=== PATIENT | female | born 1960 | race Caucasian/White ===

== ENCOUNTER 2023-08-02 22:19 | Emergency (ER) | payer OTHER, SELFPAY ==
[2023-08-02 22:22] VITALS: BP 137/81
--- NOTE | 2023-08-03 00:18 | ED.MUSCINJ ---
HPI-Injury
General
Chief Complaint: Fall
Source: patient
Time Seen by Provider: 08/02/23 23:47
Nursing documentation reviewed up to this point in time: agreed with
History of Present Illness-Injury
Initial Injury comments:
This a pleasant 62-year-old female who tripped and fell into an entertainment center. She did strike her head on the furniture. She denies loss of consciousness. She is not on any blood thinners. She remembers the fall. She has no other
complaints. She was ambulatory at the scene. She did suffer a 3 cm lack to her right parietal scalp. She does have a superficial abrasion to her forehead. Reports no other injuries.
Past History
Past History
ED Past Medical History: GERD, IDDM and Other (Alcoholic cirrhosis with ascites, hyponatremia, pancreatitis)
ED Past Surgical History: Cholecystectomy
Social History
Tobacco: Non-smoker
Alcohol: Former
Drug: None
Living: with family (with son)
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
Family History: Cancer
Review of Systems
Review of Systems
Allergies reviewed?: Yes
All Other Systems: ROS reviewed and negative except as documented in HPI and ROS
Constitutional: Reports no symptoms
EENT: Reports no symptoms
Respiratory: Reports no symptoms
Cardiac: Reports no symptoms
ABD/GI: Reports no symptoms
: Reports no symptoms
Musculoskeletal: Reports no symptoms
Skin: Reports no symptoms
Neurological: Reports headache
Endocrine: Reports no symptoms
Hematologic/Lymphatic: Reports no symptoms
Psychiatric: Reports anxiety
Skin Exam
Laceration
Right Parietal:
Length in cm: 3
Orientation: horizontal
Type of Laceration: simple
Any active bleeding?: no active bleeding
Distal skin color and temperature: normal-warm & good color
Phy Exam
General Physical Exam
General Presentation: well appearing and no apparent distress
General age: appears stated age
General Skin: warm and dry
General Habitus: normal
General Mental: alert
General Hydration: appears well hydrated
ENT Exam
ENT Exam: EOMI, neck supple, normocephalic and swallowing well
Cardiovascular Exam
Cardiovascular Exam: regular rate/rhythm and no edema
Pulmonary Exam
Pulmonary Exam: lungs clear, no respiratory distress and no cough
Musculoskeletal Exam
Musculoskeletal Exam: full ROM
Skin Exam
Skin Exam: normal color and warm/dry
Psychiatric Exam
Psychiatric Exam: normal mood/affect
Injury Course
Orders/Labs/Results
Orders:
Orders
08/02/23 22:27
CT Head W/o Iv Contrast Urgent
Comment:
Reason For Exam: FALL HEAD STRIK
08/03/23 00:18
Tetanus/Diphth/Acelpertussis [Adacel] 0.5 ml IM .ONCE ONE
*Critical Care Note
Total Time (30-74mins, 75-104mins- exclusive of procedures): Not Applicable
ED Attending Note
-
Portions of this chart may have been created with voice recognition software.� Occasional wrong word or��sound alike� substitutions may have occurred due to the inherent limitations of voice recognition software.
Discharge Plan
Departure
Patient Disposition: Home (Routine Discharge)
Date of Disposition: 08/03/23
Time of Disposition: 00:22
Patient with high blood pressure during this ER visit?: Yes
Discharge Problem:
Laceration of scalp, Fall
Instructions: Wound Care (DC), Head Injury in Adults (DC), Laceration Repair With Jenelle (DC), Skin Abrasions (DC), BLOOD PRESSURE
Prescriptions:
No Action
omeprazole 20 MG capsule,delayed release(DR/EC)
20 mg PO DAILY
loratadine 10 MG tablet
10 mg PO DAILY
spironolactone 50 MG tablet
100 mg PO DAILY
escitalopram oxalate 5 MG tablet
5 mg PO HS
insulin NPH and regular human [Novolin 70-30 FlexPen U-100] 100 UNIT/ML insulin pen
14 unit SQ DAILY@1700
insulin NPH and regular human [Novolin 70-30 FlexPen U-100] 100 UNIT/ML insulin pen
18 unit SQ DAILY
glucos sul [id number] [Glucosamine Chondroitin] 1 EACH capsule
2 ea PO DAILY
furosemide 40 MG tablet
40 mg PO DAILY Qty: 1 0RF
rifaximin [Xifaxan] 550 MG tablet
550 mg PO BID Qty: 120 0RF
lactulose 30 ML solution
30 ml PO Q6H Qty: 500 0RF
Referrals:
Kathleen Navarro PA-C [Family Provider] -
Activity Restrictions/Additional Instructions:
Your tetanus shot was updated tonight
It was a pleasure meeting you and taking part in your care. We hope for your continued healing and wellness.
Please read discharge instructions in their entirety. However, they are for general education and may not describe your exact diagnosis at discharge. Information on your ER visit and medical conditions were discussed with you along with appropriate
follow up information...
If indicated, please take your medications as instructed and indicated on discharge paperwork.
Please schedule a follow up appointment as directed. Call to schedule an appointment
Please return to the emergency department with ANY change in, persisting, or worsening of symptoms. If any of your symptoms do not improve, or persist, or become more severe within 6-12 hours, please return to the emergency department for further
care.
Please return to the emergency department if you develop a headache, neck pain/stiffness, fever greater than 100.4F, chest pain, shortness of breath, persistent nausea, vomiting, slurred speech, difficulty walking, numbness/tingling, weakness, signs
of infection or any other symptoms that are worrisome to you.
If you have any questions or concerns please do not hesitate to call the Hospital at or E-mail me directly at [email or web address]
Interventions
Interventions:
*Risk Screen - Suicide Last Done: 08/03/23 00:30
*General Assessment Last Done: 08/02/23 22:22
*Neglect/Abuse Screening Last Done: 08/03/23 00:30
*Nursing Disposition Last Done: 08/03/23 00:30
ED-Musculoskeletal Assessment Last Done: 08/02/23 23:37
ED- Neurological Assessment Last Done: 08/02/23 23:37
ED-Skin Assessment Last Done: 08/02/23 23:37
Discharge Date and Time
Discharge Date/Time: 08/03/23 00:31
Print Language: MONGOLIAN
[2023-08-03] MEDS: ADACEL 0.5 ML IM (00:21)
[2023-08-03 00:30] VITALS: BP 126/67
== END 2023-08-03 00:31 | disposition home or self-care (01) ==
LOC: EMR 22:19
PROVIDERS: EMERGENCY PHYSICIAN Student in an Organized Health Care Education/Training Program; FAMILY PHYSICIAN Physician Assistant
DX: S01.01XA Laceration without foreign body of scalp, initial encounter (principal); W01.0XXA Fall on same level from slipping, tripping and stumbling without subsequent striking against object, initial encounter; K21.9 Gastro-esophageal reflux disease without esophagitis; E11.9 Type 2 diabetes mellitus without complications; K70.30 Alcoholic cirrhosis of liver without ascites; E87.1 Hypo-osmolality and hyponatremia; Z90.49 Acquired absence of other specified parts of digestive tract
CPT/HCPCS: 99284; 90471; 70450; 90715

== ENCOUNTER 2024-02-11 21:41 | Inpatient (IN) | payer OTHER, SELFPAY ==
[2024-02-11] VITALS (7 sets, daily range): BP systolic 110–142; BP diastolic 60–87
--- NOTE | 2024-02-11 17:08 | ED.GENMED ---
History of Present Illness
General
Chief Complaint: Hallucinations
Source: patient
Exam Limitations: none
Time Seen by Provider: 02/11/24 16:45
Nursing documentation reviewed up to this point in time: agreed with
History of Present Illness
History of Present Illness:
63-year-old female liver disease due to alcoholism last drink was 9 months ago had her son's wedding last week felt nauseous and dizzy vomited, admits to be noncompliant with her diuretic and her lactulose, noticed her eyes were turning a bit
yellow, so she took some extra lactulose did have some loose bowel movements, recently she has been seeing things that are not there, although she is oriented to person and place, denies any falls denies any head trauma denies dysuria denies
frequency denies headache she does feel tremulous and shaky
Past History
Past History
ED Past Medical History: GERD, IDDM and Other (Alcoholic cirrhosis with ascites, hyponatremia, pancreatitis)
ED Past Surgical History: Cholecystectomy
Social History
Tobacco: Non-smoker
Alcohol: Former
Drug: None
Personal:
Living: with family (with son)
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
Family History: Cancer
Review of Systems
Review of Systems
All Other Systems: Not applicable
Constitutional: Reports fatigue; Denies fever
EENT: Reports no symptoms
Respiratory: Reports no symptoms
Cardiac: Reports no symptoms
ABD/GI: Reports nausea
: Reports no symptoms
Skin: Reports no symptoms
Neurological: Reports dizzy; Denies headache
Psychiatric: Reports hallucinations (Visual not auditory)
Phy Exam
Physical Exam
Physical Exam:
Physical Exam
General: no apparent distress, not acutely ill
Neck: Slight icterus
Heart: s1/s2 regular rate and rhythm, no murmur. equal radial pulses.
Lungs: no acute respiratory distress. clear bilaterally
Abdomen: Nontender
Neuro: alert and oriented. Positive asterixis
Skin: no rash
Psychiatric: Cooperative
Extremities: no edema.
Course
Orders/Labs/Results
Orders:
Orders
02/11/24 16:45
Electrocardiogram (*1) Urgent
Reason for Study: Shortness of Breath
EKG- Treatment ONCE
02/11/24 16:47
Ammonia Urgent
Comprehensive Metabolic Panel Urgent
PT/INR [Prothrombin Time] Urgent
PTT Urgent
Serum Osmolality Urgent
TSH Reflex To Free T4 Urgent
02/11/24 16:48
Complete Blood Count/With Diff Urgent
Osmolality, Random Urine Urgent
Comment: ADD ON
Urine Sodium Urgent
Comment: ADD ON
02/11/24 16:57
CT Head W/o Iv Contrast Urgent
Comment:
Reason For Exam: ataxia vomiting
02/11/24 18:16
UA [Urinalysis] Urgent
Date Specimen was Collected: 02/11/24
Time Specimen was Collected: 18:15
Urine Microscopic Urgent
Date Specimen was Collected: 02/11/24
Time Specimen was Collected: 18:15
02/11/24 19:56
Add On- LAB Urgent
Tests Added?: tsh, serum osm, urine sodium, urine osm,
02/11/24 20:15
0.9% Sodium Chloride 1000 ml [Nss] 1,000 ml IV 80 mls/hr
Abnormal Lab Results
02/11/24 02/11/24 02/11/24
16:47 16:48 18:16
WBC 3.2 L 10^3/uL
(4.8-10.8)
RBC 3.65 L 10^6/uL
(4.20-5.40)
MCV 102.7 H fL
(81.0-99.0)
MCH 35.1 H pg
(27.0-31.0)
Absolute Lymphs (auto) 0.5 L 10^3/uL
(1.2-3.4)
Lymphocytes % 15.9 L %
(20.5-51.1)
PT 17.1 H Sec
(11.4-14.6)
Sodium 129 L mmol/L
(135-145)
Chloride 95 L mmol/L
(98-107)
Carbon Dioxide 20 L mmol/L
(22-30)
Creatinine 0.5 L mg/dL
(0.6-1.0)
Glucose 185 H mg/dl
(70-99)
Total Bilirubin 6.9 H mg/dl
(0.2-1.3)
AST 246 H U/L
(14-36)
ALT 77 H U/L
(0-35)
Urine Ketones 1+ A
(Negative)
Urine Occult Blood 1+ A
(Negative)
Urine Nitrite Positive A
(Negative)
Urine Bilirubin 1+ A
(Negative)
Urine Urobilinogen 3+ A
(Neg - 1+)
Ur Leukocyte Esterase 1+ A
(Negative)
Urine WBC 30-40 A /HPF
(0-5)
Urine Bacteria Moderate A
(Negative)
POC Glucose
02/11/24
19:56
WBC
RBC
MCV
MCH
Absolute Lymphs (auto)
Lymphocytes %
PT
Sodium
Chloride
Carbon Dioxide
Creatinine
Glucose
Total Bilirubin
AST
ALT
Urine Ketones
Urine Occult Blood
Urine Nitrite
Urine Bilirubin
Urine Urobilinogen
Ur Leukocyte Esterase
Urine WBC
Urine Bacteria
POC Glucose 136 H mg/dl
(70-99)
02/11/24 16:48
02/11/24 16:47
Vital Signs
Initial and Last Documented VS:
Initial Vital Signs
BP Pulse Ox
142/87 98
02/11/24 16:32 02/11/24 16:32
Last Documented Vital Signs
Temp Pulse Resp BP Pulse Ox
99.1 F 86 18 123/67 98
02/11/24 19:50 02/11/24 19:50 02/11/24 19:50 02/11/24 19:50 02/11/24 19:50
MDM/Problems Addressed
Differential Diagnosis Includes:
Electrolyte abnormality hepatic encephalopathy, withdrawal syndrome occult trauma deconditioning
MDM/Problems Addressed:
Tremulous visual hallucinations
Chronic conditions affecting care:
Liver disease
Chronic conditions affecting care: DM and Other
Acute Exacerbation and/or Progression of Chronic Illness:
liver
Acute Exacerbation and/or Progression of Chronic Illness: DM and Other (liver)
*Radiology
Radiology exam reviewed: preliminary read by ED provider
*Pulse Oximetry
Patient hypoxic: no
*EKG
Interpreted by ED Provider?: Yes
Interpretation: normal
Comparison EKG: no comparison EKG present
Heart Rate: 78
Rate: normal
Rhythm: sinus
Ischemia: no ischemia
*Piano Instructor Interpretation
Rate: normal
Interpretation: normal
*Critical Care Note
Total Time (30-74mins, 75-104mins- exclusive of procedures): Not Applicable
Update Note
Update Note:
Update labs are noted patient still feels unsteady, he is urinating frequently although she is on a diuretic she feels unwell to go home urine culture has been sent hyponatremia labs have been sent will start low-dose saline
ED Attending Note
-
Portions of this chart may have been created with voice recognition software.� Occasional wrong word or��sound alike� substitutions may have occurred due to the inherent limitations of voice recognition software.
Discharge Plan
Departure
Patient Disposition: Admit
Date of Disposition: 02/11/24
Time of Disposition: 20:13
Admit to: Med/Surg
Presentation/result/management discussed w/ accepting MD/DO: Hospitalist
Patient with high blood pressure during this ER visit?: No
Condition: Fair
Discharge Problem:
Alcoholic cirrhosis of liver with ascites, Liver failure, Hepatic encephalopathy, Acute hyponatremia
Prescriptions:
No Action
omeprazole 20 MG capsule,delayed release(DR/EC)
20 mg PO DAILY
loratadine 10 MG tablet
10 mg PO DAILY
spironolactone 50 MG tablet
100 mg PO DAILY
escitalopram oxalate 5 MG tablet
5 mg PO HS
insulin NPH and regular human [Novolin 70-30 FlexPen U-100] 100 UNIT/ML insulin pen
14 unit SQ DAILY@1700
insulin NPH and regular human [Novolin 70-30 FlexPen U-100] 100 UNIT/ML insulin pen
18 unit SQ DAILY
glucos sul [id number] [Glucosamine Chondroitin] 1 EACH capsule
2 ea PO DAILY
furosemide 40 MG tablet
40 mg PO DAILY Qty: 1 0RF
rifaximin [Xifaxan] 550 MG tablet
550 mg PO BID Qty: 120 0RF
lactulose 30 ML solution
30 ml PO Q6H Qty: 500 0RF
Referrals:
Kathleen Navarro PA-C [Family Provider] -
Interventions
Interventions:
*Risk Screen - Suicide Last Done: 02/11/24 16:35
*General Assessment Last Done: 02/11/24 16:35
*Neglect/Abuse Screening Last Done: 02/11/24 16:35
*ED COVID-19 Vaccine History Last Done: 02/11/24 16:35
ED-Suicide Risk Assessment Last Done: 02/11/24 18:56
ED- Neurological Assessment Last Done: 02/11/24 18:54
ED-Psychological Assessment Last Done: 02/11/24 18:54
Discharge Date and Time
Print Language: CITIZEN [place]
[2024-02-11 17:17] LABS: Ammonia 16 umol/L (9-30)
[2024-02-11 17:19] LABS: ALT (SGPT) 77 U/L (0-35); AST (SGOT) 246 U/L (14-36); Albumin 3.8 g/dl (3.5-5.0); Alkaline Phosphatase 118 U/L (38-126); Blood Urea Nitrogen 11 mg/dl (7-17); Calcium 8.7 mg/dl (8.4-10.2); Carbon Dioxide 20 mmol/L (22-30); Chloride 95 mmol/L (98-107); Estimated Creatinine Clearance 66 ml/min; Glucose 185 mg/dl (70-99); Potassium 3.9 mmol/L (3.5-5.1); Sodium 129 mmol/L (135-145); Total Bilirubin 6.9 mg/dl (0.2-1.3); Total Protein 7.1 g/dl (6.3-8.2); eGFR > 60.00
[2024-02-11 17:30] LABS: INR 1.36; PT 17.1 Sec (11.4-14.6)
[2024-02-11 17:31] LABS: APTT 34.7 Sec (23.4-35.0)
[2024-02-11 17:48] LABS: TSH Reflex To Free T4 2.19 uIU/ml (0.47-4.68)
[2024-02-11 18:02] LABS: % Basophils 0.9 % (0-2); % Eosinophils 0.6 % (0-6); % Immature Granulocytes 0.3 % (0-0.5); % Lymphocytes 15.9 % (20.5-51.1); % Monocytes 7.8 % (1.7-9.3); % Neutrophils 74.5 % (42.2-75.2); Absolute Lymphocytes 0.5 10^3/uL (1.2-3.4); Absolute Monocytes 0.3 10^3/uL (0.1-0.6); Absolute Neutrophils 2.4 10^3/uL (1.4-6.5); Hematocrit 37.5 % (37.0-47.0); Hemoglobin 12.8 g/dL (12.0-16.0); Mean Corp Hgb Conc. 34.1 g/dL (33.0-37.0); Mean Corpuscular Hgb 35.1 pg (27.0-31.0); Mean Corpuscular Volume 102.7 fL (81.0-99.0); Nucleated Red Blood Cells % 0 %; Red Blood Cell Count 3.65 10^6/uL (4.20-5.40); Red Cell Dist. Width 13.8 % (11.5-14.5); White Blood Cell Count 3.2 10^3/uL (4.8-10.8)
[2024-02-11 18:45] LABS: Urine Albumin Trace (Neg - Trace); Urine Bilirubin 1+ (Negative); Urine Character Slightly Cloudy (Clear); Urine Color Yellow; Urine Glucose Negative (Negative); Urine Ketone 1+ (Negative); Urine Leukocyte 1+ (Negative); Urine Nitrite Positive (Negative); Urine Occult Blood 1+ (Negative); Urine Specific Gravity 1.025 (<1.030); Urine Urobilinogen 3+ (Neg - 1+)
[2024-02-11 19:39] LABS: Urine Bacteria Moderate (Negative); Urine Red Blood Cell 0-2 /HPF (0-2); Urine Squamous Cell >30 /LPF (Few); Urine White Cell 30-40 /HPF (0-5)
[2024-02-11 19:57] LABS: Glucose - Point of Care 136 mg/dl (70-99)
[2024-02-11 20:09] LABS: Osmolality Urine 557 mOsm/kg (300-900)
[2024-02-11 20:23] LABS: Urine Sodium 60 mmol/L (30-90)
--- NOTE | 2024-02-11 20:26 | HPS.HSE ---
Family Physician
-
Family Physician: Kathleen Navarro
Chief Complaint
-
hallucinaton
History of Present Illness
63-year-old female liver disease due to alcoholism last drink was 9 months ago, type 2 DM, depression, GERD presented to us with hallucination since last Sunday. she is been seeing people in her house. she is dizzy since last week. she vomited and
was nauseous all day last Sunday. she is noticing her blood sugars were high since last Sunday. denied BIGGS or syncope. patient denied fever, chills, chest pain, sob.denied abdominal pain. she has diarrhea from lactulose. she stopped taking
Lactulose in September but restarted on Sunday due to hallucination. denied dysuria or hematuria.
upon arrival noted positive, hyponatremia. admitting for further management.
Medical History
Past Medical History
Past Medical History: Reports Other
Additional Past Medical History:
Type 2 diabetes
Cirrhosis of liver
Type II diet
depression
Schatzki's ring
LE cellulitis
pancreatitis
GERD
esophageal dilation
Past Surgical History: Reports Other
Additional Past Surgical History:
Cholecystectomy
Social History
Tobacco: Non-smoker
Alcohol: Former
Drug: None
Living: Alone
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
Family History: Not pertinent
Allergies / Home Medications
Allergies reflects when Allergies were last updated in [employer].
Home Medications with original date entered in [employer]
Allergy/Medication List:
Allergies
Allergy/AdvReac Type Severity Reaction Status Date / Time
cephalexin monohydrate Allergy Hives Verified 11/23/21 16:28
[From Keflex]
levofloxacin Allergy redness/itching Verified 11/23/21 16:28
at
injection
site
Penicillins Allergy ear Verified 11/23/21 16:28
swelling
when taken
for ear
infection
sulfamethoxazole Allergy Rash Verified 11/23/21 16:28
trimethoprim Allergy Rash Verified 11/23/21 16:28
Home Medications
loratadine 10 mg tablet 10 mg PO DAILY 07/15/18
omeprazole 20 mg capsule,delayed release 20 mg PO DAILY 07/15/18
furosemide 40 mg tablet 40 mg PO DAILY #1 tab 07/18/18
rifaximin 550 mg tablet (Xifaxan) 550 mg PO BID ##120 07/18/18
alendronate 70 mg tablet 70 mg PO NUÑEZ 02/11/24
celecoxib 100 mg capsule 100 mg PO DAILYPRN PRN headache 02/11/24
cholecalciferol (vitamin D3) 25 mcg (1,000 unit) tablet (Vitamin D3) 25 mcg PO DAILY 02/11/24
escitalopram oxalate 10 mg tablet 10 mg PO HS 02/11/24
ibuprofen 200 mg tablet (Advil) 200 mg PO Q6HPRN PRN mild pain 02/11/24
insulin aspart U-100 100 unit/mL (3 mL) subcutaneous pen 9 unit SC AC 02/11/24
insulin glargine 100 unit/mL (3 mL) subcutaneous pen (Lantus Solostar U-100 Insulin) 18 unit SC DAILY 02/11/24
lactulose 20 gram/30 mL oral solution 30 ml PO TID 02/11/24
loperamide 2 mg capsule 2 mg PO Q6HPRN PRN diarrhea 02/11/24
spironolactone 100 mg tablet 100 mg PO DAILY 02/11/24
trazodone 50 mg tablet 25 mg PO HSPRN PRN sleep 02/11/24
Review of Systems
-
Constitutional: Reports No Symptoms
EENT: Reports No Symptoms
Respiratory: Reports No Symptoms
Cardiac: Reports No Symptoms
Abdomen/GI: Reports Nausea and Vomiting
: Reports No Symptoms
Musculoskeletal: Reports No Symptoms
Skin: Reports No Symptoms
Neurological: Reports No Symptoms and Dizzy
Endocrine: Reports No Symptoms
Hematologic/Lymphatic: Reports No Symptoms
Psych: Reports No Symptoms
Physical Exam
Vital Signs
Vital Signs
Temp Pulse Resp BP Pulse Ox
99.1 F 86 18 123/67 98
02/11/24 19:50 02/11/24 19:50 02/11/24 19:50 02/11/24 19:50 02/11/24 19:50
Physical Exam
General: Well Developed, Well Nourished and No Apparent Distress
HEENT: NormoCephalic, Moist mucous membranes and Atraumatic
Respiratory: Clear
Cardiac: S1/S2 and Regular Rhythm; No Murmur or Rub
GI: Soft, Non Tender, Non Distended and Normal Bowel Sounds; No Organomegaly
Rectal: Deferred by Provider
Musculoskeletal: No Clubbing, No Cyanosis and No Edema
Skin: No Rash
Neuro: AO x 3 and Nonfocal/grossly intact
Psych: Calm
Laboratory Results
-
02/11/24 16:48
02/11/24 16:47
Laboratory Results
PT 17.1 Sec (11.4-14.6) H 02/11/24 16:47
INR 1.36 02/11/24 16:47
APTT 34.7 Sec (23.4-35.0) 02/11/24 16:47
Total Bilirubin 6.9 mg/dl (0.2-1.3) H 02/11/24 16:47
AST 246 U/L (14-36) H 02/11/24 16:47
ALT 77 U/L (0-35) H 02/11/24 16:47
Alkaline Phosphatase 118 U/L (38-126) 02/11/24 16:47
Data Reviewed
-
CT Scan: Report Reviewed by me
Lab Data: Labs Reviewed by me
Impression/Plan
-
# Metabolic encephalopathy/hallucination likely from urinary tract infection
-Urine culture pending
-Head CT with no focal or acute intracranial abnormalities.There is mild diffuse cortical and cerebellar atrophy
-iv cipro continued
-tylenol prn for fever
# Hyponatremia likely hypovolemic
-Sodium 129
-normal saline continued
-BMP in am
# acute on Chronic transaminitis
# History of liver disease/ascites
-AST 246, ALT 77
-obtain direct Bili
-US of abdomen
-Hold furosemide, spironolactone
-Xifaxan continued
-Lactulose continued
# Type 2 diabetes
-Lantus 10 units continued
-insulin aspart 5units with meals
-Sliding scale
- CHO diet
# GERD
-PPI continued
# Depression
Citalopram continued
# DVT prophylaxis
-Lovenox
# STATUS
-Full code
[2024-02-11] MEDS: NSS 1000 IV (20:33)
[2024-02-11 20:43] LABS: Osmolality Serum 272 mOsm/kg (275-300)
--- NOTE | 2024-02-11 20:51 | W.PN.UPDATE ---
Update Note
Progress Note Update
Patient seen in conjunction with JAVIER. I agree with history and physical as well as the assessment and plan.
This is a 61-year-old with a past medical history that is significant for diabetes on insulin, GERD, history of alcoholic cirrhosis without known varices and previously complicated by ascites for which she is on a diuretic regimen as well as
lactulose and rifaximin presenting to the emergency department with complaints of hallucinations since Sunday.
Patient reports she has had hallucinations in the past. She reports having visual hallucinations at night with people walking into her house. She has become anxious due to this. Patient denies any other symptoms. She does have a history of
chronic low p.o. intake. She denies dysuria hematuria. She denies fevers or chills. She denies any headaches. She denies any sick contacts.
She reports that her last alcohol was in March. She denies any abdominal pain. She had 1 episode of vomiting 1 week ago. She denies any melena. She denies any hematochezia or hematemesis.
Patient denies any increased abdominal girth. She reports that she had stopped taking lactulose recently due to diarrhea but she started taking it again as soon as she started developing the visual hallucinations.
Emergency Department she was afebrile, blood pressure was 120/60 with a pulse of 86 satting 99% on room air.
She has no thrombocytopenia which could not be counted on this lab. No leukocytosis and hemoglobin was stable at 12.8. Electrolytes notable for a sodium of 129 with the rest of the electrolytes BUN/creatinine were normal. Blood glucose was
elevated at 185. Total bilirubin is elevated at 6.9. AST 246, ALT 77, normal alk phos. INR is normal. Ammonia level is 16. CT of the head is unremarkable. UA shows positive nitrites leukocyte Estrace WBCs and bacteria.
Exam shows no jaundice, no RUQ tenderness, no ascites and no edema.
A&P
Hallucinations - More likely related to UTI than hepatic encephalopathy. Ammonia level is 16. She has no asterixis, no ascites on exam and no bleeding to suggest decompensation. Last etoh 10 months ago.
- admit to med/surg
- urine cultures
- start cipro given allergies to cephalosporins
Cirrhosis - No ascites. Elevated LFTs. Patients notes LFTs were high on outpatient labs in october.
- abd u/s
- continue lactulose for 3 soft bms per day, hold for diarrhea
- continue rifaximin
- hold lasix/spironolactone for now unless ascites present
Hyponatremia - Hypovolemic based on low po and diuretic use
- IV fluids for now repeat Na in am
- check urine na/osm
DM II
- lantus 10 hs
- aspart moderate sliding scale
DVT PPX - lovenox sq
Code status - full code
[2024-02-11] MEDS: CIPRO 200 MG 100 IV (21:41)
[2024-02-11] MEDS: LEXAPRO 10 MG PO (22:23)
[2024-02-11] MEDS: DUPHALAC/CHRONULAC 20 GRAMS PO (22:23)
[2024-02-11] MEDS: DESYREL 25 MG PO (22:28)
[2024-02-11 23:52] LABS: Glucose - Point of Care 152 mg/dl (70-99)
[2024-02-12 00:54] VITALS: BMI 19.2
[2024-02-12 06:35] LABS: ALT (SGPT) 62 U/L (0-35); AST (SGOT) 161 U/L (14-36); Albumin 2.8 g/dl (3.5-5.0); Alkaline Phosphatase 92 U/L (38-126); Blood Urea Nitrogen 7 mg/dl (7-17); Carbon Dioxide 22 mmol/L (22-30); Chloride 103 mmol/L (98-107); Estimated Creatinine Clearance 66 ml/min; Glucose 56 mg/dl (70-99); Sodium 132 mmol/L (135-145); Total Bilirubin 5.7 mg/dl (0.2-1.3); Total Protein 5.7 g/dl (6.3-8.2); eGFR > 60.00
[2024-02-12 07:30] VITALS: BP 98/51
--- NOTE | 2024-02-12 08:47 | W.PN.HOSP.TC ---
Today's Communication/Plan
-
.
Assessment / Plan
Assessment / Plan
Metabolic encephalopathy, likely hepatic encephalopathy
- contaminated urine, ucx pending
- Head CT: no acute intracranial abnormalities
- ciprofloxacin
- tylenol for fever
Hypotonic Hyponatremia
- NS
- concern for low circulating volume
Hypokalemia
- replete
Alcoholic cirrhosis
Acute on chronic transaminitis
- hold furosemide, spironolactone
- has not taken lactulose in 4 months
- cont xifaxan, lactulose
- abdomen u/s: cirrhosis, cholecystectomy
Type 2 DM
- cont home lantus
- insulin aspart 5u w meals
- SSI
GERD
- cont PPI
Depression
- cont citalopram
Diet: diabetic
DVT ppx: lovenox
Code status: FULL CODE
Anticipated Discharge: > 48 hours
Subjective/Interval History
-
Date of Service: February 12, 2024
Ms. Kendra Lynn is a 63yo F pmh alcoholic cirrhosis, hx alcohol use disorder w last drink 9 months ago, IDDM, GERD admitted for acute hyponatremia. Last week, she felt nauseous, dizzy, and vomited. Has been noncompliant with diuretic and
lactulose. + visual hallucinations a day ago, tremors, yellow eyes, diarrhea from lactulose. Denies BIGGS, fever, chills, CP, SOB, abdominal pain, constipation. Hyponatremia incidentally found on admission. Hallucinations have resolved
Objective Data
-
Labs:
Laboratory Results
02/12/24
05:44
Sodium 132 L
Potassium 3.0 L
Chloride 103
Carbon Dioxide 22
BUN 7
Creatinine 0.6
Glucose 56 L
Calcium 8.0 L
Total Bilirubin 5.7 H
AST 161 H
ALT 62 H
Alkaline Phosphatase 92
Vital Signs:
Vital Signs
Temp Pulse Resp BP Pulse Ox
99.1 F 86 16 110/60 98
02/11/24 19:50 02/11/24 23:28 02/11/24 23:28 02/11/24 23:28 02/11/24 23:28
I&O
02/11/24 02/12/24 02/13/24
06:59 06:59 06:59
Intake Total 1160 / 1160
Balance 1160 / 1160
Review of Systems
-
History Source: Patient
Constitutional: Reports No Symptoms
EENT: Reports No Symptoms Reported
Respiratory: Reports No Symptoms
Cardiac: Reports No Symptoms
Abdomen/GI: Reports No Symptoms
Genitourinary: Reports No Symptoms
Musculoskeletal: Reports No Symptoms
Skin: Reports No Symptoms
Neuro: Reports No Symptoms
Physical Exam
-
General: Well Developed and Well Nourished
HEENT: Normocephalic, Atraumatic and Other (scleral icterus)
Respiratory: Clear to Auscultation
Cardiac: Regular Rhythm and S1/S2
GI: Soft, Nontender, Nondistended and Normal Bowel Sounds
Genito-urinary: No Costovertebral Tender
Musculoskeletal: No Clubbing, No Cyanosis and No Edema
Skin: Warm and Dry
Neuro: AO x 3
Psych: Calm
[2024-02-12 08:56] LABS: Glycohemoglobin (HgbA1c) 6.3 % (4.0-5.6)
[2024-02-12 10:00] LABS: Glucose - Point of Care 79 mg/dl (70-99)
[2024-02-12] MEDS: NOVOLOG FLEXPEN 5 UNITS SC ×3 (10:02→18:40)
[2024-02-12] MEDS: DUPHALAC/CHRONULAC 20 GRAMS PO ×3 (10:02→22:22)
[2024-02-12] MEDS: NOVOLOG FLEXPEN-LOW RESISTANCE SC ×2 (10:02→18:40)
[2024-02-12] MEDS: CIPRO 200 MG 100 IV ×2 (10:03→22:22)
[2024-02-12] MEDS: XIFAXAN 550 MG PO ×2 (10:03→22:23)
[2024-02-12] MEDS: LANTUS 0.1 UNITS SC (10:03)
[2024-02-12] MEDS: PROTONIX 40 MG PO (10:03)
[2024-02-12] MEDS: NSS 1000 IV (10:05)
--- NOTE | 2024-02-12 10:40 | W.PN.UPDATE ---
Update Note
Progress Note Update
I saw and evaluated the patient. I reviewed the resident�s note and agree with findings and plan as documented in the resident�s note.
No acute complaints.
Gen: NAD, AAOx3.
Eyes: EOMI, PERRLA, no scleral icterus.
Neck: supple.
CV: RRR, +S1/S2, no m/r/g.
Resp: CTAB, no rales, wheezes, or rhonchi.
Abd: +BS, soft, NT, ND
Skin: No rashes.
Neuro: CN 2-12 intact, non-focal.
Psych: Normal mood and affect.
CT brain: No focal or acute intracranial abnormalities. Mild diffuse cortical and cerebellar atrophy.
Acute Metabolic encephalopathy/hallucinations possibly due to acute UTI:
-Pt denies dysuria/hematuria/cloudy urine/change in urinary frequency. Does mention foul smelling urine over the last week.
-currently states hallucinations have resolved
-I suspect that there is a component of hepatic encephalopathy due to lactulose noncompliance (see below).
-cont Cipro, follow UCx
Hypovolemic Hyponatremia:
-cont IVFs, Na improving
-holding Lasix/Aldactone
Acute on chronic transaminitis, underlying alcoholic cirrhosis with ascites:
-NH3 16 but pt was noncompliant with lactulose for 4 months and just resumed lactulose a few days [employer]IDE [employer]. I suspect that there is a component of hepatic encephalopathy.
-Holding lasix/spironolactone with hyponatremia/intravascular volume depletion
-cont Xifaxan/Lactulose
Other problems:
Hypokalemia: PO K
DM2: cont Lantus/premeal Novolog/SSI/accuchecks/diabetic diet
GERD: Cont PPI
Depression: cont Lexapro but may need to stop with hyponatremia
FULL/Lovenox
Total time spent on today's encounter was 50 minutes which included time spent in counseling the patient/family regarding diagnosis and treatment plan as listed above, goals of care, and symptom management. Case was discussed with nursing staff,
specialists, and care coordinators/case management. All labs and imaging personally reviewed by me. Remainder the time spent in detailed review of previous records, lab data, imaging, and other medical provider documentation.
[2024-02-12] MEDS: KCL 40 MEQ PO ×2 (12:25→15:27)
[2024-02-12 12:37] LABS: Hematocrit 31.1 % (37.0-47.0); Hemoglobin 10.8 g/dL (12.0-16.0); Mean Corp Hgb Conc. 34.7 g/dL (33.0-37.0); Mean Corpuscular Volume 103.7 fL (81.0-99.0); Red Cell Dist. Width 13.9 % (11.5-14.5); White Blood Cell Count 2.1 10^3/uL (4.8-10.8)
[2024-02-12 12:43] LABS: Glucose - Point of Care 196 mg/dl (70-99)
[2024-02-12 12:58] LABS: Mean Platelet Volume 11.1 fL (7.4-10.4); Platelet Count 31 10^3/uL (130-400)
[2024-02-12] MEDS: NOVOLOG FLEXPEN-LOW RESISTANCE 1 UNITS SC (13:24)
[2024-02-12 15:52] VITALS: BP 96/54
[2024-02-12 16:53] VITALS: BMI 19.2
[2024-02-12 18:40] LABS: Glucose - Point of Care 121 mg/dl (70-99)
[2024-02-12 22:12] VITALS: BP 122/67
[2024-02-12 22:13] VITALS: BMI 19.3
[2024-02-12 22:17] LABS: Glucose - Point of Care 77 mg/dl (70-99)
[2024-02-12] MEDS: LEXAPRO 10 MG PO (22:23)
--- NOTE | 2024-02-12 22:36 | PTCARENOTE ---
Patient arrived from ED. Patient oriented to room, call dixon within reach. See documented vital signs and assessment. All questions answered.
[2024-02-12 23:00] VITALS: BP 101/61
[2024-02-13] MEDS: NSS 1000 IV ×2 (00:56→10:49)
[2024-02-13 07:22] VITALS: BP 97/56
[2024-02-13 08:02] LABS: Glucose - Point of Care 100 mg/dl (70-99)
[2024-02-13] MEDS: NOVOLOG FLEXPEN-LOW RESISTANCE SC ×3 (08:23→16:53)
[2024-02-13 08:29] LABS: ALT (SGPT) 56 U/L (0-35); AST (SGOT) 116 U/L (14-36); Albumin 2.5 g/dl (3.5-5.0); Alkaline Phosphatase 85 U/L (38-126); Blood Urea Nitrogen 4 mg/dl (7-17); Calcium 7.3 mg/dl (8.4-10.2); Carbon Dioxide 22 mmol/L (22-30); Chloride 107 mmol/L (98-107); Estimated Creatinine Clearance 66 ml/min; Glucose 103 mg/dl (70-99); Hematocrit 31.3 % (37.0-47.0); Hemoglobin 10.5 g/dL (12.0-16.0); Mean Corp Hgb Conc. 33.5 g/dL (33.0-37.0); Mean Corpuscular Hgb 35.4 pg (27.0-31.0); Mean Corpuscular Volume 105.4 fL (81.0-99.0); Mean Platelet Volume 12.2 fL (7.4-10.4); Platelet Count 31 10^3/uL (130-400); Potassium 3.8 mmol/L (3.5-5.1); Red Blood Cell Count 2.97 10^6/uL (4.20-5.40); Red Cell Dist. Width 14.1 % (11.5-14.5); Sodium 134 mmol/L (135-145); Total Bilirubin 4.9 mg/dl (0.2-1.3); Total Protein 5.2 g/dl (6.3-8.2); White Blood Cell Count 1.7 10^3/uL (4.8-10.8); eGFR > 60.00
[2024-02-13] MEDS: LANTUS 0.1 UNITS SC (08:29)
[2024-02-13] MEDS: PROTONIX 40 MG PO (08:29)
[2024-02-13] MEDS: DUPHALAC/CHRONULAC 20 GRAMS PO ×3 (08:29→21:16)
[2024-02-13] MEDS: XIFAXAN 550 MG PO ×2 (08:29→21:16)
--- NOTE | 2024-02-13 08:38 | W.PN.HOSP.TC ---
Today's Communication/Plan
-
.
Assessment / Plan
Assessment / Plan
Metabolic encephalopathy, likely hepatic encephalopathy
- contaminated urine
- Head CT: no acute intracranial abnormalities
- ciprofloxacin
- tylenol for fever
Hypotonic Hyponatremia
- NS
- concern for low circulating volume
- improving
Hypokalemia
- resolved
Alcoholic cirrhosis
Acute on chronic transaminitis
- hold furosemide, spironolactone
- has not taken lactulose in 4 months
- cont xifaxan, lactulose
- abdomen u/s: cirrhosis, cholecystectomy
Type 2 DM
- cont home lantus
- insulin aspart 5u w meals
- SSI
GERD
- cont PPI
Depression
- cont citalopram
Diet: diabetic
DVT ppx: lovenox
Code status: FULL CODE
Anticipated Discharge: 24 - 48 hours
Subjective/Interval History
-
Date of Service: February 13, 2024
Ms. Kendra Lynn is a 63yo F h alcoholic cirrhosis, hx alcohol use disorder w last drink 9 months ago, IDDM, GERD admitted for acute hyponatremia. No acute overnight events.
Objective Data
-
Labs:
Laboratory Results
02/13/24
07:31
WBC 1.7 L*
Hgb 10.5 L
Hct 31.3 L
Plt Count 31 L
Sodium 134 L
Potassium 3.8 D
Chloride 107
Carbon Dioxide 22
BUN 4 L
Creatinine 0.5 L
Glucose 103 H
Calcium 7.3 L
Total Bilirubin 4.9 H
AST 116 H
ALT 56 H
Alkaline Phosphatase 85
Vital Signs:
Vital Signs
Temp Pulse Resp BP Pulse Ox
98.1 F 72 18 97/56 98
02/13/24 07:22 02/13/24 07:22 02/13/24 07:22 02/13/24 07:22 02/13/24 07:22
I&O
02/12/24 02/13/24 02/14/24
06:59 06:59 06:59
Intake Total 1160 / 1160 1220 / 1220
Balance 1160 / 1160 1220 / 1220
Review of Systems
-
History Source: Patient
Constitutional: Reports No Symptoms
EENT: Reports No Symptoms Reported
Respiratory: Reports No Symptoms
Cardiac: Reports No Symptoms
Abdomen/GI: Reports No Symptoms
Genitourinary: Reports No Symptoms
Musculoskeletal: Reports No Symptoms
Skin: Reports No Symptoms
Neuro: Reports No Symptoms
Physical Exam
-
General: Well Developed and Well Nourished
HEENT: Normocephalic, Atraumatic and Other (scleral icterus)
Respiratory: Clear to Auscultation
Cardiac: Regular Rhythm and S1/S2
GI: Soft, Nontender, Nondistended, Normal Bowel Sounds and Other (asterixis)
Musculoskeletal: No Clubbing, No Cyanosis and No Edema
Skin: Warm and Dry
Neuro: AO x 3
[2024-02-13] MEDS: NOVOLOG FLEXPEN 5 UNITS SC ×3 (10:27→16:53)
[2024-02-13] MEDS: CIPRO 200 MG 100 IV (10:40)
[2024-02-13 10:58] LABS: Band Neutrophils 0 % (0-3); Eosinophils 2 % (0-6); Lymphocytes 34 % (20-51); Monocytes 9 % (2-9); Normal RBC Morphology Yes; Platelets Checked Yes; Segmented Neutrophils 55 % (42-75); Total Cells Counted 100
[2024-02-13 10:59] LABS: Absolute Neutrophils -Man Diff 0.9 10^3/uL (1.4-6.5)
--- NOTE | 2024-02-13 11:44 | W.PN.UPDATE ---
Update Note
Progress Note Update
I saw and evaluated the patient. I reviewed the resident�s note and agree with findings and plan as documented in the resident�s note.
No acute complaints.
Gen: NAD, AAOx3.
Eyes: EOMI, PERRLA, mild-mod scleral icterus.
Neck: supple.
CV: remains RRR, +S1/S2, no m/r/g.
Resp: CTAB anteriorly, no rales, wheezes, or rhonchi.
Abd: +BS, soft, NT, ND
Skin: No rashes.
Neuro: CN 2-12 intact, non-focal.
Psych: Normal mood and affect.
CT brain: No focal or acute intracranial abnormalities. Mild diffuse cortical and cerebellar atrophy.
Acute Metabolic encephalopathy/hallucinations likely due to hepatic encephalopathy (POA):
-Pt denies dysuria/hematuria/cloudy urine/change in urinary frequency. Does mention foul smelling urine over the last week.
-currently states hallucinations have resolved
-afebrile, no leukocytosis. U/A contaminated with squamous cells.
-Considering patient is without urinary symptoms, is afebrile, does not have leukocytosis, etc., in retrospect the patient never should have had a urinalysis checked. The U/A is contaminated and unreliable. UTI has been ruled out. Stop abx.
Hypovolemic Hyponatremia:
-cont IVFs, Na improving
-holding Lasix/Aldactone
Acute on chronic transaminitis, underlying alcoholic cirrhosis with ascites:
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 The patient likely had hepatic encephalopathy as above. Note that a normal ammonia does not rule out hepatic encephalopathy.
-Holding lasix/spironolactone with hyponatremia/intravascular volume depletion
-cont Xifaxan/Lactulose
Pancytopenia:
-likely due to cirrhosis
-c/s Heme
Other problems:
Hypokalemia, resolved
DM2: cont Lantus/premeal Novolog/SSI/accuchecks/diabetic diet
GERD: Cont PPI
Depression: cont Lexapro
FULL/Lovenox
[2024-02-13 11:55] LABS: Glucose - Point of Care 178 mg/dl (70-99)
[2024-02-13 15:10] VITALS: BP 114/63
[2024-02-13 15:47] LABS: Glucose - Point of Care 143 mg/dl (70-99)
--- NOTE | 2024-02-13 16:31 | CM ---
manager mortgage reviewed patient's chart and met with patient and patient lives alone in a one story home, patient is independent with adl's and ambulation, no dme, patient drives, Home when stable, no needs.
PCP: Kathleen Navarro
Pharmacy: [facility].
Plan; Home no needs when stable.
[2024-02-13] MEDS: LEXAPRO 10 MG PO (21:16)
[2024-02-13 22:04] LABS: Glucose - Point of Care 123 mg/dl (70-99)
[2024-02-13 23:28] VITALS: BP 105/51
[2024-02-14] MEDS: LANTUS 0.1 UNITS SC (07:32)
[2024-02-14] MEDS: DUPHALAC/CHRONULAC 20 GRAMS PO (07:33)
[2024-02-14] MEDS: XIFAXAN 550 MG PO (07:33)
[2024-02-14] MEDS: PROTONIX 40 MG PO (07:33)
[2024-02-14] MEDS: NOVOLOG FLEXPEN 5 UNITS SC ×2 (07:33→12:53)
[2024-02-14 07:35] VITALS: BP 102/54
[2024-02-14] MEDS: NOVOLOG FLEXPEN-LOW RESISTANCE SC ×2 (07:39→12:04)
[2024-02-14 07:40] LABS: Glucose - Point of Care 90 mg/dl (70-99)
--- NOTE | 2024-02-14 08:08 | W.PN.HOSP.TC ---
Today's Communication/Plan
-
.
Assessment / Plan
Assessment / Plan
Metabolic encephalopathy, likely hepatic encephalopathy
- contaminated urine
- Head CT: no acute intracranial abnormalities
- tylenol for fever
Pancytopenia
- concern for possible side effect of ciprofloxacin
- hematology consulted
Hypotonic Hyponatremia
- NS
- concern for low circulating volume
- improving
Hypokalemia
- resolved
Alcoholic cirrhosis
Acute on chronic transaminitis
- hold furosemide, spironolactone
- has not taken lactulose in 4 months
- cont xifaxan, lactulose
- abdomen u/s: cirrhosis, cholecystectomy
Type 2 DM
- cont home lantus
- insulin aspart 5u w meals
- SSI
GERD
- cont PPI
Depression
- cont citalopram
Diet: diabetic
DVT ppx: lovenox
Code status: FULL CODE
Anticipated Discharge: 24 - 48 hours
Subjective/Interval History
-
Date of Service: February 14, 2024
Ms. Kendra Lynn is a 63yo F h alcoholic cirrhosis, hx alcohol use disorder w last drink 9 months ago, IDDM, GERD admitted for acute hyponatremia. No acute overnight events.
Objective Data
-
Labs:
Laboratory Results
02/14/24
06:00
WBC Pending
Hgb Pending
Hct Pending
Plt Count Pending
Sodium Pending
Potassium Pending
Chloride Pending
Carbon Dioxide Pending
BUN Pending
Creatinine Pending
Glucose Pending
Calcium Pending
Total Bilirubin Pending
AST Pending
ALT Pending
Alkaline Phosphatase Pending
Vital Signs:
Vital Signs
Temp Pulse Resp BP Pulse Ox
97.9 F 78 18 102/54 99
02/14/24 07:35 02/14/24 07:35 02/14/24 07:35 02/14/24 07:35 02/14/24 07:35
I&O
02/13/24 02/14/24 02/15/24
06:59 06:59 06:59
Intake Total 1220 / 1220 1440 / 1440
Balance 1220 / 1220 1440 / 1440
Review of Systems
-
History Source: Patient
Constitutional: Reports No Symptoms
EENT: Reports No Symptoms Reported
Respiratory: Reports No Symptoms
Cardiac: Reports No Symptoms
Abdomen/GI: Reports No Symptoms
Genitourinary: Reports No Symptoms
Musculoskeletal: Reports No Symptoms
Skin: Reports No Symptoms
Neuro: Reports No Symptoms
Physical Exam
-
General: Well Developed and Well Nourished
HEENT: Normocephalic, Atraumatic and Other (scleral icterus)
Respiratory: Clear to Auscultation
Cardiac: Regular Rhythm and S1/S2
GI: Soft, Nontender, Nondistended, Normal Bowel Sounds and Other (asterixis)
Genito-urinary: No Costovertebral Tender
Musculoskeletal: No Clubbing, No Cyanosis and No Edema
Skin: Warm and Dry
Neuro: AO x 3
Psych: Calm
[2024-02-14 08:53] LABS: Hematocrit 33.6 % (37.0-47.0); Hemoglobin 11.2 g/dL (12.0-16.0); Mean Corp Hgb Conc. 33.3 g/dL (33.0-37.0); Mean Corpuscular Hgb 35.2 pg (27.0-31.0); Mean Corpuscular Volume 105.7 fL (81.0-99.0); Mean Platelet Volume 10.8 fL (7.4-10.4); Platelet Count 40 10^3/uL (130-400); Red Blood Cell Count 3.18 10^6/uL (4.20-5.40); Red Cell Dist. Width 13.9 % (11.5-14.5); White Blood Cell Count 2.2 10^3/uL (4.8-10.8)
--- NOTE | 2024-02-14 08:55 | W.PN.UPDATE ---
Addendum entered and electronically signed by Chaz Ruiz MD 02/14/24 12:50:
Total time spent on d/c = 31 min. This included today's physical exam, progress note, review of laboratory and diagnostic data, preparation of discharge documents and prescriptions, and discussions about the pt's hospital course and discharge plan
with the patient and other medical receptionist involved in the patient's care.
Original Note:
Update Note
Progress Note Update
I saw and evaluated the patient. I reviewed the resident�s note and agree with findings and plan as documented in the resident�s note.
No acute complaints.
Gen: NAD, AAOx3.
Eyes: EOMI, PERRLA, mild-mod scleral icterus.
Neck: supple.
CV: continues to remain RRR, +S1/S2, no m/r/g.
Resp: remains CTAB anteriorly, no rales, wheezes, or rhonchi.
Abd: remains +BS, soft, NT, ND
Skin: No rashes. +jaundice
Neuro: CN 2-12 intact, non-focal.
Psych: Normal mood and affect.
CT brain: No focal or acute intracranial abnormalities. Mild diffuse cortical and cerebellar atrophy.
Acute Metabolic encephalopathy/hallucinations likely due to hepatic encephalopathy (POA):
-Pt denies dysuria/hematuria/cloudy urine/change in urinary frequency. Does mention foul smelling urine over the last week.
-currently states hallucinations have resolved
-afebrile, no leukocytosis. U/A contaminated with squamous cells.
-Considering patient is without urinary symptoms, is afebrile, does not have leukocytosis, etc., in retrospect the patient never should have had a urinalysis checked. The U/A was contaminated and unreliable. UTI has been ruled out. Antibiotics were
stopped 02/13/24.
Hypovolemic Hyponatremia:
-Na improved with IVFs
-holding Lasix/Aldactone
Acute on chronic transaminitis, underlying alcoholic cirrhosis with ascites:
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 The patient likely had hepatic encephalopathy as above. Note that a normal ammonia does not rule out hepatic encephalopathy.
-Holding lasix/spironolactone with hyponatremia/intravascular volume depletion
-cont Xifaxan/Lactulose
Pancytopenia:
-likely due to cirrhosis and possibly Cipro
-CBC improving
-c/s Heme
Other problems:
Hypokalemia, resolved
DM2: cont Lantus/premeal Novolog/SSI/accuchecks/diabetic diet
GERD: Cont PPI
Depression: cont Lexapro
FULL
Lovenox was stopped with plts 31. Plts now 40, will order SCDs.
Likely d/c after seen by Heme.
[2024-02-14 09:06] LABS: ALT (SGPT) 54 U/L (0-35); AST (SGOT) 100 U/L (14-36); Albumin 2.6 g/dl (3.5-5.0); Alkaline Phosphatase 93 U/L (38-126); Blood Urea Nitrogen 4 mg/dl (7-17); Calcium 7.6 mg/dl (8.4-10.2); Carbon Dioxide 24 mmol/L (22-30); Chloride 106 mmol/L (98-107); Estimated Creatinine Clearance 66 ml/min; Glucose 106 mg/dl (70-99); Potassium 3.8 mmol/L (3.5-5.1); Sodium 135 mmol/L (135-145); Total Bilirubin 5.1 mg/dl (0.2-1.3); Total Protein 5.5 g/dl (6.3-8.2); eGFR > 60.00
--- NOTE | 2024-02-14 11:24 | CON.ONC ---
Impression
Impression
pancytopenia. acute on chronic leukopenia/neutropenia, acute on chronic thrombocytopenia, and chronic anemia at baseline
UA with pyuria s/p 3 doses of cipro IV
encephalopathy hepatic +/- TME
hyponatremia
cirrhosis
transaminitis, Tbili 5.1
Plan
Plan
chronic pancytopenia likely from ETOH cirrhosis, reports ETOH abstinence x 9 months
acute on chronic thrombocytopenia/leukopenia/neutropenia unclear etiology. Pt is thought to not have UTI. Monitor for infection.
check B12, folate, iron studies, retic, SPEP
Daily CBC with differential
OP follow up will be arranged upon discharge for further work up of pancytopenia
Recommended to re-establish with her GI specialist
Patient History
History of Present Illness
63yo F who presented with hallucination. She reports ongoing since Sunday. She also reports nausea and vomiting last Sunday. Denies fever, chills, cough, chest pain, sob, puente. She stopped her Lactulose September 2023 but has now restarted. She
denies any overt bleeding or atypical bruising.
She is up to date on mammogram and reports no abnormalities. She has not seen a GI specialist since 2018 when she last underwent EGD/colonoscopy and told she has Julien ring. She denies any difficulty eating, loss of appetite, changes in bowel
patterns, or significant unintentional weight loss. She reports that she had been off her Lexapro for several months but resumed it on Sunday.
Past-Medical/Surgical History
PMH
Type 2 diabetes
Cirrhosis of liver
Type II diet
depression
Schatzki's ring
LE cellulitis
pancreatitis
GERD
PSH
esophageal dilation, cholecystectomy
Social never smoker, former ETOH, denies recreational drugs. 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
Family sister and father with lung cancer and hx smoking. Maternal grandmother with gallbladder cancer
Patient Medication
�Medication �Instructions �Recorded �Confirmed �Last Taken �Type
loratadine 10 mg tablet 10 mg PO DAILY 07/15/18 02/11/24 07/15/18 History
omeprazole 20 mg capsule,delayed 20 mg PO DAILY 07/15/18 02/11/24 07/15/18 History
release
furosemide 40 mg tablet 40 mg PO DAILY #1 tab 07/18/18 02/11/24 Unknown Rx
rifaximin 550 mg tablet (Xifaxan) 550 mg PO BID ##120 07/18/18 02/11/24 Unknown Rx
alendronate 70 mg tablet 70 mg PO NUÑEZ 02/11/24 02/11/24 Unknown History
celecoxib 100 mg capsule 100 mg PO DAILYPRN PRN headache 02/11/24 02/11/24 Unknown History
cholecalciferol (vitamin D3) 25 25 mcg PO DAILY 02/11/24 02/11/24 Unknown History
mcg (1,000 unit) tablet (Vitamin
D3)
escitalopram oxalate 10 mg tablet 10 mg PO HS 02/11/24 02/11/24 Unknown History
ibuprofen 200 mg tablet (Advil) 200 mg PO Q6HPRN PRN mild pain 02/11/24 02/11/24 Unknown History
insulin aspart U-100 100 unit/mL 9 unit SC AC 02/11/24 02/11/24 Unknown History
(3 mL) subcutaneous pen
insulin glargine 100 unit/mL (3 18 unit SC DAILY 02/11/24 02/11/24 Unknown History
mL) subcutaneous pen (Lantus
Solostar U-100 Insulin)
lactulose 20 gram/30 mL oral 30 ml PO TID 02/11/24 02/11/24 Unknown History
solution
loperamide 2 mg capsule 2 mg PO Q6HPRN PRN diarrhea 02/11/24 02/11/24 Unknown History
spironolactone 100 mg tablet 100 mg PO DAILY 02/11/24 02/11/24 Unknown History
trazodone 50 mg tablet 25 mg PO HSPRN PRN sleep 02/11/24 02/11/24 Unknown History
Active Medications
Generic Name Dose Route Start Last Admin
Trade Name Freq PRN Reason Stop Dose Admin
Acetaminophen 650 mg 02/11/24 22:00
Acetaminophen 325 Mg Tablet PO 03/10/24 21:59
Q4HPRN PRN
mild pain/BIGGS/temp> 100.4F
Bisacodyl 10 mg 02/11/24 22:00
Bisacodyl 10 Mg Rectal Suppository RECTAL 03/10/24 21:59
[id number] PRN
constipation
Dextrose 12.5 grams 02/11/24 22:00
Dextrose 50% (0.5 Grams/Ml) 50 Ml Syringe IV 03/10/24 21:59
[id number] PRN
hypoglycemia
Protocol
Escitalopram Oxalate 10 mg 02/11/24 22:00 02/13/24 21:16
Escitalopram 10 Mg Tablet PO 03/10/24 21:59 10 mg
HS JEAN-PAUL Administration
Glucagon 1 mg 02/11/24 22:00
Glucagon 1 Mg Vial IM 03/10/24 21:59
PRN PRN
hypoglycemia
Protocol
Insulin Glargine 10 units/ 0.1 mls @ 0 mls/hr 02/12/24 08:00 02/14/24 07:32
Device SC 03/11/24 07:59 0.1 mls
DAILY JEAN-PAUL Administration
As Directed
Insulin Aspart 5 units 02/12/24 07:30 02/14/24 07:33
Insulin Aspart (100 Units/Ml) 3 Ml Flexpen SC 03/11/24 07:29 5 units
AC JEAN-PAUL Administration
Insulin Aspart 0 units 02/12/24 07:30 02/14/24 07:39
Insulin Aspart Low Resistance 300 Units/3 Ml Pen.Injctr SC 03/11/24 07:29 Not Given
AC JEAN-PAUL
Protocol
Lactulose 20 grams 02/11/24 22:00 02/14/24 07:33
Lactulose Solution (20 Grams/30 Ml) 30 Ml Cup PO 03/10/24 21:59 20 grams
TID JEAN-PAUL Administration
Pantoprazole Sodium 40 mg 02/12/24 08:00 02/14/24 07:33
Pantoprazole 40 Mg Delayed Release Tablet PO 03/11/24 07:59 40 mg
DAILY JEAN-PAUL Administration
Polyethylene Glycol 17 grams 02/11/24 22:00
Polyethylene Glycol Powder 17 Grams Packet PO 03/10/24 21:59
DAILYPRN PRN
constipation
Rifaximin 550 mg 02/12/24 08:00 02/14/24 07:33
Rifaximin 550 Mg Tablet PO 550 mg
BID JEAN-PAUL Administration
Senna/Docusate Sodium 1 tablet 02/11/24 22:00
Docusate W/Senna (Zaynab-Colace) Tablet PO 03/10/24 21:59
BIDPRN PRN
constipation
Sodium Chloride 0 flush 02/11/24 23:00
Sodium Chloride 0.9% (Flush) Syringe IV 03/10/24 22:59
PER PROTOCOL JEAN-PAUL
Trazodone HCl 25 mg 02/11/24 22:00 02/11/24 22:28
Trazodone 50 Mg Tablet PO 03/10/24 21:59 25 mg
HSPRN PRN Administration
sleep
Review of Systems
-
ROS notable for HPI, otherwise negative
Physical Exam
-
General: Well Developed, Well Nourished and No Apparent Distress
HEENT: NormoCephalic, Moist mucous membranes and Atraumatic
Respiratory: Clear
Cardiac: S1/S2 and Regular Rhythm; No Murmur or Rub
GI: Soft, Non Tender, Non Distended
Skin: No Rash
Neuro: AO x 3 and Nonfocal/grossly intact
Psych: Calm
Labs
Lab Results
WBC 2.2 10^3/uL (4.8-10.8) L* 02/14/24 08:19
RBC 3.18 10^6/uL (4.20-5.40) L 02/14/24 08:19
Hgb 11.2 g/dL (12.0-16.0) L 02/14/24 08:19
Hct 33.6 % (37.0-47.0) L 02/14/24 08:19
MCV 105.7 fL (81.0-99.0) H 02/14/24 08:19
MCH 35.2 pg (27.0-31.0) H 02/14/24 08:19
MCHC 33.3 g/dL (33.0-37.0) 02/14/24 08:19
RDW 13.9 % (11.5-14.5) 02/14/24 08:19
Plt Count 40 10^3/uL (130-400) L D 02/14/24 08:19
MPV 10.8 fL (7.4-10.4) H 02/14/24 08:19
Abs Immat Gran (auto) 0.0 10^3/uL (0-0.05) 02/11/24 16:48
Absolute Neuts (auto) 2.4 10^3/uL (1.4-6.5) 02/11/24 16:48
Absolute Lymphs (auto) 0.5 10^3/uL (1.2-3.4) L 02/11/24 16:48
Absolute Monos (auto) 0.3 10^3/uL (0.1-0.6) 02/11/24 16:48
Absolute Eos (auto) 0.0 10^3/uL (0-0.7) 02/11/24 16:48
Absolute Basos (auto) 0.0 10^3/uL (0-0.2) 02/11/24 16:48
Immature Gran % 0.3 % (0-0.5) 02/11/24 16:48
Neutrophils % 74.5 % (42.2-75.2) 02/11/24 16:48
Lymphocytes % 15.9 % (20.5-51.1) L 02/11/24 16:48
Monocytes % 7.8 % (1.7-9.3) 02/11/24 16:48
Eosinophils % 0.6 % (0-6) 02/11/24 16:48
Basophils % 0.9 % (0-2) 02/11/24 16:48
Creatinine 0.5 mg/dL (0.6-1.0) L 02/14/24 08:19
Vital Signs
Vital Signs
Temp Pulse Resp BP Pulse Ox
97.9 F 78 18 102/54 99
02/14/24 07:35 02/14/24 07:35 02/14/24 07:35 02/14/24 07:35 02/14/24 07:35
[2024-02-14 11:54] LABS: Glucose - Point of Care 84 mg/dl (70-99)
[2024-02-14 12:25] LABS: Reticulocyte Count 4.1 % (0.4-2.8)
[2024-02-14 12:40] LABS: Iron 97 ug/dl (37-170)
[2024-02-14 12:48] LABS: Percent Saturation 44 % (20-50); Total Iron Binding Capacity 217 ug/dl (265-497)
--- NOTE | 2024-02-14 12:58 | CM ---
Home today no needs.
Plan; Home no needs.
--- NOTE | 2024-02-14 13:37 | W.DCSUMMARY ---
Discharge Summary
Discharge Data
Date of Admission: 02/11/24
Date of Discharge: 02/14/24
-
Pending Results: No
Hospital Course
Discharging Physician : Dr. Kiki Araujo, Dr. Chaz Ruiz
Disposition : Home
Primary care physician : Kathleen Navarro
Principal Discharge diagnosis : Hallucinations due to acute hepatic encephalopathy due to noncompliance with lactulose, hypovolemic hyponatremia
Chronic Discharge diagnosis : alcoholic cirrhosis, hx alcohol use disorder, IDDM, GERD
Hospital Course : Admitted for acute hyponatremia. Last week, she felt nauseous, dizzy, and vomited. Has been noncompliant with diuretic and lactulose. + visual hallucinations, tremors, yellow eyes, diarrhea from lactulose. Hyponatremia
incidentally found on admission. Hallucinations resolved on the first day of admission. Treated for UTI with ciprofloxacin. Urinalysis contaminated and pt denied any urinary sx, so antibiotic was stopped. Pt developed pancytopenia. Hematology
consulted. Determined to be acute on chronic pancytopenia to be worked up outpatient. Recommended checking B12, folate, iron studies, reticulocyte count, SPEP. Pt AAOx3, hemodynamically stable, afebrile.
Important imaging findings :
Head CT:
There are no focal or acute intracranial abnormalities.
There is mild diffuse cortical and cerebellar atrophy
Abdomen u/s:
Cirrhosis
Cholecystectomy
Procedure findings : n/a
Discharge Plan
-
Patient Disposition: Home (Routine Discharge)
Discharge Diagnosis/Procedures: Hallucinations due to acute hepatic encephalopathy due to noncompliance with lactulose, hypovolemic hyponatremia
Condition: Good
Diet: Diabetic, Carb Controlled
Activity: As tolerated
Driving Restrictions: As prior to admission
Bathing Restrictions: None
Blood Work: CMP in 1 week, script from PCP
Referrals:
Kathleen Navarro PA-C [Family Provider] - in less than 1 week
Prescriptions:
Continued
omeprazole 20 MG capsule,delayed release(DR/EC)
20 mg PO DAILY
loratadine 10 MG tablet
10 mg PO DAILY
Xifaxan 550 MG tablet
550 mg PO BID Qty: 120 0RF
loperamide 2 mg Capsule
2 mg PO Q6HPRN PRN (Reason: diarrhea)
trazodone 50 mg Tablet
25 mg PO HSPRN PRN (Reason: sleep)
alendronate 70 mg Tablet
70 mg PO NUÑEZ
celecoxib 100 mg Capsule
100 mg PO DAILYPRN PRN (Reason: headache)
escitalopram oxalate 10 mg Tablet
10 mg PO HS
cholecalciferol (vitamin D3) [Vitamin D3] 25 mcg (1,000 unit) Tablet
25 mcg PO DAILY
lactulose 30 ML solution
30 ml PO TID
Changed
insulin aspart U-100 100 unit/mL (3 mL) insulin pen
5 unit SC AC Qty: 0 0RF
insulin glargine [Lantus Solostar U-100 Insulin] 100 unit/mL (3 mL) Insulin Pen
10 unit SC DAILY Qty: 0 0RF
Discontinued
furosemide 40 MG tablet
40 mg PO DAILY Qty: 1 0RF
spironolactone 100 mg Tablet
100 mg PO DAILY
ibuprofen [Advil] 200 mg Tablet
200 mg PO Q6HPRN PRN (Reason: mild pain)
Discharge Orders:
Discharge Patient (As Directed); Ordered 02/14/24
Ordered By: Chaz Ruiz
Discharge Date and Time
Discharge Date/Time: 02/14/24 14:21
Print Language: CZECH
[2024-02-14 13:43] LABS: Ferritin 82.9 ng/ml (11.1-264.0)
[2024-02-14 14:14] LABS: Folate 8.3 ng/ml (2.76-20); Vitamin B12 > 1000 pg/ml (239-931)
== END 2024-02-14 14:21 | disposition home or self-care (01) | DRG 441 ==
LOC: 4 WEST ACU 21:41
PROVIDERS: Registered Nurse; ADMITTING PHYSICIAN Internal Medicine; ATTENDING PHYSICIAN Internal Medicine; EMERGENCY PHYSICIAN Emergency Medicine; FAMILY PHYSICIAN Physician Assistant; OTHER PHYSICIAN Internal Medicine Hematology & Oncology
DX: K76.82 Hepatic encephalopathy (principal); G93.41 Metabolic encephalopathy; D61.818 Other pancytopenia; E87.1 Hypo-osmolality and hyponatremia; T47.4X6A Underdosing of other laxatives, initial encounter; E11.9 Type 2 diabetes mellitus without complications; F32.A Depression, unspecified; K21.9 Gastro-esophageal reflux disease without esophagitis; R44.1 Visual hallucinations; E87.6 Hypokalemia; K70.30 Alcoholic cirrhosis of liver without ascites; F10.21 Alcohol dependence, in remission; Z91.128 Patient's intentional underdosing of medication regimen for other reason; Z88.0 Allergy status to penicillin; Z88.1 Allergy status to other antibiotic agents; Z88.2 Allergy status to sulfonamides; Z79.4 Long term (current) use of insulin; Z79.83 Long term (current) use of bisphosphonates; Z79.899 Other long term (current) drug therapy; Z91.148 Patient's other noncompliance with medication regimen for other reason
CPT/HCPCS: 70450; 76700; 80053; 81003; 81015; 82140; 82248; 82607; 82728; 82746; 82962; 83036; 83540; 83550; 83930; 83935; 84300; 84443; 85025; 85027; 85045; 85610; 85730; 93005; 96374; 99285

== ENCOUNTER 2024-05-06 06:22 | Day surgery (SDC) | payer OTHER, SELFPAY ==
[2024-05-06 08:14] VITALS: BMI 19.6
[2024-05-06 08:15] VITALS: BP 121/70; BMI 19.6
[2024-05-06 08:15] LABS: Glucose - Point of Care 196 mg/dl (70-99)
[2024-05-06 11:21] VITALS: BP 156/120
[2024-05-06 11:23] VITALS: BP 106/63
[2024-05-06 11:30] VITALS: BP 116/63
[2024-05-06 11:31] LABS: Glucose - Point of Care 218 mg/dl (70-99)
[2024-05-06 11:51] VITALS: BP 122/80
== END 2024-05-06 11:57 | disposition home or self-care (01) ==
LOC: SDS 06:22
PROVIDERS: ATTENDING PHYSICIAN Internal Medicine
DX: Z12.11 Encounter for screening for malignant neoplasm of colon (principal); K58.9 Irritable bowel syndrome, unspecified; K64.8 Other hemorrhoids; I86.8 Varicose veins of other specified sites; K74.60 Unspecified cirrhosis of liver; I85.00 Esophageal varices without bleeding; K22.2 Esophageal obstruction; K44.9 Diaphragmatic hernia without obstruction or gangrene; K76.6 Portal hypertension
CPT/HCPCS: 43235; G0105; 82962

== ENCOUNTER → 2024-07-21 08:37 | Outpatient (REF) | payer OTHER, SELFPAY | LOC: MRI 08:37 | PROVIDERS: ATTENDING PHYSICIAN Internal Medicine; FAMILY PHYSICIAN Physician Assistant | DX: K74.60 Unspecified cirrhosis of liver (principal); K72.90 Hepatic failure, unspecified without coma | CPT/HCPCS: 74183; A9581 ==

== ENCOUNTER 2024-08-07 14:44 | Emergency (ER) | payer OTHER, SELFPAY ==
[2024-08-07 14:57] VITALS: BP 149/125
[2024-08-07 16:39] VITALS: BP 100/53; BP 109/59; BP 115/70; PULSE 69; PULSE 72; PULSE 75
[2024-08-07 16:59] VITALS: BMI 20.4
[2024-08-07 17:13] LABS: Urine Character Clear (Clear)
[2024-08-07 17:17] LABS: Hematocrit 30.0 % (37.0-47.0); Hemoglobin 10.9 g/dL (12.0-16.0); Mean Corp Hgb Conc. 36.3 g/dL (33.0-37.0); Mean Corpuscular Volume 96.5 fL (81.0-99.0); Nucleated Red Blood Cells % 0 %; Red Cell Dist. Width 14.9 % (11.5-14.5)
[2024-08-07 17:19] LABS: Urine Squamous Cell >30 /LPF (Few)
[2024-08-07 17:20] LABS: Urine Red Blood Cell 0-2 /HPF (0-2); Urine White Cell 0-2 /HPF (0-5)
[2024-08-07 17:24] LABS: ALT (SGPT) 40 U/L (0-35); AST (SGOT) 47 U/L (14-36); Albumin 3.2 g/dl (3.5-5.0); Alkaline Phosphatase 83 U/L (38-126); Blood Urea Nitrogen 15 mg/dl (7-17); Calcium 9.0 mg/dl (8.4-10.2); Carbon Dioxide 26 mmol/L (22-30); Chloride 101 mmol/L (98-107); Estimated Creatinine Clearance 50 ml/min; Glucose 161 mg/dl (70-99); Potassium 3.5 mmol/L (3.5-5.1); Sodium 131 mmol/L (135-145); Total Protein 6.1 g/dl (6.3-8.2); eGFR > 60.00
--- NOTE | 2024-08-07 17:29 | ED.GENMED ---
History of Present Illness
General
Chief Complaint: Fall
Source: patient
Exam Limitations: none
Time Seen by Provider: 08/07/24 15:57
Nursing documentation reviewed up to this point in time: agreed with
History of Present Illness
History of Present Illness:
Patient states she was feeling dizzy today. SHe reports history of this. Walking to pool and lost her balance and fell. Hit back of head on pavement. No LOC. Brought to ED for eval. Incident occurred just [employer]
Past History
Past History
ED Past Medical History: GERD, IDDM and Other (Alcoholic cirrhosis with ascites, hyponatremia, pancreatitis)
ED Past Surgical History: Cholecystectomy
Social History
Tobacco: Non-smoker
Alcohol: Former
Drug: None
Personal:
Living: with family (with son)
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
Family History: Cancer
Review of Systems
Review of Systems
Allergies reviewed?: Yes
All Other Systems: ROS reviewed and negative except as documented in HPI and ROS
Constitutional: Reports no symptoms
EENT: Reports no symptoms
Respiratory: Reports no symptoms
Cardiac: Reports no symptoms
ABD/GI: Reports no symptoms
: Reports no symptoms
Musculoskeletal: Reports no symptoms
Skin: Reports other (Hematoma posterior scalp)
Neurological: Reports no symptoms
Psychiatric: Reports no symptoms
Phy Exam
General Physical Exam
General Presentation: well appearing and no apparent distress
General age: appears stated age
General Skin: warm and dry
General Habitus: normal
General Mental: alert
Eye Exam
Eye Exam: PERRL, EOMI and conjunctiva normal
Neurological Exam
Neurological Exam: alert, oriented x3, CN II-XII intact, no motor deficits, no sensory deficits, speech normal and normal gait
Musculoskeletal Exam
Musculoskeletal Exam: full ROM and neuro vasc intact
Skin Exam
Skin Exam: normal color, warm/dry and no rash
Psychiatric Exam
Psychiatric Exam: normal mood/affect
Course
Orders/Labs/Results
Orders:
Orders
08/07/24 15:02
CT Cervical Spine W/o Iv Contr Urgent
Comment:
Reason For Exam: fall and head injury
CT Head W/o Iv Contrast Urgent
Comment:
Reason For Exam: fall and head injury
08/07/24 15:03
EKG [Electrocardiogram (*1)] Urgent
Reason for Study: Vertigo / Dizzy
08/07/24 15:04
EKG- Treatment ONCE
08/07/24 16:05
Orthostatic VS- Treatment ONCE
08/07/24 16:46
Complete Blood Count/With Diff Urgent
Comprehensive Metabolic Panel Urgent
Urinalysis Reflex To Culture Urgent
Date Specimen was Collected: 08/07/24
Time Specimen was Collected: 16:29
Urine Microscopic Reflex Cult Urgent
Abnormal Lab Results
08/07/24
16:46
WBC 3.8 L 10^3/uL
(4.8-10.8)
RBC 3.11 L 10^6/uL
(4.20-5.40)
Hgb 10.9 L g/dL
(12.0-16.0)
Hct 30.0 L %
(37.0-47.0)
MCH 35.0 H pg
(27.0-31.0)
RDW 14.9 H %
(11.5-14.5)
Plt Count 57 L 10^3/uL
(130-400)
MPV 11.0 H fL
(7.4-10.4)
Absolute Lymphs (auto) 0.9 L 10^3/uL
(1.2-3.4)
Sodium 131 L mmol/L
(135-145)
Glucose 161 H mg/dl
(70-99)
Total Bilirubin 2.0 H mg/dl
(0.2-1.3)
AST 47 H U/L
(14-36)
ALT 40 H U/L
(0-35)
Total Protein 6.1 L g/dl
(6.3-8.2)
Albumin 3.2 L g/dl
(3.5-5.0)
Urine Bacteria (Reflex) Few A
(Negative)
Urine Albumin (Reflex) 1+ A
(Neg - Trace)
08/07/24 16:46
08/07/24 16:46
Vital Signs
Initial and Last Documented VS:
Initial Vital Signs
Temp Pulse Resp BP Pulse Ox
98.5 F 76 18 149/125 98
08/07/24 14:57 08/07/24 14:57 08/07/24 14:57 08/07/24 14:57 08/07/24 14:57
Last Documented Vital Signs
Temp Pulse Resp BP Pulse Ox
98.5 F 76 18 149/125 98
08/07/24 14:57 08/07/24 14:57 08/07/24 14:57 08/07/24 14:57 08/07/24 17:32
*Radiology
Radiology exam reviewed: radiology read reviewed
*Pulse Oximetry
SaO2: 98
Oxygen Mode of Delivery: Room air
Patient hypoxic: no
*Critical Care Note
Total Time (30-74mins, 75-104mins- exclusive of procedures): Not Applicable
Update Note
Update Note:
Patient to ED after fall today, hit back of head, no LOC, VSS, CT of head neg for acute findings. WIll discharge home and she will follow up with PCP.
ED Attending Note
-
Portions of this chart may have been created with voice recognition software.� Occasional wrong word or��sound alike� substitutions may have occurred due to the inherent limitations of voice recognition software.
Discharge Plan
Departure
Patient Disposition: Home (Routine Discharge)
Date of Disposition: 08/07/24
Time of Disposition: 17:31
Patient with high blood pressure during this ER visit?: No
Condition: Good
Covid-19: Not Applicable
Discharge Problem:
Head injury
Instructions: Head Injury in Adults (DC)
Prescriptions:
No Action
omeprazole 20 MG capsule,delayed release(DR/EC)
20 mg PO DAILY
loratadine 10 MG tablet
10 mg PO DAILY
Xifaxan 550 MG tablet
550 mg PO BID Qty: 120 0RF
loperamide 2 mg Capsule
2 mg PO Q6HPRN PRN (Reason: diarrhea)
trazodone 50 mg Tablet
25 mg PO HSPRN PRN (Reason: sleep)
alendronate 70 mg Tablet
70 mg PO NUÑEZ
celecoxib 100 mg Capsule
100 mg PO DAILYPRN PRN (Reason: headache)
escitalopram oxalate 10 mg Tablet
10 mg PO HS
cholecalciferol (vitamin D3) [Vitamin D3] 25 mcg (1,000 unit) Tablet
25 mcg PO DAILY
lactulose 30 ML solution
30 ml PO TID
insulin aspart U-100 100 unit/mL (3 mL) insulin pen
5 unit SC AC Qty: 0 0RF
insulin glargine [Lantus Solostar U-100 Insulin] 100 unit/mL (3 mL) Insulin Pen
10 unit SC DAILY Qty: 0 0RF
spironolactone 50 mg Tablet
50 mg PO DAILY
Referrals:
Kathleen Navarro PA-C [Family Provider, Internal Medicine] - Call in 1-3 days for appt
Interventions
Interventions:
*Risk Screen - Suicide Last Done: 08/07/24 14:57
*General Assessment Last Done: 08/07/24 14:57
*Neglect/Abuse Screening Last Done: 08/07/24 14:57
*ED COVID-19 Vaccine History Last Done: 08/07/24 14:57
*Nursing Disposition Last Done: 08/07/24 17:54
ED- Neurological Assessment Last Done: 08/07/24 16:59
ED-Skin Assessment Last Done: 08/07/24 16:59
Discharge Date and Time
Discharge Date/Time: 08/07/24 17:54
Print Language: SINHALA
[2024-08-07 17:35] LABS: Platelet Count 57 10^3/uL (130-400)
== END 2024-08-07 17:54 | disposition home or self-care (01) ==
LOC: EMR 14:44
PROVIDERS: Nurse Practitioner; EMERGENCY PHYSICIAN Emergency Medicine; FAMILY PHYSICIAN Physician Assistant
DX: S09.90XA Unspecified injury of head, initial encounter (principal); W19.XXXA Unspecified fall, initial encounter; K21.9 Gastro-esophageal reflux disease without esophagitis; E11.9 Type 2 diabetes mellitus without complications; K70.31 Alcoholic cirrhosis of liver with ascites; E87.1 Hypo-osmolality and hyponatremia; Z90.49 Acquired absence of other specified parts of digestive tract
CPT/HCPCS: 99284; 70450; 72125; 80053; 81003; 81015; 85025; 93005

== ENCOUNTER → 2024-10-09 12:50 | Outpatient (REF) | payer OTHER, SELFPAY | LOC: PAVMRI 12:50 | PROVIDERS: ATTENDING PHYSICIAN Internal Medicine Gastroenterology; FAMILY PHYSICIAN Physician Assistant | DX: C22.0 Liver cell carcinoma (principal); K74.60 Unspecified cirrhosis of liver | CPT/HCPCS: 74183; A9581 ==

== ENCOUNTER 2024-11-01 20:25 | Inpatient (IN) | payer OTHER, SELFPAY ==
[2024-11-01] VITALS (7 sets, daily range): BP systolic 125–138; BP diastolic 63–74; BMI 18.2; BMI 18.4
--- NOTE | 2024-11-01 15:39 | ED.GENMED ---
History of Present Illness
<Sandie Gallego NP - Last Filed: 11/01/24 19:55>
General
Chief Complaint: Abdominal Symptoms
Source: patient
Exam Limitations: none
Time Seen by Provider: 11/01/24 15:16
Nursing documentation reviewed up to this point in time: agreed with
History of Present Illness
History of Present Illness:
Patient to ED with complaint of diarrhea, lower abd. pain x 24 hours. Denies fever/chills, n/v. Reports weakness. No prior history of same. Brought slef to ED for eval. Hx alcoholic cirrhosis. She was sent for outpatient US in July by her GI
and small tumor identified. Following with oncology thru [facility]. No treatment recommended at this time. Following with ambar [facility].
Past History
<Sandie Gallego NP - Last Filed: 11/01/24 19:55>
Past History
ED Past Medical History: Cancer (liver cancer (new)), GERD, IDDM and Other (Alcoholic cirrhosis with ascites, hyponatremia, pancreatitis, pancytopenia)
ED Past Surgical History: Cholecystectomy
Social History
Tobacco: Non-smoker
Alcohol: Former
Drug: None
Personal:
Living: with family (with son)
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
Family History: Cancer
Review of Systems
<Sandie Gallego FUNERAL HOME DIRECTOR - Last Filed: 11/01/24 19:55>
Review of Systems
Allergies reviewed?: Yes
All Other Systems: ROS reviewed and negative except as documented in HPI and ROS
Constitutional: Reports no symptoms
EENT: Reports no symptoms
Respiratory: Reports no symptoms
Cardiac: Reports no symptoms
ABD/GI: Reports abdominal pain (lower abd. pain) and diarrhea
: Reports no symptoms
Musculoskeletal: Reports no symptoms
Skin: Reports no symptoms
Neurological: Reports weakness
Psychiatric: Reports no symptoms
Phy Exam
<Sandie Gallego NP - Last Filed: 11/01/24 19:55>
General Physical Exam
General Presentation: moderate distress
General age: appears stated age
General Skin: warm and dry
General Habitus: normal
General Mental: alert
Cardiovascular Exam
Cardiovascular Exam: regular rate/rhythm and no edema
Pulmonary Exam
Pulmonary Exam: lungs clear and no respiratory distress
Gastrointestinal Exam
Gastrointestinal Exam: soft, no organomegaly, no pulsatile mass, non distended and no cva tenderness
Palpation: left upper quadrant: No tenderness, left lower quadrant: Moderate tenderness, right upper quadrant: No tenderness and right lower quadrant: Moderate tenderness
Auscultation of Abdomen: hyperactive
Musculoskeletal Exam
Musculoskeletal Exam: full ROM and neuro vasc intact
Skin Exam
Skin Exam: normal color, warm/dry and no rash
Psychiatric Exam
Psychiatric Exam: normal mood/affect
Course
<Sandie Gallego FUNERAL HOME DIRECTOR - Last Filed: 11/01/24 19:55>
Orders/Labs/Results
Orders:
Orders
11/01/24 15:38
CT Abd/pelvis W Iv Cont Urgent
Comment:
Reason For Exam: pain, diarrhea
0.9% Sodium Chloride 1000 ml [Nss] 1,000 ml IV BOLUS
11/01/24 16:15
C-Reactive Protein Urgent
Comment: ADD ON
Complete Blood Count/With Diff Urgent
Comprehensive Metabolic Panel Urgent
Lipase Urgent
11/01/24 16:22
Urinalysis Reflex To Culture Urgent
Date Specimen was Collected: 11/01/24
Time Specimen was Collected: 16:16
STOOL [C difficile Antigen & Toxins] Urgent
SARAHI Source: Feces/Stool
Specimen Description:
Date Specimen was Collected: 11/01/24
Time Specimen was Collected: 16:15
Stool Culture Urgent
SARAHI Source: Feces/Stool
Specimen Description:
Date Specimen was Collected: 11/01/24
Time Specimen was Collected: 16:15
11/01/24 18:58
Add On- LAB Urgent
Tests Added?: CRP
11/01/24 20:02
Potassium Chloride [KCl] 20 meq PO NOW STA
Abnormal Lab Results
11/01/24 11/01/24 11/01/24
16:15 16:22 19:39
WBC 3.5 L 10^3/uL
(4.8-10.8)
RBC 3.96 L 10^6/uL
(4.20-5.40)
Hct 36.4 L %
(37.0-47.0)
MCH 32.8 H pg
(27.0-31.0)
Plt Count 40 L 10^3/uL
(130-400)
MPV 10.8 H fL
(7.4-10.4)
Absolute Lymphs (auto) 0.6 L 10^3/uL
(1.2-3.4)
Lymphocytes % 16.5 L %
(20.5-51.1)
Sodium 126 L mmol/L
(135-145)
Potassium 3.2 L mmol/L
(3.5-5.1)
Chloride 95 L mmol/L
(98-107)
Glucose 301 H mg/dl
(70-99)
Total Bilirubin 1.8 H mg/dl
(0.2-1.3)
AST 85 H U/L
(14-36)
ALT 77 H U/L
(0-35)
Lipase < 10 L U/L
(23-300)
Urine Glucose 4+ A
(Negative)
POC Glucose 260 H mg/dl
(70-99)
11/01/24 16:15
11/01/24 16:15
Vital Signs
Initial and Last Documented VS:
Initial Vital Signs
Temp Pulse Resp BP Pulse Ox
98.6 F 84 18 133/67 97
11/01/24 14:28 11/01/24 14:28 11/01/24 14:28 11/01/24 14:28 11/01/24 14:28
Last Documented Vital Signs
Temp Pulse Resp BP Pulse Ox
98.6 F 82 16 134/64 100
11/01/24 16:18 11/01/24 17:00 11/01/24 17:00 11/01/24 19:04 11/01/24 19:40
<Rogelio El MD - Last Filed: 11/01/24 20:07>
Orders/Labs/Results
Orders:
Orders
11/01/24 15:38
CT Abd/pelvis W Iv Cont Urgent
Comment:
Reason For Exam: pain, diarrhea
0.9% Sodium Chloride 1000 ml [Nss] 1,000 ml IV BOLUS
11/01/24 16:15
C-Reactive Protein Urgent
Comment: ADD ON
Complete Blood Count/With Diff Urgent
Comprehensive Metabolic Panel Urgent
Lipase Urgent
11/01/24 16:22
Urinalysis Reflex To Culture Urgent
Date Specimen was Collected: 11/01/24
Time Specimen was Collected: 16:16
STOOL [C difficile Antigen & Toxins] Urgent
SARAHI Source: Feces/Stool
Specimen Description:
Date Specimen was Collected: 11/01/24
Time Specimen was Collected: 16:15
Stool Culture Urgent
SARAHI Source: Feces/Stool
Specimen Description:
Date Specimen was Collected: 11/01/24
Time Specimen was Collected: 16:15
11/01/24 18:58
Add On- LAB Urgent
Tests Added?: CRP
11/01/24 20:02
Potassium Chloride [KCl] 20 meq PO NOW STA
Abnormal Lab Results
11/01/24 11/01/24 11/01/24
16:15 16:22 19:39
WBC 3.5 L 10^3/uL
(4.8-10.8)
RBC 3.96 L 10^6/uL
(4.20-5.40)
Hct 36.4 L %
(37.0-47.0)
MCH 32.8 H pg
(27.0-31.0)
Plt Count 40 L 10^3/uL
(130-400)
MPV 10.8 H fL
(7.4-10.4)
Absolute Lymphs (auto) 0.6 L 10^3/uL
(1.2-3.4)
Lymphocytes % 16.5 L %
(20.5-51.1)
Sodium 126 L mmol/L
(135-145)
Potassium 3.2 L mmol/L
(3.5-5.1)
Chloride 95 L mmol/L
(98-107)
Glucose 301 H mg/dl
(70-99)
Total Bilirubin 1.8 H mg/dl
(0.2-1.3)
AST 85 H U/L
(14-36)
ALT 77 H U/L
(0-35)
Lipase < 10 L U/L
(23-300)
Urine Glucose 4+ A
(Negative)
POC Glucose 260 H mg/dl
(70-99)
11/01/24 16:15
11/01/24 16:15
Vital Signs
Initial and Last Documented VS:
Initial Vital Signs
Temp Pulse Resp BP Pulse Ox
98.6 F 84 18 133/67 97
11/01/24 14:28 11/01/24 14:28 11/01/24 14:28 11/01/24 14:28 11/01/24 14:28
Last Documented Vital Signs
Temp Pulse Resp BP Pulse Ox
98.6 F 82 16 134/64 100
11/01/24 16:18 11/01/24 17:00 11/01/24 17:00 11/01/24 19:04 11/01/24 19:40
<Sandie Gallego NP - Last Filed: 11/01/24 19:55>
*Radiology
Radiology exam reviewed: radiology read reviewed
*Pulse Oximetry
SaO2: 97
Oxygen Mode of Delivery: Room air
Patient hypoxic: no
*Critical Care Note
Total Time (30-74mins, 75-104mins- exclusive of procedures): Not Applicable
<Sandie Galelgo NP - Last Filed: 11/01/24 19:55>
Update Note
Update Note:
Patient to ED wtih complaint of lower abdominal pain and profuse diarrhea x 24 hours. VSS, she remains afebrile. Labs, CT reviewed. Na 126, K 3.3 noted. CBC stable, history of pancytopenia. Severe pancolitis, gastroenteritis. Stool sent for
culutre, results pending. Will admit to hsopitalist for pancolitis, weakness, dehydration. Patient is agreeable to plan
ED Attending Note
<Sandie Gallego NP - Last Filed: 11/01/24 19:55>
-
Portions of this chart may have been created with voice recognition software.� Occasional wrong word or��sound alike� substitutions may have occurred due to the inherent limitations of voice recognition software.
<Rogelio El MD - Last Filed: 11/01/24 20:07>
ED Attending Note
Patient seen and examined by attending physician: Yes
I performed the substantive portion of visit, reviewed & personally made and approve the management plan that is documented in note by myself or ELLE.: Yes
ED Attending Note:
Patient with ongoing mucousy diarrhea and abdominal pain since yesterday. No recent antibiotics. No travel history. No one else is ill at home. No colitis history. No fever or chills.
On exam patient is nontoxic in no distress. Warm and dry. Perfusing well. Good vital signs.
No respiratory distress. Regular rate and rhythm. Abdomen soft with no distention but with diffuse tenderness. No rebound or guarding no mass or hernia.
Nonfocal neuroexam gait normal. Good distal pulses and color.
Impression is pancolitis. Warrants inpatient management. Hyponatremia.
Discharge Plan
Departure
Patient Disposition: Admit
Date of Disposition: 11/01/24
Time of Disposition: 19:08
Presentation/result/management discussed w/ accepting MD/DO: Hospitalist
Patient with high blood pressure during this ER visit?: No
Condition: Fair
Covid-19: Not Applicable
Discharge Problem:
Pancolitis, Acute hyponatremia, Diarrhea, Weakness
Prescriptions:
No Action
omeprazole 20 MG capsule,delayed release(DR/EC)
20 mg PO DAILY
loratadine 10 MG tablet
10 mg PO DAILY
Xifaxan 550 MG tablet
550 mg PO BID Qty: 120 0RF
loperamide 2 mg Capsule
2 mg PO Q6HPRN PRN (Reason: diarrhea)
trazodone 50 mg Tablet
25 mg PO HSPRN PRN (Reason: sleep)
celecoxib 100 mg Capsule
100 mg PO DAILYPRN PRN (Reason: headache)
escitalopram oxalate 10 mg Tablet
10 mg PO HS
cholecalciferol (vitamin D3) [Vitamin D3] 25 mcg (1,000 unit) Tablet
25 mcg PO DAILY
lactulose 30 ML solution
30 ml PO TID
spironolactone 50 mg Tablet
50 mg PO DAILY
insulin aspart U-100 100 unit/mL (3 mL) insulin pen
9 unit SC AC
insulin glargine [Lantus Solostar U-100 Insulin] 100 unit/mL (3 mL) insulin pen
25 unit SC DAILY
Referrals:
Kathleen Navarro PA-C [Family Provider, Internal Medicine]
Interventions
Interventions:
*Risk Screen - Suicide Last Done: 11/01/24 14:28
*General Assessment Last Done: 11/01/24 14:28
*Neglect/Abuse Screening Last Done: 11/01/24 14:28
*ED- Fall Risk Assessment Last Done: 11/01/24 16:18
*ED COVID-19 Vaccine History Last Done: 11/01/24 14:28
CY-Bjtvol-Sovlhhsliu Assessment Last Done: 11/01/24 16:18
Discharge Date and Time
Print Language: UKRAINIAN
[2024-11-01] MEDS: NSS 1000 IV (16:32)
[2024-11-01 16:39] LABS: Urine Character Clear (Clear)
[2024-11-01 16:49] LABS: Hematocrit 36.4 % (37.0-47.0); Hemoglobin 13.0 g/dL (12.0-16.0); Mean Corp Hgb Conc. 35.7 g/dL (33.0-37.0); Mean Corpuscular Volume 91.9 fL (81.0-99.0); Nucleated Red Blood Cells % 0 %; Red Cell Dist. Width 13.9 % (11.5-14.5)
[2024-11-01 17:01] LABS: Platelet Count 40 10^3/uL (130-400)
[2024-11-01 17:08] LABS: ALT (SGPT) 77 U/L (0-35); AST (SGOT) 85 U/L (14-36); Albumin 3.6 g/dl (3.5-5.0); Alkaline Phosphatase 111 U/L (38-126); Blood Urea Nitrogen 9 mg/dl (7-17); Calcium 8.7 mg/dl (8.4-10.2); Carbon Dioxide 24 mmol/L (22-30); Chloride 95 mmol/L (98-107); Estimated Creatinine Clearance 53 ml/min; Glucose 301 mg/dl (70-99); Lipase < 10 U/L (23-300); Potassium 3.2 mmol/L (3.5-5.1); Sodium 126 mmol/L (135-145); Total Protein 6.5 g/dl (6.3-8.2); eGFR > 60.00
[2024-11-01 19:40] LABS: Glucose - Point of Care 260 mg/dl (70-99)
[2024-11-01 19:40] LABS: C-Reactive Protein 5.20 mg/L (0.0-10.00)
--- NOTE | 2024-11-01 19:41 | HPS.HSE ---
Family Physician
-
Family Physician: Kathleen Navarro
Chief Complaint
-
Severe diarrhea
History of Present Illness
This is a 64-year-old female with past medical history significant for alcoholic cirrhosis, history of prior alcohol use disorder, insulin-dependent diabetes, GERD, who presented to the emergency department with 24-hour history of severe diarrhea
and lower abdominal pain.
She reports developing diarrhea overnight. She states she is going at least every 15 minutes with watery diarrhea without any hematochezia or melena. She denies feeling dizzy or lightheaded. She reports some chills. She denies any syncopal
episode. She reports some diffuse abdominal discomfort as well. She denies any urinary symptoms. She says she has not been on any antibiotics recently. She did continue to take spironolactone this morning. She says she stopped taking the
lactulose earlier in the week. She continues medications as previously prescribed.
Patient has known small hepatocellular carcinoma that is being followed by the liver specialist at [facility]. She states that she is pending another MRI in January.
In the emergency department she was afebrile, blood pressure was 1 prophylaxis for reported of 82 and she was satting 97% on room air.
CBC is notable for thrombocytopenia with platelet count of 40. Electrolytes are notable for sodium of 126, potassium of 3.2, otherwise unremarkable. Glucose was 300. She has stable elevation in bilirubin to 1.8 similar to prior. AST and ALT also
slightly elevated similar to prior.
UA was unremarkable. CT of the abdomen pelvis shows findings most compatible with severe pancolitis and gastroenteritis. There is known hepatic cirrhosis with portal hypertension and a lesion that was previously seen in the posterior inferior
right hepatic lobe suspicious for hepatocellular carcinoma is more completely evaluated on the recent MRI abdomen.
Medical History
Past Medical History
Past Medical History: Reports Other
Additional Past Medical History:
Type 2 diabetes
Cirrhosis of liver
Type II diet
depression
Schatzki's ring
LE cellulitis
pancreatitis
GERD
esophageal dilation
Past Surgical History: Reports Other
Additional Past Surgical History:
Cholecystectomy
Social History
Tobacco: Non-smoker
Alcohol: Former
Drug: None
Living: Alone
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
Family History: Not pertinent
Allergies / Home Medications
Allergies reflects when Allergies were last updated in [employer].
Home Medications with original date entered in [employer]
Allergy/Medication List:
Allergies
Allergy/AdvReac Type Severity Reaction Status Date / Time
cephalexin monohydrate (From Allergy Hives Verified 11/01/24 14:30
Keflex)
levofloxacin Allergy redness/itching Verified 11/01/24 14:30
at
injection
site
Penicillins Allergy ear Verified 11/01/24 14:30
swelling
when taken
for ear
infection
sulfamethoxazole Allergy Rash Verified 11/01/24 14:30
trimethoprim Allergy Rash Verified 11/01/24 14:30
Home Medications
loratadine 10 mg tablet 10 mg PO DAILY 07/15/18
omeprazole 20 mg capsule,delayed release 20 mg PO DAILY 07/15/18
rifaximin 550 mg tablet (Xifaxan) 550 mg PO BID ##120 07/18/18
celecoxib 100 mg capsule 100 mg PO DAILYPRN PRN headache 02/11/24
cholecalciferol (vitamin D3) 25 mcg (1,000 unit) tablet (Vitamin D3) 25 mcg PO DAILY 02/11/24
escitalopram oxalate 10 mg tablet 10 mg PO HS 02/11/24
lactulose 20 gram/30 mL oral solution 30 ml PO TID 02/11/24
loperamide 2 mg capsule 2 mg PO Q6HPRN PRN diarrhea 02/11/24
trazodone 50 mg tablet 25 mg PO HSPRN PRN sleep 02/11/24
spironolactone 50 mg tablet 50 mg PO DAILY 05/06/24
insulin aspart U-100 100 unit/mL (3 mL) subcutaneous pen 9 unit SC AC 11/01/24
insulin glargine 100 unit/mL (3 mL) subcutaneous pen (Lantus Solostar U-100 Insulin) 25 unit SC DAILY 11/01/24
Review of Systems
-
Constitutional: Reports No Symptoms
EENT: Reports No Symptoms
Respiratory: Reports No Symptoms
Cardiac: Reports No Symptoms
Abdomen/GI: Reports Abdominal Pain and Diarrhea
: Reports No Symptoms
Musculoskeletal: Reports No Symptoms
Skin: Reports No Symptoms
Neurological: Reports Weakness
Endocrine: Reports No Symptoms
Hematologic/Lymphatic: Reports No Symptoms
Psych: Reports No Symptoms
Physical Exam
Vital Signs
Vital Signs
Temp Pulse Resp BP Pulse Ox
98.6 F 82 16 125/64 97
11/01/24 16:18 11/01/24 17:00 11/01/24 17:00 11/01/24 17:00 11/01/24 17:15
Physical Exam
General: Well Developed, Well Nourished and No Apparent Distress
HEENT: NormoCephalic, Moist mucous membranes and Atraumatic
Respiratory: Clear
Cardiac: S1/S2 and Regular Rhythm; No Murmur or Rub
GI: Soft, Non Tender, Non Distended and Normal Bowel Sounds; No Organomegaly
Rectal: Deferred by Provider
Musculoskeletal: No Clubbing, No Cyanosis and No Edema
Skin: No Rash
Neuro: AO x 3 and Nonfocal/grossly intact
Psych: Calm
Laboratory Results
-
11/01/24 16:15
11/01/24 16:15
Laboratory Results
Total Bilirubin 1.8 mg/dl (0.2-1.3) H 11/01/24 16:15
AST 85 U/L (14-36) H 11/01/24 16:15
ALT 77 U/L (0-35) H 11/01/24 16:15
Alkaline Phosphatase 111 U/L (38-126) 11/01/24 16:15
Lipase < 10 U/L (23-300) L 11/01/24 16:15
Data Reviewed
-
CT Scan: Report Reviewed by me
Lab Data: Labs Reviewed by me
Old Records: Reviewed
Impression/Plan
-
IMPRESSION:
64 y.o female with h/o liver cirrhosis, prior etoh dependence, IDDM, GERD presenting with acute diarrheal illness. She is afebrile, hemodynamically stable and without leukocytosis. She has significant electrolyte abnormalites but LFTs and hepatic
function remains unchanged. No evidence of acute decompensation of her cirrhosis.
PLAN:
1. Diarrhea -suspect acute infectious diarrhea likely a viral etiology but cannot rule out bacterial or C. difficile entirely at this time. Patient is afebrile, has no leukocytosis and is hemodynamically stable.
- Admit to [facility]
- Stool cultures, C. difficile pending
- Patient can have a diabetic diet as tolerated
- If C. difficile is negative, we can start Imodium
- IV hydration for now with replacement of potassium
2. DM II -hyperglycemia, did not take her insulin today
- Continue with the reduced dose of Lantus tonight 12 units
- insulin 5 units 3 times daily AC
- Sliding scale
3. Cirrhosis -complicated by HCC, thrombocytopenia and esophageal varices with variceal bleeding.
- Hold lactulose, continue rifaximin for now
- Hold spironolactone
- continue coreg 3.125 bid with hold parameters
- f/u mri for hcc already scheduled
DVT PPX - SCDs
Code status - Full Code
[2024-11-01] MEDS: KCL 20 MEQ PO (20:10)
[2024-11-01 22:29] LABS: Glucose - Point of Care 226 mg/dl (70-99)
--- NOTE | 2024-11-01 22:30 | PTCARENOTE ---
Pt arrives from ED on stretcher, able to walk into room with no assistance. Patient oriented to room, plan of care reviewed. Pt assessed, vitals obtained, see flowsheets. Call dixon within reach. Pt still having very frequent, loose BM's stool
cultures pending, on enhanced precautions.
[2024-11-01] MEDS: DESYREL 25 MG PO (22:48)
[2024-11-01] MEDS: LEXAPRO 20 MG PO (22:48)
[2024-11-01] MEDS: LANTUS 0.1 UNITS SC (22:48)
[2024-11-01] MEDS: NSS with KCL 20 MEQ 1000 IV (22:48)
[2024-11-02] MEDS: CELEBREX 100 MG PO (04:06)
[2024-11-02 06:00] VITALS: BMI 18.7
[2024-11-02 07:00] VITALS: BP 132/61
[2024-11-02 07:07] LABS: Hematocrit 33.7 % (37.0-47.0); Hemoglobin 12.0 g/dL (12.0-16.0); Mean Corp Hgb Conc. 35.6 g/dL (33.0-37.0); Mean Corpuscular Volume 92.1 fL (81.0-99.0); Platelet Count 34 10^3/uL (130-400); Red Cell Dist. Width 14.0 % (11.5-14.5)
[2024-11-02 07:25] LABS: Blood Urea Nitrogen 5 mg/dl (7-17); Calcium 7.5 mg/dl (8.4-10.2); Carbon Dioxide 25 mmol/L (22-30); Chloride 105 mmol/L (98-107); Estimated Creatinine Clearance 63 ml/min; Glucose 256 mg/dl (70-99); Potassium 2.9 mmol/L (3.5-5.1); Sodium 131 mmol/L (135-145); eGFR > 60.00
[2024-11-02 08:04] LABS: Glucose - Point of Care 270 mg/dl (70-99)
[2024-11-02] MEDS: COREG 3.125 MG PO ×2 (08:58→21:12)
[2024-11-02] MEDS: XIFAXAN 550 MG PO ×2 (08:58→21:13)
[2024-11-02] MEDS: VITAMIN D3 (cholecalciferol) 25 MCG PO (08:58)
[2024-11-02] MEDS: NOVOLOG FLEXPEN-MODERATE RESISTANCE 5 UNITS SC ×2 (08:59→17:05)
[2024-11-02] MEDS: NOVOLOG FLEXPEN 5 UNITS SC ×2 (09:00→17:05)
[2024-11-02] MEDS: KCL ELIXIR 40 MEQ PO (10:11)
[2024-11-02] MEDS: ZOSYN 100 IV ×3 (10:11→22:36)
[2024-11-02] MEDS: MORPHINE SULFATE 2 MG IV ×3 (12:10→21:12)
[2024-11-02 12:25] LABS: Glucose - Point of Care 84 mg/dl (70-99)
[2024-11-02] MEDS: NOVOLOG FLEXPEN SC (12:26)
[2024-11-02] MEDS: NOVOLOG FLEXPEN-MODERATE RESISTANCE SC (12:26)
--- NOTE | 2024-11-02 13:14 | W.PN.HOSP.TC ---
Today's Communication/Plan
-
CLD
abx
f/u cultures
Assessment / Plan
Assessment / Plan
Physical Exam
General: Well Developed, Well Nourished and No Apparent Distress
HEENT: NormoCephalic, Moist mucous membranes and Atraumatic
Respiratory: Clear
Cardiac: S1/S2 and Regular Rhythm; No Murmur or Rub
GI: Soft, Non Tender, Non Distended and Normal Bowel Sounds; No Organomegaly
Rectal: Deferred by Provider
Musculoskeletal: No Clubbing, No Cyanosis and No Edema
Skin: No Rash
Neuro: AO x 3 and Nonfocal/grossly intact
Psych: Calm
64 y.o female with h/o liver cirrhosis, prior etoh dependence, IDDM, GERD presenting with acute diarrheal illness. She is afebrile, hemodynamically stable and without leukocytosis. She has significant electrolyte abnormalites but LFTs and hepatic
function remains unchanged. No evidence of acute decompensation of her cirrhosis.
PLAN:
#Diarrhea
#severe pancolitis and a gastroenteritis
-F/u CDiff, Stool cultures
-Initiative zosyn
-CLD for now
#Hypokalemia
-monitor and replete
#Hyponatremia
-Most likely hypovolemic hyponatremia
-monitor with resuscitation
#DM II -hyperglycemia
- Continue with the reduced dose of Lantus tonight 12 units
- insulin 5 units 3 times daily AC
- Sliding scale
#Cirrhosis -complicated by HCC, thrombocytopenia and esophageal varices with variceal bleeding.
#Posterior inferior right hepatic lobe suspicious for hepatocellular carcinoma
- Hold lactulose, continue rifaximin for now
- Hold spironolactone
- continue coreg 3.125 bid with hold parameters
- f/u mri for hcc already scheduled
DVT PPX - hsq
Code status - Full Code
Total time spent on today's encounter was 53 minutes which included time spent in counseling the patient/family regarding diagnosis and treatment plan as listed above, goals of care, and symptom management. Case was discussed with nursing staff,
specialists, and care coordinators/case management. All labs and imaging personally reviewed by me. Remainder the time spent in detailed review of previous records, lab data, imaging, and other medical provider documentation.
Anticipated Discharge: 24 - 48 hours
Subjective/Interval History
-
Date of Service: November 02, 2024
still with diarrhea, lower abdominal pain
Objective Data
-
Labs:
Laboratory Results
11/02/24 11/02/24 11/02/24
06:41 11:56 12:39
WBC 3.4 L
Hgb 12.0
Hct 33.7 L
Plt Count 34 L
Sodium 131 L Cancelled Pending
Potassium 2.9 L Cancelled Pending
Chloride 105 Cancelled Pending
Carbon Dioxide 25 Cancelled Pending
BUN 5 L Cancelled Pending
Creatinine 0.6 Cancelled Pending
Glucose 256 H Cancelled Pending
Calcium 7.5 L Cancelled Pending
Vital Signs:
Vital Signs
Temp Pulse Resp BP Pulse Ox
98.6 F 79 19 132/61 99
11/02/24 07:00 11/02/24 07:00 11/02/24 07:00 11/02/24 07:00 11/02/24 07:00
I&O
11/01/24 11/02/24 11/03/24
06:59 06:59 06:59
Intake Total 480 / 480
Balance 480 / 480
Review of Systems
-
History Source: Patient
All other systems: Not reviewed unless documented
Data Reviewed
-
CT Scan: Report Reviewed by me
Labs: Labs Reviewed by me
[2024-11-02 14:07] LABS: Blood Urea Nitrogen 5 mg/dl (7-17); Calcium 8.3 mg/dl (8.4-10.2); Carbon Dioxide 17 mmol/L (22-30); Chloride 107 mmol/L (98-107); Estimated Creatinine Clearance 63 ml/min; Glucose 136 mg/dl (70-99); Potassium 3.4 mmol/L (3.5-5.1); Sodium 130 mmol/L (135-145); eGFR > 60.00
[2024-11-02 14:21] VITALS: BMI 18.4
[2024-11-02 15:00] VITALS: BP 120/59
[2024-11-02 16:30] LABS: Glucose - Point of Care 267 mg/dl (70-99)
[2024-11-02] MEDS: DESYREL 25 MG PO (21:13)
[2024-11-02] MEDS: LEXAPRO 20 MG PO (21:13)
[2024-11-02] MEDS: LANTUS 0.1 UNITS SC (22:36)
[2024-11-02 22:38] LABS: Glucose - Point of Care 115 mg/dl (70-99)
[2024-11-02 23:30] VITALS: BP 114/60
[2024-11-02] MEDS: IMODIUM 2 MG PO (23:57)
[2024-11-03] MEDS: MORPHINE SULFATE 2 MG IV ×5 (01:13→22:02)
[2024-11-03] MEDS: ZOSYN 100 IV ×4 (05:19→21:56)
[2024-11-03 07:00] VITALS: BP 115/66
[2024-11-03] MEDS: COREG 3.125 MG PO ×2 (07:23→20:00)
[2024-11-03] MEDS: VITAMIN D3 (cholecalciferol) 25 MCG PO (07:24)
[2024-11-03] MEDS: XIFAXAN 550 MG PO ×2 (07:31→20:00)
[2024-11-03 07:37] LABS: Glucose - Point of Care 71 mg/dl (70-99)
[2024-11-03] MEDS: NOVOLOG FLEXPEN-MODERATE RESISTANCE SC ×2 (07:38→13:38)
[2024-11-03 07:42] LABS: Hematocrit 32.0 % (37.0-47.0); Hemoglobin 11.2 g/dL (12.0-16.0); Mean Corp Hgb Conc. 35.0 g/dL (33.0-37.0); Mean Corpuscular Volume 93.0 fL (81.0-99.0); Platelet Count 31 10^3/uL (130-400); Red Cell Dist. Width 14.3 % (11.5-14.5)
[2024-11-03 08:02] LABS: ALT (SGPT) 62 U/L (0-35); AST (SGOT) 82 U/L (14-36); Albumin 2.8 g/dl (3.5-5.0); Alkaline Phosphatase 78 U/L (38-126); Blood Urea Nitrogen 2 mg/dl (7-17); Calcium 7.8 mg/dl (8.4-10.2); Carbon Dioxide 24 mmol/L (22-30); Chloride 107 mmol/L (98-107); Estimated Creatinine Clearance 64 ml/min; Glucose 88 mg/dl (70-99); Potassium 2.8 mmol/L (3.5-5.1); Sodium 133 mmol/L (135-145); Total Protein 5.3 g/dl (6.3-8.2); eGFR > 60.00
--- NOTE | 2024-11-03 08:08 | W.PN.HOSP.TC ---
Today's Communication/Plan
-
replace potassium.
added probiotics
advanced diet to LRD
Assessment / Plan
Assessment / Plan
Impression:
Patient is a pleasant 64-year-old female with past medical history significant for alcoholic cirrhosis, history of prior alcohol use disorder, insulin-dependent diabetes, GERD, who presented to the emergency department with 24-hour history of severe
diarrhea and lower abdominal pain and diarrhea. she states she is going at least every 15 minutes with watery diarrhea without any hematochezia or melena. She denies feeling dizzy or lightheaded. She reports some chills. She denies any syncopal
episode. She reports some diffuse abdominal discomfort as well. She denies any urinary symptoms. She says she has not been on any antibiotics recently. She did continue to take spironolactone till morning of admission. She says she stopped
taking the lactulose earlier in the week. She continues medications as previously prescribed. She has significant electrolyte abnormalities but LFTs and hepatic function remains unchanged. No evidence of acute decompensation of her cirrhosis.
Assessment/plan:
severe pancolitis and a gastroenteritis
Patient presented with diarrhea.
C. difficile negative.
Pending Salmonella/Shigella/Campylobacter
CT findings are most compatible with a severe pancolitis and a gastroenteritis.
Hepatic cirrhosis with portal hypertension.
Continue Zosyn
Advance diet to low residual diet.
Add probiotic
Hypokalemia
-monitor and replete
Hyponatremia
-Most likely hypovolemic hyponatremia
-monitor with resuscitation
Pancytopenia
Secondary to liver cirrhosis
Continue to monitor.
No sign of bleeding
DM II -hyperglycemia
- Continue with the reduced dose of Lantus tonight 12 units
- insulin 5 units 3 times daily AC
- Sliding scale-most recent hemoglobin A1c 6.3 on February 2024.
Cirrhosis -complicated by HCC, thrombocytopenia and esophageal varices with variceal bleeding.
Posterior inferior right hepatic lobe suspicious for hepatocellular carcinoma
- Hold lactulose, continue rifaximin for now
- Hold spironolactone
- continue coreg 3.125 bid with hold parameters
- f/u mri for hcc already scheduled
CODE STATUS: Full code
DVT prophylaxis: Heparin
Diet: LRD
Disposition: replace potassium.
added probiotics
advanced diet to LRD
Total time spent on today's encounter was 52 minutes which included time spent in counseling the patient/family regarding diagnosis and treatment plan as listed above, goals of care, and symptom management. Case was discussed with nursing staff,
specialists, and care coordinators/case management. All labs and imaging personally reviewed by me. Remainder the time spent in detailed review of previous records, lab data, imaging, and other medical provider documentation.
Anticipated Discharge: > 48 hours
Subjective/Interval History
-
Date of Service: November 03, 2024
Patient seen and examined at bedside, denies any chest pain or shortness of breath, still with diarrhea, low potassium level which replaced.
Objective Data
-
Labs:
Laboratory Results
11/03/24
06:44
WBC 2.3 L*
Hgb 11.2 L
Hct 32.0 L
Plt Count 31 L
Sodium 133 L
Potassium 2.8 L
Chloride 107
Carbon Dioxide 24
BUN 2 L
Creatinine 0.6
Glucose 88
Calcium 7.8 L
Total Bilirubin 2.1 H
AST 82 H
ALT 62 H
Alkaline Phosphatase 78
Vital Signs:
Vital Signs
Temp Pulse Resp BP Pulse Ox
97.9 F 77 18 115/66 99
11/03/24 07:00 11/03/24 07:00 11/03/24 07:00 11/03/24 07:00 11/03/24 07:00
I&O
11/02/24 11/03/24 11/04/24
06:59 06:59 06:59
Intake Total 480 / 480 1800 / 1800
Balance 480 / 480 1800 / 1800
Physical Exam
-
General: Well Developed, Well Nourished, No Apparent Distress and Comfortable
HEENT: Normocephalic, Atraumatic, Moist Mucous Membranes, No Ptosis, PERRLA and Nose Appears Normal
Respiratory: Clear to Auscultation and Non Labored Respirations
Cardiac: Regular Rhythm and S1/S2
Breast: Deferred by me
GI: Soft, Nontender, Nondistended and Normal Bowel Sounds
Genito-urinary: No Costovertebral Tender
Musculoskeletal: No Clubbing, No Cyanosis and No Edema
Skin: Warm
Neuro: Awake, Alert, Oriented, AO x 3 and No Motor Deficits
Psych: Calm
Data Reviewed
-
Diagnostic Radiology: Image personally visualized and interpreted and Report Reviewed by me
CT Scan: Image personally visualized and interpreted and Report Reviewed by me
Ultrasound: Image personally visualized and interpreted and Report Reviewed by me
MRI: Image personally visualized and interpreted and Report Reviewed by me
Medical Tests (Nuc Med, Echo etc): Image personally visualized and interpreted and Report Reviewed by me
Labs: Labs Reviewed by me
Old Records: Reviewed
[2024-11-03] MEDS: NOVOLOG FLEXPEN 5 UNITS SC ×3 (08:56→16:54)
[2024-11-03] MEDS: KCL 270 MEQ IV (09:40)
[2024-11-03] MEDS: TYLENOL 650 MG PO (10:32)
[2024-11-03] MEDS: NSS 1000 IV (10:33)
[2024-11-03 11:37] LABS: Glucose - Point of Care 118 mg/dl (70-99)
[2024-11-03] MEDS: VISBIOME 2 CAP PO (13:38)
[2024-11-03 15:00] VITALS: BP 131/65
--- NOTE | 2024-11-03 15:49 | CM ---
CM met with pt bedside
Pt resides alone in a 1st floor condo with [place] building with railing
Pt is independent with her ADLs, no ADs, drives+
Pt has a new foldable cane she purchased for upcoming trip in Jan
PCP- Kathleen Navarro
Rx- [facility] [place]
Pt insulin dependent, obtaisn insulin through [email or web address] and supplies through [employer]
Pt process of obtaining dexcom
Pt without POA or advanced directives
Advanced directive paperwork provided to pt and she will fill out
Her sister is her emergency contact
Observed independence throughout room and hallway
Discharge Disposition- anticipate home no needs
[2024-11-03 16:43] LABS: Glucose - Point of Care 180 mg/dl (70-99)
[2024-11-03] MEDS: NOVOLOG FLEXPEN-MODERATE RESISTANCE 1 UNITS SC (16:53)
[2024-11-03 21:40] LABS: Glucose - Point of Care 205 mg/dl (70-99)
[2024-11-03] MEDS: LANTUS 0.1 UNITS SC (21:56)
[2024-11-03] MEDS: LEXAPRO 20 MG PO (21:57)
[2024-11-03 22:58] VITALS: BP 111/59
[2024-11-04] MEDS: DILAUDID 0.25 MG IV ×5 (01:38→22:31)
[2024-11-04] MEDS: ZOSYN IV (04:47)
[2024-11-04] MEDS: BENADRYL 25 MG IV (04:47)
--- NOTE | 2024-11-04 04:57 | PTCARENOTE ---
11/04/24 04:30 Pt complaining of itching. She is concerned its from the Zosyn since shes 'allergic penicillin's and Zosyn is a Cillin derivative.' Her last dose of zosyn was given at 21:56 on 11/03. JAVIER notified and instructed this RN to hold 0400
dose of Zosyn, and give Benadryl.
--- NOTE | 2024-11-04 05:15 | W.PN.UPDATE ---
Update Note
Progress Note Update
Patient c/o itching and concerned it is related to her Zosyn since she has PCN allergy. Benadryl IV given x1 and held 0400 dose.
[2024-11-04] MEDS: NSS 1000 IV (06:29)
[2024-11-04 06:39] LABS: ALT (SGPT) 60 U/L (0-35); AST (SGOT) 79 U/L (14-36); Albumin 2.7 g/dl (3.5-5.0); Alkaline Phosphatase 83 U/L (38-126); Blood Urea Nitrogen 3 mg/dl (7-17); Calcium 8.3 mg/dl (8.4-10.2); Carbon Dioxide 26 mmol/L (22-30); Chloride 106 mmol/L (98-107); Estimated Creatinine Clearance 64 ml/min; Glucose 140 mg/dl (70-99); Magnesium 1.4 mg/dl (1.6-2.3); Potassium 3.1 mmol/L (3.5-5.1); Sodium 131 mmol/L (135-145); Total Protein 5.2 g/dl (6.3-8.2); eGFR > 60.00
[2024-11-04 06:52] LABS: Hematocrit 30.7 % (37.0-47.0); Hemoglobin 10.6 g/dL (12.0-16.0); Mean Corp Hgb Conc. 34.5 g/dL (33.0-37.0); Mean Corpuscular Volume 91.9 fL (81.0-99.0); Platelet Count 23 10^3/uL (130-400); Red Cell Dist. Width 14.8 % (11.5-14.5)
[2024-11-04 07:44] LABS: Glucose - Point of Care 128 mg/dl (70-99)
[2024-11-04] MEDS: NOVOLOG FLEXPEN-MODERATE RESISTANCE SC ×2 (07:51→11:49)
[2024-11-04 08:00] VITALS: BP 109/57
[2024-11-04] MEDS: VISBIOME 2 CAP PO (08:27)
[2024-11-04] MEDS: XIFAXAN 550 MG PO ×2 (08:27→21:27)
[2024-11-04] MEDS: COREG 3.125 MG PO ×2 (08:27→21:35)
[2024-11-04] MEDS: VITAMIN D3 (cholecalciferol) 25 MCG PO (08:27)
[2024-11-04] MEDS: NOVOLOG FLEXPEN 5 UNITS SC ×3 (08:58→19:18)
[2024-11-04] MEDS: KCL 270 MEQ IV (09:41)
--- NOTE | 2024-11-04 10:43 | PN.CDI ---
CDI
- -
CDI:
Physician Documentation Request
Admit Date: 11/01/24 20:25
Dear Doctor Kelly,
Patient admitted with pancolitis.
11/02 Composition Tile Layer Assessment: '91 lbs 1 oz BMI 18.4 underweight range (11/01). Compared to stated weight of 102 lbs in July pt with a 10% weight loss in 3 months, significant. During visit was able to visulalize some temporal wasting and
protrusion of clavical. With weight loss of > 7.5% in three months, < 75% estimated needs > 1 month and obeserved muscle and fat wasting pt meets AND/ASPEN criteria for moderate protein calorie malnutrition of chronic illness.'
Based on the above information and your assessment, which of the following most accurately represents the patient's nutritional status?
Moderate protein calorie malnutrition
Other
Luke Criteria (ACP Hospitalist 2017)
2 or more criteria must be present for either
non severe or severe malnutrition
Note that the criteria differs related to the
presence of an acute or chronic illness
Acute Illness Chronic Illness
Energy Intake Non Severe: <75% for >7 days Non Severe: <75% for >1 month
Severe: <50% for >5 days Severe: <75% for >1 month
Weight Loss Non Severe: 1-2% over 1 week Non Severe: 5% over 1 month
5% over 1 month 7.5% over 3 months
7.5% over 3 months 10% over 6 months
1 year N/A 20% over 1 year
Severe: >2% over 1 week Severe: >5% over 1 month
>5% over 1 month >7.5% over 3 months
>7.5% over 3 months >10% over 6 months
1 year N/A >20% over 1 year
Body Fat Non Severe: Mild Decrease Non Severe: Mild Loss
Severe: Moderate Decrease Severe: Severe Loss
Muscle Mass Non Severe: Mild Decrease Non Severe: Mild Loss
Severe: Moderate Decrease Severe: Severe Loss
Fluid Accumulation Non Severe: Mild Accumulation Non Severe: Mild Accumulation
Severe: Moderate to severe Severe: Moderate to severe
accumulation accumulation
Reduced Reformatory Attendant Strength Non Severe: N/A Non Severe: N/A
Severe: Measurably reduced Severe: Measurably reduced
Additional criteria that can be used to Determine if Mild or Moderate Malnutrition (Merck Manual 2018)
Mild Moderate Severe
Albumin gm/dl <3.0 gm/dl <2.5 gm/dl <2.0 gm/dl
Pre Albumin mg/dl <15 gm/dl <10 mg/dl <5.0 mg/dl
BMI <18.5 <17 <16
Use of terms such as suspected, likely, concern for, or probable (associated with a specific diagnosis that is being evaluated, monitored, or treated as if it exists) are acceptable and can be coded in the inpatient setting, when documented at the
time of discharge.
Thank you,
Lea Maldonado RN, BSN
CDI Specialist
Available via [place] text
Please use your independent medical judgment in providing your response.
[2024-11-04] MEDS: IMODIUM 2 MG PO ×2 (10:52→22:56)
[2024-11-04] MEDS: BENADRYL 25 MG PO (10:53)
[2024-11-04 11:40] LABS: Glucose - Point of Care 137 mg/dl (70-99)
--- NOTE | 2024-11-04 12:53 | W.PN.HOSP.TC ---
Addendum entered and electronically signed by Ej Mendoza MD 11/04/24 14:35:
o��� Moderate protein calorie malnutrition
Original Note:
Today's Communication/Plan
-
replace potassium.
added probiotics
added Imodium
Assessment / Plan
Assessment / Plan
Impression:
Patient is a pleasant 64-year-old female with past medical history significant for alcoholic cirrhosis, history of prior alcohol use disorder, insulin-dependent diabetes, GERD, who presented to the emergency department with 24-hour history of severe
diarrhea and lower abdominal pain and diarrhea. she states she is going at least every 15 minutes with watery diarrhea without any hematochezia or melena. She denies feeling dizzy or lightheaded. She reports some chills. She denies any syncopal
episode. She reports some diffuse abdominal discomfort as well. She denies any urinary symptoms. She says she has not been on any antibiotics recently. She did continue to take spironolactone till morning of admission. She says she stopped
taking the lactulose earlier in the week. She continues medications as previously prescribed. She has significant electrolyte abnormalities but LFTs and hepatic function remains unchanged. No evidence of acute decompensation of her cirrhosis.
Assessment/plan:
severe pancolitis and a gastroenteritis
Patient presented with diarrhea.
C. difficile negative.
Negative Salmonella/Shigella/Campylobacter
CT findings are most compatible with a severe pancolitis gastroenteritis.
Hepatic cirrhosis with portal hypertension.
Started empirically on Zosyn
Patient developed itching from Zosyn, Since infectious workup negative
Will discontinue Zosyn and monitor off antibiotic
Added probiotic and Imodium.
Hypokalemia
-monitor and replete
Hyponatremia
-Most likely hypovolemic hyponatremia
-monitor with resuscitation
Pancytopenia
Secondary to liver cirrhosis
Continue to monitor.
No sign of bleeding
DM II -hyperglycemia
- Continue with the reduced dose of Lantus tonight 12 units
- insulin 5 units 3 times daily AC
- Sliding scale-most recent hemoglobin A1c 6.3 on February 2024.
Cirrhosis -complicated by HCC, thrombocytopenia and esophageal varices with variceal bleeding.
Posterior inferior right hepatic lobe suspicious for hepatocellular carcinoma
- Hold lactulose, continue rifaximin for now
- Hold spironolactone
- continue coreg 3.125 bid with hold parameters
- f/u mri for hcc already scheduled
CODE STATUS: Full code
DVT prophylaxis: Heparin
Diet: LRD
Disposition: replace potassium.
added probiotics
added Imodium
Total time spent on today's encounter was 52 minutes which included time spent in counseling the patient/family regarding diagnosis and treatment plan as listed above, goals of care, and symptom management. Case was discussed with nursing staff,
specialists, and care coordinators/case management. All labs and imaging personally reviewed by me. Remainder the time spent in detailed review of previous records, lab data, imaging, and other medical provider documentation.
Anticipated Discharge: 24 - 48 hours
Subjective/Interval History
-
Date of Service: November 04, 2024
Patient seen and examined at bedside, denies any chest pain or shortness of breath, no abdominal pain, diarrhea slightly improved.
Objective Data
-
Labs:
Laboratory Results
11/04/24
05:50
WBC 1.9 L*
Hgb 10.6 L
Hct 30.7 L
Plt Count 23 L* D
Sodium 131 L
Potassium 3.1 L
Chloride 106
Carbon Dioxide 26
BUN 3 L
Creatinine 0.6
Glucose 140 H
Calcium 8.3 L
Total Bilirubin 1.6 H
AST 79 H
ALT 60 H
Alkaline Phosphatase 83
Vital Signs:
Vital Signs
Temp Pulse Resp BP Pulse Ox
98.1 F 71 14 118/62 100
11/04/24 08:00 11/04/24 08:27 11/04/24 08:00 11/04/24 08:27 11/04/24 08:00
I&O
11/03/24 11/04/24 11/05/24
06:59 06:59 06:59
Intake Total 1800 / 1800 1320 / 1320
Balance 1800 / 1800 1320 / 1320
Physical Exam
-
General: Well Developed, Well Nourished, No Apparent Distress and Comfortable
HEENT: Normocephalic, Atraumatic, Moist Mucous Membranes, No Ptosis, PERRLA and Nose Appears Normal
Respiratory: Clear to Auscultation and Non Labored Respirations
Cardiac: Regular Rhythm and S1/S2
Breast: Deferred by me
GI: Soft, Nontender, Nondistended and Normal Bowel Sounds
Genito-urinary: No Costovertebral Tender
Musculoskeletal: No Clubbing, No Cyanosis and No Edema
Skin: Warm
Neuro: Awake, Alert, Oriented, AO x 3 and No Motor Deficits
Psych: Calm
[2024-11-04] MEDS: MAGNESIUM SULFATE 50 IV (15:03)
[2024-11-04 15:16] VITALS: BP 126/75
[2024-11-04 16:35] LABS: Glucose - Point of Care 293 mg/dl (70-99)
[2024-11-04] MEDS: NOVOLOG FLEXPEN-MODERATE RESISTANCE 5 UNITS SC (19:18)
[2024-11-04] MEDS: LEXAPRO 20 MG PO (21:28)
[2024-11-04 21:36] LABS: Glucose - Point of Care 392 mg/dl (70-99)
[2024-11-04] MEDS: LANTUS 0.1 UNITS SC (21:36)
[2024-11-04] MEDS: NOVOLOG FLEXPEN 10 UNITS SC (22:55)
[2024-11-04 23:00] VITALS: BP 107/55
[2024-11-05] MEDS: TYLENOL 650 MG PO ×2 (01:37→21:07)
[2024-11-05 01:42] LABS: Glucose - Point of Care 88 mg/dl (70-99)
[2024-11-05] MEDS: NSS 1000 IV (02:31)
[2024-11-05] MEDS: DILAUDID 0.25 MG IV ×3 (02:32→13:22)
[2024-11-05 07:15] LABS: Hematocrit 30.9 % (37.0-47.0); Hemoglobin 10.5 g/dL (12.0-16.0); Mean Corp Hgb Conc. 34.0 g/dL (33.0-37.0); Mean Corpuscular Volume 93.6 fL (81.0-99.0); Platelet Count 26 10^3/uL (130-400); Red Cell Dist. Width 15.1 % (11.5-14.5)
[2024-11-05 07:20] LABS: ALT (SGPT) 54 U/L (0-35); AST (SGOT) 69 U/L (14-36); Albumin 2.6 g/dl (3.5-5.0); Alkaline Phosphatase 85 U/L (38-126); Blood Urea Nitrogen 7 mg/dl (7-17); Calcium 8.1 mg/dl (8.4-10.2); Carbon Dioxide 28 mmol/L (22-30); Chloride 104 mmol/L (98-107); Estimated Creatinine Clearance 64 ml/min; Glucose 101 mg/dl (70-99); Magnesium 1.6 mg/dl (1.6-2.3); Potassium 3.6 mmol/L (3.5-5.1); Sodium 131 mmol/L (135-145); Total Protein 5.0 g/dl (6.3-8.2); eGFR > 60.00
[2024-11-05 07:35] VITALS: BP 103/65
[2024-11-05 07:47] LABS: Glucose - Point of Care 104 mg/dl (70-99)
[2024-11-05] MEDS: VITAMIN D3 (cholecalciferol) 25 MCG PO (08:21)
[2024-11-05] MEDS: VISBIOME 2 CAP PO (08:21)
[2024-11-05] MEDS: COREG 3.125 MG PO ×2 (08:21→22:22)
[2024-11-05] MEDS: XIFAXAN 550 MG PO ×2 (08:21→21:06)
[2024-11-05] MEDS: NOVOLOG FLEXPEN-MODERATE RESISTANCE SC (08:21)
[2024-11-05] MEDS: IMODIUM 2 MG PO ×2 (08:21→22:50)
[2024-11-05] MEDS: NOVOLOG FLEXPEN 5 UNITS SC ×3 (09:43→18:09)
[2024-11-05] MEDS: QUESTRAN 4 GRAM PO (10:25)
[2024-11-05 12:00] LABS: Glucose - Point of Care 265 mg/dl (70-99)
[2024-11-05] MEDS: NOVOLOG FLEXPEN-MODERATE RESISTANCE 5 UNITS SC (13:22)
--- NOTE | 2024-11-05 13:37 | CM ---
Patient seen at bedside
c-diff neg
patient states drove self to hospital
PLAN: anticipate home no needs, when stable, CM to continue to follow
--- NOTE | 2024-11-05 13:49 | W.PN.HOSP.TC ---
Today's Communication/Plan
-
added Bentyl
continue Imodium
Assessment / Plan
Assessment / Plan
Impression:
Patient is a pleasant 64-year-old female with past medical history significant for alcoholic cirrhosis, history of prior alcohol use disorder, insulin-dependent diabetes, GERD, who presented to the emergency department with 24-hour history of severe
diarrhea and lower abdominal pain and diarrhea. she states she is going at least every 15 minutes with watery diarrhea without any hematochezia or melena. She denies feeling dizzy or lightheaded. She reports some chills. She denies any syncopal
episode. She reports some diffuse abdominal discomfort as well. She denies any urinary symptoms. She says she has not been on any antibiotics recently. She did continue to take spironolactone till morning of admission. She says she stopped
taking the lactulose earlier in the week. She continues medications as previously prescribed. She has significant electrolyte abnormalities but LFTs and hepatic function remains unchanged. No evidence of acute decompensation of her cirrhosis.
Assessment/plan:
severe pancolitis and a gastroenteritis
Patient presented with diarrhea.
C. difficile negative.
Negative Salmonella/Shigella/Campylobacter
CT findings are most compatible with a severe pancolitis gastroenteritis.
Hepatic cirrhosis with portal hypertension.
Started empirically on Zosyn
Patient developed itching from Zosyn, Since infectious workup negative
Will discontinue Zosyn and monitor off antibiotic
Added probiotic and Imodium.
added Cholestyramine but patient had stomach pain,, so discontinued
Added Bentyl.
Hypokalemia
- replaced, continue to monitor.
Hyponatremia
-Most likely hypovolemic hyponatremia
-monitor with resuscitation
Pancytopenia
Secondary to liver cirrhosis
Continue to monitor.
No sign of bleeding
DM II -hyperglycemia
- Continue with the reduced dose of Lantus tonight 12 units
- insulin 5 units 3 times daily AC
- Sliding scale-most recent hemoglobin A1c 6.3 on February 2024.
Cirrhosis -complicated by HCC, thrombocytopenia and esophageal varices with variceal bleeding.
Posterior inferior right hepatic lobe suspicious for hepatocellular carcinoma
- Hold lactulose, continue rifaximin for now
- Hold spironolactone
- continue coreg 3.125 bid with hold parameters
- f/u mri for hcc already scheduled
CODE STATUS: Full code
DVT prophylaxis: Heparin
Diet: LRD
Disposition:
added Bentyl
continue Imodium
Total time spent on today's encounter was 52 minutes which included time spent in counseling the patient/family regarding diagnosis and treatment plan as listed above, goals of care, and symptom management. Case was discussed with nursing staff,
specialists, and care coordinators/case management. All labs and imaging personally reviewed by me. Remainder the time spent in detailed review of previous records, lab data, imaging, and other medical provider documentation.
Anticipated Discharge: Within 24 hours
Subjective/Interval History
-
Date of Service: November 05, 2024
Patient seen and examined at bedside, denies any chest pain or shortness of breath, no abdominal pain, diarrhea slightly improved.
added Bentyl.
Objective Data
-
Labs:
Laboratory Results
11/05/24
06:11
WBC 2.1 L*
Hgb 10.5 L
Hct 30.9 L
Plt Count 26 L*
Sodium 131 L
Potassium 3.6
Chloride 104
Carbon Dioxide 28
BUN 7
Creatinine 0.6
Glucose 101 H
Calcium 8.1 L
Total Bilirubin 1.3
AST 69 H
ALT 54 H
Alkaline Phosphatase 85
Vital Signs:
Vital Signs
Temp Pulse Resp BP Pulse Ox
98.4 F 69 16 125/70 99
11/05/24 07:35 11/05/24 08:21 11/05/24 07:35 11/05/24 08:21 11/05/24 07:35
I&O
11/04/24 11/05/24 11/06/24
06:59 06:59 06:59
Intake Total 1320 / 1320 960 / 960
Balance 1320 / 1320 960 / 960
Physical Exam
-
General: Well Developed, Well Nourished, No Apparent Distress and Comfortable
HEENT: Normocephalic, Atraumatic, Moist Mucous Membranes, No Ptosis, PERRLA and Nose Appears Normal
Respiratory: Clear to Auscultation and Non Labored Respirations
Cardiac: Regular Rhythm and S1/S2
Breast: Deferred by me
GI: Soft, Nontender, Nondistended and Normal Bowel Sounds
Genito-urinary: No Costovertebral Tender
Musculoskeletal: No Clubbing, No Cyanosis and No Edema
Skin: Warm
Neuro: Awake, Alert, Oriented, AO x 3 and No Motor Deficits
Psych: Calm
[2024-11-05 16:00] VITALS: BP 120/62
[2024-11-05] MEDS: BENTYL 20 MG PO ×2 (17:04→22:23)
[2024-11-05 18:04] LABS: Glucose - Point of Care 228 mg/dl (70-99)
[2024-11-05] MEDS: NOVOLOG FLEXPEN-MODERATE RESISTANCE 3 UNITS SC (18:08)
[2024-11-05 22:17] LABS: Glucose - Point of Care 228 mg/dl (70-99)
[2024-11-05] MEDS: LANTUS 0.1 UNITS SC (22:24)
[2024-11-05] MEDS: LEXAPRO 20 MG PO (22:25)
[2024-11-05] MEDS: BENADRYL 25 MG PO (22:50)
[2024-11-05 23:44] VITALS: BP 120/56
[2024-11-06 07:09] LABS: Hematocrit 30.8 % (37.0-47.0); Hemoglobin 10.7 g/dL (12.0-16.0); Mean Corp Hgb Conc. 34.7 g/dL (33.0-37.0); Mean Corpuscular Volume 92.5 fL (81.0-99.0); Platelet Count 30 10^3/uL (130-400); Red Cell Dist. Width 15.3 % (11.5-14.5)
[2024-11-06 07:38] VITALS: BP 115/53
[2024-11-06 07:44] LABS: ALT (SGPT) 49 U/L (0-35); AST (SGOT) 60 U/L (14-36); Albumin 2.6 g/dl (3.5-5.0); Alkaline Phosphatase 76 U/L (38-126); Blood Urea Nitrogen 6 mg/dl (7-17); Calcium 8.3 mg/dl (8.4-10.2); Carbon Dioxide 28 mmol/L (22-30); Chloride 104 mmol/L (98-107); Estimated Creatinine Clearance 64 ml/min; Glucose 213 mg/dl (70-99); Magnesium 1.4 mg/dl (1.6-2.3); Potassium 3.7 mmol/L (3.5-5.1); Sodium 133 mmol/L (135-145); Total Protein 4.9 g/dl (6.3-8.2); eGFR > 60.00
[2024-11-06 07:45] LABS: Glucose - Point of Care 193 mg/dl (70-99)
[2024-11-06] MEDS: VITAMIN D3 (cholecalciferol) 25 MCG PO (08:24)
[2024-11-06] MEDS: VISBIOME 2 CAP PO (08:24)
[2024-11-06] MEDS: BENTYL 20 MG PO ×2 (08:24→13:21)
[2024-11-06] MEDS: XIFAXAN 550 MG PO (08:24)
[2024-11-06] MEDS: COREG 3.125 MG PO (08:25)
[2024-11-06] MEDS: NOVOLOG FLEXPEN-MODERATE RESISTANCE 1 UNITS SC ×2 (08:25→13:21)
[2024-11-06] MEDS: NOVOLOG FLEXPEN 5 UNITS SC ×2 (08:25→13:21)
[2024-11-06] MEDS: MAGNESIUM SULFATE 50 IV (09:50)
--- NOTE | 2024-11-06 11:31 | W.PN.HOSP.TC ---
Today's Communication/Plan
-
Discharge home
Assessment / Plan
Assessment / Plan
Impression:
Patient is a pleasant 64-year-old female with past medical history significant for alcoholic cirrhosis, history of prior alcohol use disorder, insulin-dependent diabetes, GERD, who presented to the emergency department with 24-hour history of severe
diarrhea and lower abdominal pain and diarrhea. she states she is going at least every 15 minutes with watery diarrhea without any hematochezia or melena. She denies feeling dizzy or lightheaded. She reports some chills. She denies any syncopal
episode. She reports some diffuse abdominal discomfort as well. She denies any urinary symptoms. She says she has not been on any antibiotics recently. She did continue to take spironolactone till morning of admission. She says she stopped
taking the lactulose earlier in the week. She continues medications as previously prescribed. She has significant electrolyte abnormalities but LFTs and hepatic function remains unchanged. No evidence of acute decompensation of her cirrhosis.
Patient was started on antibiotic in form of Zosyn, but old stool workup came back negative for infection, Zosyn discontinued.
Ordered Imodium.
Probiotic, and Bentyl
Overall diarrhea improved, will be discharged home, hold lactulose for now.
Assessment/plan:
severe pancolitis and a gastroenteritis
Patient presented with diarrhea.
C. difficile negative.
Negative Salmonella/Shigella/Campylobacter
CT findings are most compatible with a severe pancolitis gastroenteritis.
Hepatic cirrhosis with portal hypertension.
Started empirically on Zosyn
Patient developed itching from Zosyn, Since infectious workup negative
Will discontinue Zosyn and monitor off antibiotic
Added probiotic and Imodium.
added Cholestyramine but patient had stomach pain,, so discontinued
Added Bentyl.
Hypokalemia
- replaced, continue to monitor.
Hyponatremia
-Most likely hypovolemic hyponatremia
-monitor with resuscitation
Pancytopenia
Secondary to liver cirrhosis
Continue to monitor.
No sign of bleeding
DM II -hyperglycemia
- Continue with the reduced dose of Lantus tonight 12 units
- insulin 5 units 3 times daily AC
- Sliding scale-most recent hemoglobin A1c 6.3 on February 2024.
Cirrhosis -complicated by HCC, thrombocytopenia and esophageal varices with variceal bleeding.
Posterior inferior right hepatic lobe suspicious for hepatocellular carcinoma
- Hold lactulose, continue rifaximin for now
- Hold spironolactone
- continue coreg 3.125 bid with hold parameters
- f/u mri for hcc already scheduled
CODE STATUS: Full code
DVT prophylaxis: Heparin
Diet: LRD
Disposition: Discharge home today
Total time spent on today's encounter was 52 minutes which included time spent in counseling the patient/family regarding diagnosis and treatment plan as listed above, goals of care, and symptom management. Case was discussed with nursing staff,
specialists, and care coordinators/case management. All labs and imaging personally reviewed by me. Remainder the time spent in detailed review of previous records, lab data, imaging, and other medical provider documentation.
Anticipated Discharge: Today
Subjective/Interval History
-
Date of Service: November 06, 2024
Patient seen and examined at bedside, denies any chest pain or shortness of breath, no abdominal pain, no nausea, no vomiting, improved diarrhea.
At home on Bentyl and Imodium.
Objective Data
-
Labs:
Laboratory Results
11/06/24
05:54
WBC 2.1 L*
Hgb 10.7 L
Hct 30.8 L
Plt Count 30 L
Sodium 133 L
Potassium 3.7
Chloride 104
Carbon Dioxide 28
BUN 6 L
Creatinine 0.6
Glucose 213 H
Calcium 8.3 L
Total Bilirubin 1.2
AST 60 H
ALT 49 H
Alkaline Phosphatase 76
Vital Signs:
Vital Signs
Temp Pulse Resp BP Pulse Ox
98.2 F 68 16 115/53 98
11/06/24 07:38 11/06/24 08:25 11/06/24 07:38 11/06/24 08:25 11/06/24 07:38
I&O
11/05/24 11/06/24 11/07/24
06:59 06:59 06:59
Intake Total 2159
Balance 2159
Physical Exam
-
General: Well Developed, Well Nourished, No Apparent Distress and Comfortable
HEENT: Normocephalic, Atraumatic, Moist Mucous Membranes, No Ptosis, PERRLA and Nose Appears Normal
Respiratory: Clear to Auscultation and Non Labored Respirations
Cardiac: Regular Rhythm and S1/S2
Breast: Deferred by me
GI: Soft, Nontender, Nondistended and Normal Bowel Sounds
Genito-urinary: No Costovertebral Tender
Musculoskeletal: No Clubbing, No Cyanosis and No Edema
Skin: Warm
Neuro: Awake, Alert, Oriented, AO x 3 and No Motor Deficits
Psych: Calm
--- NOTE | 2024-11-06 11:37 | W.DCSUMMARY ---
Discharge Summary
Discharge Data
Date of Admission: 11/01/24
Date of Discharge: 11/06/24
Total time spent discharging patient (in min): 40
-
Pending Results: No
Hospital Course
Hospital course
Patient is a pleasant 64-year-old female with past medical history significant for alcoholic cirrhosis, history of prior alcohol use disorder, insulin-dependent diabetes, GERD, who presented to the emergency department with 24-hour history of severe
diarrhea and lower abdominal pain and diarrhea. she states she is going at least every 15 minutes with watery diarrhea without any hematochezia or melena. She denies feeling dizzy or lightheaded. She reports some chills. She denies any syncopal
episode. She reports some diffuse abdominal discomfort as well. She denies any urinary symptoms. She says she has not been on any antibiotics recently. She did continue to take spironolactone till morning of admission. She says she stopped
taking the lactulose earlier in the week. She continues medications as previously prescribed. She has significant electrolyte abnormalities but LFTs and hepatic function remains unchanged. No evidence of acute decompensation of her cirrhosis.
Patient was started on antibiotic in form of Zosyn, but old stool workup came back negative for infection, Zosyn discontinued.
Ordered Imodium.
Probiotic, and Bentyl
Overall diarrhea improved, will be discharged home, hold lactulose for now.
During hospitalization patient was treated from the following
severe pancolitis and a gastroenteritis
Patient presented with diarrhea.
C. difficile negative.
Negative Salmonella/Shigella/Campylobacter
CT findings are most compatible with a severe pancolitis gastroenteritis.
Hepatic cirrhosis with portal hypertension.
Started empirically on Zosyn
Patient developed itching from Zosyn, Since infectious workup negative
Will discontinue Zosyn and monitor off antibiotic
Added probiotic and Imodium.
added Cholestyramine but patient had stomach pain,, so discontinued
Added Bentyl.
Hypokalemia
- replaced, continue to monitor.
Hyponatremia
-Most likely hypovolemic hyponatremia
-monitor with resuscitation
Pancytopenia
Secondary to liver cirrhosis
Continue to monitor.
No sign of bleeding
DM II -hyperglycemia
- Continue with the reduced dose of Lantus tonight 12 units
- insulin 5 units 3 times daily AC
- Sliding scale-most recent hemoglobin A1c 6.3 on February 2024.
- Adjusted insulin on discharge
Cirrhosis -complicated by HCC, thrombocytopenia and esophageal varices with variceal bleeding.
Posterior inferior right hepatic lobe suspicious for hepatocellular carcinoma
- Hold lactulose, continue rifaximin for now
- Hold spironolactone--> resume
- f/u mri for hcc already scheduled
CODE STATUS: Full code
DVT prophylaxis: Heparin
Diet: LRD
Disposition: Discharge home today
Total time spent on today's encounter was 40 minutes which included time spent in counseling the patient/family regarding diagnosis and treatment plan as listed above, goals of care, and symptom management. Case was discussed with nursing staff,
specialists, and care coordinators/case management. All labs and imaging personally reviewed by me. Remainder the time spent in detailed review of previous records, lab data, imaging, and other medical provider documentation.
Anticipated Discharge: Today
Discharge Plan
-
Patient Disposition: Home (Routine Discharge)
Discharge Diagnosis/Procedures: severe pancolitis and a gastroenteritis
Hypokalemia
Pancytopenia
Diet: As tolerated and Low Fiber
Activity: As tolerated
Referrals:
Kathleen Navarro PA-C [Family Provider, Internal Medicine]
Prescriptions:
New
diphenhydramine HCl 25 mg Capsule
25 mg PO Q4HPRN PRN (Reason: itching) Qty: 0 0RF
dicyclomine 10 mg Capsule
20 mg PO QID PRN (Reason: abdominal pain) 30 Days Qty: 240 0RF
Continued
omeprazole 20 MG capsule,delayed release(DR/EC)
20 mg PO DAILY
loratadine 10 MG tablet
10 mg PO DAILY
Xifaxan 550 MG tablet
550 mg PO BID Qty: 120 0RF
loperamide 2 mg Capsule
2 mg PO Q6HPRN PRN (Reason: diarrhea)
trazodone 50 mg Tablet
25 mg PO HSPRN PRN (Reason: sleep)
celecoxib 100 mg Capsule
100 mg PO DAILYPRN PRN (Reason: headache)
escitalopram oxalate 10 mg Tablet
10 mg PO HS
cholecalciferol (vitamin D3) [Vitamin D3] 25 mcg (1,000 unit) Tablet
25 mcg PO DAILY
spironolactone 50 mg Tablet
50 mg PO DAILY
insulin aspart U-100 100 unit/mL (3 mL) insulin pen
9 unit SC AC
Changed
insulin glargine [Lantus Solostar U-100 Insulin] 100 unit/mL (3 mL) insulin pen
15 unit SC HS Qty: 0 0RF
Held
lactulose 30 ML solution
30 ml PO TID
Hold Instructions: Hold for now and resume with < 4 BM/daily
Discharge Orders:
Discharge Patient (As Directed); Ordered 11/06/24
Ordered By: Ej Mendoza
Discharge Date and Time
Print Language: SAMOAN
[2024-11-06 12:13] LABS: Glucose - Point of Care 181 mg/dl (70-99)
--- NOTE | 2024-11-06 12:27 | CM ---
Patient discharged today
IMM n/a
offered VN-declined
PLAN: Home, no needs
drove self
[2024-11-06 13:28] VITALS: BP 123/66
== END 2024-11-06 15:10 | disposition home or self-care (01) | DRG 641 ==
LOC: 3 WEST ACU 20:25
PROVIDERS: Internal Medicine; Nurse Practitioner; ADMITTING PHYSICIAN Internal Medicine; ATTENDING PHYSICIAN General Practice; EMERGENCY PHYSICIAN Emergency Medicine; FAMILY PHYSICIAN Physician Assistant
DX: E87.6 Hypokalemia (principal); C22.0 Liver cell carcinoma; D61.818 Other pancytopenia; K76.6 Portal hypertension; E44.0 Moderate protein-calorie malnutrition; Z68.1 Body mass index [BMI] 19.9 or less, adult; I85.10 Secondary esophageal varices without bleeding; K52.9 Noninfective gastroenteritis and colitis, unspecified; E87.1 Hypo-osmolality and hyponatremia; E86.1 Hypovolemia; K70.31 Alcoholic cirrhosis of liver with ascites; E11.65 Type 2 diabetes mellitus with hyperglycemia; K21.9 Gastro-esophageal reflux disease without esophagitis; F32.A Depression, unspecified; F10.11 Alcohol abuse, in remission; K22.2 Esophageal obstruction; Z60.2 Problems related to living alone; Z88.1 Allergy status to other antibiotic agents; Z88.0 Allergy status to penicillin; Z88.2 Allergy status to sulfonamides; Z90.49 Acquired absence of other specified parts of digestive tract; Z79.4 Long term (current) use of insulin
CPT/HCPCS: 74177; 80048; 80053; 81003; 82962; 83690; 83735; 85025; 85027; 86140; 87045; 87046; 87324; 87427; 87449; 96360; 99284; Q9967

== ENCOUNTER 2024-12-04 23:54 | Inpatient (IN) | payer OTHER, SELFPAY ==
[2024-12-04 17:23] VITALS: BP 112/66
[2024-12-04 17:50] VITALS: BP 127/59
[2024-12-04 18:00] VITALS: BP 114/46
--- NOTE | 2024-12-04 18:13 | ED.GENMED ---
History of Present Illness
General
Chief Complaint: Abdominal Pain
Source: patient
Time Seen by Provider: 12/04/24 17:54
History of Present Illness
History of Present Illness:
64-year-old female with past medical history of liver cancer (mass found in July of this year but currently only being monitored with MRIs), liver cirrhosis secondary to EtOH, insulin-dependent diabetes, previous alcohol induced pancreatitis
presenting to the ER for evaluation of upper abdominal pain for the last 4 days, worse today prompting her to come into the ER. Associated symptoms of slightly decreased p.o. intake but no other symptoms including nausea or vomiting, bowel changes,
urinary symptoms, chest pain or shortness of breath. Pain does radiate towards the back pointing to the right mid to lower back as to where she is feeling the radiating pain. She did not take anything related to the pain at home. She notes that
last month she was diagnosed here with pancolitis on CT scan but that this pain is much more intense than that.
Past History
Past History
ED Past Medical History: Cancer (liver cancer (new)), GERD, IDDM and Other (Alcoholic cirrhosis with ascites, hyponatremia, pancreatitis, pancytopenia)
ED Past Surgical History: Cholecystectomy
Social History
Tobacco: Non-smoker
Alcohol: Former
Drug: None
Personal:
Living: with family (with son)
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
Family History: Cancer
Review of Systems
Review of Systems
All Other Systems: ROS reviewed and negative except as documented in HPI and ROS
Phy Exam
Physical Exam
Physical Exam:
GENERAL: Alert , in no apparent distress
EYE: clear conjunctiva b/l
HEAD: NCAT
ENT: o/p clr, mmm.
CARDIAC: Regular rate and rhythm .
LUNGS: Clear breath sounds bilaterally, no acute respiratory distress, no wheezes/rales/rhonchi
ABDOMEN: Soft, epigastric and right upper quadrant tenderness, no r/g, no cvat
NEUROLOGICAL: Alert and oriented
SKIN: Warm and dry, skin intact.
MUSCULOSKELETAL: well perfused.
PSYCH: Normal and appropriate interaction.
Scores
Heart Failure Risk
Heart Failure Risk Score: Not Applicable
Heart Score for Chest Pain Patients
STEMI patient?: Not applicable
Withdrawal Assessment of Alcohol
Withdrawal Assessment Completed?: Not applicable
Course
Orders/Labs/Results
Orders:
Orders
12/04/24 18:10
HYDROmorphone [Dilaudid] 0.5 mg IV NOW STA
12/04/24 18:11
Electrocardiogram (*1) Urgent
Reason for Study: Abdominal Pain
CT Abd/pelvis W Iv Cont Urgent
Comment:
Reason For Exam: upper abd pain
EKG- Treatment ONCE
12/04/24 18:59
Complete Blood Count/With Diff Urgent
Comprehensive Metabolic Panel Urgent
Lipase Urgent
Troponin I Urgent
12/04/24 22:09
Urinalysis Reflex To Culture Urgent
Date Specimen was Collected: 12/04/24
Time Specimen was Collected: 21:54
Urine Microscopic Reflex Cult Urgent
Urine Culture Urgent
SARAHI Source: U
Specimen Description:
Date Specimen was Collected: 12/04/24
Time Specimen was Collected: 21:54
12/04/24 22:15
HYDROmorphone [Dilaudid] 0.5 mg IV NOW STA
12/04/24 22:30
0.9% Sodium Chloride 1000 ml [Nss] 1,000 ml IV BOLUS
12/04/24 22:49
Piperacillin/Tazo 3.375 Gram [Zosyn] 3.375 gram in 50 ml IV NOW
12/04/24 22:52
Vancomycin 1 Gram/200 ml [Vancocin] 1 gram in 200 ml IV NOW
Abnormal Lab Results
10/30/25 10/30/25 10/30/25
18:59 22:09 22:13
RBC 3.83 L 10^6/uL
(4.20-5.40)
MCH 32.4 H pg
(27.0-31.0)
RDW 17.7 H %
(11.5-14.5)
Plt Count 28 L* 10^3/uL
(130-400)
Abs Immat Gran (auto) 0.1 H 10^3/uL
(0-0.05)
Absolute Lymphs (auto) 0.3 L 10^3/uL
(1.2-3.4)
Immature Gran % 0.8 H %
(0-0.5)
Neutrophils % 88.6 H %
(42.2-75.2)
Lymphocytes % 4.2 L %
(20.5-51.1)
Sodium 130 L mmol/L
(135-145)
Chloride 95 L mmol/L
(98-107)
Glucose 188 H mg/dl
(70-99)
Total Bilirubin 9.3 H mg/dl
(0.2-1.3)
AST 159 H U/L
(14-36)
ALT 112 H U/L
(0-35)
Alkaline Phosphatase 208 H U/L
(38-126)
Lipase < 10 L U/L
(23-300)
Urine Ketones 1+ A
(Negative)
Ur Occult Blood Reflex 1+ A
(Negative)
Urine Nitrite (Reflex) Positive A
(Negative)
Urine Bilirubin 3+ A
(Negative)
Urine Urobilinogen 3+ A
(Neg - 1+)
Leukocyte Esterase Rfl 1+ A
(Negative)
Urine Glucose 2+ A
(Negative)
Urine Albumin (Reflex) 2+ A
(Neg - Trace)
POC Glucose 193 H mg/dl
(70-99)
12/04/24 18:59
12/04/24 18:59
Vital Signs
Initial and Last Documented VS:
Initial Vital Signs
Temp Pulse Resp BP Pulse Ox
98 F 82 18 112/66 99
12/04/24 17:23 12/04/24 17:23 12/04/24 17:23 12/04/24 17:23 12/04/24 17:23
Last Documented Vital Signs
Temp Pulse Resp BP Pulse Ox
97.9 F 68 17 113/69 97
12/07/24 07:14 12/07/24 07:14 12/07/24 07:14 12/07/24 07:14 12/07/24 07:14
MDM/Problems Addressed
Differential Diagnosis Includes:
Pancreatitis
GERD
PUD
Gastritis
Cholangitis (much less likely given hx of Cholecystectomy)
PE (also less likely given lack of cardiac/respiratory symptoms)
Progression of malignancy
MDM/Problems Addressed:
64-year-old female presenting to the ER for evaluation of epigastric abdominal pain and right upper quadrant abdominal pain over the last 4 days, today much more intense. No other associated symptoms. Pain does radiate towards the back. I did
consider obtaining CTA of the chest in addition to CT of the abdomen and pelvis for PE rule out however patient without any cardiopulmonary concerns. Will obtain labs and CT imaging of the abdomen and pelvis. Pain control with Dilaudid IV as
patient does appear quite uncomfortable and notes she has not had relief with morphine in the past when she has needed to be hospitalized.
*Radiology
Radiology exam reviewed: radiology read reviewed
*Pulse Oximetry
SaO2: 99
Oxygen Mode of Delivery: Room air
Patient hypoxic: no
*Critical Care Note
Total Time (30-74mins, 75-104mins- exclusive of procedures): Not Applicable
Patient Management
Discussion with other providers: Hospitalist
Escalation/DeEscalation of care consider admission/obs:
CT with findings as noted below
IMPRESSION:
Diffuse colonic wall thickening, consistent with pancolitis, as seen previously, though slightly less pronounced compared to prior examination. The differential includes infectious or inflammatory colitis, versus portal hypertensive colopathy. There
also appears to be involvement of the gastric wall.
Cirrhosis. Small mass in the inferior right lobe remains stable.
Splenomegaly. Portosystemic venous collaterals, consistent with portal hypertension.
Slightly increased distention of the common hepatic duct. Recommend correlation with liver function tests.
I do suspect a hepatobiliary cause for patient's symptoms. She does have elevated LFTs past her baseline, question SBP given the ascites. Antibiotics ordered. Hospitalist team was notified and accepts for continued evaluation and treatment
ED Attending Note
-
Portions of this chart may have been created with voice recognition software.� Occasional wrong word or��sound alike� substitutions may have occurred due to the inherent limitations of voice recognition software.
Discharge Plan
Departure
Patient Disposition: Admit
Date of Disposition: 12/04/24
Time of Disposition: 22:57
Presentation/result/management discussed w/ accepting MD/DO: Hospitalist
Discharge Problem:
UTI (urinary tract infection), Intractable abdominal pain, Hepatocellular carcinoma, Thrombocytopenia
Interventions
Interventions:
*Risk Screen - Suicide Last Done: 12/04/24 17:26
*General Assessment Last Done: 12/04/24 18:40
*Neglect/Abuse Screening Last Done: 12/04/24 17:26
*ED- Fall Risk Assessment Last Done: 12/04/24 18:40
*ED COVID-19 Vaccine History Last Done: 12/04/24 18:40
*ED Influenza Vaccine History Last Done: 12/04/24 18:40
*Nursing Disposition Last Done: 12/05/24 01:35
OZ-Lpgytf-Igrwgadnxw Assessment Last Done: 12/04/24 17:50
Discharge Date and Time
Discharge Date/Time: 12/05/24 01:40
[2024-12-04 18:40] VITALS: BMI 21.7
[2024-12-04 19:05] VITALS: BP 112/65
[2024-12-04 19:16] LABS: Hematocrit 37.0 % (37.0-47.0); Hemoglobin 12.4 g/dL (12.0-16.0); Mean Corp Hgb Conc. 33.5 g/dL (33.0-37.0); Mean Corpuscular Volume 96.6 fL (81.0-99.0); Nucleated Red Blood Cells % 0 %; Platelet Count 28 10^3/uL (130-400); Red Cell Dist. Width 17.7 % (11.5-14.5)
[2024-12-04 19:23] LABS: ALT (SGPT) 112 U/L (0-35); AST (SGOT) 159 U/L (14-36); Albumin 3.7 g/dl (3.5-5.0); Alkaline Phosphatase 208 U/L (38-126); Blood Urea Nitrogen 12 mg/dl (7-17); Calcium 9.6 mg/dl (8.4-10.2); Carbon Dioxide 29 mmol/L (22-30); Chloride 95 mmol/L (98-107); Estimated Creatinine Clearance 56 ml/min; Glucose 188 mg/dl (70-99); Lipase < 10 U/L (23-300); Potassium 4.8 mmol/L (3.5-5.1); Sodium 130 mmol/L (135-145); Total Protein 6.9 g/dl (6.3-8.2); eGFR > 60.00
[2024-12-04 19:35] LABS: Troponin I < 0.012 ng/ml
[2024-12-04] MEDS: DILAUDID 0.5 MG IV ×2 (20:07→22:21)
[2024-12-04 22:09] VITALS: BP 101/56
[2024-12-04 22:15] LABS: Glucose - Point of Care 193 mg/dl (70-99)
[2024-12-04 22:18] LABS: Urine Character Cloudy (Clear)
[2024-12-04] MEDS: NSS 1000 IV (22:34)
[2024-12-04 23:00] VITALS: BP 103/55
[2024-12-04] MEDS: ZOSYN 50 IV (23:14)
[2024-12-04] MEDS: VANCOCIN 200 IV (23:14)
[2024-12-05] VITALS: BP 109/58
--- NOTE | 2024-12-05 | HPS.HSE ---
Family Physician
-
Family Physician: Kathleen Navarro
Chief Complaint
-
Abd Pain / Flank Pain
History of Present Illness
Patient is a 64y F with PMH significant for alcoholic cirrhosis, hepatocellular carcinoma and DM-II who presents to ED complaining of R flank pain and abdominal pain. Patient states that symptoms started on Sunday with R flank / upper back pain
with radiation around to the RUQ / abdomen. She denies any associated fevers / chills, N/V/D or other specific complaints. She denies any urinary complaints. She reports generalized fatigue and weakness.
Patient states that she has been compliant with her medications with the exception of Xifaxan which she has had insurance coverage difficulties with.
She was last hospitalized here 11/01 - 11/06 for colitis / diarrhea. She reports no current issues with diarrhea. She developed itching / rash during that stay after treatment with Zosyn.
Medical History
Past Medical History
Past Medical History: Reports Other
Additional Past Medical History:
Alcoholic Cirrhosis with Thrombocytopenia
Hepatocellular Carcinoma
Alcohol Use Disorder (in remission)
DM-II
Depression
Schatzki's ring
GERD
Past Surgical History: Reports Other
Additional Past Surgical History:
Cholecystectomy
EGD / Dilation
Social History
Tobacco: Non-smoker
Alcohol: Former (Sober x 8 years.)
Drug: None
Living: Alone
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
Family History: Not pertinent
Allergies / Home Medications
Allergies reflects when Allergies were last updated in [facility].
Home Medications with original date entered in [facility]
Allergy/Medication List:
Allergies
Allergy/AdvReac Type Severity Reaction Status Date / Time
cephalexin monohydrate (From Allergy Hives Verified 12/04/24 17:24
Keflex)
levofloxacin Allergy redness/itching Verified 12/04/24 17:24
at
injection
site
Penicillins Allergy Hives Verified 12/04/24 23:54
sulfamethoxazole Allergy Rash Verified 12/04/24 17:24
trimethoprim Allergy Rash Verified 12/04/24 17:24
Home Medications
loratadine 10 mg tablet 10 mg PO DAILY 07/15/18
omeprazole 20 mg capsule,delayed release 20 mg PO DAILY 07/15/18
rifaximin 550 mg tablet (Xifaxan) 550 mg PO BID ##120 07/18/18
celecoxib 100 mg capsule 100 mg PO DAILYPRN PRN headache 02/11/24
cholecalciferol (vitamin D3) 25 mcg (1,000 unit) tablet (Vitamin D3) 25 mcg PO DAILY 02/11/24
escitalopram oxalate 10 mg tablet 10 mg PO HS 02/11/24
lactulose 20 gram/30 mL oral solution 30 ml PO TID 02/11/24
Held on 11/06/24. Instructions: Hold for now and resume with < 4 BM/daily
loperamide 2 mg capsule 2 mg PO Q6HPRN PRN diarrhea 02/11/24
trazodone 50 mg tablet 25 mg PO HSPRN PRN sleep 02/11/24
spironolactone 50 mg tablet 50 mg PO DAILY 05/06/24
insulin aspart U-100 100 unit/mL (3 mL) subcutaneous pen 9 unit SC AC 11/01/24
dicyclomine 10 mg capsule 20 mg (2 x 10 mg) PO QID PRN abdominal pain 30 days #240 caps 11/06/24
diphenhydramine HCl 25 mg capsule 25 mg PO Q4HPRN PRN itching #0 caps 11/06/24
insulin glargine 100 unit/mL (3 mL) subcutaneous pen (Lantus Solostar U-100 Insulin) 15 unit (0.15 mL) SC HS #0 mL 11/06/24
Review of Systems
-
History Source: Patient
A 12 point ROS was completed and negative except as noted: Yes
Constitutional: Reports Fatigue; Denies Fever or Chills
Respiratory: Denies Cough or Trouble Breathing
Cardiac: Denies Chest Pain or Palpitations
Abdomen/GI: Reports Abdominal Pain; Denies Nausea, Vomiting, Diarrhea, Bloody Stools or Black Stools
: Reports Flank Pain; Denies Dysuria or Frequency
Musculoskeletal: Denies Joint Pain or Edema
Neurological: Denies Dizzy or Headache
Physical Exam
Vital Signs
Vital Signs
Temp Pulse Resp BP Pulse Ox
98 F 85 18 103/55 94
12/04/24 17:23 12/04/24 22:09 12/04/24 22:09 12/04/24 23:00 12/04/24 22:30
Physical Exam
General: Other (64y F in mild distress due to back pain / flank pain.)
HEENT: Moist mucous membranes and PERRLA
Respiratory: Clear; No Wheezes, Rales or Rhonchi
Cardiac: S1/S2 and Regular Rhythm; No Murmur
GI: Other (Pos RUQ fullness and tenderness. Pos guarding. Normal bowel sounds.)
Musculoskeletal: No Clubbing, No Cyanosis and No Edema
Neuro: AO x 3
Laboratory Results
-
12/04/24 18:59
12/04/24 18:59
Laboratory Results
Total Bilirubin 9.3 mg/dl (0.2-1.3) H 12/04/24 18:59
AST 159 U/L (14-36) H 12/04/24 18:59
ALT 112 U/L (0-35) H 12/04/24 18:59
Alkaline Phosphatase 208 U/L (38-126) H 12/04/24 18:59
Troponin I < 0.012 ng/ml 12/04/24 18:59
Lipase < 10 U/L (23-300) L 12/04/24 18:59
Impression/Plan
-
A/P: Patient is a 64y F with PMH significant for cirrhosis and hepatocellular carcinoma who presents to ED complaining of R flank pain and abdominal pain x 4 days.
Abdominal Pain / Flank Pain
Ascending Cholangitis
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
Hepatocellular Carcinoma
- Admit for further evaluation and treatment.
- Patient presents with RUQ / R flank pain x 4 days, increased LFTs and CT scan showing increased ductal dilation and pneumobilia.
- Cover for possible cholangitis pending further evaluation.
- Will use Vanco / Azactam / Flagyl for now given known allergy to PCN, cephalosporins and quinolones.
- GI evaluation for additional recommendations / evaluation of hepatic changes.
- ID eval for abx recommendations.
- Follow for any new / worsening symptoms. Follow LFTs for changes.
- Not on any active therapy for HCC at this time. Next surveillance MRI planned for January.
- Continue current med regimen including spironolactone, lactulose, Xifaxan, etc.
Chronic Hyponatremia
- Stable. Na levels are at / near known baseline.
- Secondary to cirrhosis.
- Continue to monitor.
Colitis
- Bowel wall edema again seen on CT scan. No change from prior.
- Suspect this reflect congestion / portal hypertensive colopathy rather than acute infectious process.
- No diarrhea at present.
DM-II
- Stable. Continue basal insulin at decreased dose while NPO.
- Follow glucose and cover with SSI as needed.
DVT Prophylaxis: Subcut Heparin
Code Status: Full
[2024-12-05 01:15] VITALS: BP 109/57; BMI 19.8
[2024-12-05] MEDS: AZACTAM 2000 MG IV ×2 (02:48→10:45)
[2024-12-05] MEDS: STERILE WATER FOR INJECTION 10 ML IV ×3 (02:49→19:16)
[2024-12-05] MEDS: DILAUDID 0.5 MG IV ×4 (02:49→20:08)
[2024-12-05] MEDS: FLAGYL 500 MG 100 IV (02:49)
[2024-12-05 05:30] VITALS: BMI 19.8
[2024-12-05 06:11] LABS: Glucose - Point of Care 211 mg/dl (70-99)
--- NOTE | 2024-12-05 06:27 | PTCARENOTE ---
Patient arrived on unit @0110 via stretcher from ED. Patient AAOX3, ambulate to bed with standby assist. Patient c/o RUQ pain with pain level 6/10. Skin assessment completed, med rec completed, oriented to unit and call dixon within reach.
[2024-12-05 06:36] LABS: Hematocrit 28.0 % (37.0-47.0); Hemoglobin 9.8 g/dL (12.0-16.0); Mean Corp Hgb Conc. 35.0 g/dL (33.0-37.0); Mean Corpuscular Volume 96.9 fL (81.0-99.0); Platelet Count 24 10^3/uL (130-400); Red Cell Dist. Width 17.7 % (11.5-14.5)
[2024-12-05] MEDS: NOVOLOG FLEXPEN-LOW RESISTANCE 2 UNITS SC (06:36)
[2024-12-05 06:50] LABS: ALT (SGPT) 79 U/L (0-35); AST (SGOT) 93 U/L (14-36); Albumin 2.5 g/dl (3.5-5.0); Alkaline Phosphatase 125 U/L (38-126); Blood Urea Nitrogen 13 mg/dl (7-17); Calcium 7.9 mg/dl (8.4-10.2); Carbon Dioxide 28 mmol/L (22-30); Chloride 98 mmol/L (98-107); Estimated Creatinine Clearance 56 ml/min; Glucose 195 mg/dl (70-99); Potassium 4.7 mmol/L (3.5-5.1); Sodium 127 mmol/L (135-145); Total Protein 5.2 g/dl (6.3-8.2); eGFR > 60.00
[2024-12-05 07:47] VITALS: BP 97/52
--- NOTE | 2024-12-05 07:53 | W.PN.HOSP.TC ---
Today's Communication/Plan
-
see plan
Assessment / Plan
Assessment / Plan
64y F with PMH significant for cirrhosis and hepatocellular carcinoma who presents to ED complaining of R flank pain and abdominal pain x 4 days.
Gen: NAD, AAOx3.
Eyes: EOMI, PERRLA, mod scleral icterus.
Neck: supple.
CV: RRR, +S1/S2, no m/r/g.
Resp: CTAB, no rales, wheezes, or rhonchi.
Abd: +BS, soft, diffuse TTP with guarding, ND
Skin: No rashes. + jaundice
Neuro: CN 2-12 intact, non-focal.
Psych: Normal mood and affect.
CT A/P: Diffuse colonic wall thickening, consistent with pancolitis, as seen previously, though slightly less pronounced compared to prior examination. The differential includes infectious or inflammatory colitis, versus portal hypertensive
colopathy. There also appears to be involvement of the gastric wall. Cirrhosis. Small mass in the inferior right lobe remains stable. Splenomegaly. Portosystemic venous collaterals, consistent with portal hypertension. Slightly increased distention
of the common hepatic duct. Recommend correlation with liver function tests.
Abdominal Pain / Flank Pain
Ascending Cholangitis
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
Hepatocellular Carcinoma
-Patient presents with RUQ / R flank pain x 4 days, increased LFTs (notably bilirubin) and CT scan showing increased ductal dilation and pneumobilia.
-currently being treated for possible acute ascending cholangitis with Vanco/Azactam/Flagyl for now given known allergy to PCN, cephalosporins and quinolones.
-c/s GI/ID
-Not on any active therapy for HCC at this time. Next surveillance MRI planned for January.
-Continue current med regimen including spironolactone, lactulose, Xifaxan, etc.
-check MRI abd with MRCP (discussed with GI)
Colitis
-Bowel wall edema again seen on CT scan. No change from prior.
-likely reflects congestion/portal hypertensive colopathy rather than acute infectious process.
-No diarrhea at present
Other problems:
Chronic Hyponatremia due to cirrhosis, trend
DM2: cont Lantus/SSI/accuchecks
FULL
No DVT proph with plts 24
Anticipated Discharge: 24 - 48 hours
Subjective/Interval History
-
Date of Service: December 05, 2024
Objective Data
-
Labs:
Laboratory Results
12/05/24
06:03
WBC 7.9
Hgb 9.8 L D
Hct 28.0 L
Plt Count 24 L*
Sodium 127 L
Potassium 4.7
Chloride 98
Carbon Dioxide 28
BUN 13
Creatinine 0.7
Glucose 195 H
Calcium 7.9 L D
Total Bilirubin 8.4 H
AST 93 H
ALT 79 H
Alkaline Phosphatase 125
Vital Signs:
Vital Signs
Temp Pulse Resp BP Pulse Ox
99.5 F 95 16 97/52 96
12/05/24 07:47 12/05/24 07:47 12/05/24 07:47 12/05/24 07:47 12/05/24 07:47
I&O
12/04/24 12/05/24 12/06/24
06:59 06:59 06:59
Intake Total 100 / 100
Balance 100 / 100
[2024-12-05] MEDS: ALDACTONE 50 MG PO (08:59)
[2024-12-05] MEDS: PROTONIX 40 MG PO (09:01)
[2024-12-05] MEDS: XIFAXAN 550 MG PO ×2 (09:01→19:56)
[2024-12-05] MEDS: DUPHALAC/CHRONULAC 30 GRAMS PO (09:03)
--- NOTE | 2024-12-05 09:12 | PHA.VAN.IN ---
Assessment
- Assessment
Renal Function: Appears similar to baseline
Concomitant Antimicrobials: aztreonam, metronidazole
- Previous Dosing Experience
Previous Regimen: Vanc 500mg Q12H
Date of Regimen: April 2016
Provided Trough of: 11
Patient's SCR is: Similar to previous dosing experience
Patient's weight is: Decreased compared to previous dosing experience (patient weighs approximately 10-15kg less)
AUC Dosing Plan
- Dosing Variables
Dosing Weight (kg): 45.5
Dosing CrCl (ml/min): 56
Vd coefficient (L/kg): 0.7
- Empiric Dosing
Initial / Loading Dose: 1000mg - 12/04 23:14
Maintenance Regimen: Vanc 750mg Q24H - first dose now then 0600
Estimated AUC (mcg*h/mL): 475
Estimated Peak (mcg*h/mL): 33.4
Estimated Trough (mcg/ml): 10.4
Estimated Half Life (H): 13.6
Utilizing population PK rather than prior dosing experience as has been several years since prior experience and clearance is likely altered
Patient may have higher Vd than population-PK predicts - will require steady state levels to evaluate
- Monitoring
No levels ordered at this time: consider levels in next few days
Pharmacokinetics Vancomycin I
- -
Patient Age: 64
Patient Sex: Female
Vancomycin Day #: 1
Indication: Gi / Intra-Abdominal
Requesting Provider: Dr. Samaniego
Pertinent Antimicrobial Allergies:
cephalexin - hives
levofloxacin - redness / itching at injection site
penicillins - hives
smx/tmp - rash
Height / Weight:
Height 4 ft 11 in
Actual Weight 44.537 kg
Pertinent Past Medical History: BMI ~19.8, cirrhosis, hepatocellular carcinoma, DM II
- Vital Signs / Lab Results
Temp Pulse Resp BP Pulse Ox
99.5 F 95 16 97/52 96
12/05/24 07:47 12/05/24 07:47 12/05/24 07:47 12/05/24 07:47 12/05/24 07:47
Lab Results - Hematology
12/04/24 12/05/24
18:59 06:03
WBC 7.1 7.9
Lab Results - Chemistry
12/04/24 12/05/24
18:59 06:03
BUN 12 13
Creatinine 0.7 0.7
Estimated Creat Clear 56 56
Albumin 3.7 2.5 L
Lab Results - Urine
12/04/24
22:09
Urine Nitrite (Reflex) Positive A
Leukocyte Esterase Rfl 1+ A
Urine WBC (Reflex)
Ur Squamous Epith Cells
Urine Bacteria (Reflex)
--- NOTE | 2024-12-05 09:52 | CON.ID ---
Consultation
-
Date/Time Consultation Requested: December 05, 2024 0112
Date/Time Consultation Performed: December 05, 2024 1000
Requesting Provider: Dr.Jarrod Samaniego
Performing Provider: Dr. Janet Hansen
Reason for Consultation: Cholangitis, cirrhosis, HCC
Chief Complaint / Past History
Chief Complaint
Abdominal pain
History of Present Illness
64-year-old female with history of diabetes mellitus, alcohol cirrhosis, hepatic cellular carcinoma not on treatment who presented to the ED last night due to right upper abdominal pain. She reports she noted right epigastric pain about 3 to 4 days
ago. The pain then radiated to the right upper quadrant and around to her back. No fevers. Pain became severe and therefore she presented to ED. She did not notice turning yellow. No nausea or vomiting. No diarrhea. No dysuria, urgency, or
frequency. In ER patient noted to have elevated LFTs with total bilirubin 9.3, AST 109, ALT 112. CAT scan of the abdomen and pelvis slight increased distention of the common hepatic duct. She is current on IV vancomycin, aztreonam, and
metronidazole. Today she continues to have abdominal pain.
Past History
Additional Past Medical History:
Diabetes mellitus
Alcohol cirrhosis
Hepatic cellular carcinoma
Chronic thrombocytopenia
Depression
History of cholecystectomy
Schatzki's ring status post dilation
Allergy History:
cephalexin monohydrate (From Keflex) Allergy (Verified 12/04/24 17:24)
Hives
levofloxacin Allergy (Verified 12/04/24 17:24)
redness/itching at injection site
Penicillins Allergy (Verified 12/04/24 23:54)
Hives
sulfamethoxazole Allergy (Verified 12/04/24 17:24)
Rash
trimethoprim Allergy (Verified 12/04/24 17:24)
Rash
Medications Reviewed: Yes
Current Antibiotics:
Vancomycin
Aztreonam
Metronidazole
Social History
Tobacco: Non-Smoker
Alcohol: Former
Drug: None
Living: Alone
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
Family History: Not Pertinent
Review of Systems
Review of Systems
General: Change in Appetite; Negative Fever or Chills
HEENT: Negative Sinus Problems or Headache
Cardiovascular: Negative Chest Pain or Dyspnea
Respiratory: Negative Dyspnea or Cough
Gasteroenterology: Negative Nausea, Vomiting or Diarrhea
Genital / Urological: Negative Dysuria or Flank Pain
Endocrine: Weakness
All systems: All other systems were reviewed and were negative
Vital Signs
Temp Pulse Resp BP Pulse Ox
99.5 F 90 16 111/50 96
12/05/24 07:47 12/05/24 08:59 12/05/24 07:47 12/05/24 08:59 12/05/24 07:47
Physical Exam
Physical Exam
Constitutional: No Acute Distress
Eyes: No Conjunctival Hemorrhage and Other (Sclera icteric)
Cardiovascular: Regular Rate and S1/S2
Pulmonary: Clear
Gastrointestinal: Soft and Tender (Significant tenderness epigastrium and right upper quadrant.)
Genito-Urinary: Negative CVA Tenderness
Extremities: Negative Edema
Skin: Jaundice
Neurological: AO x 3
Lab / Diagnostic Study Results
12/05/24 06:03
12/05/24 06:03
Abs Immat Gran (auto) 0.1 10^3/uL (0-0.05) H 12/04/24 18:59
Absolute Neuts (auto) 6.3 10^3/uL (1.4-6.5) 12/04/24 18:59
Absolute Lymphs (auto) 0.3 10^3/uL (1.2-3.4) L 12/04/24 18:59
Absolute Monos (auto) 0.4 10^3/uL (0.1-0.6) 12/04/24 18:59
Absolute Basos (auto) 0.0 10^3/uL (0-0.2) 12/04/24 18:59
Immature Gran % 0.8 % (0-0.5) H 12/04/24 18:59
Neutrophils % 88.6 % (42.2-75.2) H 12/04/24 18:59
Lymphocytes % 4.2 % (20.5-51.1) L 12/04/24 18:59
Monocytes % 5.5 % (1.7-9.3) 12/04/24 18:59
Eosinophils % 0.6 % (0-6) 12/04/24 18:59
Basophils % 0.3 % (0-2) 12/04/24 18:59
Ur Squamous Epith Cells /LPF (Few) 12/04/24 22:09
Microbiology Results
Micro:
12/04/24 22:09 Urine Culture - Pending
Urine
12/04/24 CT a/p: Diffuse colonic wall thickening, consistent with pancolitis, as seen previously, though slightly less pronounced compared to prior examination. The differential includes infectious or inflammatory colitis, versus portal hypertensive
colopathy. There also appears to be involvement of the gastric wall. Cirrhosis. Small mass in the inferior right lobe remains stable. Splenomegaly. Portosystemic venous collaterals, consistent with portal hypertension. Slightly increased distention
of the common hepatic duct. Recommend correlation with liver function tests.
Assessment / Plan
# Cholangitis
# Acute jaundice, elevated LFT's
# Hepatic cellular carcinoma, not on tx
# Alcohol cirrhosis
# Multiple abx allergies: cephalexin, PCN, T/sulfa
-CT a/p: slight distention of common hepatic duct
- ordered blood cx's x 2
- await GI eval
- Consolidate triple abx's to meropenem 500mg IV q6h.
Conditions present on admission:
Diabetes mellitus
Alcohol cirrhosis
Hepatic cellular carcinoma
Chronic thrombocytopenia
Depression
History of cholecystectomy
Schatzki's ring status post dilation
--- NOTE | 2024-12-05 10:02 | CON.GI ---
Addendum entered and electronically signed by Obi Mooney MD 12/05/24 12:37:
Patient seen and examined, agree with nurse practitioner note. The patient is a 64-year-old female with past medical history as noted, who presents with increasing abdominal pain. She has a history of cirrhosis secondary to previous alcohol,
decompensated with hepatic encephalopathy, thrombocytopenia, ascites and recent diagnosis of HCC which is small though slightly larger on repeat imaging. She was recently hospitalized with diffuse diarrhea and CAT scan from November 01 showed
severe pancolitis and gastroenteritis. She went home and was doing okay though had now pain, more in the right upper quadrant that radiates to the right back. This is reminiscent of her gallbladder pain in the past. This feels different from her
symptoms several weeks ago. She denies any fevers or chills. On admission she was noted to have again persistent thrombocytopenia, LFTs are significantly more elevated than previous, with bilirubin up to 9.3 on admission, AST 159, ALT 112, alk
phos 208. Repeat CT scan done with IV contrast again showed diffuse colonic wall thickening though slightly less. The small hepatic mass was stable, no mention of portal vein thrombosis. On exam she has mild epigastric tenderness without rebound
and is icteric, though alert and orient x 3.
1. Abdominal pain: Most suggestive of biliary colic, and does seem more possible given more dilated common hepatic duct and significant more elevated bilirubin. She states that she did have an ERCP around 30 years ago at the time of her
cholecystectomy. Other etiologies including portal vein thrombosis are also possible though do seem a bit less likely given the pattern of LFTs, though is possible given her 'colitis 'that is persistent. At this point we will await MRI with MRCP
up evaluate for CBD stone and portal vein thrombosis. She has no ascites excluding SBP. She has been started on broad-spectrum antibiotics and will continue to observe for now. Will continue to trend LFTs for now.
2. Cirrhosis: Secondary to prior alcohol, decompensated with recently diagnosed HCC, ascites, encephalopathy, hypersplenism and thrombocytopenia. She has no ascites on exam or on CT scan, no obvious encephalopathy now. Will continue Coreg,
lactulose, Xifaxan, Aldactone.
Original Note:
Consultation
-
Date/Time Consultation Requested: 12/05/24 0100
Date/Time Consultation Performed: 12/05/24 1000
Requesting Provider: Chaz Samaniego DO
Performing Provider: JAVIER Wilson, Clay Mooney MD
Reason for Consultation: abdominal pain/increased LFT's
Medical History
Chief Complaint / HPI
Chief Complaint: abdominal pain
History of Present Illness:
Pt is a 63-year-old female with past medical history of alcohol/metabolic related cirrhosis prior low ceruloplasmin but normal 24 hour urine copper. Her cirrhosis was c/b hepatic encephalopathy, thrombocytopenia, hyponatremia and ascites, type 2
diabetes, history of cholecystectomy, osteoporosis and recent diagnosis of HCC. She had MRI in 07/2024 performed for HCC screening revealed LI-RADS 4 lesion, suspicoius for HCC. She was referred her to [facility] Hepatology, Dr. Valenzuela, and after
further review of the imaging at tumor board, the lesion was upgraded to a LI-RADS 5 lesion, consistent with HCC. She had a repeat MRI performed in 10/2024 which showed interval increase in size to 1.7 cm. Awaiting increase to 2 cm to intervene, as
more treatment options will be available. Pt was recently hospitalized at [place] from 11/01-11/06/24, initially presenting with 24 hours of severe diarrhea and associated lower abdominal pain, CT scan on admission showed evidence of diffuse wall
thickening of the stomach and small bowel as well as severe diffuse wall thickening of the entire colon with pericolonic inflammatory fat stranding consistent with gastroenteritis and severe pancolitis. Labs significnat for pancytopenia, platelets
as low was 23, electrolyte abnormalities (low Na and Mg) and elevated liver enzymes. Stool studies including C. difficile and stool culture were negative. She was initially treated with Zosyn, this was later discontinued and then treated
supportively with Imodium and Bentyl. Her lactulose was held during admission. She had follow up with Dr. Teixeira 11/13/24. She had lowered dose of Coreg during admission then advised to increase back to 6.25mg BID as BP was improved after
admission. She also discussed continued Xifaxan and resuming Lactulose based on stool function but had not resumed yet with 4-8 stool per day. . She also remain on Spironolactone 50mg daily without Lasix. She now presents with upper
abdominal pain.
In admission CT was repeated with diffuse colonic wall thickening- pancolitis less prominent than prior infectious, inflammatory, ;portal colonopathy and also gastric wall involvement. cirrhosis with stable small mass. splenomgaly, portal HTN,
slight distention of common hepatic duct. Labs on admission noted with WBC 7,100, hbg 12.4 with drop to 9.8 and platelets 28,000, Na 127, bili 8.4, d bili 7.2, AST 93, ALT 79, alk phos 125. albumin 2.5. In review with patient she admits to
feeling better but on Sunday started with recurrent pain similar to last admission but more severe. Pain with right flank and also epigastric and below ribs. She rates pain as 7/10. Improved with pain meds and worse with moving around. She
denies dysphagia, GERD, nausea, vomiting, diarrhea but noted frequent stools with restart of Lactulose today. She also denies blood or black in stools. Pt also admits to 2-4 tabs of Aleve daily since Sunday.
Past Medical History
Past Medical History: GERD, NIDDM and Other (cirrhosis with ascites, liver CA, schatzki's ring, esophageal dilation, cellulitis, pancreatiitis, + celiac Ab, prior covid, pancoltis)
Past Surgical History: Cholecystectomy
Social History
Tobacco: Non-Smoker
Alcohol: Former (last drink 2 years ago heavy 8 years ago )
Living: Alone
Employment: Disabled
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
Family History: Other (pat GF colon CA , maternal GM Gallbladder CA, cousin with colon CA)
Allergies / Home Medications
Allergy/AdvReac Type Severity Reaction Status Date / Time
cephalexin monohydrate (From Allergy Hives Verified 12/04/24 17:24
Keflex)
levofloxacin Allergy redness/itching Verified 12/04/24 17:24
at
injection
site
Penicillins Allergy Hives Verified 12/04/24 23:54
sulfamethoxazole Allergy Rash Verified 12/04/24 17:24
trimethoprim Allergy Rash Verified 12/04/24 17:24
�Medication �Instructions �Recorded
loratadine 10 mg tablet 10 mg PO DAILY Allergies 07/15/18
omeprazole 20 mg capsule,delayed 20 mg PO DAILY Gastrointestinal 07/15/18
release Issue
rifaximin 550 mg tablet (Xifaxan) 550 mg PO BID ##120 07/18/18
celecoxib 100 mg capsule 100 mg PO DAILYPRN PRN headache 02/11/24
cholecalciferol (vitamin D3) 25 25 mcg PO DAILY Supplement 02/11/24
mcg (1,000 unit) tablet (Vitamin
D3)
escitalopram oxalate 10 mg tablet 10 mg PO HS depression/anxiety 02/11/24
lactulose 20 gram/30 mL oral 30 ml PO TID liver issue/cirrhosis 02/11/24
solution
Held on 11/06/24.
Instructions: Hold for now
and resume with < 4 BM/daily
loperamide 2 mg capsule 2 mg PO Q6HPRN PRN diarrhea 02/11/24
trazodone 50 mg tablet 25 mg PO HSPRN PRN sleep 02/11/24
spironolactone 50 mg tablet 50 mg PO DAILY Fluid Retention/BP 05/06/24
insulin aspart U-100 100 unit/mL 9 unit SC AC Diabetes 11/01/24
(3 mL) subcutaneous pen
dicyclomine 10 mg capsule 20 mg (2 x 10 mg) PO QID PRN 11/06/24
abdominal pain 30 days #240 caps
diphenhydramine HCl 25 mg capsule 25 mg PO Q4HPRN PRN itching #0 caps 11/06/24
insulin glargine 100 unit/mL (3 15 unit (0.15 mL) SC HS #0 mL 11/06/24
mL) subcutaneous pen (Lantus
Solostar U-100 Insulin)
Review of Systems
-
History Source: Patient
Constitutional: Reports No Symptoms
EENT: Reports No Symptoms
Respiratory: Reports Trouble Breathing (with abdominal pain)
Abdomen/GI: Reports Abdominal Pain and Diarrhea (increased stool frequency )
: Reports No Symptoms
Musculoskeletal: Reports Other (back pain)
Skin: Reports No Symptoms
Neurological: Reports Weakness
Endocrine: Reports No Symptoms
Hematologic/Lymphatic: Reports No Symptoms
Vital Signs
Temp Pulse Resp BP Pulse Ox
99.5 F 90 16 111/50 96
12/05/24 07:47 12/05/24 08:59 12/05/24 07:47 12/05/24 08:59 12/05/24 07:47
Physical Exam
Exam
General: Well Developed, Well Nourished and Other (mild asterixis on exam )
HEENT: Other (jaundice )
Respiratory: Clear
Cardiac: Regular Rhythm
GI: Soft, Non Distended and Tender (right flank with some guarding with upper abdominal exam )
Musculoskeletal: No Clubbing and No Cyanosis
Skin: Warm and Dry
Neuro: Awake, Alert and AO x 3
Psych: Calm
Results
WBC 7.9 10^3/uL (4.8-10.8) 12/05/24 06:03
Hgb 9.8 g/dL (12.0-16.0) L D 12/05/24 06:03
Hct 28.0 % (37.0-47.0) L 12/05/24 06:03
MCV 96.9 fL (81.0-99.0) 12/05/24 06:03
Plt Count 24 10^3/uL (130-400) L* 12/05/24 06:03
Absolute Neuts (auto) 6.3 10^3/uL (1.4-6.5) 10/30/25 18:59
Sodium 127 mmol/L (135-145) L 12/05/24 06:03
Potassium 4.7 mmol/L (3.5-5.1) 12/05/24 06:03
Chloride 98 mmol/L (98-107) 12/05/24 06:03
Carbon Dioxide 28 mmol/L (22-30) 12/05/24 06:03
BUN 13 mg/dl (7-17) 12/05/24 06:03
Creatinine 0.7 mg/dL (0.6-1.0) 12/05/24 06:03
Calcium 7.9 mg/dl (8.4-10.2) L D 12/05/24 06:03
Total Bilirubin 8.4 mg/dl (0.2-1.3) H 12/05/24 06:03
AST 93 U/L (14-36) H 12/05/24 06:03
ALT 79 U/L (0-35) H 12/05/24 06:03
Alkaline Phosphatase 125 U/L (38-126) 12/05/24 06:03
Lipase < 10 U/L (23-300) L 12/04/24 18:59
Diagnostic Image Results:
10/09/24 MR Abdomen W/o & W Contrast
1.7 cm lesion in the posterior inferior right hepatic lobe with imaging features that remain concerning for hepatocellular carcinoma. Slight increase in size compared to 1.5 cm on the MRI abdomen from 07/21/2024. The size, presence of arterial phase
non-rim enhancement, and nonperipheral washout currently designate this as a LI-RADS 5 lesion.
11/01/24 CT A/p
CT findings are most compatible with a severe pancolitis and a gastroenteritis.
Hepatic cirrhosis with portal hypertension.
The previously described small lesion in the posterior inferior right hepatic lobe suspicious for hepatocellular carcinoma is more completely evaluated on the recent MRI abdomen from 10/09/2024.
12/04/24 CT Abd/pelvis W Iv Cont
Diffuse colonic wall thickening, consistent with pancolitis, as seen previously, though slightly less pronounced compared to prior examination. The differential includes infectious or inflammatory colitis, versus portal hypertensive colopathy. There
also appears to be involvement of the gastric wall.
Cirrhosis. Small mass in the inferior right lobe remains stable.
Splenomegaly. Portosystemic venous collaterals, consistent with portal hypertension.
Slightly increased distention of the common hepatic duct. Recommend correlation with liver function tests.
Prior GI Procedures:
EGD: 05/06/24 teixeira - Grade I esophageal varices.
- Small hiatal hernia.
- Widely patent and non-obstructing Schatzki ring.
- Z-line regular.
- Portal hypertensive gastropathy.
- Normal duodenal bulb and second portion of the
duodenum.
- No specimens collected.
Colonoscopy: 05/06/2024 - Moderate colonic spasm.
- Rectal varices.
- The examination was otherwise normal.
- No specimens collected.
Labs 11/10/24:�
INR 1.3
AFP 3.2
Labs 11/06/24:
WBC 2.1, Hgb 10.7 MCV 92.5, Plt 30
Tbili 1.2, AST 60, ALT 49, Alk phos 76, Albumin 2.6, Mg 1.4, BUN 6/Cr. 0.6, K 3.7, Na 133
-Labs 04/25/24:�
HAV Ab Total Positive
HBcAb total negative
HBsAg neg
HBsAb neg*
HCV Ab neg
Ceruloplasmin 15*
Anti-LKM <20
Anti-SLA IgG 1.1
TTG-IgA 3,�
Total IgG 1359/ Total IgM 163, Togal IgE 1086/ Total IgA 693
ASMA 7
A1AT 117, MZ
AFP 3.3
INR 1.3, PT 13.5
WBC 2.7, Hgb 11.9, MCV 94, Plt 45
BUN 6/Cr. .77, Na 134, K 4.3, Cl 94, CO2 25, Albumin 3.7, Tbili 2.5, Alk phos 108, AST 57, ALT 33
A1c 7.7
Assessment / Plan
-
pt is a 63-year-old female with past medical history of alcohol/metabolic related cirrhosis prior low ceruloplasmin but normal 24 hour urine copper. Her cirrhosis was c/b hepatic encephalopathy, thrombocytopenia, hyponatremia and ascites, type 2
diabetes, history of cholecystectomy, osteoporosis and recent diagnosis of HCC in July with serial radiology follow for size and no current medical therapy per Dr. Chaidez at [facility]. . Pt was recently hospitalized at [place] from
11/01-11/06/24, initially presenting with 24 hours of severe diarrhea and associated lower abdominal pain, CT scan on admission showed evidence of diffuse wall thickening of the stomach and small bowel as well as severe diffuse wall thickening of the
entire colon with pericolonic inflammatory fat stranding consistent with gastroenteritis and severe pancolitis. Labs significnat for pancytopenia, platelets as low was 23, electrolyte abnormalities (low Na and Mg) and elevated liver enzymes. Stool
studies including C. difficile and stool culture were negative. She was initially treated with Zosyn, this was later discontinued and then treated supportively with Imodium and Bentyl. Her lactulose was held during admission. She had follow up with
Dr. Teixeira 11/13/24. She had lowered dose of Coreg during admission then advised to increase back to 6.25mg BID as BP was improved after admission. She also discussed continued Xifaxan and resuming Lactulose based on stool function but had not
resumed yet with 4-8 stool per day. She also remain on Spironolactone 50mg daily without Lasix. She now presents with upper abdominal pain with rise in LFT's. CT was repeated with diffuse colonic wall thickening- pancolitis less prominent
than prior infectious, inflammatory ;portal colonopathy and also gastric wall involvement. cirrhosis with stable small mass. splenomgaly, portal HTN, slight distention of common hepatic duct. Labs on admission noted with WBC 7,100, hbg 12.4 with
drop to 9.8 and platelets 28,000, Na 127, bili 8.4, d bili 7.2, AST 93, ALT 79, alk phos 125. albumin 2.5. In review with patient she admits to feeling better but on Sunday started with recurrent pain similar to last admission but more severe. .
She denies , diarrhea but noted frequent stools with restart of Lactulose today. Pt also admits to 2-4 tabs of Aleve daily since Sunday.
-right flank and upper abdominal pain
-CT with pancolitis ( with recent admission with similar finding), and gastric wall involvement
-CT with Slightly increased distention of the common hepatic duct
-rise in LFT's from prior admission
-cirrhosis with alcohol/metabolic related
-hepatic encephalopathy
-EV- small on prior EGD
-thrombocytopenia
- hyponatremia
- ascites -stable on Spironolactone only
-recent NSAID use
other med problems:
- type 2 diabetes
- history of cholecystectomy
-osteoporosis
-depression/anxiety
PLAN
Etiology of symptoms related to biliary compression with mass with elevated bili and distention of Common hepatic duct on CT, possible cholangitis vs PVT vs other
plan for MRI
NPO
pain control
trend labs
add INR to calculate MELD in AM
cont protonix daily
cont Xifaxan and agree with restart lactulose with mild asterixis on exam
currently on Vanco and Flagyl
hold further NSAIDs
resume low dose coreg 3.125 as pt was taking higher dose at home with close follow of BP
OP follow with Dr. Chaidez from hepatology
Due follow up with Dr. Teixeira 03/17/25 at 1 PM
-
-
Thank you for consultation and allowing me to participate in the patient's care. Please call the adult nurse practitioner GI physician during the after hours with any questions or concerns.
[2024-12-05 10:30] LABS: Glycohemoglobin (HgbA1c) 7.4 % (4.0-5.9)
--- NOTE | 2024-12-05 11:35 | W.PN.UPDATE ---
Addendum entered and electronically signed by JAVIER Carr 12/05/24 11:39:
correction to below wrong patient.
Original Note:
Update Note
Progress Note Update
DHT placement left side without difficulty at 65cm without resistance will check X ray to confirm placement with distant sound with air insufflation.
[2024-12-05 11:56] VITALS: BMI 19.8
[2024-12-05 11:59] LABS: Glucose - Point of Care 187 mg/dl (70-99)
[2024-12-05] MEDS: NOVOLOG FLEXPEN-LOW RESISTANCE 1 UNITS SC ×3 (12:29→23:36)
[2024-12-05 15:35] VITALS: BP 96/51
[2024-12-05] MEDS: NSS 1000 IV (16:33)
[2024-12-05 18:40] LABS: Glucose - Point of Care 168 mg/dl (70-99)
[2024-12-05] MEDS: MERREM 500 MG IV (19:16)
[2024-12-05] MEDS: DUPHALAC/CHRONULAC PO (19:52)
[2024-12-05] MEDS: COREG 3.125 MG PO (19:56)
[2024-12-05 23:00] VITALS: BP 101/58
[2024-12-05] MEDS: LEXAPRO 10 MG PO (23:35)
[2024-12-05] MEDS: LANTUS 0.1 UNITS SC (23:35)
[2024-12-05 23:38] LABS: Glucose - Point of Care 156 mg/dl (70-99)
[2024-12-06] MEDS: STERILE WATER FOR INJECTION 10 ML IV ×4 (00:07→17:33)
[2024-12-06] MEDS: MERREM 500 MG IV ×4 (00:07→17:32)
[2024-12-06] MEDS: DILAUDID 0.5 MG IV ×4 (00:08→17:41)
[2024-12-06 04:58] LABS: Hematocrit 27.5 % (37.0-47.0); Hemoglobin 9.3 g/dL (12.0-16.0); INR 1.80; Mean Corp Hgb Conc. 33.8 g/dL (33.0-37.0); Mean Corpuscular Volume 97.9 fL (81.0-99.0); PT 21.1 Sec (11.4-14.6); Platelet Count 31 10^3/uL (130-400); Red Cell Dist. Width 18.3 % (11.5-14.5)
[2024-12-06 05:14] LABS: ALT (SGPT) 79 U/L (0-35); AST (SGOT) 92 U/L (14-36); Albumin 2.3 g/dl (3.5-5.0); Alkaline Phosphatase 125 U/L (38-126); Blood Urea Nitrogen 14 mg/dl (7-17); Calcium 7.8 mg/dl (8.4-10.2); Carbon Dioxide 28 mmol/L (22-30); Chloride 98 mmol/L (98-107); Estimated Creatinine Clearance 65 ml/min; Glucose 122 mg/dl (70-99); Potassium 4.0 mmol/L (3.5-5.1); Sodium 126 mmol/L (135-145); Total Protein 4.9 g/dl (6.3-8.2); eGFR > 60.00
[2024-12-06] MEDS: NOVOLOG FLEXPEN-LOW RESISTANCE SC ×3 (05:54→18:27)
[2024-12-06 05:58] LABS: Glucose - Point of Care 113 mg/dl (70-99)
[2024-12-06 06:00] VITALS: BMI 19.0
[2024-12-06 07:00] VITALS: BP 105/47
--- NOTE | 2024-12-06 07:57 | W.PN.HOSP.TC ---
Today's Communication/Plan
-
see plan
Assessment / Plan
Assessment / Plan
64y F with PMH significant for cirrhosis and hepatocellular carcinoma who presents to ED complaining of R flank pain and abdominal pain x 4 days.
Gen: NAD, AAOx3.
Eyes: remains EOMI, PERRLA, mod scleral icterus.
Neck: supple.
CV: remains RRR, +S1/S2, no m/r/g.
Resp: CTAB, no rales, wheezes, or rhonchi.
Abd: +BS, soft, RUQ TTP guarding, ND
Skin: No rashes. + jaundice
Neuro: remains CN 2-12 intact, non-focal.
Psych: Normal mood and affect.
CT A/P: Diffuse colonic wall thickening, consistent with pancolitis, as seen previously, though slightly less pronounced compared to prior examination. The differential includes infectious or inflammatory colitis, versus portal hypertensive
colopathy. There also appears to be involvement of the gastric wall. Cirrhosis. Small mass in the inferior right lobe remains stable. Splenomegaly. Portosystemic venous collaterals, consistent with portal hypertension. Slightly increased distention
of the common hepatic duct. Recommend correlation with liver function tests.
Abdominal Pain / Flank Pain
Ascending Cholangitis
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
Hepatocellular Carcinoma
-Patient presents with RUQ / R flank pain x 4 days, increased LFTs (notably bilirubin) and CT scan showing increased ductal dilation and pneumobilia.
-currently being treated for possible acute ascending cholangitis with meropenem as per ID
-GI following
-Not on any active therapy for HCC at this time. Next surveillance MRI planned for January.
-Continue current med regimen including spironolactone, lactulose, Xifaxan, etc.
-MRI abd with MRCP read pending
Colitis
-Bowel wall edema again seen on CT scan. No change from prior.
-likely reflects congestion/portal hypertensive colopathy rather than acute infectious process.
-No diarrhea at present
Other problems:
Chronic Hyponatremia due to cirrhosis, trend
DM2: cont Lantus/SSI/accuchecks
FULL
No DVT proph with plts 31
Anticipated Discharge: > 48 hours
Subjective/Interval History
-
Date of Service: December 06, 2024
Abdominal pain very slightly better than yesterday.
Objective Data
-
Labs:
Laboratory Results
12/06/24
04:31
WBC 5.2
Hgb 9.3 L
Hct 27.5 L
Plt Count 31 L D
PT 21.1 H
INR 1.80
Sodium 126 L
Potassium 4.0
Chloride 98
Carbon Dioxide 28
BUN 14
Creatinine 0.6
Glucose 122 H
Calcium 7.8 L
Total Bilirubin 7.6 H
AST 92 H
ALT 79 H
Alkaline Phosphatase 125
Vital Signs:
Vital Signs
Temp Pulse Resp BP Pulse Ox
99 F 84 18 101/58 95
12/05/24 23:00 12/05/24 23:00 12/05/24 23:00 12/05/24 23:00 12/05/24 23:00
I&O
12/05/24 12/06/24 12/07/24
06:59 06:59 05:59
Intake Total 100 / 100 660 / 660
Balance 100 / 100 660 / 660
[2024-12-06] MEDS: ALDACTONE 50 MG PO (08:01)
[2024-12-06] MEDS: PROTONIX 40 MG PO (08:01)
[2024-12-06] MEDS: XIFAXAN 550 MG PO ×2 (08:01→21:06)
[2024-12-06] MEDS: COREG 3.125 MG PO ×2 (08:04→21:05)
[2024-12-06] MEDS: DUPHALAC/CHRONULAC PO ×2 (09:25→21:06)
--- NOTE | 2024-12-06 10:56 | W.PN.GI.CBS2 ---
Today's Communication / Plan
-
Please see assessment and plan for details.
Assessment / Plan
-
1. Abdominal pain: Most suggestive of biliary colic, and does seem more possible given more dilated common hepatic duct and significant more elevated bilirubin. She states that she did have an ERCP around 30 years ago at the time of her
cholecystectomy. Other etiologies including portal vein thrombosis are also possible though do seem a bit less likely given the pattern of LFTs, though is possible given her 'colitis 'that is persistent. Her LFTs are overall improved. Will await
MRI report. She has no ascites excluding SBP, continue to biotics for now and continue to trend LFTs.
2. Cirrhosis: Secondary to prior alcohol, decompensated with recently diagnosed HCC, prior ascites, encephalopathy, hypersplenism and thrombocytopenia. She has no ascites on exam or on CT scan, no obvious encephalopathy now. Will continue Coreg,
lactulose, Xifaxan, Aldactone.
Subjective
Subjective
Date of Service: December 06, 2024
Patient feeling okay, still with some abdominal pain that radiates to the back, with some diarrhea which was nonbloody overnight. No fevers or chills overnight.
Objective
Data Reviewed
Laboratory Data:
Laboratory Results
12/06/24 04:31
12/06/24 04:31
Laboratory Results
PT 21.1 Sec (11.4-14.6) H 12/06/24 04:31
INR 1.80 12/06/24 04:31
Total Bilirubin 7.6 mg/dl (0.2-1.3) H 12/06/24 04:31
AST 92 U/L (14-36) H 12/06/24 04:31
ALT 79 U/L (0-35) H 12/06/24 04:31
Alkaline Phosphatase 125 U/L (38-126) 12/06/24 04:31
Lipase < 10 U/L (23-300) L 12/04/24 18:59
Vital Signs and I&O:
Vital Signs
Temp Pulse Resp BP Pulse Ox
98.8 F 78 18 118/54 93
12/06/24 07:00 12/06/24 08:01 12/06/24 07:00 12/06/24 08:01 12/06/24 07:00
I&O
12/05/24 12/06/24 12/07/24
06:59 06:59 05:59
Intake Total 100 / 100 660 / 660
Balance 100 / 100 660 / 660
Physical Exam
Physical Exam
General: NAD
Abdomen: normal bowel sounds, soft, mild epigastric tenderness, no masses or bruits, no ascites
--- NOTE | 2024-12-06 11:37 | CM ---
Initial assessment completed. Patient has recent admission in October. Patient is a 64y F with PMH significant for alcoholic cirrhosis, hepatocellular carcinoma and DM-II who presents to ED complaining of R flank pain and abdominal pain.
Patient resides alone in a 1st floor condo with [place] building with railing. Patient is independent with her ADLs, no ADs, drives+. Patient prev had a foldable cane, however, patient stated it's 'weird' and she doesn't know how to use it so she no
longer has it. Patient has a new shower stool in bathroom. Patient has a dexcom as she is diabetic and is insulin dependent. Obtains insulin through [employer] and supplies through [employer].
No SNF/HC hx reported
Address, point of contact and insurance verified. Sister is emergency contact
PCP: Kathleen Navarro
[facility]
Plan: Home, no anticipated needs
--- NOTE | 2024-12-06 11:40 | W.PN.ID1 ---
Date of Service
Date of Service: December 06, 2024
Today's Communication
Continue antibiotics.
Assessment / Plan
# Cholangitis
# Acute jaundice, elevated LFT's
# Hepatic cellular carcinoma, not on tx
# Alcohol cirrhosis
# Multiple abx allergies: cephalexin, PCN, T/sulfa
Recommendations:
-CT a/p: slight distention of common hepatic duct
- Blood cultures ordered and in progress
- Abdominal MRI pending.
- Continue meropenem 500mg IV q6h.
Conditions present on admission:
Diabetes mellitus
Alcohol cirrhosis
Hepatic cellular carcinoma
Chronic thrombocytopenia
Depression
History of cholecystectomy
Schatzki's ring status post dilation
Chief Complaint
-: Other (Cholangitis)
Subjective / Review of Systems
Patient seen and examined. Reports some right upper quadrant discomfort.
Vital Signs / Physical Exam
Vital Signs
Vital Signs
Temp Pulse Resp BP Pulse Ox
98.8 F 78 18 118/54 93
12/06/24 07:00 12/06/24 08:01 12/06/24 07:00 12/06/24 08:01 12/06/24 07:00
Physical Exam
Constitutional: No Acute Distress, Comfortable and Non-toxic
Cardiovascular: S1/S2; Negative S3/S4
Pulmonary: Clear and Non Labored
Gastrointestinal: Soft, Tender (RUQ), Non Distended and Normal Bowel Sounds
Extremities: Negative Edema or Cyanosis
Neurological: Awake and Alert
Psychological: Calm
Objective Data
Lab Data
Lab Results
12/06/24 04:31
12/06/24 04:31
PT 21.1 Sec (11.4-14.6) H 12/06/24 04:31
INR 1.80 12/06/24 04:31
Estimated Creat Clear 65 ml/min 12/06/24 04:31
Total Bilirubin 7.6 mg/dl (0.2-1.3) H 12/06/24 04:31
AST 92 U/L (14-36) H 12/06/24 04:31
ALT 79 U/L (0-35) H 12/06/24 04:31
Alkaline Phosphatase 125 U/L (38-126) 12/06/24 04:31
Most recent labs reviewed.
Micro Results:
12/05/24 11:39 Blood Culture - Pending
Blood/Venous
12/05/24 12:04 Blood Culture - Pending
Blood/Venous
12/04/24 22:09 Urine Culture - Pending
Urine
12/04/24 CT a/p: Diffuse colonic wall thickening, consistent with pancolitis, as seen previously, though slightly less pronounced compared to prior examination. The differential includes infectious or inflammatory colitis, versus portal hypertensive
colopathy. There also appears to be involvement of the gastric wall. Cirrhosis. Small mass in the inferior right lobe remains stable. Splenomegaly. Portosystemic venous collaterals, consistent with portal hypertension. Slightly increased distention
of the common hepatic duct. Recommend correlation with liver function tests.
[2024-12-06 12:45] LABS: Glucose - Point of Care 110 mg/dl (70-99)
[2024-12-06 15:00] VITALS: BP 105/60
[2024-12-06] MEDS: NSS 1000 IV (15:48)
[2024-12-06 18:26] LABS: Glucose - Point of Care 72 mg/dl (70-99)
[2024-12-06] MEDS: LANTUS 0.1 UNITS SC (22:38)
[2024-12-06] MEDS: LEXAPRO 10 MG PO (22:38)
[2024-12-06 23:00] VITALS: BP 114/65
[2024-12-07] MEDS: STERILE WATER FOR INJECTION 10 ML IV ×4 (00:19→17:51)
[2024-12-07] MEDS: DILAUDID 0.5 MG IV ×5 (00:19→21:40)
[2024-12-07] MEDS: MERREM 500 MG IV ×4 (00:19→17:51)
[2024-12-07 00:24] LABS: Glucose - Point of Care 59 mg/dl (70-99)
[2024-12-07] MEDS: NOVOLOG FLEXPEN-LOW RESISTANCE SC ×2 (00:24→13:12)
[2024-12-07 00:58] LABS: Glucose - Point of Care 61 mg/dl (70-99)
[2024-12-07] MEDS: NSS 1000 IV (01:11)
[2024-12-07 01:16] LABS: Glucose - Point of Care 84 mg/dl (70-99)
[2024-12-07 06:00] VITALS: BMI 20.1
[2024-12-07 06:11] LABS: Glucose - Point of Care 165 mg/dl (70-99)
[2024-12-07] MEDS: NOVOLOG FLEXPEN-LOW RESISTANCE 1 UNITS SC (06:14)
[2024-12-07 07:14] VITALS: BP 113/69
[2024-12-07] MEDS: DUPHALAC/CHRONULAC 30 GRAMS PO (08:41)
[2024-12-07] MEDS: PROTONIX 40 MG PO (08:43)
[2024-12-07] MEDS: XIFAXAN 550 MG PO ×2 (08:43→20:57)
[2024-12-07] MEDS: ALDACTONE 50 MG PO (08:43)
[2024-12-07] MEDS: COREG 3.125 MG PO ×2 (08:43→20:57)
--- NOTE | 2024-12-07 09:31 | W.PN.HOSP.TC ---
Today's Communication/Plan
-
see plan
Assessment / Plan
Assessment / Plan
64y F with PMH significant for cirrhosis and hepatocellular carcinoma who presents to ED complaining of R flank pain and abdominal pain x 4 days.
Gen: NAD, AAOx3, appears chronically ill.
Eyes: remains EOMI, PERRLA, mod scleral icterus.
Neck: supple.
CV: continues to remain RRR, +S1/S2, no m/r/g.
Resp: CTAB anteriorly, no rales, wheezes, or rhonchi.
Abd: +BS, soft, RUQ TTP guarding, ND
Skin: No rashes. + jaundice
Neuro: continues to remain CN 2-12 intact, non-focal.
Psych: Normal mood and affect.
12/04/24 22:09 Urine Urine Culture - Preliminary
Gram negative bacilli
12/05/24 12:04 Blood/Venous Blood Culture - Preliminary
No Growth in 24 hours- Final report to follow
12/05/24 11:39 Blood/Venous Blood Culture - Preliminary
No Growth in 24 hours- Final report to follow
CT A/P: Diffuse colonic wall thickening, consistent with pancolitis, as seen previously, though slightly less pronounced compared to prior examination. The differential includes infectious or inflammatory colitis, versus portal hypertensive
colopathy. There also appears to be involvement of the gastric wall. Cirrhosis. Small mass in the inferior right lobe remains stable. Splenomegaly. Portosystemic venous collaterals, consistent with portal hypertension. Slightly increased distention
of the common hepatic duct. Recommend correlation with liver function tests.
MRI Abd/MRCP: Cirrhotic morphology with a a 1.8 cm BI-RADS 5 lesion within the inferior right hepatic lobe, previously 1.7 cm. Findings of portal hypertension with splenomegaly as well as numerous collateral vessels along the distal esophagus,
throughout the abdomen as well as within the upper pelvis. There is new biliary duct dilation as well as increased main pancreatic duct dilation. The common bile duct measures 1.4 cm and the main pancreatic duct measures 1.0 cm. There is abrupt
change in caliber of the ducts within the pancreatic head with a new 2.4 x 1.8 cm cystic lesion within the pancreatic head. This lesion demonstrates peripheral enhancement. This likely represents a peripancreatic collection/pseudocyst. A cystic
neoplasm is considered less likely.Consider EUS for further evaluation.
Abdominal Pain / Flank Pain
Ascending Cholangitis
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
Hepatocellular Carcinoma
-Patient presents with RUQ / R flank pain x 4 days, increased LFTs (notably bilirubin) and CT scan showing increased ductal dilation and pneumobilia.
-currently being treated for possible acute ascending cholangitis with meropenem as per ID
-GI following
-Not on any active therapy for HCC at this time. Next surveillance MRI was planned for January.
-Continue current med regimen including spironolactone, lactulose, Xifaxan
-MRI abd/MRCP above
-case discussed with GI. Pt should have EUS/ERCP but will need plts higher prior to procedure. Note, blood consent and type and screen obtained and ordered at 0945 on 12/07/24.
Colitis
-Bowel wall edema again seen on CT scan. No change from prior.
-likely reflects congestion/portal hypertensive colopathy rather than acute infectious process.
-No diarrhea at present
Chronic Hyponatremia:
-due to cirrhosis
-worsening
-AM Na pending but if lower than 126 will need to c/s renal
-check serum Osm, UOsm, John
DM2:
-a1c 7.4%
-cont SSI/accuchecks
-dec Lantus to 5U with hypoglycemia
FULL
No DVT proph with severe thrombocytopenia
Anticipated Discharge: > 48 hours
Subjective/Interval History
-
Date of Service: December 07, 2024
Objective Data
-
Vital Signs:
Vital Signs
Temp Pulse Resp BP Pulse Ox
97.9 F 68 17 113/69 97
12/07/24 07:14 12/07/24 07:14 12/07/24 07:14 12/07/24 07:14 12/07/24 07:14
I&O
12/06/24 12/07/24 12/08/24
06:59 05:59 06:59
Intake Total 660 / 660 120 / 120
Balance 660 / 660 120 / 120
[2024-12-07 09:59] LABS: Hematocrit 28.2 % (37.0-47.0); Hemoglobin 10.0 g/dL (12.0-16.0); Mean Corp Hgb Conc. 35.5 g/dL (33.0-37.0); Mean Corpuscular Volume 94.3 fL (81.0-99.0); Platelet Count 52 10^3/uL (130-400); Red Cell Dist. Width 17.1 % (11.5-14.5)
[2024-12-07 10:09] LABS: ALT (SGPT) 86 U/L (0-35); AST (SGOT) 132 U/L (14-36); Albumin 2.5 g/dl (3.5-5.0); Alkaline Phosphatase 163 U/L (38-126); Blood Urea Nitrogen 10 mg/dl (7-17); Calcium 7.8 mg/dl (8.4-10.2); Carbon Dioxide 29 mmol/L (22-30); Chloride 97 mmol/L (98-107); Estimated Creatinine Clearance 65 ml/min; Glucose 130 mg/dl (70-99); Potassium 3.8 mmol/L (3.5-5.1); Sodium 126 mmol/L (135-145); Total Protein 5.3 g/dl (6.3-8.2); eGFR > 60.00
[2024-12-07 11:54] LABS: Glucose - Point of Care 121 mg/dl (70-99)
--- NOTE | 2024-12-07 13:20 | W.PN.GI.CBS2 ---
Today's Communication / Plan
-
Please see assessment and plan for details.
Assessment / Plan
-
1. Abdominal pain: Now with new evidence of biliary obstruction, with dilated pancreatic as well as common hepatic duct and cystic mass in the head of the pancreas. She has had multiple imaging studies that have not shown this making malignancy a
bit less likely, though the clinical scenario is suspicious. She has had pancreatitis in the past, though very remotely. At this point we will plan EUS and ERCP, tentatively tomorrow pending her platelets and INR. Will discuss with Dr. Burch in the
morning.
2. Cirrhosis: Secondary to prior alcohol, decompensated with recently diagnosed HCC, prior ascites, prior encephalopathy, hypersplenism and thrombocytopenia. She has no ascites on exam or on CT scan, no obvious encephalopathy now. Will continue
Coreg, lactulose, Xifaxan, Aldactone.
Subjective
Subjective
Date of Service: December 07, 2024
Patient overall feeling about the same, still some epigastric discomfort, but no vomiting, fever or chills. Blood culture still negative.
Objective
Data Reviewed
Laboratory Data:
Laboratory Results
12/07/24 09:47
12/07/24 09:47
Laboratory Results
PT 21.1 Sec (11.4-14.6) H 12/06/24 04:31
INR 1.80 12/06/24 04:31
Total Bilirubin 7.9 mg/dl (0.2-1.3) H 12/07/24 09:47
AST 132 U/L (14-36) H 12/07/24 09:47
ALT 86 U/L (0-35) H 12/07/24 09:47
Alkaline Phosphatase 163 U/L (38-126) H 12/07/24 09:47
Lipase < 10 U/L (23-300) L 12/04/24 18:59
Vital Signs and I&O:
Vital Signs
Temp Pulse Resp BP Pulse Ox
97.9 F 68 17 113/69 97
12/07/24 07:14 12/07/24 07:14 12/07/24 07:14 12/07/24 07:14 12/07/24 07:14
I&O
12/06/24 12/07/24 12/08/24
06:59 05:59 06:59
Intake Total 660 / 660 120 / 120
Balance 660 / 660 120 / 120
Physical Exam
Physical Exam
General: NAD
Abdomen: normal bowel sounds, soft, no tenderness, no masses or bruits, no ascites
[2024-12-07 14:56] VITALS: BP 106/56
--- NOTE | 2024-12-07 15:22 | W.CON.NEPH ---
Consultation
-
Date/Time Consultation Requested: 12/07/24 2 PM
Date/Time Consultation Performed: 12/07/24 2 PM
Requesting Provider: Dr. Ruiz
Performing Provider: Dr. Arango
Reason for Consultation: Hyponatremia
Medical History
-
Chief Complaint: Pain
History of Present Illness:
This is a 64-year-old female who has hepatocellular carcinoma and cirrhosis. She has not been on loop diuretic therapy for at least a year. She is controlled with spironolactone. She does have diabetes controlled with insulin therapy. She says
that she drinks close to 2 gallons of fluid per day mostly water. 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 It appears that her sodium level has been stable in the low 130
range. She came to the emergency room because of right back pain and abdominal pain. She does have some mild loose stools. While here her sodium was noted to be lower at 126 for which we are asked to assist with management of. She was also noted
to have new evidence of biliary obstruction and there are plans for MRCP or ERCP.
Past Medical History
Alcoholic Cirrhosis with Thrombocytopenia
Hepatocellular Carcinoma
Alcohol Use Disorder (in remission)
DM-II
Depression
Schatzki's ring
GERD
Cholecystectomy
EGD / Dilation
Social History
Tobacco: Non-Smoker
Alcohol: Former
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
Family History: Not Pertinent
Allergies / Home Medications
Allergy/AdvReac Type Severity Reaction Status Date / Time
cephalexin monohydrate (From Allergy Hives Verified 12/04/24 17:24
Keflex)
levofloxacin Allergy redness/itching Verified 12/04/24 17:24
at
injection
site
Penicillins Allergy Hives Verified 12/04/24 23:54
sulfamethoxazole Allergy Rash Verified 12/04/24 17:24
trimethoprim Allergy Rash Verified 12/04/24 17:24
�Medication �Instructions �Recorded �Confirmed �Type
loratadine 10 mg tablet 10 mg PO DAILY Allergies 07/15/18 12/05/24 History
omeprazole 20 mg capsule,delayed 20 mg PO DAILY Gastrointestinal 07/15/18 12/05/24 History
release Issue
rifaximin 550 mg tablet (Xifaxan) 550 mg PO BID ##120 07/18/18 12/04/24 Rx
celecoxib 100 mg capsule 100 mg PO DAILYPRN PRN headache 02/11/24 12/05/24 History
cholecalciferol (vitamin D3) 25 25 mcg PO DAILY Supplement 02/11/24 12/05/24 History
mcg (1,000 unit) tablet (Vitamin
D3)
escitalopram oxalate 10 mg tablet 10 mg PO HS depression/anxiety 02/11/24 12/05/24 History
lactulose 20 gram/30 mL oral 30 ml PO TID liver issue/cirrhosis 02/11/24 12/05/24 History
solution
Held on 11/06/24.
Instructions: Hold for now
and resume with < 4 BM/daily
loperamide 2 mg capsule 2 mg PO Q6HPRN PRN diarrhea 02/11/24 12/05/24 History
trazodone 50 mg tablet 25 mg PO HSPRN PRN sleep 02/11/24 12/05/24 History
spironolactone 50 mg tablet 50 mg PO DAILY Fluid Retention/BP 05/06/24 12/05/24 History
insulin aspart U-100 100 unit/mL 9 unit SC AC Diabetes 11/01/24 12/05/24 History
(3 mL) subcutaneous pen
dicyclomine 10 mg capsule 20 mg (2 x 10 mg) PO QID PRN 11/06/24 12/05/24 Rx
abdominal pain 30 days #240 caps
diphenhydramine HCl 25 mg capsule 25 mg PO Q4HPRN PRN itching #0 caps 11/06/24 12/04/24 Rx
insulin glargine 100 unit/mL (3 15 unit (0.15 mL) SC HS #0 mL 11/06/24 12/05/24 Rx
mL) subcutaneous pen (Lantus
Solostar U-100 Insulin)
Review of Systems
-
Pain controlled, minimal diarrhea
All other systems: Negative unless noted
Physical Exam
Vital Signs
Vital Signs
Temp Pulse Resp BP Pulse Ox
98.0 F 73 17 106/56 97
12/07/24 14:56 12/07/24 14:56 12/07/24 14:56 12/07/24 14:56 12/07/24 14:56
Lab Results
WBC 4.1 10^3/uL (4.8-10.8) L 12/07/24 09:47
RBC 2.99 10^6/uL (4.20-5.40) L 12/07/24 09:47
Hgb 10.0 g/dL (12.0-16.0) L 12/07/24 09:47
Hct 28.2 % (37.0-47.0) L 12/07/24 09:47
Plt Count 52 10^3/uL (130-400) L D 12/07/24 09:47
Sodium 126 mmol/L (135-145) L 12/07/24 09:47
Potassium 3.8 mmol/L (3.5-5.1) 12/07/24 09:47
Chloride 97 mmol/L (98-107) L 12/07/24 09:47
Carbon Dioxide 29 mmol/L (22-30) 12/07/24 09:47
BUN 10 mg/dl (7-17) 12/07/24 09:47
Creatinine 0.5 mg/dL (0.6-1.0) L 12/07/24 09:47
eGFR > 60.00 12/07/24 09:47
Glucose 130 mg/dl (70-99) H 12/07/24 09:47
Calcium 7.8 mg/dl (8.4-10.2) L 12/07/24 09:47
Albumin 2.5 g/dl (3.5-5.0) L 12/07/24 09:47
Laboratory Tests
11/23/21 02/12/24 11/06/24
16:45 05:44 05:54
Sodium 137 132 L 133 L
Laboratory Tests
12/07/24
11:18
Urine Osmolality 580
Urine Sodium [address] abdomen pelvis with IV contrast 12/04/2024
IMPRESSION:
Diffuse colonic wall thickening, consistent with pancolitis, as seen previously, though slightly less pronounced compared to prior examination. The differential includes infectious or inflammatory colitis, versus portal hypertensive colopathy. There
also appears to be involvement of the gastric wall.
Cirrhosis. Small mass in the inferior right lobe remains stable.
Splenomegaly. Portosystemic venous collaterals, consistent with portal hypertension.
Slightly increased distention of the common hepatic duct. Recommend correlation with liver function tests.
MRI abdomen with contrast 12/05/2024
IMPRESSION:
Cirrhotic morphology with a a 1.8 cm BI-RADS 5 lesion within the inferior right hepatic lobe, previously 1.7 cm.
Findings of portal hypertension with splenomegaly as well as numerous collateral vessels along the distal esophagus, throughout the abdomen as well as within the upper pelvis.
There is new biliary duct dilation as well as increased main pancreatic duct dilation. The common bile duct measures 1.4 cm and the main pancreatic duct measures 1.0 cm. There is abrupt change in caliber of the ducts within the pancreatic head with
a new 2.4 x 1.8 cm cystic lesion within the pancreatic head. This lesion demonstrates peripheral enhancement. This likely represents a peripancreatic collection/pseudocyst. A cystic neoplasm is considered less likely.Consider EUS for further
evaluation.
Physical Exam
Patient is awake alert oriented and in no distress. Mood and affect were pleasant, insight and judgment were good. Pupils are equal round and reactive to light, extraocular movements are intact, sclera were anicteric. Hearing was normal, ears and
nose are intact. Oropharynx was clear. Neck was supple with trachea midline and no thyromegaly. Heart was regular rate and rhythm without rubs. Lower extremities without edema. Lungs were clear to auscultation bilaterally and with normal
excursion. Abdomen was soft, nontender, with normal active bowel sounds, and no hepatosplenomegaly. Skin was without rash and with normal turgor.
Data Reviewed
-
CT Scan: Report Reviewed by me
MRI: Report Reviewed by me
Medical Tests (Nuc Med, Echo etc): Image Personally Visualized and interpreted (EKG 12/04/2024 by my reading normal sinus rhythm)
Labs: Labs Reviewed by me
Old Records: Reviewed
Assessment/Plan
-
Assessment
Hyponatremia
Hepatocellular carcinoma
Cirrhosis
Biliary obstruction
Diabetes mellitus type 2
Plan
Will IV fluids at this time
Fluid restriction 48 ounces per day
Samsca 7.5 mg today
Follow BMP
Biliary imaging tomorrow tentatively
[2024-12-07 16:14] LABS: Glucose - Point of Care 293 mg/dl (70-99)
[2024-12-07] MEDS: SAMSCA 7.5 MG PO (16:25)
[2024-12-07] MEDS: NOVOLOG FLEXPEN-LOW RESISTANCE 3 UNITS SC (17:50)
[2024-12-07] MEDS: DUPHALAC/CHRONULAC PO (21:00)
[2024-12-07 21:35] LABS: Glucose - Point of Care 252 mg/dl (70-99)
[2024-12-07] MEDS: LANTUS 0.05 UNITS SC (21:39)
[2024-12-07] MEDS: LEXAPRO 10 MG PO (21:39)
[2024-12-07 23:00] VITALS: BP 102/53
[2024-12-08] VITALS (12 sets, daily range): BP systolic 99–138; BP diastolic 49–67; BMI 19.3
[2024-12-08] MEDS: NOVOLOG FLEXPEN-LOW RESISTANCE SC ×2 (00:22→12:14)
[2024-12-08] MEDS: STERILE WATER FOR INJECTION 10 ML IV ×4 (00:55→17:17)
[2024-12-08] MEDS: MERREM 500 MG IV ×4 (00:55→17:16)
[2024-12-08] MEDS: NOVOLOG FLEXPEN-LOW RESISTANCE 2 UNITS SC (01:05)
[2024-12-08 01:06] LABS: Glucose - Point of Care 219 mg/dl (70-99)
[2024-12-08] MEDS: DILAUDID 0.5 MG IV ×4 (04:39→21:34)
[2024-12-08 05:41] LABS: Glucose - Point of Care 153 mg/dl (70-99)
[2024-12-08] MEDS: NOVOLOG FLEXPEN-LOW RESISTANCE 1 UNITS SC ×2 (05:52→17:37)
[2024-12-08 07:38] LABS: Hematocrit 28.2 % (37.0-47.0); Hemoglobin 10.0 g/dL (12.0-16.0); Mean Corp Hgb Conc. 35.5 g/dL (33.0-37.0); Mean Corpuscular Volume 92.5 fL (81.0-99.0); Platelet Count 63 10^3/uL (130-400); Red Cell Dist. Width 17.4 % (11.5-14.5)
[2024-12-08 07:52] LABS: INR 1.50; PT 18.3 Sec (11.4-14.6)
[2024-12-08] MEDS: DUPHALAC/CHRONULAC 30 GRAMS PO ×2 (08:10→22:59)
[2024-12-08 08:12] LABS: ALT (SGPT) 103 U/L (0-35); AST (SGOT) 174 U/L (14-36); Albumin 2.6 g/dl (3.5-5.0); Alkaline Phosphatase 187 U/L (38-126); Blood Urea Nitrogen 5 mg/dl (7-17); Calcium 8.5 mg/dl (8.4-10.2); Carbon Dioxide 27 mmol/L (22-30); Chloride 101 mmol/L (98-107); Estimated Creatinine Clearance 65 ml/min; Glucose 131 mg/dl (70-99); Potassium 3.8 mmol/L (3.5-5.1); Sodium 132 mmol/L (135-145); Total Protein 5.4 g/dl (6.3-8.2); eGFR > 60.00
[2024-12-08] MEDS: COREG 3.125 MG PO ×2 (08:16→21:34)
[2024-12-08] MEDS: PROTONIX 40 MG PO (08:16)
[2024-12-08] MEDS: ALDACTONE 50 MG PO (08:26)
[2024-12-08] MEDS: XIFAXAN 550 MG PO ×2 (08:26→21:34)
--- NOTE | 2024-12-08 09:14 | W.PN.UPDATE ---
Update Note
Progress Note Update
reviewed imaging and labs with Dr. Burch added for EUS/ERCP later today -- updated Dr. Mcfadden and nursing staff cont NPO.
--- NOTE | 2024-12-08 09:55 | W.PN.ID1 ---
Date of Service
Date of Service: December 08, 2024
Today's Communication
Continue meropenem.
Assessment / Plan
# Cholangitis
# Acute jaundice, elevated LFT's
# Hepatic cellular carcinoma, not on tx
# Alcohol cirrhosis
# Multiple abx allergies: cephalexin, PCN, T/sulfa
Recommendations:
- Blood cultures neg to date
- Abdominal MRI: new bile duct and pancreatic duct dilation, new cystic lesion within the pancreatic head
- For EUS/ERCP today.
- Continue meropenem 500mg IV q6h (d4)
Conditions present on admission:
Diabetes mellitus
Alcohol cirrhosis
Hepatic cellular carcinoma
Chronic thrombocytopenia
Depression
History of cholecystectomy
Schatzki's ring status post dilation
Chief Complaint
-: Other (Cholangitis)
Subjective / Review of Systems
Feels gassy.
Still with epigastric/RUQ pain.
Tolerating meropenem.
Vital Signs / Physical Exam
Vital Signs
Vital Signs
Temp Pulse Resp BP Pulse Ox
97.9 F 63 16 107/52 100
12/08/24 08:21 12/08/24 08:21 12/08/24 08:21 12/08/24 08:21 12/08/24 08:21
Physical Exam
Constitutional: No Acute Distress
Cardiovascular: Regular Rate and S1/S2
Pulmonary: Clear
Gastrointestinal: Soft, Tender (Epigastric and RUQ), Non Distended and Normal Bowel Sounds
Extremities: Negative Edema
Neurological: AO x 3
Objective Data
Lab Data
Lab Results
12/08/24 06:55
12/08/24 06:55
PT 18.3 Sec (11.4-14.6) H 12/08/24 06:55
INR 1.50 12/08/24 06:55
Estimated Creat Clear 65 ml/min 12/08/24 06:55
Total Bilirubin 7.7 mg/dl (0.2-1.3) H 12/08/24 06:55
AST 174 U/L (14-36) H 12/08/24 06:55
ALT 103 U/L (0-35) H 12/08/24 06:55
Alkaline Phosphatase 187 U/L (38-126) H 12/08/24 06:55
Most recent labs reviewed.
Micro Results:
12/05/24 12:04 Blood Culture - Preliminary
Blood/Venous No Growth in 48 hours- Final report to follow
12/05/24 11:39 Blood Culture - Preliminary
Blood/Venous No Growth in 48 hours- Final report to follow
12/04/24 22:09 Urine Culture - Final
Urine Escherichia coli
Streptococcus agalactiae
12/05/24 MRI ABD: Cirrhotic morphology with a a 1.8 cm BI-RADS 5 lesion within the inferior right hepatic lobe, previously 1.7 cm. Findings of portal hypertension with splenomegaly as well as numerous collateral vessels along the distal esophagus,
throughout the abdomen as well as within the upper pelvis. There is new biliary duct dilation as well as increased main pancreatic duct dilation. The common bile duct measures 1.4 cm and the main pancreatic duct measures 1.0 cm. There is abrupt
change in caliber of the ducts within the pancreatic head with a new 2.4 x 1.8 cm cystic lesion within the pancreatic head. This lesion demonstrates peripheral enhancement. This likely represents a peripancreatic collection/pseudocyst. A cystic
neoplasm is considered less likely.Consider EUS for further evaluation.
12/04/24 CT a/p: Diffuse colonic wall thickening, consistent with pancolitis, as seen previously, though slightly less pronounced compared to prior examination. The differential includes infectious or inflammatory colitis, versus portal hypertensive
colopathy. There also appears to be involvement of the gastric wall. Cirrhosis. Small mass in the inferior right lobe remains stable. Splenomegaly. Portosystemic venous collaterals, consistent with portal hypertension. Slightly increased distention
of the common hepatic duct. Recommend correlation with liver function tests.
--- NOTE | 2024-12-08 11:58 | CM ---
Patient seen bedside.
Independent and no home care needs per patient.
Friend will transport home.
Plan Home no needs.
[2024-12-08 12:11] LABS: Glucose - Point of Care 130 mg/dl (70-99)
--- NOTE | 2024-12-08 13:02 | W.PN.HOSP.TC ---
Today's Communication/Plan
-
Monitor vitals
See plan
Monitor LFTs
Discussed with GI, plan for EUS/ERCP today
Continue meropenem per ID
Assessment / Plan
Assessment / Plan
64y F with PMH significant for cirrhosis and hepatocellular carcinoma who presents to ED complaining of R flank pain and abdominal pain x 4 days.
Gen: NAD, AAOx3, appears chronically ill.
Eyes: remains EOMI, PERRLA, mod scleral icterus.
Neck: supple.
CV: continues to remain RRR, +S1/S2, no m/r/g.
Resp: CTAB anteriorly, no rales, wheezes, or rhonchi.
Abd: +BS, soft, RUQ TTP guarding, ND
Skin: No rashes. + jaundice
Neuro: continues to remain CN 2-12 intact, non-focal.
Psych: Normal mood and affect.
12/04/24 22:09 Urine Urine Culture - Preliminary
Gram negative bacilli
12/05/24 12:04 Blood/Venous Blood Culture - Preliminary
No Growth in 24 hours- Final report to follow
12/05/24 11:39 Blood/Venous Blood Culture - Preliminary
No Growth in 24 hours- Final report to follow
CT A/P: Diffuse colonic wall thickening, consistent with pancolitis, as seen previously, though slightly less pronounced compared to prior examination. The differential includes infectious or inflammatory colitis, versus portal hypertensive
colopathy. There also appears to be involvement of the gastric wall. Cirrhosis. Small mass in the inferior right lobe remains stable. Splenomegaly. Portosystemic venous collaterals, consistent with portal hypertension. Slightly increased distention
of the common hepatic duct. Recommend correlation with liver function tests.
MRI Abd/MRCP: Cirrhotic morphology with a a 1.8 cm BI-RADS 5 lesion within the inferior right hepatic lobe, previously 1.7 cm. Findings of portal hypertension with splenomegaly as well as numerous collateral vessels along the distal esophagus,
throughout the abdomen as well as within the upper pelvis. There is new biliary duct dilation as well as increased main pancreatic duct dilation. The common bile duct measures 1.4 cm and the main pancreatic duct measures 1.0 cm. There is abrupt
change in caliber of the ducts within the pancreatic head with a new 2.4 x 1.8 cm cystic lesion within the pancreatic head. This lesion demonstrates peripheral enhancement. This likely represents a peripancreatic collection/pseudocyst. A cystic
neoplasm is considered less likely.
Discussed with GI, plan for EUS/ERCP 12/08
Abdominal Pain / Flank Pain
Ascending Cholangitis
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
Hepatocellular Carcinoma
-Patient presents with RUQ / R flank pain x 4 days, increased LFTs (notably bilirubin) and CT scan showing increased ductal dilation and pneumobilia.
-currently being treated for possible acute ascending cholangitis with meropenem as per ID
-GI following
-Not on any active therapy for HCC at this time. Next surveillance MRI was planned for January.
-Continue current med regimen including spironolactone, lactulose, Xifaxan
-MRI abd/MRCP above
Discussed with GI, plan for EUS/ERCP 12/08
Colitis
-Bowel wall edema again seen on CT scan. No change from prior.
-likely reflects congestion/portal hypertensive colopathy rather than acute infectious process.
-No diarrhea at present
Chronic Hyponatremia:
-due to cirrhosis
-worsening
Renal following, status post [facility] 12/07
Sodium now 132, continue to monitor
DM2:
-a1c 7.4%
-cont SSI/accuchecks
-dec Lantus to 5U with hypoglycemia
FULL
No DVT proph with severe thrombocytopenia
Anticipated Discharge: 24 - 48 hours
Subjective/Interval History
-
Date of Service: December 08, 2024
Does have some pain
Objective Data
-
Labs:
Laboratory Results
12/08/24
06:55
WBC 4.1 L
Hgb 10.0 L
Hct 28.2 L
Plt Count 63 L D
PT 18.3 H
INR 1.50
Sodium 132 L
Potassium 3.8
Chloride 101
Carbon Dioxide 27
BUN 5 L
Creatinine 0.5 L
Glucose 131 H
Calcium 8.5
Total Bilirubin 7.7 H
AST 174 H
ALT 103 H
Alkaline Phosphatase 187 H
Vital Signs:
Vital Signs
Temp Pulse Resp BP Pulse Ox
97.9 F 63 16 107/52 100
12/08/24 08:21 12/08/24 08:21 12/08/24 08:21 12/08/24 08:21 12/08/24 08:21
I&O
12/07/24 12/08/24 12/09/24
05:59 06:59 06:59
Intake Total 120 / 120 1020 / 1020
Balance 120 / 120 1020 / 1020
[2024-12-08 16:10] LABS: Glucose - Point of Care 161 mg/dl (70-99)
--- NOTE | 2024-12-08 17:12 | PTCARENOTE ---
Pt returned from GI lab AAOX3. No distress noted or reported.
[2024-12-08] MEDS: LEXAPRO 10 MG PO (21:34)
[2024-12-08 21:38] LABS: Glucose - Point of Care 447 mg/dl (70-99)
[2024-12-08 22:26] LABS: Glucose 389 mg/dl (70-99)
[2024-12-08] MEDS: LANTUS 0.05 UNITS SC (22:59)
[2024-12-08] MEDS: NOVOLOG FLEXPEN 5 UNITS SC (23:00)
[2024-12-09 01:08] LABS: Glucose - Point of Care 358 mg/dl (70-99)
[2024-12-09] MEDS: STERILE WATER FOR INJECTION 10 ML IV ×4 (01:15→17:11)
[2024-12-09] MEDS: NOVOLOG FLEXPEN 5 UNITS SC ×3 (01:15→17:11)
[2024-12-09] MEDS: MERREM 500 MG IV ×4 (01:15→17:11)
[2024-12-09] MEDS: DILAUDID 0.5 MG IV ×5 (01:51→22:16)
[2024-12-09 03:11] VITALS: BP 104/63
[2024-12-09 05:34] LABS: ALT (SGPT) 92 U/L (0-35); AST (SGOT) 108 U/L (14-36); Albumin 2.4 g/dl (3.5-5.0); Alkaline Phosphatase 195 U/L (38-126); Blood Urea Nitrogen 9 mg/dl (7-17); Calcium 8.2 mg/dl (8.4-10.2); Carbon Dioxide 31 mmol/L (22-30); Chloride 97 mmol/L (98-107); Estimated Creatinine Clearance 65 ml/min; Glucose 273 mg/dl (70-99); Hematocrit 28.3 % (37.0-47.0); Hemoglobin 9.8 g/dL (12.0-16.0); Mean Corp Hgb Conc. 34.6 g/dL (33.0-37.0); Mean Corpuscular Volume 94.0 fL (81.0-99.0); Platelet Count 54 10^3/uL (130-400); Potassium 4.0 mmol/L (3.5-5.1); Red Cell Dist. Width 17.4 % (11.5-14.5); Sodium 129 mmol/L (135-145); Total Protein 5.1 g/dl (6.3-8.2); eGFR > 60.00
[2024-12-09 05:46] VITALS: BMI 19.5
[2024-12-09 08:00] VITALS: BP 94/54
[2024-12-09] MEDS: PROTONIX 40 MG PO (08:25)
[2024-12-09] MEDS: XIFAXAN 550 MG PO ×2 (08:25→22:16)
[2024-12-09] MEDS: DUPHALAC/CHRONULAC PO ×2 (08:26→22:10)
[2024-12-09 09:18] VITALS: BP 112/55
[2024-12-09] MEDS: COREG 3.125 MG PO ×2 (09:19→22:17)
[2024-12-09] MEDS: ALDACTONE 50 MG PO (09:19)
[2024-12-09 09:20] LABS: Glucose - Point of Care 211 mg/dl (70-99)
[2024-12-09] MEDS: NOVOLOG FLEXPEN-LOW RESISTANCE 2 UNITS SC (09:47)
--- NOTE | 2024-12-09 10:13 | W.PN.GI.CBS2 ---
Addendum entered and electronically signed by Gianni Ga MD 12/09/24 14:33:
I saw and examined the patient.
The MAINTENANCE PAINTER APPRENTICE or PA's note was reviewed and I agree with the note.
Comment:
Pt currently feels well except has chronic abd d/c, not severe but requires dilaudid. hungry for eggs
abd; mildly tender right/mid abd
impression
panc mass
cirrhosis
loose stool
plan:
advance diet as tolerated
hold lactulose, not encephalopathic
pain control
continue xifaxin
check ca 19-9
pain control
Original Note:
Today's Communication / Plan
-
s/p MRI/ EUS/ERCP as noted
some lower abdominal pain and diarrhea -- diarrhea related to lactulose vs abx vs other
she also report red stool from jello but stool during evaluation is loose yellow/brown
if diarrhea persists check stool studies
cont clear diet with cracker advance later today if feeling better
add Ca 19-9
[address]
LFT's -slight increased alk phos otherwise LFT's improving
MELD 3.0 12/08 24 but elevated with bili elevation
pain control per medical team
trend labs
cont Protonix daily
cont Xifaxan and lactulose (but several doses held and held last admission with diarrhea)
currently on Meropenem
cont coreg 3.125 as pt was taking higher dose at home with close follow of BP for eventual increase
remains on Aldactone 50mg daily
OP follow with Dr. Chaidez from hepatology
Due follow up with Dr. Teixeira 03/17/25 at 1 PM -- I updated Dr. Teixeira this am
reviewed with nursing staff
Assessment / Plan
-
pt is a 63-year-old female with past medical history of alcohol/metabolic related cirrhosis prior low ceruloplasmin but normal 24 hour urine copper. Her cirrhosis was c/b hepatic encephalopathy, thrombocytopenia, hyponatremia and ascites, type 2
diabetes, history of cholecystectomy, osteoporosis and recent diagnosis of HCC in July with serial radiology follow for size and no current medical therapy per Dr. Chaidez at [facility]. Pt was recently hospitalized in October with severe
diarrhea andlower abdominal pain, CT scan on admission showed evidence of diffuse wall thickening of the stomach and small bowel as well as severe diffuse wall thickening of the entire colon with pericolonic inflammatory fat stranding consistent
with gastroenteritis and severe pancolitis. Labs significant for pancytopenia, platelets as low was 23, electrolyte abnormalities (low Na and Mg) and elevated liver enzymes. Stool studies including C. difficile and stool culture were negative. She
was initially treated with Zosyn, this was later discontinued and then treated supportively with Imodium and Bentyl. Her lactulose was held during admission. She had follow up with Dr. Teixeira 11/13/24. She had lowered dose of Coreg during
admission then advised to increase back to 6.25mg BID as BP was improved after admission. She also discussed continued Xifaxan and resuming Lactulose based on stool function but had not resumed yet with 4-8 stool per day. She also remain on
Spironolactone 50mg daily without Lasix. She now presents with upper abdominal pain with rise in LFT's. CT was repeated with diffuse colonic wall thickening- pancolitis less prominent than prior infectious, inflammatory ;portal colonopathy and
also gastric wall involvement. cirrhosis with stable small mass. splenomegaly, portal HTN, slight distention of common hepatic duct. Labs on admission noted with WBC 7,100, hbg 12.4 with drop to 9.8 and platelets 28,000, Na 127, bili 8.4, d bili
7.2, AST 93, ALT 79, alk phos 125. albumin 2.5. f/u MRI with concern for new biliary dilatation and panc lesion s/p EUS/ERCP 12/08.
12/05/24 MR Abdomen W/o & W Contrast
Cirrhotic morphology with a a 1.8 cm BI-RADS 5 lesion within the inferior right hepatic lobe, previously 1.7 cm.
Findings of portal hypertension with splenomegaly as well as numerous collateral vessels along the distal esophagus, throughout the abdomen as well as within the upper pelvis.
There is new biliary duct dilation as well as increased main pancreatic duct dilation. The common bile duct measures 1.4 cm and the main pancreatic duct measures 1.0 cm. There is abrupt change in caliber of the ducts within the pancreatic head with
a new 2.4 x 1.8 cm cystic lesion within the pancreatic head. This lesion demonstrates peripheral enhancement. This likely represents a peripancreatic collection/pseudocyst. A cystic neoplasm is considered less likely.Consider EUS for further
evaluation.
12/08/24 ERCP Prior biliary sphincterotomy open. A single moderate biliary stricture was found in the lower third of the main bile duct. The stricture was indeterminate.
- The common bile duct, left main hepatic duct and right main hepatic duct were severely dilated. Some pus drained. One plastic stent was placed into the left hepatic duct.
12/08/24 EUS Small (< 5 mm) esophageal varices. PHG, A mass-like solid-cystic lesion was identified in the pancreatic head. Tissue was obtained from this exam Inflammatory mass vs neoplastic mass is suspected. Fine needle aspiration performed.
changes consistent with moderate-severe chronic pancreatitis Findings suggestive of pancreatic stones were identified in the main pancreatic duct.
- There was dilation in the common bile duct which measured up 15 mm. There was no sign of significant pathology in the ampulla.
-right flank and upper abdominal pain on admission
-lower abdominal pain
-diarrhea
-repeat MRI with biliary dilatation, panc duct dilatation with change in panc head, cystic 2.4 x 1.8 cm cystic panc head lesion s/p EUS/ERCP
-CT with pancolitis ( with recent admission with similar finding), and gastric wall involvement
-CT with Slightly increased distention of the common hepatic duct
-rise in LFT's from prior admission
-cirrhosis with alcohol/metabolic related
-hepatic encephalopathy
-EV- small on prior EGD
-thrombocytopenia
- hyponatremia
- ascites -stable on Spironolactone only
-recent NSAID use
other med problems:
- type 2 diabetes
- history of cholecystectomy
-osteoporosis
-depression/anxiety
PLAN
s/p MRI/ EUS/ERCP as noted
some lower abdominal pain and diarrhea -- diarrhea related to lactulose vs abx vs other
she also report red stool from jello but stool during evaluation is loose yellow/brown
if diarrhea persists check stool studies
cont clear diet with cracker advance later today if feeling better
add Ca 19-9
aw[address]
LFT's -slight increased alk phos otherwise LFT's improving
MELD 3.0 12/08 24 but elevated with bili elevation
pain control per medical team
trend labs
cont Protonix daily
cont Xifaxan and lactulose (but several doses held and held last admission with diarrhea)
currently on Meropenem
cont coreg 3.125 as pt was taking higher dose at home with close follow of BP for eventual increase
remains on Aldactone 50mg daily
OP follow with Dr. Chaidez from hepatology
Due follow up with Dr. Teixeira 03/17/25 at 1 PM -- I updated Dr. Teixeira this am
reviewed with nursing staff
Subjective
Subjective
Date of Service: December 09, 2024
12/09 brown stools with multiple loose stool this am and some wtih red ? jello related --- on clear diet
Objective
Data Reviewed
Laboratory Data:
Laboratory Results
12/09/24 04:37
12/09/24 04:37
Laboratory Results
PT 18.3 Sec (11.4-14.6) H 12/08/24 06:55
INR 1.50 12/08/24 06:55
Total Bilirubin 6.1 mg/dl (0.2-1.3) H 12/09/24 04:37
AST 108 U/L (14-36) H 12/09/24 04:37
ALT 92 U/L (0-35) H 12/09/24 04:37
Alkaline Phosphatase 195 U/L (38-126) H 12/09/24 04:37
Lipase < 10 U/L (23-300) L 12/04/24 18:59
Vital Signs and I&O:
Vital Signs
Temp Pulse Resp BP Pulse Ox
98.1 F 76 16 112/55 98
12/09/24 08:00 12/09/24 09:18 12/09/24 08:00 12/09/24 09:18 12/09/24 08:00
I&O
12/08/24 12/09/24 12/10/24
06:59 06:59 06:59
Intake Total 1020 / 1020 1340 / 1340
Output Total 400 / 400
Balance 1020 / 1020 940 / 940
Physical Exam
Physical Exam
HEENT: Moist mucous membranes and Other (jaundice , no asterixis )
Cardiology: Normal Sinus Rhythm
Pulmonary: Clear
GI: Soft, Non Distended and Tender (some mild lower abdominal tenderness )
Extremities: No Edema
Neuro: Non Focal
[2024-12-09 12:09] LABS: Glucose - Point of Care 287 mg/dl (70-99)
--- NOTE | 2024-12-09 12:18 | W.PN.HOSP.TC ---
Today's Communication/Plan
-
Monitor vital signs see plan
Continue with clears, advance diet per GI
CA 19-9 pending
Follow-up cytology
Increase long-acting insulin, add mealtime insulin
Assessment / Plan
Assessment / Plan
64y F with PMH significant for cirrhosis and hepatocellular carcinoma who presents to ED complaining of R flank pain and abdominal pain x 4 days.
Gen: NAD, AAOx3, appears chronically ill.
Eyes: remains EOMI, PERRLA, mod scleral icterus.
CV: continues to remain RRR, +S1/S2, no m/r/g.
Resp: CTAB anteriorly, no rales, wheezes, or rhonchi.
Abd: +BS, soft, RUQ tender, ND
Neuro: continues to remain CN 2-12 intact, non-focal.
Psych: Normal mood and affect.
12/04/24 22:09 Urine Urine Culture - Preliminary
Gram negative bacilli
12/05/24 12:04 Blood/Venous Blood Culture - Preliminary
No Growth in 24 hours- Final report to follow
12/05/24 11:39 Blood/Venous Blood Culture - Preliminary
No Growth in 24 hours- Final report to follow
CT A/P: Diffuse colonic wall thickening, consistent with pancolitis, as seen previously, though slightly less pronounced compared to prior examination. The differential includes infectious or inflammatory colitis, versus portal hypertensive
colopathy. There also appears to be involvement of the gastric wall. Cirrhosis. Small mass in the inferior right lobe remains stable. Splenomegaly. Portosystemic venous collaterals, consistent with portal hypertension. Slightly increased distention
of the common hepatic duct. Recommend correlation with liver function tests.
MRI Abd/MRCP: Cirrhotic morphology with a a 1.8 cm BI-RADS 5 lesion within the inferior right hepatic lobe, previously 1.7 cm. Findings of portal hypertension with splenomegaly as well as numerous collateral vessels along the distal esophagus,
throughout the abdomen as well as within the upper pelvis. There is new biliary duct dilation as well as increased main pancreatic duct dilation. The common bile duct measures 1.4 cm and the main pancreatic duct measures 1.0 cm. There is abrupt
change in caliber of the ducts within the pancreatic head with a new 2.4 x 1.8 cm cystic lesion within the pancreatic head. This lesion demonstrates peripheral enhancement. This likely represents a peripancreatic collection/pseudocyst. A cystic
neoplasm is considered less likely.
Abdominal Pain / Flank Pain
Ascending Cholangitis
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
Hepatocellular Carcinoma
-Patient presents with RUQ / R flank pain x 4 days, increased LFTs (notably bilirubin) and CT scan showing increased ductal dilation and pneumobilia.
-currently being treated for possible acute ascending cholangitis with meropenem as per ID
-GI following
-Not on any active therapy for HCC at this time. Next surveillance MRI was planned for January.
-Continue current med regimen including spironolactone, lactulose, Xifaxan
-MRI abd/MRCP above
Discussed with GI, s/p EUS/ERCP 12/08, EUS with esophageal varices, masslike solid cystic lesion in the pancreatic head which was biopsied. Cytology pending. ERCP 12/08 prior biliary sphincterotomy open. Single moderate biliary stricture was found
in the lower third of the main bile duct. Common bile duct, left main hepatic duct and right main hepatic duct were severely dilated. Some pus was drained. 1 plastic stent was placed into the left hepatic duct.
CA 19-9 pending
Also has chronic pancreatitis
Colitis
-Bowel wall edema again seen on CT scan. No change from prior.
-likely reflects congestion/portal hypertensive colopathy rather than acute infectious process.
Chronic Hyponatremia:
-due to cirrhosis
-worsening
Renal following, status post [facility] 12/07
Continue to monitor
DM2:
-a1c 7.4%
-cont SSI/accuchecks
Now with hyperglycemia, add mealtime insulin and increase long-acting insulin
FULL
No DVT proph with severe thrombocytopenia
I spent a total of 52 minutes with the patient or on the floor. More than 50% of this time involved counseling and coordination of care.
Anticipated Discharge: 24 - 48 hours
Subjective/Interval History
-
Date of Service: December 09, 2024
Still has some pain
Objective Data
-
Labs:
Laboratory Results
12/09/24
04:37
WBC 4.1 L
Hgb 9.8 L
Hct 28.3 L
Plt Count 54 L
Sodium 129 L
Potassium 4.0
Chloride 97 L
Carbon Dioxide 31 H
BUN 9
Creatinine 0.6
Glucose 273 H
Calcium 8.2 L
Total Bilirubin 6.1 H
AST 108 H
ALT 92 H
Alkaline Phosphatase 195 H
Vital Signs:
Vital Signs
Temp Pulse Resp BP Pulse Ox
98.1 F 76 16 112/55 98
12/09/24 08:00 12/09/24 09:18 12/09/24 08:00 12/09/24 09:18 12/09/24 08:00
I&O
12/08/24 12/09/24 12/10/24
06:59 06:59 06:59
Intake Total 1020 / 1020 1340 / 1340
Output Total 400 / 400
Balance 1020 / 1020 940 / 940
[2024-12-09] MEDS: NOVOLOG FLEXPEN-LOW RESISTANCE 3 UNITS SC (12:34)
--- NOTE | 2024-12-09 13:12 | PN.CDI ---
CDI
- -
CDI:
Physician Documentation Request
Admit Date: 12/04/24 23:54
Dear Doctor Bogdan,
Clinical Indicators:
Patient admitted with Ascending Cholangitis.
PMH includes: Alcoholic Cirrhosis with Thrombocytopenia.
WBC, RBC, Hgb, Plt trend:
12/07/24 12/08/24 12/09/24
09:47 06:55 04:37
WBC 4.1 L 4.1 L 4.1 L
RBC 2.99 L 3.05 L 3.01 L
Hgb 10.0 L 10.0 L 9.8 L
Plt Count 52 L D 63 L D 54 L
Based on the above, could you clarify in the progress notes, the appropriate diagnosis, if significant, that supports the above abnormalities and additional evaluation, monitoring and/or treatment rendered:
Pancytopenia
Thrombocytopenia only
Other, please specify
Use of terms such as suspected, likely, concern for, or probable (associated with a specific diagnosis that is being evaluated, monitored, or treated as if it exists) are acceptable and can be coded in the inpatient setting, when documented at the
time of discharge.
Thank you,
MARIO Jones RN
CDI Specialist
available via tiger text
Please use your independent medical judgment in providing your response.
--- NOTE | 2024-12-09 13:22 | W.PN.ID1 ---
Date of Service
Date of Service: December 09, 2024
Today's Communication
Continue meropenem.
Assessment / Plan
# Cholangitis
# Acute jaundice, elevated LFT's
# Hepatic cellular carcinoma, not on tx
# Alcohol cirrhosis
# Multiple abx allergies: cephalexin, PCN, T/sulfa
Recommendations:
- Blood cultures neg to date
- Abdominal MRI: new bile duct and pancreatic duct dilation, new cystic lesion within the pancreatic head
- 12/08 s/p EUS/ERCP biliary stent placement, biopsy of cystic mass
- Continue meropenem 500mg IV q6h (d5)
- When close to discharge, transition to po levofloxacin and metronidazole.
Conditions present on admission:
Diabetes mellitus
Alcohol cirrhosis
Hepatic cellular carcinoma
Chronic thrombocytopenia
Depression
History of cholecystectomy
Schatzki's ring status post dilation
Chief Complaint
-: Other (Cholangitis)
Subjective / Review of Systems
Prefer to have diet advanced.
Vital Signs / Physical Exam
Vital Signs
Vital Signs
Temp Pulse Resp BP Pulse Ox
98.1 F 76 16 112/55 98
12/09/24 08:00 12/09/24 09:18 12/09/24 08:00 12/09/24 09:18 12/09/24 08:00
Physical Exam
Constitutional: No Acute Distress
Cardiovascular: Regular Rate and S1/S2
Pulmonary: Clear
Gastrointestinal: Soft and Tender (RUQ and epigastric)
Genito-Urinary: Negative CVA Tenderness
Extremities: Negative Edema
Neurological: AO x 3
Objective Data
Lab Data
Lab Results
12/09/24 04:37
12/09/24 04:37
PT 18.3 Sec (11.4-14.6) H 12/08/24 06:55
INR 1.50 12/08/24 06:55
Estimated Creat Clear 65 ml/min 12/09/24 04:37
Total Bilirubin 6.1 mg/dl (0.2-1.3) H 12/09/24 04:37
AST 108 U/L (14-36) H 12/09/24 04:37
ALT 92 U/L (0-35) H 12/09/24 04:37
Alkaline Phosphatase 195 U/L (38-126) H 12/09/24 04:37
Most recent labs reviewed.
Micro Results:
12/05/24 12:04 Blood Culture - Preliminary
Blood/Venous No Growth in 4 days- Final report to follow
12/05/24 11:39 Blood Culture - Preliminary
Blood/Venous No Growth in 4 days- Final report to follow
12/04/24 22:09 Urine Culture - Final
Urine Escherichia coli
Streptococcus agalactiae
12/05/24 MRI ABD: Cirrhotic morphology with a a 1.8 cm BI-RADS 5 lesion within the inferior right hepatic lobe, previously 1.7 cm. Findings of portal hypertension with splenomegaly as well as numerous collateral vessels along the distal esophagus,
throughout the abdomen as well as within the upper pelvis. There is new biliary duct dilation as well as increased main pancreatic duct dilation. The common bile duct measures 1.4 cm and the main pancreatic duct measures 1.0 cm. There is abrupt
change in caliber of the ducts within the pancreatic head with a new 2.4 x 1.8 cm cystic lesion within the pancreatic head. This lesion demonstrates peripheral enhancement. This likely represents a peripancreatic collection/pseudocyst. A cystic
neoplasm is considered less likely.Consider EUS for further evaluation.
12/04/24 CT a/p: Diffuse colonic wall thickening, consistent with pancolitis, as seen previously, though slightly less pronounced compared to prior examination. The differential includes infectious or inflammatory colitis, versus portal hypertensive
colopathy. There also appears to be involvement of the gastric wall. Cirrhosis. Small mass in the inferior right lobe remains stable. Splenomegaly. Portosystemic venous collaterals, consistent with portal hypertension. Slightly increased distention
of the common hepatic duct. Recommend correlation with liver function tests.
--- NOTE | 2024-12-09 13:55 | W.PN.NEPH.PH ---
Today's Communication / Plan
-
Continue fluid restriction with clears current
Assessment/Plan
-
Assessment
Hyponatremia
Hepatocellular carcinoma
Cirrhosis
Biliary obstruction
Diabetes mellitus type 2
Plan
Fluid restriction 48 ounces per day
Samsca 7.5 mg status post with improved 48 hours ago
Follow BMP
ERCP 12/08 prior biliary sphincterotomy open.
Continue fluid restriction sodium stable at 129 down a bit will give Samsca again if continues to decrease
Currently on clears which is not helping her sodium issue though no other option at this time
-
-
Date of Service: December 09, 2024
CC / HPI / ROS
-
Chief Complaint:
Abdominal pain
History of Present Illness:
Hyponatremia chronic with no acute process increased ADH
Review of Systems:
No chest pain or shortness of breath
Labs
-
Labs:
WBC 4.1 10^3/uL (4.8-10.8) L 12/09/24 04:37
RBC 3.01 10^6/uL (4.20-5.40) L 12/09/24 04:37
Hgb 9.8 g/dL (12.0-16.0) L 12/09/24 04:37
Hct 28.3 % (37.0-47.0) L 12/09/24 04:37
Plt Count 54 10^3/uL (130-400) L 12/09/24 04:37
Sodium 129 mmol/L (135-145) L 12/09/24 04:37
Potassium 4.0 mmol/L (3.5-5.1) 12/09/24 04:37
Chloride 97 mmol/L (98-107) L 12/09/24 04:37
Carbon Dioxide 31 mmol/L (22-30) H 12/09/24 04:37
BUN 9 mg/dl (7-17) 12/09/24 04:37
Creatinine 0.6 mg/dL (0.6-1.0) 12/09/24 04:37
eGFR > 60.00 12/09/24 04:37
Glucose 273 mg/dl (70-99) H 12/09/24 04:37
Calcium 8.2 mg/dl (8.4-10.2) L 12/09/24 04:37
Albumin 2.4 g/dl (3.5-5.0) L 12/09/24 04:37
Physical Exam
-
Vital Signs:
Vital Signs
Temp Pulse Resp BP Pulse Ox
98.1 F 76 16 112/55 98
12/09/24 08:00 12/09/24 09:18 12/09/24 08:00 12/09/24 09:18 12/09/24 08:00
Respiratory:: Bilateral: CTA
Lung Excursion:: Normal
Abdomen:: Tender
Bowel Sounds:: Normal
Extremity Edema:: None: Bilateral:
--- NOTE | 2024-12-09 14:32 | CM ---
Addendum entered by Destiny Barnes 12/09/24 15:08:
Patient seen at bedside on . Patient declined any needs at this time. CM will continue to follow for discharge planning needs.
Plan; home with no needs
Original Note:
Patient out of the room when CM visited. CM will try to return to assess any changes in discharge plan
[2024-12-09 16:00] VITALS: BP 97/56
[2024-12-09 17:04] LABS: Glucose - Point of Care 309 mg/dl (70-99)
[2024-12-09] MEDS: NOVOLOG FLEXPEN-LOW RESISTANCE 4 UNITS SC (17:11)
[2024-12-09 22:10] LABS: Glucose - Point of Care 301 mg/dl (70-99)
[2024-12-09] MEDS: LEXAPRO 10 MG PO (22:17)
[2024-12-09] MEDS: LANTUS 0.12 UNITS SC (22:19)
[2024-12-09 22:32] VITALS: BP 109/52
[2024-12-09] MEDS: NOVOLOG FLEXPEN 4 UNITS SC (22:37)
[2024-12-10] MEDS: STERILE WATER FOR INJECTION 10 ML IV ×5 (00:15→23:02)
[2024-12-10] MEDS: MERREM 500 MG IV ×5 (00:15→23:04)
[2024-12-10 01:13] LABS: Glucose - Point of Care 286 mg/dl (70-99)
[2024-12-10 04:56] VITALS: BMI 19.5
[2024-12-10] MEDS: DILAUDID 0.5 MG IV ×3 (05:03→23:01)
[2024-12-10 07:00] VITALS: BP 104/58
[2024-12-10 07:06] LABS: Hematocrit 28.0 % (37.0-47.0); Hemoglobin 9.8 g/dL (12.0-16.0); Mean Corp Hgb Conc. 35.0 g/dL (33.0-37.0); Mean Corpuscular Volume 92.1 fL (81.0-99.0); Platelet Count 66 10^3/uL (130-400); Red Cell Dist. Width 18.0 % (11.5-14.5)
[2024-12-10 07:07] LABS: INR 1.61; PT 19.4 Sec (11.4-14.6)
[2024-12-10 07:52] LABS: Glucose - Point of Care 159 mg/dl (70-99)
[2024-12-10] MEDS: XIFAXAN 550 MG PO ×2 (08:06→21:04)
[2024-12-10] MEDS: PROTONIX 40 MG PO (08:06)
[2024-12-10] MEDS: COREG 3.125 MG PO ×2 (08:06→21:07)
[2024-12-10] MEDS: ALDACTONE 50 MG PO (08:06)
[2024-12-10] MEDS: DUPHALAC/CHRONULAC PO (08:06)
[2024-12-10] MEDS: NOVOLOG FLEXPEN 7 UNITS SC ×3 (09:13→16:38)
[2024-12-10] MEDS: NOVOLOG FLEXPEN-LOW RESISTANCE 1 UNITS SC (09:13)
[2024-12-10] MEDS: NOVOLOG FLEXPEN SC (09:14)
[2024-12-10 11:26] LABS: ALT (SGPT) 108 U/L (0-35); AST (SGOT) 159 U/L (14-36); Albumin 2.9 g/dl (3.5-5.0); Alkaline Phosphatase 214 U/L (38-126); Blood Urea Nitrogen 9 mg/dl (7-17); Calcium 8.1 mg/dl (8.4-10.2); Carbon Dioxide 33 mmol/L (22-30); Chloride 96 mmol/L (98-107); Estimated Creatinine Clearance 65 ml/min; Glucose 147 mg/dl (70-99); Potassium 3.3 mmol/L (3.5-5.1); Sodium 132 mmol/L (135-145); Total Protein 5.7 g/dl (6.3-8.2); eGFR > 60.00
[2024-12-10 12:00] LABS: Glucose - Point of Care 119 mg/dl (70-99)
[2024-12-10] MEDS: NOVOLOG FLEXPEN-LOW RESISTANCE SC (12:05)
--- NOTE | 2024-12-10 13:14 | W.PN.GI.CBS2 ---
Today's Communication / Plan
-
Trial of low residue. Follow-up path. Pain control. LFTs improving
Assessment / Plan
-
pt is a 63-year-old female with past medical history of alcohol/metabolic related cirrhosis prior low ceruloplasmin but normal 24 hour urine copper. Her cirrhosis was c/b hepatic encephalopathy, thrombocytopenia, hyponatremia and ascites, type 2
diabetes, history of cholecystectomy, osteoporosis and recent diagnosis of HCC in July with serial radiology follow for size and no current medical therapy per Dr. Chaidez at [facility]. Pt was recently hospitalized in October with severe
diarrhea andlower abdominal pain, CT scan on admission showed evidence of diffuse wall thickening of the stomach and small bowel as well as severe diffuse wall thickening of the entire colon with pericolonic inflammatory fat stranding consistent
with gastroenteritis and severe pancolitis. Labs significant for pancytopenia, platelets as low was 23, electrolyte abnormalities (low Na and Mg) and elevated liver enzymes. Stool studies including C. difficile and stool culture were negative. She
was initially treated with Zosyn, this was later discontinued and then treated supportively with Imodium and Bentyl. Her lactulose was held during admission. She had follow up with Dr. Teixeira 11/13/24. She had lowered dose of Coreg during
admission then advised to increase back to 6.25mg BID as BP was improved after admission. She also discussed continued Xifaxan and resuming Lactulose based on stool function but had not resumed yet with 4-8 stool per day. She also remain on
Spironolactone 50mg daily without Lasix. She now presents with upper abdominal pain with rise in LFT's. CT was repeated with diffuse colonic wall thickening- pancolitis less prominent than prior infectious, inflammatory ;portal colonopathy and
also gastric wall involvement. cirrhosis with stable small mass. splenomegaly, portal HTN, slight distention of common hepatic duct. Labs on admission noted with WBC 7,100, hbg 12.4 with drop to 9.8 and platelets 28,000, Na 127, bili 8.4, d bili
7.2, AST 93, ALT 79, alk phos 125. albumin 2.5. f/u MRI with concern for new biliary dilatation and panc lesion s/p EUS/ERCP 12/08.
12/05/24 MR Abdomen W/o & W Contrast
Cirrhotic morphology with a a 1.8 cm BI-RADS 5 lesion within the inferior right hepatic lobe, previously 1.7 cm.
Findings of portal hypertension with splenomegaly as well as numerous collateral vessels along the distal esophagus, throughout the abdomen as well as within the upper pelvis.
There is new biliary duct dilation as well as increased main pancreatic duct dilation. The common bile duct measures 1.4 cm and the main pancreatic duct measures 1.0 cm. There is abrupt change in caliber of the ducts within the pancreatic head with
a new 2.4 x 1.8 cm cystic lesion within the pancreatic head. This lesion demonstrates peripheral enhancement. This likely represents a peripancreatic collection/pseudocyst. A cystic neoplasm is considered less likely.Consider EUS for further
evaluation.
12/08/24 ERCP Prior biliary sphincterotomy open. A single moderate biliary stricture was found in the lower third of the main bile duct. The stricture was indeterminate.
- The common bile duct, left main hepatic duct and right main hepatic duct were severely dilated. Some pus drained. One plastic stent was placed into the left hepatic duct.
12/08/24 EUS Small (< 5 mm) esophageal varices. PHG, A mass-like solid-cystic lesion was identified in the pancreatic head. Tissue was obtained from this exam Inflammatory mass vs neoplastic mass is suspected. Fine needle aspiration performed.
changes consistent with moderate-severe chronic pancreatitis Findings suggestive of pancreatic stones were identified in the main pancreatic duct.
- There was dilation in the common bile duct which measured up 15 mm. There was no sign of significant pathology in the ampulla.
-right flank and upper abdominal pain on admission
-lower abdominal pain
-diarrhea
-repeat MRI with biliary dilatation, panc duct dilatation with change in panc head, cystic 2.4 x 1.8 cm cystic panc head lesion s/p EUS/ERCP
-CT with pancolitis ( with recent admission with similar finding), and gastric wall involvement
-CT with Slightly increased distention of the common hepatic duct
-rise in LFT's from prior admission
-cirrhosis with alcohol/metabolic related
-hepatic encephalopathy
-EV- small on prior EGD
-thrombocytopenia
- hyponatremia
- ascites -stable on Spironolactone only
-recent NSAID use
other med problems:
- type 2 diabetes
- history of cholecystectomy
-osteoporosis
-depression/anxiety
PLAN
s/p MRI/ EUS/ERCP as noted, awaiting path. Favor inflammatory/cystic lesion vs. solid mass given new recent MRIs, which have been independently at both [facility] and without findings of a pancreatic head mass, she has history of etoh pancreatitis
with ductal dilation, likely PD stone causing biliary obstruction resulting in cholangitis, which seems to have resolved with placement of plastic stent
I will not be surprised if path is nondiagnostic, will likely need a repeat EUS w/ FNA, which I discussed with her today and she understands
Discussed findings with Dr. Valenzuela, need to obtain MRI imaging on disc so that [facility] team is able to review
Currently on meropenem, ID following
Pain control
Trial of low residue/low lactose diet, fluid restriction
cont Xifaxan and lactulose (but several doses held and held last admission with diarrhea)
cont coreg 3.125 as pt was taking higher dose at home with close follow of BP for eventual increase
remains on Aldactone 50mg daily
OP follow with Dr. Valenzuela from hepatology--hold off on January MRI, will need repeat MRI in 3 months
Subjective
Subjective
Date of Service: December 10, 2024
Patient seen in follow-up. Abdominal pain still present, but improved. She really wants to try eating solids today, feels the broth has too much salt. LFTs trending down, tbili 6.1 --> 4.7, which is much closer to her baseline.
Objective
Data Reviewed
Laboratory Data:
Laboratory Results
12/10/24 06:40
12/10/24 09:09
Laboratory Results
PT 19.4 Sec (11.4-14.6) H 12/10/24 06:40
INR 1.61 12/10/24 06:40
Total Bilirubin 4.7 mg/dl (0.2-1.3) H 12/10/24 09:09
AST 159 U/L (14-36) H 12/10/24 09:09
ALT 108 U/L (0-35) H 12/10/24 09:09
Alkaline Phosphatase 214 U/L (38-126) H 12/10/24 09:09
Lipase < 10 U/L (23-300) L 12/04/24 18:59
Vital Signs and I&O:
Vital Signs
Temp Pulse Resp BP Pulse Ox
97.4 F 61 18 104/58 99
12/10/24 07:00 12/10/24 07:00 12/10/24 07:00 12/10/24 07:00 12/10/24 07:00
I&O
12/09/24 12/10/24 12/11/24
06:59 06:59 06:59
Intake Total 1340 / 1340 1260 / 1260
Output Total 400 / 400
Balance 940 / 940 1260 / 1260
Physical Exam
Physical Exam
HEENT: Moist mucous membranes and Other (jaundice , no asterixis )
Cardiology: Normal Sinus Rhythm
Pulmonary: Clear
GI: Soft, Non Distended and Tender (some mild lower abdominal tenderness )
Extremities: No Edema
Neuro: Non Focal
--- NOTE | 2024-12-10 13:46 | W.PN.HOSP.TC ---
Today's Communication/Plan
-
Monitor vitals
See plan
Monitor symptoms with diet
Continue with antibiotics
Pain control
Assessment / Plan
Assessment / Plan
64y F with PMH significant for cirrhosis and hepatocellular carcinoma who presents to ED complaining of R flank pain and abdominal pain x 4 days.
Gen: NAD, AAOx3, appears chronically ill.
Eyes: remains EOMI, PERRLA, mod scleral icterus.
CV: continues to remain RRR, +S1/S2, no m/r/g.
Resp: CTAB anteriorly, no rales, wheezes, or rhonchi.
Abd: +BS, soft, RUQ tender, ND
Neuro: continues to remain CN 2-12 intact, non-focal.
Psych: Normal mood and affect.
12/04/24 22:09 Urine Urine Culture - Preliminary
Gram negative bacilli
12/05/24 12:04 Blood/Venous Blood Culture - Preliminary
No Growth in 24 hours- Final report to follow
12/05/24 11:39 Blood/Venous Blood Culture - Preliminary
No Growth in 24 hours- Final report to follow
CT A/P: Diffuse colonic wall thickening, consistent with pancolitis, as seen previously, though slightly less pronounced compared to prior examination. The differential includes infectious or inflammatory colitis, versus portal hypertensive
colopathy. There also appears to be involvement of the gastric wall. Cirrhosis. Small mass in the inferior right lobe remains stable. Splenomegaly. Portosystemic venous collaterals, consistent with portal hypertension. Slightly increased distention
of the common hepatic duct. Recommend correlation with liver function tests.
MRI Abd/MRCP: Cirrhotic morphology with a a 1.8 cm BI-RADS 5 lesion within the inferior right hepatic lobe, previously 1.7 cm. Findings of portal hypertension with splenomegaly as well as numerous collateral vessels along the distal esophagus,
throughout the abdomen as well as within the upper pelvis. There is new biliary duct dilation as well as increased main pancreatic duct dilation. The common bile duct measures 1.4 cm and the main pancreatic duct measures 1.0 cm. There is abrupt
change in caliber of the ducts within the pancreatic head with a new 2.4 x 1.8 cm cystic lesion within the pancreatic head. This lesion demonstrates peripheral enhancement. This likely represents a peripancreatic collection/pseudocyst. A cystic
neoplasm is considered less likely.
Abdominal Pain / Flank Pain
Ascending Cholangitis
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
Hepatocellular Carcinoma
-Patient presents with RUQ / R flank pain x 4 days, increased LFTs (notably bilirubin) and CT scan showing increased ductal dilation and pneumobilia.
-currently being treated for possible acute ascending cholangitis with meropenem as per ID
-GI following
-Not on any active therapy for HCC at this time. Next surveillance MRI was planned for January.
-Continue current med regimen including spironolactone, lactulose, Xifaxan
-MRI abd/MRCP above
Discussed with GI, s/p EUS/ERCP 12/08, EUS with esophageal varices, masslike solid cystic lesion in the pancreatic head which was biopsied. Cytology pending. ERCP 12/08 prior biliary sphincterotomy open. Single moderate biliary stricture was found
in the lower third of the main bile duct. Common bile duct, left main hepatic duct and right main hepatic duct were severely dilated. Some pus was drained. 1 plastic stent was placed into the left hepatic duct.
CA 19-9 pending, cytology pending
Also has chronic pancreatitis
Pancytopenia secondary to cirrhosis
Hypokalemia
Replete
Colitis
-Bowel wall edema again seen on CT scan. No change from prior.
-likely reflects congestion/portal hypertensive colopathy rather than acute infectious process.
Chronic Hyponatremia:
-due to cirrhosis
-worsening
Renal following, status post [facility] 12/07
Continue to monitor
DM2:
-a1c 7.4%
-cont SSI/accuchecks
Now with hyperglycemia, add mealtime insulin and increase long-acting insulin
FULL
No DVT proph with severe thrombocytopenia
Anticipated Discharge: Within 24 hours
Subjective/Interval History
-
Date of Service: December 10, 2024
Still some pain
Objective Data
-
Labs:
Laboratory Results
12/10/24 12/10/24
06:40 09:09
WBC 5.9
Hgb 9.8 L
Hct 28.0 L
Plt Count 66 L D
PT 19.4 H
INR 1.61
Sodium Cancelled 132 L
Potassium Cancelled 3.3 L
Chloride Cancelled 96 L
Carbon Dioxide Cancelled 33 H
BUN Cancelled 9
Creatinine Cancelled 0.6
Glucose Cancelled 147 H
Calcium Cancelled 8.1 L
Total Bilirubin Cancelled 4.7 H
AST Cancelled 159 H
ALT Cancelled 108 H
Alkaline Phosphatase Cancelled 214 H
Vital Signs:
Vital Signs
Temp Pulse Resp BP Pulse Ox
97.4 F 61 18 104/58 99
12/10/24 07:00 12/10/24 07:00 12/10/24 07:00 12/10/24 07:00 12/10/24 07:00
I&O
12/09/24 12/10/24 12/11/24
06:59 06:59 06:59
Intake Total 1340 / 1340 1260 / 1260
Output Total 400 / 400
Balance 940 / 940 1260 / 1260
[2024-12-10] MEDS: KCL 20 MEQ PO (14:03)
--- NOTE | 2024-12-10 14:33 | W.PN.ID1 ---
Date of Service
Date of Service: December 10, 2024
Today's Communication
Tomorrow am, transition to po levofloxacin 750mg qd and metronidazole 500mg bid through 12/14.
Assessment / Plan
# Cholangitis
# Acute jaundice, elevated LFT's trendign down
# Hepatic cellular carcinoma, not on tx
# Alcohol cirrhosis
# Multiple abx allergies: cephalexin, PCN, T/sulfa
Recommendations:
- Blood cultures neg to date
- Abdominal MRI: new bile duct and pancreatic duct dilation, new cystic lesion within the pancreatic head
- 12/08 s/p EUS/ERCP biliary stent placement, biopsy of cystic mass
- Continue meropenem 500mg IV q6h (d6)
- Tomorrow am, transition to po levofloxacin 750mg qd and metronidazole 500mg bid through 12/14.
Conditions present on admission:
Diabetes mellitus
Alcohol cirrhosis
Hepatic cellular carcinoma
Chronic thrombocytopenia
Depression
History of cholecystectomy
Schatzki's ring status post dilation
Chief Complaint
-: Other (Cholangitis)
Subjective / Review of Systems
Abdominal pain slightly better.
Vital Signs / Physical Exam
Vital Signs
Vital Signs
Temp Pulse Resp BP Pulse Ox
97.4 F 61 18 104/58 99
12/10/24 07:00 12/10/24 07:00 12/10/24 07:00 12/10/24 07:00 12/10/24 07:00
Physical Exam
Constitutional: No Acute Distress
Cardiovascular: Regular Rate and S1/S2
Pulmonary: Clear
Gastrointestinal: Soft and Tender (RUQ and epigastric)
Genito-Urinary: Negative CVA Tenderness
Extremities: Negative Edema
Neurological: AO x 3
Objective Data
Lab Data
Lab Results
12/10/24 06:40
12/10/24 09:09
PT 19.4 Sec (11.4-14.6) H 12/10/24 06:40
INR 1.61 12/10/24 06:40
Estimated Creat Clear 65 ml/min 12/10/24 09:09
Total Bilirubin 4.7 mg/dl (0.2-1.3) H 12/10/24 09:09
AST 159 U/L (14-36) H 12/10/24 09:09
ALT 108 U/L (0-35) H 12/10/24 09:09
Alkaline Phosphatase 214 U/L (38-126) H 12/10/24 09:09
Most recent labs reviewed.
Micro Results:
12/05/24 12:04 Blood Culture - Final
Blood/Venous No Growth - Final Report
12/05/24 11:39 Blood Culture - Final
Blood/Venous No Growth - Final Report
12/04/24 22:09 Urine Culture - Final
Urine Escherichia coli
Streptococcus agalactiae
12/05/24 MRI ABD: Cirrhotic morphology with a a 1.8 cm BI-RADS 5 lesion within the inferior right hepatic lobe, previously 1.7 cm. Findings of portal hypertension with splenomegaly as well as numerous collateral vessels along the distal esophagus,
throughout the abdomen as well as within the upper pelvis. There is new biliary duct dilation as well as increased main pancreatic duct dilation. The common bile duct measures 1.4 cm and the main pancreatic duct measures 1.0 cm. There is abrupt
change in caliber of the ducts within the pancreatic head with a new 2.4 x 1.8 cm cystic lesion within the pancreatic head. This lesion demonstrates peripheral enhancement. This likely represents a peripancreatic collection/pseudocyst. A cystic
neoplasm is considered less likely.Consider EUS for further evaluation.
12/04/24 CT a/p: Diffuse colonic wall thickening, consistent with pancolitis, as seen previously, though slightly less pronounced compared to prior examination. The differential includes infectious or inflammatory colitis, versus portal hypertensive
colopathy. There also appears to be involvement of the gastric wall. Cirrhosis. Small mass in the inferior right lobe remains stable. Splenomegaly. Portosystemic venous collaterals, consistent with portal hypertension. Slightly increased distention
of the common hepatic duct. Recommend correlation with liver function tests.
[2024-12-10 15:00] VITALS: BP 108/44
--- NOTE | 2024-12-10 15:19 | CON.MD ---
Consultation
-
Date/Time Consultation Requested: 12/10/24 11am
Date/Time Consultation Performed: 12/10/24 3pm
--- NOTE | 2024-12-10 15:36 | W.PN.NEPH.PH ---
Today's Communication / Plan
-
follow BMP
Assessment/Plan
-
Assessment
Hyponatremia
Hepatocellular carcinoma
Cirrhosis
Biliary obstruction
Diabetes mellitus type 2
Plan
Fluid restriction 48 ounces per day
samsca prn
Follow BMP
ERCP 12/08 prior biliary sphincterotomy open.
advance diet as allowed
-
-
Date of Service: December 10, 2024
CC / HPI / ROS
-
Chief Complaint:
Abdominal pain
History of Present Illness:
Na up to 132 after samsca
BP stable
Hgb stable
Review of Systems:
No chest pain or shortness of breath
Labs
-
Labs:
WBC 5.9 10^3/uL (4.8-10.8) 12/10/24 06:40
RBC 3.04 10^6/uL (4.20-5.40) L 12/10/24 06:40
Hgb 9.8 g/dL (12.0-16.0) L 12/10/24 06:40
Hct 28.0 % (37.0-47.0) L 12/10/24 06:40
Plt Count 66 10^3/uL (130-400) L D 12/10/24 06:40
Sodium 132 mmol/L (135-145) L 12/10/24 09:09
Potassium 3.3 mmol/L (3.5-5.1) L 12/10/24 09:09
Chloride 96 mmol/L (98-107) L 12/10/24 09:09
Carbon Dioxide 33 mmol/L (22-30) H 12/10/24 09:09
BUN 9 mg/dl (7-17) 12/10/24 09:09
Creatinine 0.6 mg/dL (0.6-1.0) 12/10/24 09:09
eGFR > 60.00 12/10/24 09:09
Glucose 147 mg/dl (70-99) H 12/10/24 09:09
Calcium 8.1 mg/dl (8.4-10.2) L 12/10/24 09:09
Albumin 2.9 g/dl (3.5-5.0) L 12/10/24 09:09
Physical Exam
-
Vital Signs:
Vital Signs
Temp Pulse Resp BP Pulse Ox
97.4 F 61 18 104/58 99
12/10/24 07:00 12/10/24 07:00 12/10/24 07:00 12/10/24 07:00 12/10/24 07:00
Cardiovascular:: Regular rate and rhythm
Respiratory:: Bilateral: Coarse
Lung Excursion:: Normal
Abdomen:: Nontender and Soft
Bowel Sounds:: Normal
Extremity Edema:: None: Bilateral:
[2024-12-10 16:09] LABS: Glucose - Point of Care 264 mg/dl (70-99)
[2024-12-10] MEDS: NOVOLOG FLEXPEN-LOW RESISTANCE 3 UNITS SC (16:38)
[2024-12-10] MEDS: DUPHALAC/CHRONULAC 30 GRAMS PO (21:05)
[2024-12-10 21:45] LABS: Glucose - Point of Care 287 mg/dl (70-99)
[2024-12-10 21:52] LABS: CA 19-9 343 U/mL (<=35)
[2024-12-10] MEDS: LANTUS 0.15 UNITS SC (22:58)
[2024-12-10] MEDS: LEXAPRO 10 MG PO (22:58)
[2024-12-10 23:43] VITALS: BP 111/58
[2024-12-11 03:39] VITALS: BMI 19.5
[2024-12-11] MEDS: DILAUDID 0.5 MG IV ×3 (03:51→20:37)
[2024-12-11] MEDS: STERILE WATER FOR INJECTION IV ×2 (05:56→12:42)
[2024-12-11 06:32] LABS: Hematocrit 26.8 % (37.0-47.0); Hemoglobin 9.2 g/dL (12.0-16.0); Mean Corp Hgb Conc. 34.3 g/dL (33.0-37.0); Mean Corpuscular Volume 94.4 fL (81.0-99.0); Platelet Count 57 10^3/uL (130-400); Red Cell Dist. Width 18.6 % (11.5-14.5)
[2024-12-11 06:59] VITALS: BP 99/56
[2024-12-11 07:02] LABS: ALT (SGPT) 104 U/L (0-35); AST (SGOT) 151 U/L (14-36); Albumin 2.4 g/dl (3.5-5.0); Alkaline Phosphatase 211 U/L (38-126); Blood Urea Nitrogen 7 mg/dl (7-17); Calcium 8.1 mg/dl (8.4-10.2); Carbon Dioxide 31 mmol/L (22-30); Chloride 99 mmol/L (98-107); Estimated Creatinine Clearance 65 ml/min; Glucose 293 mg/dl (70-99); Potassium 3.7 mmol/L (3.5-5.1); Sodium 130 mmol/L (135-145); Total Protein 5.0 g/dl (6.3-8.2); eGFR > 60.00
[2024-12-11 07:52] LABS: Glucose - Point of Care 219 mg/dl (70-99)
[2024-12-11] MEDS: FLAGYL 500 MG PO ×2 (08:20→20:39)
[2024-12-11] MEDS: COREG 3.125 MG PO ×2 (08:22→20:48)
[2024-12-11] MEDS: ALDACTONE 50 MG PO (08:25)
[2024-12-11] MEDS: PROTONIX 40 MG PO (08:25)
[2024-12-11] MEDS: LEVAQUIN 750 MG PO (08:28)
[2024-12-11] MEDS: DUPHALAC/CHRONULAC PO (08:30)
[2024-12-11] MEDS: NOVOLOG FLEXPEN-LOW RESISTANCE 2 UNITS SC ×2 (08:32→12:44)
[2024-12-11] MEDS: XIFAXAN 550 MG PO ×2 (08:37→20:46)
[2024-12-11] MEDS: NOVOLOG FLEXPEN 7 UNITS SC (08:39)
--- NOTE | 2024-12-11 08:49 | W.PN.GI.CBS2 ---
Addendum entered and electronically signed by Gianni Ga MD 12/11/24 09:51:
I saw and examined the patient.
The SALES ACCOUNT DIRECTOR or PA's note was reviewed and I agree with the note.
Comment:
Pt doing well. much less abd pain
abd: soft, nontender
impression:
panc lesion
cirrhosis
plan:
xifaxin, agree hold lactulose
wait path from pancreatic lesion
f/u outpatient with Nicolas Rose
will sign off call with questions
Original Note:
Today's Communication / Plan
-
Pt feeling better-- abdominal pain improving
labs stable and LFT's continued to improved
CA 19-9 343-- path still pending
still some less stool but loose may be med related with abx and lactulose
abx transitioned to PO
Pt still declining some doses of Lactulose -- discussed close monitoring at home to restart
cont low residue/low lactose diet, fluid restriction
cont Xifaxan
cont coreg 3.125 as pt was taking higher dose at home with close follow of BP for eventual increase still with BP 90's today
remains on Aldactone 50mg daily
OP follow with Dr. Valenzuela from hepatology--hold off on January MRI, will need repeat MRI in 3 months
tentative appt with Dr. Teixeira 12/18 10 AM -- office will call to confirm
stable from GI standpoint for discharge -- discussed return for any questions or problems
Assessment / Plan
-
pt is a 63-year-old female with past medical history of alcohol/metabolic related cirrhosis prior low ceruloplasmin but normal 24 hour urine copper. Her cirrhosis was c/b hepatic encephalopathy, thrombocytopenia, hyponatremia and ascites, type 2
diabetes, history of cholecystectomy, osteoporosis and recent diagnosis of HCC in July with serial radiology follow for size and no current medical therapy per Dr. Chaidez at [facility]. Pt was recently hospitalized in October with severe
diarrhea andlower abdominal pain, CT scan on admission showed evidence of diffuse wall thickening of the stomach and small bowel as well as severe diffuse wall thickening of the entire colon with pericolonic inflammatory fat stranding consistent
with gastroenteritis and severe pancolitis. Labs significant for pancytopenia, platelets as low was 23, electrolyte abnormalities (low Na and Mg) and elevated liver enzymes. Stool studies including C. difficile and stool culture were negative. She
was initially treated with Zosyn, this was later discontinued and then treated supportively with Imodium and Bentyl. Her lactulose was held during admission. She had follow up with Dr. Teixeira 11/13/24. She had lowered dose of Coreg during
admission then advised to increase back to 6.25mg BID as BP was improved after admission. She also discussed continued Xifaxan and resuming Lactulose based on stool function but had not resumed yet with 4-8 stool per day. She also remain on
Spironolactone 50mg daily without Lasix. She now presents with upper abdominal pain with rise in LFT's. CT was repeated with diffuse colonic wall thickening- pancolitis less prominent than prior infectious, inflammatory ;portal colonopathy and
also gastric wall involvement. cirrhosis with stable small mass. splenomegaly, portal HTN, slight distention of common hepatic duct. Labs on admission noted with WBC 7,100, hbg 12.4 with drop to 9.8 and platelets 28,000, Na 127, bili 8.4, d bili
7.2, AST 93, ALT 79, alk phos 125. albumin 2.5. f/u MRI with concern for new biliary dilatation and panc lesion s/p EUS/ERCP 12/08.
12/05/24 MR Abdomen W/o & W Contrast
Cirrhotic morphology with a a 1.8 cm BI-RADS 5 lesion within the inferior right hepatic lobe, previously 1.7 cm.
Findings of portal hypertension with splenomegaly as well as numerous collateral vessels along the distal esophagus, throughout the abdomen as well as within the upper pelvis.
There is new biliary duct dilation as well as increased main pancreatic duct dilation. The common bile duct measures 1.4 cm and the main pancreatic duct measures 1.0 cm. There is abrupt change in caliber of the ducts within the pancreatic head with
a new 2.4 x 1.8 cm cystic lesion within the pancreatic head. This lesion demonstrates peripheral enhancement. This likely represents a peripancreatic collection/pseudocyst. A cystic neoplasm is considered less likely.Consider EUS for further
evaluation.
12/08/24 ERCP Prior biliary sphincterotomy open. A single moderate biliary stricture was found in the lower third of the main bile duct. The stricture was indeterminate.
- The common bile duct, left main hepatic duct and right main hepatic duct were severely dilated. Some pus drained. One plastic stent was placed into the left hepatic duct.
12/08/24 EUS Small (< 5 mm) esophageal varices. PHG, A mass-like solid-cystic lesion was identified in the pancreatic head. Tissue was obtained from this exam Inflammatory mass vs neoplastic mass is suspected. Fine needle aspiration performed.
changes consistent with moderate-severe chronic pancreatitis Findings suggestive of pancreatic stones were identified in the main pancreatic duct.
- There was dilation in the common bile duct which measured up 15 mm. There was no sign of significant pathology in the ampulla.
-right flank and upper abdominal pain on admission
-lower abdominal pain
-diarrhea
-repeat MRI with biliary dilatation, panc duct dilatation with change in panc head, cystic 2.4 x 1.8 cm cystic panc head lesion s/p EUS/ERCP
-CT with pancolitis ( with recent admission with similar finding), and gastric wall involvement
-CT with Slightly increased distention of the common hepatic duct
-rise in LFT's from prior admission
-cirrhosis with alcohol/metabolic related
-hepatic encephalopathy
-EV- small on prior EGD
-thrombocytopenia
- hyponatremia
- ascites -stable on Spironolactone only
-recent NSAID use
other med problems:
- type 2 diabetes
- history of cholecystectomy
-osteoporosis
-depression/anxiety
PLAN
Pt feeling better-- abdominal pain improving
labs stable and LFT's continued to improved
CA 19-9 343--- path still pending
still some less stool but loose may be med related with abx and lactulose
abx transitioned to PO
Pt still declining some doses of Lactulose -- discussed close monitoring at home to restart
cont low residue/low lactose diet, fluid restriction
cont Xifaxan
cont coreg 3.125 as pt was taking higher dose at home with close follow of BP for eventual increase- still with BP in 90's today
remains on Aldactone 50mg daily
OP follow with Dr. Valenzuela from hepatology--hold off on January MRI, will need repeat MRI in 3 months
tentative appt with Dr. Teixeira 12/18 10 AM -- office will call to confirm
stable from GI standpoint for discharge -- discussed return for any questions or problems
Subjective
Subjective
Date of Service: December 11, 2024
Pt feeling much better, on low residue diet -- no diarrhea overnight
Objective
Data Reviewed
Laboratory Data:
Laboratory Results
12/11/24 05:39
12/11/24 05:39
Laboratory Results
PT 19.4 Sec (11.4-14.6) H 12/10/24 06:40
INR 1.61 12/10/24 06:40
Total Bilirubin 4.1 mg/dl (0.2-1.3) H 12/11/24 05:39
AST 151 U/L (14-36) H 12/11/24 05:39
ALT 104 U/L (0-35) H 12/11/24 05:39
Alkaline Phosphatase 211 U/L (38-126) H 12/11/24 05:39
Lipase < 10 U/L (23-300) L 12/04/24 18:59
Vital Signs and I&O:
Vital Signs
Temp Pulse Resp BP Pulse Ox
97.8 F 62 17 99/56 99
12/11/24 06:59 12/11/24 06:59 12/10/24 23:43 12/11/24 06:59 12/11/24 06:59
I&O
12/10/24 12/11/24 12/12/24
06:59 06:59 06:59
Intake Total 1260 / 1260 960 / 960
Balance 1260 / 1260 960 / 960
Physical Exam
Physical Exam
HEENT: Anicteric and Moist mucous membranes
Cardiology: Normal Sinus Rhythm
Pulmonary: Clear
GI: Soft, Non Distended and Tender (very minimal )
Extremities: No Edema
Neuro: Non Focal
[2024-12-11 12:27] LABS: Glucose - Point of Care 209 mg/dl (70-99)
[2024-12-11] MEDS: NOVOLOG FLEXPEN 9 UNITS SC ×2 (12:42→18:06)
--- NOTE | 2024-12-11 13:02 | W.PN.HOSP.TC ---
Today's Communication/Plan
-
Monitor vital signs and see plan
Continue to hold lactulose for now as has diarrhea
Increase insulin
Monitor sodium
cw abx
dc planning
Assessment / Plan
Assessment / Plan
64y F with PMH significant for cirrhosis and hepatocellular carcinoma who presents to ED complaining of R flank pain and abdominal pain x 4 days.
Gen: NAD, AAOx3, appears chronically ill.
Eyes: remains EOMI, PERRLA, mod scleral icterus.
CV: continues to remain RRR, +S1/S2, no m/r/g.
Resp: CTAB anteriorly, no rales, wheezes, or rhonchi.
Abd: +BS, soft, RUQ tender, ND
Neuro: continues to remain CN 2-12 intact, non-focal.
Psych: Normal mood and affect.
CT A/P: Diffuse colonic wall thickening, consistent with pancolitis, as seen previously, though slightly less pronounced compared to prior examination. The differential includes infectious or inflammatory colitis, versus portal hypertensive
colopathy. There also appears to be involvement of the gastric wall. Cirrhosis. Small mass in the inferior right lobe remains stable. Splenomegaly. Portosystemic venous collaterals, consistent with portal hypertension. Slightly increased distention
of the common hepatic duct. Recommend correlation with liver function tests.
MRI Abd/MRCP: Cirrhotic morphology with a a 1.8 cm BI-RADS 5 lesion within the inferior right hepatic lobe, previously 1.7 cm. Findings of portal hypertension with splenomegaly as well as numerous collateral vessels along the distal esophagus,
throughout the abdomen as well as within the upper pelvis. There is new biliary duct dilation as well as increased main pancreatic duct dilation. The common bile duct measures 1.4 cm and the main pancreatic duct measures 1.0 cm. There is abrupt
change in caliber of the ducts within the pancreatic head with a new 2.4 x 1.8 cm cystic lesion within the pancreatic head. This lesion demonstrates peripheral enhancement. This likely represents a peripancreatic collection/pseudocyst. A cystic
neoplasm is considered less likely.
Abdominal Pain / Flank Pain
Ascending Cholangitis
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
Hepatocellular Carcinoma
-Patient presents with RUQ / R flank pain x 4 days, increased LFTs (notably bilirubin) and CT scan showing increased ductal dilation and pneumobilia.
-currently being treated for possible acute ascending cholangitis; ID following. po levofloxacin 750mg qd and metronidazole 500mg bid through 12/14.
-GI following
-Not on any active therapy for HCC at this time. Next surveillance MRI was planned for January.
-Continue current med regimen including spironolactone, lactulose, Xifaxan
-MRI abd/MRCP above
Discussed with GI, s/p EUS/ERCP 12/08, EUS with esophageal varices, masslike solid cystic lesion in the pancreatic head which was biopsied. Cytology pending. ERCP 12/08 prior biliary sphincterotomy open. Single moderate biliary stricture was found
in the lower third of the main bile duct. Common bile duct, left main hepatic duct and right main hepatic duct were severely dilated. Some pus was drained. 1 plastic stent was placed into the left hepatic duct.
CA 19-9 high, cytology pending
Also has chronic pancreatitis
Pancytopenia secondary to cirrhosis
Hypokalemia
Improved
Colitis
-Bowel wall edema again seen on CT scan. No change from prior.
-likely reflects congestion/portal hypertensive colopathy rather than acute infectious process.
Chronic Hyponatremia:
-due to cirrhosis
-worsening
Renal following, status post [facility] 12/07
Continue to monitor
DM2:
-a1c 7.4%
-cont SSI/accuchecks
Now with hyperglycemia, add mealtime insulin and increase long-acting insulin
FULL
No DVT proph with severe thrombocytopenia
Anticipated Discharge: Within 24 hours
Subjective/Interval History
-
Date of Service: December 11, 2024
has some pain
Objective Data
-
Labs:
Laboratory Results
12/11/24
05:39
WBC 2.9 L
Hgb 9.2 L
Hct 26.8 L
Plt Count 57 L
Sodium 130 L
Potassium 3.7
Chloride 99
Carbon Dioxide 31 H
BUN 7
Creatinine 0.6
Glucose 293 H
Calcium 8.1 L
Total Bilirubin 4.1 H
AST 151 H
ALT 104 H
Alkaline Phosphatase 211 H
Vital Signs:
Vital Signs
Temp Pulse Resp BP Pulse Ox
97.8 F 62 17 99/56 99
12/11/24 06:59 12/11/24 06:59 12/10/24 23:43 12/11/24 06:59 12/11/24 10:00
I&O
12/10/24 12/11/24 12/12/24
06:59 06:59 06:59
Intake Total 1260 / 1260 960 / 960
Balance 1260 / 1260 960 / 960
--- NOTE | 2024-12-11 13:31 | W.PN.NEPH.PH ---
Today's Communication / Plan
-
follow BMP
Assessment/Plan
-
Assessment
Hyponatremia
Hepatocellular carcinoma
Cirrhosis
Biliary obstruction
Diabetes mellitus type 2
Plan
Fluid restriction 48 ounces per day
samsca prn
Follow BMP
If Na falls, may benefit from lasix 20mg daily at dc
ERCP 12/08 prior biliary sphincterotomy open.
-
-
Date of Service: December 11, 2024
CC / HPI / ROS
-
Chief Complaint:
Abdominal pain
History of Present Illness:
Na down to 130
BP stable
Hgb stable
Review of Systems:
No chest pain or shortness of breath
Labs
-
Labs:
WBC 2.9 10^3/uL (4.8-10.8) L 12/11/24 05:39
RBC 2.84 10^6/uL (4.20-5.40) L 12/11/24 05:39
Hgb 9.2 g/dL (12.0-16.0) L 12/11/24 05:39
Hct 26.8 % (37.0-47.0) L 12/11/24 05:39
Plt Count 57 10^3/uL (130-400) L 12/11/24 05:39
Sodium 130 mmol/L (135-145) L 12/11/24 05:39
Potassium 3.7 mmol/L (3.5-5.1) 12/11/24 05:39
Chloride 99 mmol/L (98-107) 12/11/24 05:39
Carbon Dioxide 31 mmol/L (22-30) H 12/11/24 05:39
BUN 7 mg/dl (7-17) 12/11/24 05:39
Creatinine 0.6 mg/dL (0.6-1.0) 12/11/24 05:39
eGFR > 60.00 12/11/24 05:39
Glucose 293 mg/dl (70-99) H 12/11/24 05:39
Calcium 8.1 mg/dl (8.4-10.2) L 12/11/24 05:39
Albumin 2.4 g/dl (3.5-5.0) L 12/11/24 05:39
Physical Exam
-
Vital Signs:
Vital Signs
Temp Pulse Resp BP Pulse Ox
97.8 F 62 17 99/56 99
12/11/24 06:59 12/11/24 06:59 12/10/24 23:43 12/11/24 06:59 12/11/24 10:00
Cardiovascular:: Regular rate and rhythm
Respiratory:: Bilateral: CTA
Lung Excursion:: Normal
Abdomen:: Nontender and Soft
Bowel Sounds:: Normal
Extremity Edema:: None: Bilateral:
--- NOTE | 2024-12-11 14:21 | W.PN.ID1 ---
Date of Service
Date of Service: December 11, 2024
Today's Communication
Continue levofloxacin/metronidazole.
Assessment / Plan
# Cholangitis
# Acute jaundice, elevated LFT's trendign down
# Hepatocellular carcinoma, not on tx
# Alcohol cirrhosis
# Multiple abx allergies: cephalexin, PCN, T/sulfa
Recommendations:
- Blood cultures neg to date
- Abdominal MRI: new bile duct and pancreatic duct dilation, new cystic lesion within the pancreatic head
- 12/08 s/p EUS/ERCP biliary stent placement, biopsy of cystic mass
- s/p meropenem 500mg IV q6h (6d)
- Continue po levofloxacin 750mg qd and metronidazole 500mg bid through 12/14.
# Diarrhea
- Lactulose on hold
- If diarrhea persists tomorrow off bowel regimen, check stool for C. diff
Conditions present on admission:
Diabetes mellitus
Alcohol cirrhosis
Hepatic cellular carcinoma
Chronic thrombocytopenia
Depression
History of cholecystectomy
Schatzki's ring status post dilation
Chief Complaint
-: Other (Cholangitis)
Subjective / Review of Systems
Took Dilaudid for abd pain.
c/o diarrhea x 7. She stopped taking the lactulose yesterday.
Tolerating po levofloxacin and metronidazole.
Vital Signs / Physical Exam
Vital Signs
Vital Signs
Temp Pulse Resp BP Pulse Ox
97.8 F 62 17 99/56 99
12/11/24 06:59 12/11/24 06:59 12/10/24 23:43 12/11/24 06:59 12/11/24 10:00
Physical Exam
Constitutional: No Acute Distress
Cardiovascular: Regular Rate and S1/S2
Pulmonary: Clear
Gastrointestinal: Soft and Tender (RUQ and epigastric)
Genito-Urinary: Negative CVA Tenderness
Extremities: Negative Edema
Neurological: AO x 3
Objective Data
Lab Data
Lab Results
12/11/24 05:39
12/11/24 05:39
PT 19.4 Sec (11.4-14.6) H 12/10/24 06:40
INR 1.61 12/10/24 06:40
Estimated Creat Clear 65 ml/min 12/11/24 05:39
Total Bilirubin 4.1 mg/dl (0.2-1.3) H 12/11/24 05:39
AST 151 U/L (14-36) H 12/11/24 05:39
ALT 104 U/L (0-35) H 12/11/24 05:39
Alkaline Phosphatase 211 U/L (38-126) H 12/11/24 05:39
Most recent labs reviewed.
Micro Results:
12/05/24 12:04 Blood Culture - Final
Blood/Venous No Growth - Final Report
12/05/24 11:39 Blood Culture - Final
Blood/Venous No Growth - Final Report
12/04/24 22:09 Urine Culture - Final
Urine Escherichia coli
Streptococcus agalactiae
12/05/24 MRI ABD: Cirrhotic morphology with a a 1.8 cm BI-RADS 5 lesion within the inferior right hepatic lobe, previously 1.7 cm. Findings of portal hypertension with splenomegaly as well as numerous collateral vessels along the distal esophagus,
throughout the abdomen as well as within the upper pelvis. There is new biliary duct dilation as well as increased main pancreatic duct dilation. The common bile duct measures 1.4 cm and the main pancreatic duct measures 1.0 cm. There is abrupt
change in caliber of the ducts within the pancreatic head with a new 2.4 x 1.8 cm cystic lesion within the pancreatic head. This lesion demonstrates peripheral enhancement. This likely represents a peripancreatic collection/pseudocyst. A cystic
neoplasm is considered less likely.Consider EUS for further evaluation.
12/04/24 CT a/p: Diffuse colonic wall thickening, consistent with pancolitis, as seen previously, though slightly less pronounced compared to prior examination. The differential includes infectious or inflammatory colitis, versus portal hypertensive
colopathy. There also appears to be involvement of the gastric wall. Cirrhosis. Small mass in the inferior right lobe remains stable. Splenomegaly. Portosystemic venous collaterals, consistent with portal hypertension. Slightly increased distention
of the common hepatic duct. Recommend correlation with liver function tests.
[2024-12-11 14:36] VITALS: BP 114/62
[2024-12-11 17:28] LABS: Glucose - Point of Care 158 mg/dl (70-99)
[2024-12-11] MEDS: NOVOLOG FLEXPEN-LOW RESISTANCE 1 UNITS SC (18:06)
[2024-12-11] MEDS: LEXAPRO 10 MG PO (20:39)
[2024-12-11] MEDS: LANTUS 0.18 UNITS SC (20:53)
[2024-12-11 20:55] LABS: Glucose - Point of Care 256 mg/dl (70-99)
[2024-12-11 23:20] VITALS: BP 107/58
[2024-12-12] MEDS: DILAUDID 0.5 MG IV ×2 (01:53→06:10)
[2024-12-12 05:48] VITALS: BMI 19.1
[2024-12-12 07:18] LABS: Hematocrit 28.8 % (37.0-47.0); Hemoglobin 10.0 g/dL (12.0-16.0); Mean Corp Hgb Conc. 34.7 g/dL (33.0-37.0); Mean Corpuscular Volume 95.7 fL (81.0-99.0); Nucleated Red Blood Cells % 0 %; Platelet Count 61 10^3/uL (130-400); Red Cell Dist. Width 18.2 % (11.5-14.5)
[2024-12-12 07:20] VITALS: BP 116/61
[2024-12-12 07:39] LABS: Glucose - Point of Care 129 mg/dl (70-99)
[2024-12-12] MEDS: COREG 3.125 MG PO (07:39)
[2024-12-12] MEDS: PROTONIX 40 MG PO (07:39)
[2024-12-12] MEDS: FLAGYL 500 MG PO (07:40)
[2024-12-12] MEDS: LEVAQUIN 750 MG PO (07:40)
[2024-12-12] MEDS: ALDACTONE 50 MG PO (07:40)
[2024-12-12] MEDS: XIFAXAN 550 MG PO (07:40)
[2024-12-12] MEDS: NOVOLOG FLEXPEN-LOW RESISTANCE SC (07:43)
[2024-12-12 07:49] LABS: ALT (SGPT) 106 U/L (0-35); AST (SGOT) 118 U/L (14-36); Albumin 2.6 g/dl (3.5-5.0); Alkaline Phosphatase 198 U/L (38-126); Blood Urea Nitrogen 6 mg/dl (7-17); Calcium 8.2 mg/dl (8.4-10.2); Carbon Dioxide 33 mmol/L (22-30); Chloride 98 mmol/L (98-107); Estimated Creatinine Clearance 65 ml/min; Glucose 147 mg/dl (70-99); Potassium 3.7 mmol/L (3.5-5.1); Sodium 135 mmol/L (135-145); Total Protein 5.4 g/dl (6.3-8.2); eGFR > 60.00
[2024-12-12] MEDS: NOVOLOG FLEXPEN 9 UNITS SC ×2 (08:44→12:01)
--- NOTE | 2024-12-12 09:06 | W.PN.ID1 ---
Date of Service
Date of Service: December 12, 2024
Today's Communication
Continue po levofloxacin 750mg qd and metronidazole 500mg bid through 12/14.
ID will sign off.
Assessment / Plan
# Cholangitis
# Acute jaundice, elevated LFT's trendign down
# Hepatocellular carcinoma, not on tx
# Alcohol cirrhosis
# Multiple abx allergies: cephalexin, PCN, T/sulfa
Recommendations:
- Blood cultures neg to date
- Abdominal MRI: new bile duct and pancreatic duct dilation, new cystic lesion within the pancreatic head
- 12/08 s/p EUS/ERCP biliary stent placement, biopsy of cystic mass
- s/p meropenem 500mg IV q6h (6d)
- Continue po levofloxacin 750mg qd and metronidazole 500mg bid through 12/14.
# Diarrhea- improving off bowel regimen.
- No need to check for C. diff
ID will sign off.
Conditions present on admission:
Diabetes mellitus
Alcohol cirrhosis
Hepatic cellular carcinoma
Chronic thrombocytopenia
Depression
History of cholecystectomy
Schatzki's ring status post dilation
Chief Complaint
-: Other (Cholangitis)
Subjective / Review of Systems
Doing very well. Eating full diet.
Abd pain improving.
Diarrhea better without lactulose. Had 2 loose stools this am.
Vital Signs / Physical Exam
Vital Signs
Vital Signs
Temp Pulse Resp BP Pulse Ox
98.0 F 70 17 116/61 99
12/12/24 07:20 12/12/24 07:39 12/12/24 07:20 12/12/24 07:39 12/12/24 07:44
Physical Exam
Constitutional: No Acute Distress and Comfortable
Eyes: No Conjunctival Hemorrhage
Cardiovascular: Regular Rate and S1/S2
Pulmonary: Clear
Gastrointestinal: Soft, Tender (mild RUQ/epigastrum) and Non Distended
Extremities: Negative Edema
Neurological: AO x 3
Objective Data
Lab Data
Lab Results
12/12/24 06:32
12/12/24 06:32
PT 19.4 Sec (11.4-14.6) H 12/10/24 06:40
INR 1.61 12/10/24 06:40
Estimated Creat Clear 65 ml/min 12/12/24 06:32
Total Bilirubin 3.9 mg/dl (0.2-1.3) H 12/12/24 06:32
AST 118 U/L (14-36) H 12/12/24 06:32
ALT 106 U/L (0-35) H 12/12/24 06:32
Alkaline Phosphatase 198 U/L (38-126) H 12/12/24 06:32
Most recent labs reviewed.
Micro Results:
12/05/24 12:04 Blood Culture - Final
Blood/Venous No Growth - Final Report
12/05/24 11:39 Blood Culture - Final
Blood/Venous No Growth - Final Report
12/04/24 22:09 Urine Culture - Final
Urine Escherichia coli
Streptococcus agalactiae
12/05/24 MRI ABD: Cirrhotic morphology with a a 1.8 cm BI-RADS 5 lesion within the inferior right hepatic lobe, previously 1.7 cm. Findings of portal hypertension with splenomegaly as well as numerous collateral vessels along the distal esophagus,
throughout the abdomen as well as within the upper pelvis. There is new biliary duct dilation as well as increased main pancreatic duct dilation. The common bile duct measures 1.4 cm and the main pancreatic duct measures 1.0 cm. There is abrupt
change in caliber of the ducts within the pancreatic head with a new 2.4 x 1.8 cm cystic lesion within the pancreatic head. This lesion demonstrates peripheral enhancement. This likely represents a peripancreatic collection/pseudocyst. A cystic
neoplasm is considered less likely.Consider EUS for further evaluation.
12/04/24 CT a/p: Diffuse colonic wall thickening, consistent with pancolitis, as seen previously, though slightly less pronounced compared to prior examination. The differential includes infectious or inflammatory colitis, versus portal hypertensive
colopathy. There also appears to be involvement of the gastric wall. Cirrhosis. Small mass in the inferior right lobe remains stable. Splenomegaly. Portosystemic venous collaterals, consistent with portal hypertension. Slightly increased distention
of the common hepatic duct. Recommend correlation with liver function tests.
--- NOTE | 2024-12-12 11:11 | W.PN.HOSP.TC ---
Today's Communication/Plan
-
Monitor vital signs see plan
Continue with antibiotic
Diarrhea now improving
Discharge today
Time of discharge 38 minutes
Assessment / Plan
Assessment / Plan
64y F with PMH significant for cirrhosis and hepatocellular carcinoma who presents to ED complaining of R flank pain and abdominal pain x 4 days.
Gen: NAD, AAOx3, appears chronically ill.
Eyes: remains EOMI, PERRLA, mod scleral icterus.
CV: continues to remain RRR, +S1/S2, no m/r/g.
Resp: CTAB anteriorly, no rales, wheezes, or rhonchi.
Abd: +BS, soft, RUQ tender, ND
Neuro: continues to remain CN 2-12 intact, non-focal.
Psych: Normal mood and affect.
CT A/P: Diffuse colonic wall thickening, consistent with pancolitis, as seen previously, though slightly less pronounced compared to prior examination. The differential includes infectious or inflammatory colitis, versus portal hypertensive
colopathy. There also appears to be involvement of the gastric wall. Cirrhosis. Small mass in the inferior right lobe remains stable. Splenomegaly. Portosystemic venous collaterals, consistent with portal hypertension. Slightly increased distention
of the common hepatic duct. Recommend correlation with liver function tests.
MRI Abd/MRCP: Cirrhotic morphology with a a 1.8 cm BI-RADS 5 lesion within the inferior right hepatic lobe, previously 1.7 cm. Findings of portal hypertension with splenomegaly as well as numerous collateral vessels along the distal esophagus,
throughout the abdomen as well as within the upper pelvis. There is new biliary duct dilation as well as increased main pancreatic duct dilation. The common bile duct measures 1.4 cm and the main pancreatic duct measures 1.0 cm. There is abrupt
change in caliber of the ducts within the pancreatic head with a new 2.4 x 1.8 cm cystic lesion within the pancreatic head. This lesion demonstrates peripheral enhancement. This likely represents a peripancreatic collection/pseudocyst. A cystic
neoplasm is considered less likely.
Abdominal Pain / Flank Pain
Ascending Cholangitis
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
Hepatocellular Carcinoma
-Patient presents with RUQ / R flank pain x 4 days, increased LFTs (notably bilirubin) and CT scan showing increased ductal dilation and pneumobilia.
-currently being treated for possible acute ascending cholangitis; ID following. po levofloxacin 750mg qd and metronidazole 500mg bid through 12/14.
-GI following
-Not on any active therapy for HCC at this time. Next surveillance MRI was planned for January.
-Continue current med regimen including spironolactone, Xifaxan. hold lactulose currently per GI recommendation due to diarrhea. Now improving. Patient to restart lactulose on discharge when diarrhea improves
-MRI abd/MRCP above
Discussed with GI, s/p EUS/ERCP 12/08, EUS with esophageal varices, masslike solid cystic lesion in the pancreatic head which was biopsied. Cytology pending. ERCP 12/08 prior biliary sphincterotomy open. Single moderate biliary stricture was found
in the lower third of the main bile duct. Common bile duct, left main hepatic duct and right main hepatic duct were severely dilated. Some pus was drained. 1 plastic stent was placed into the left hepatic duct.
CA 19-9 high, cytology pending
Also has chronic pancreatitis
Pancytopenia secondary to cirrhosis
Hypokalemia
Improved
Colitis
-Bowel wall edema again seen on CT scan. No change from prior.
-likely reflects congestion/portal hypertensive colopathy rather than acute infectious process.
Chronic Hyponatremia:
-due to cirrhosis
-worsening
Renal following, status post [facility] 12/07
Continue to monitor
DM2:
-a1c 7.4%
-cont SSI/accuchecks
Now with hyperglycemia, add mealtime insulin and increase long-acting insulin
FULL
No DVT proph with severe thrombocytopenia
Anticipated Discharge: Today
Subjective/Interval History
-
Date of Service: December 12, 2024
Denies nausea
Objective Data
-
Labs:
Laboratory Results
12/12/24
06:32
WBC 3.5 L
Hgb 10.0 L
Hct 28.8 L
Plt Count 61 L
Sodium 135
Potassium 3.7
Chloride 98
Carbon Dioxide 33 H
BUN 6 L
Creatinine 0.6
Glucose 147 H
Calcium 8.2 L
Total Bilirubin 3.9 H
AST 118 H
ALT 106 H
Alkaline Phosphatase 198 H
Vital Signs:
Vital Signs
Temp Pulse Resp BP Pulse Ox
98.0 F 70 17 116/61 99
12/12/24 07:20 12/12/24 07:39 12/12/24 07:20 12/12/24 07:39 12/12/24 07:44
I&O
12/11/24 12/12/24 12/13/24
06:59 06:59 06:59
Intake Total 960 / 960 1080 / 1080
Balance 960 / 960 1080 / 1080
--- NOTE | 2024-12-12 11:22 | W.DCSUMMARY ---
Discharge Summary
Discharge Data
Date of Admission: 12/04/24
Date of Discharge: 12/12/24
-
Pending Results: Yes
Hospital Course
64-year-old female with past medical history of cirrhosis, hepatocellular carcinoma, hyponatremia, diabetes mellitus came to the hospital with abdominal pain. Imaging was consistent with biliary ductal dilation concerning for ascending cholangitis.
Patient was seen by infectious disease and was initially started on IV antibiotic which later transitioned to p.o. antibiotics to complete a course prior to discharge. Patient was seen by gastroenterology and was taken for EUS/ERCP. EUS was
consistent with esophageal varices, masslike solid cystic lesion in the pancreatic head which was biopsied. Cytology was pending prior to discharge. ERCP follow-up also done the patient 1 plastic stent into the left hepatic duct. Patient also had
some diarrhea so gastroenterology recommended patient to hold lactulose on discharge and to restart when her diarrhea improves. Once her symptoms continue to improve, she was then discharged home with instructions to follow-up with all her
physicians outpatient.
Discharge Plan
-
Patient Disposition: Home (Routine Discharge)
Discharge Diagnosis/Procedures: Ascending cholangitis
Cystic pancreatic head lesion status post EUS/ERCP
Alcoholic cirrhosis with thrombocytopenia and portal hypertension
Pancytopenia
Hyponatremia
Diet: Low Residue, Restrict fluids to 48 oz and Other diet
Additional Diets: Low lactose
Activity: As tolerated
Driving Restrictions: As prior to admission
Bathing Restrictions: None
Blood Work: CBC and CMP next week with primary care provider
Activity Restrictions/Additional Instructions:
Follow-up with your hairmasters manager outpatient
Referrals:
Kathleen Navarro PA-C [Family Provider, Internal Medicine] - in less than 1 week
Ray Burch MD [Active, Gastroenterology]
Referral Note: call 1-2 weeks to review pathology from GI procedure. Will need 3 month follow up
Joceline Teixeira DO [Active, Gastroenterology] - 12/18/24 10:00 am
Referral Note: call to confirm appt with Dr. Teixeira for next week
Prescriptions:
New
metronidazole 500 mg Tablet
500 mg PO BID 3 Days Qty: 6 0RF
carvedilol 3.125 mg Tablet
3.125 mg PO BID Qty: 60 0RF
levofloxacin 750 mg Tablet
750 mg PO DAILY Qty: 3 0RF
Continued
omeprazole 20 MG capsule,delayed release(DR/EC)
20 mg PO DAILY
loratadine 10 MG tablet
10 mg PO DAILY
Xifaxan 550 MG tablet
550 mg PO BID Qty: 120 0RF
loperamide 2 mg Capsule
2 mg PO Q6HPRN PRN (Reason: diarrhea)
trazodone 50 mg Tablet
25 mg PO HSPRN PRN (Reason: sleep)
escitalopram oxalate 10 mg Tablet
10 mg PO HS
cholecalciferol (vitamin D3) [Vitamin D3] 25 mcg (1,000 unit) Tablet
25 mcg PO DAILY
spironolactone 50 mg Tablet
50 mg PO DAILY
insulin aspart U-100 100 unit/mL (3 mL) insulin pen
9 unit SC AC
diphenhydramine HCl 25 mg Capsule
25 mg PO Q4HPRN PRN (Reason: itching) Qty: 0 0RF
dicyclomine 10 mg Capsule
20 mg PO QID PRN (Reason: abdominal pain) 30 Days Qty: 240 0RF
Changed
insulin glargine [Lantus Solostar U-100 Insulin] 100 unit/mL (3 mL) insulin pen
18 unit SC HS Qty: 0 0RF
Held
lactulose 30 ML solution
30 ml PO TID
Hold Instructions: Hold for now and resume with < 4 BM/daily
Discontinued
celecoxib 100 mg Capsule
100 mg PO DAILYPRN PRN (Reason: headache)
Discharge Orders:
Discharge Patient (As Directed); Ordered 12/12/24
Ordered By: Chester Mcfadden
Discharge Date and Time
Discharge Date/Time: 12/12/24 13:01
Print Language: EGYPTIAN
[2024-12-12 11:34] LABS: Glucose - Point of Care 239 mg/dl (70-99)
--- NOTE | 2024-12-12 11:37 | CM ---
Patient has been medically cleared for discharge to home with no additional skilled services. Patient has arranged for transport home.
[2024-12-12] MEDS: NOVOLOG FLEXPEN-LOW RESISTANCE 2 UNITS SC (12:00)
[2024-12-12 12:17] VITALS: BP 109/56
== END 2024-12-12 13:01 | disposition home or self-care (01) | DRG 444 ==
LOC: 3 WEST ACU 23:54
PROVIDERS: Internal Medicine; Internal Medicine Gastroenterology; Nurse Practitioner Adult Health; Physician Assistant Medical; ADMITTING PHYSICIAN Hospitalist; ATTENDING PHYSICIAN Internal Medicine; CONSULT PHYSICIAN Internal Medicine Gastroenterology; CONSULT PHYSICIAN Specialist; EMERGENCY PHYSICIAN Emergency Medicine; FAMILY PHYSICIAN Physician Assistant; OTHER PHYSICIAN Internal Medicine; OTHER PHYSICIAN Internal Medicine Infectious Disease
PROC: 0FBG8ZX Excision of Pancreas, Via Natural or Artificial Opening Endoscopic, Diagnostic (ICD-10-PCS; 2024-12-08)
PROC: 0F768DZ Dilation of Left Hepatic Duct with Intraluminal Device, Via Natural or Artificial Opening Endoscopic (ICD-10-PCS; 2024-12-08)
PROC: BF47ZZZ Ultrasonography of Pancreas (ICD-10-PCS; 2024-12-08)
DX: K83.09 Other cholangitis (principal); K83.1 Obstruction of bile duct; D61.818 Other pancytopenia; E87.1 Hypo-osmolality and hyponatremia; K86.2 Cyst of pancreas; K76.6 Portal hypertension; K86.1 Other chronic pancreatitis; I85.10 Secondary esophageal varices without bleeding; K70.31 Alcoholic cirrhosis of liver with ascites; Z85.05 Personal history of malignant neoplasm of liver; E11.9 Type 2 diabetes mellitus without complications; Z79.4 Long term (current) use of insulin; K76.82 Hepatic encephalopathy; K31.89 Other diseases of stomach and duodenum; F10.11 Alcohol abuse, in remission; F32.A Depression, unspecified; K21.9 Gastro-esophageal reflux disease without esophagitis; Z88.0 Allergy status to penicillin; Z79.899 Other long term (current) drug therapy; M81.0 Age-related osteoporosis without current pathological fracture; Z80.0 Family history of malignant neoplasm of digestive organs; Z86.16 Personal history of COVID-19; Z88.1 Allergy status to other antibiotic agents; Z88.2 Allergy status to sulfonamides; Z88.3 Allergy status to other anti-infective agents
CPT/HCPCS: 74177; 74183; 74330; 76000; 80048; 80053; 80076; 81003; 81015; 82947; 82962; 83036; 83690; 83930; 83935; 84300; 84484; 85025; 85027; 85610; 86301; 86850; 86900; 86901; 87040; 87077; 87086; 87147; 87186; 88173; 88305; 88342; 93005; 96365; 96375; 96376; 99285; A9581; C1769; C2617; Q9967

== ENCOUNTER → 2024-12-23 13:48 | Outpatient (REF) | payer OTHER, SELFPAY | LOC: WDC 13:48 | PROVIDERS: ATTENDING PHYSICIAN Physician Assistant | DX: Z12.31 Encounter for screening mammogram for malignant neoplasm of breast (principal) | CPT/HCPCS: 77063; 77067 ==

== ENCOUNTER 2025-01-02 15:59 | Inpatient (IN) | payer OTHER, SELFPAY ==
[2025-01-02 11:16] VITALS: BMI 19.5
[2025-01-02 11:27] VITALS: BP 139/72
[2025-01-02 11:44] LABS: Glucose - Point of Care 580 mg/dl (70-99)
[2025-01-02 12:00] VITALS: BP 129/65
[2025-01-02 12:17] VITALS: BP 129/65
[2025-01-02 13:12] LABS: Hematocrit 33.9 % (37.0-47.0); Hemoglobin 12.3 g/dL (12.0-16.0); Mean Corp Hgb Conc. 36.3 g/dL (33.0-37.0); Mean Corpuscular Volume 93.9 fL (81.0-99.0); Nucleated Red Blood Cells % 0 %; Platelet Count 86 10^3/uL (130-400); Red Cell Dist. Width 16.1 % (11.5-14.5)
[2025-01-02 13:27] LABS: ALT (SGPT) 60 U/L (0-35); AST (SGOT) 116 U/L (14-36); Albumin 3.9 g/dl (3.5-5.0); Alkaline Phosphatase 182 U/L (38-126); Blood Urea Nitrogen 11 mg/dl (7-17); Calcium 9.4 mg/dl (8.4-10.2); Carbon Dioxide 22 mmol/L (22-30); Chloride 89 mmol/L (98-107); Estimated Creatinine Clearance 67 ml/min; Glucose 546 mg/dl (70-99); Lipase 11 U/L (23-300); Potassium 5.0 mmol/L (3.5-5.1); Sodium 124 mmol/L (135-145); Total Protein 6.5 g/dl (6.3-8.2); eGFR > 60.00
[2025-01-02] MEDS: NSS 1000 IV ×2 (13:42→18:46)
--- NOTE | 2025-01-02 13:51 | ED.GENMED ---
History of Present Illness
General
Chief Complaint: Abdominal Pain
Source: patient
Exam Limitations: none
Time Seen by Provider: 01/02/25 12:29
History of Present Illness
History of Present Illness:
Recurring abdominal pain and loose stool started last evening. Seen here 3 weeks ago. Has a shunt in her liver. History of cirrhosis hepatocellular CA. Diabetes. Some nausea no vomiting. Slightly dark stool.
Past History
Past History
ED Past Medical History: Cancer (liver cancer (new)), GERD, IDDM and Other (Alcoholic cirrhosis with ascites, hyponatremia, pancreatitis, pancytopenia)
ED Past Surgical History: Cholecystectomy
Social History
Tobacco: Non-smoker
Alcohol: Former
Drug: None
Personal:
Living: with family (with son)
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
Family History: Cancer
Review of Systems
Review of Systems
All Other Systems: Not applicable
Constitutional: Denies fever or chills
Respiratory: Reports no symptoms
Cardiac: Reports no symptoms
Phy Exam
Physical Exam
Physical Exam:
GENERAL: Alert and oriented. No distress. Old for stated age.
EYE: Orbits normal.
NECK: Supple, no significant adenopathy.
ENT: Pharynx without erythema
CARDIAC: Regular rate and rhythm without any obvious murmurs.
LUNGS: Clear breath sounds,normal
ABDOMEN: Soft, mild diffuse upper abdominal tenderness. No rebound or guarding no mass or hernia. Minimal lower abdominal tenderness. Nonlocalizing. Enlarged spleen.
NEUROLOGICAL: Alert and oriented , grossly non-focal
SKIN: Warm and dry, no rash or lesion, no discoloration, skin intact.
MUSCULOSKELETAL: No edema,no deformity.Good color
PSYCH: Normal and appropriate interaction.
Course
Orders/Labs/Results
Orders:
Orders
01/02/25 11:33
Electrocardiogram (*1) Urgent
Reason for Study: Abdominal Pain
EKG- Treatment ONCE
01/02/25 12:23
Lactic Acid Urgent
01/02/25 12:38
CT Abd/Pel (IV only)-DH only Urgent
Comment:
Reason For Exam: Upper abdominal pain. Recent hepatic stent.
01/02/25 13:00
Complete Blood Count/With Diff Routine
Comprehensive Metabolic Panel Urgent
Direct Bilirubin Urgent
Comment: ADD ON
Lipase Urgent
01/02/25 13:36
0.9% Sodium Chloride 1000 ml [Nss] 1,000 ml IV BOLUS
01/02/25 13:45
B-Hydroxybutyrate Urgent
Urinalysis Reflex To Culture Urgent
Date Specimen was Collected: 01/02/25
Time Specimen was Collected: 13:37
01/02/25 13:56
Blood Culture Q30M
SARAHI Source: Blood/Venous
Specimen Description:
01/02/25 13:57
Blood Culture Q30M
SARAHI Source: Blood/Venous
Specimen Description:
01/02/25 15:07
0.9% Sodium Chloride 500 ml [Nss] 500 ml IV BOLUS
01/02/25 15:24
HYDROmorphone [Dilaudid] 0.5 mg IV NOW STA
01/02/25 15:26
Insulin Human Regular [Novolin R] 10 units SC NOW STA
01/02/25 15:30
0.9% Sodium Chloride 1000 ml [Nss] 1,000 ml IV 80 mls/hr
01/02/25 15:44
Admit/Transfer Patient As Directed
Co-Sign Provider:
Level of Care: Inpatient admission
Assign to:: Telemetry
Physician / Group: gilma
Diagnosis: DKA
Reason for Telemetry: Other
Other Reason for Telemetry: DKA
Date to Stop Telemetry: 01/04/25
Time to Stop Telemetry: 11:00
Reason for Hospitalization: DKA
Expected length of stay greater than two midnights?: Yes
ELOS- Estimated Length of Stay in days: 3
I certify the patient meets the requirements for IP care: Yes
PRN Pain Medication Management As Directed
May give lesser potent ordered pain med per pt: Yes
preference::
Protocol:: Medication orders for pain may be administered in a
manner that supports deferring to patient preference
when the pt is:
- Requesting an ordered lesser potent pain medication.
Least to most potent pain medications are defined
as: acetaminophen < NSAID < tramadol < opioids
(morphine, oxycodone, hydromorphone).
- Requesting a lesser dose of the same medication IF
ORDERED.
- Requesting a less intrusive route of administration
if both routes are prescribed by the provider (PO <
IV).
01/02/25 15:49
Code Status As Directed
Resuscitation Status: Full Code
Pantoprazole [Protonix IV] 40 mg IV NOW STA
01/02/25 17:33
BMP [Basic Metabolic Panel] Stat
01/02/25 18:03
Bisacodyl [Dulcolax] 10 mg RECTAL [id number] PRN
Dextrose 50%-Water [Dextrose 50% Syringe] 12.5 grams IV Q37CVCO PRN
Docusate W/Senna [Senokot-S] 1 tablet PO BIDPRN PRN
Glucagon [GlucaGen] 1 mg IM PRN PRN
Insulin Aspart Corrective Mod [Novolog Flexpen-Moderate Resistance] See Protocol SC AC
Polyethylene Glycol Powder [Miralax] 17 grams PO DAILYPRN PRN
01/02/25 18:03
Diabetes Management by Nurse Practitioner Routine
Consulting Provider: Andie Frances
Was provider already notified?: Yes
GASTROINTESTINAL CONSULT Routine
Consulting Provider: Mejia Rae
Was physician already notified: Yes
Activity As Directed
Activity Level: As Tolerated
Bedside Glucose Monitoring As Directed
Frequency: AC&HS
Additional Instructions:: Change to q6h if pt on TPN, tube feeding or not eating
Intake/ Output As Directed
Frequency: Per unit guidelines
Notify MD As Directed
Notify physician if: Nurse to contact provider when glucose reaches 250 to obtain orders for D5 0.45 NaCl
Pneumatic Compression Sleeves As Directed
Type: Thigh high
Vital Signs As Directed
Frequency: Per unit guidelines
Vital Signs As Directed
Frequency: Per unit guidelines
DX Deep Vein Thrombosis Video Routine
01/02/25 19:29
Lactic Acid Q6H
01/02/25 20:00
Carvedilol [Coreg] 3.125 mg PO BID
Rifaximin [Xifaxan] 550 mg PO BID
Spironolactone [Aldactone] 50 mg PO BID
01/02/25 22:00
Escitalopram Oxalate [Lexapro] 20 mg PO HS
Trazodone [Desyrel] 25 mg PO HS
01/03/25 00:38
Lactic Acid Q6H
01/03/25 Breakfast
NPO
Allow oral meds: Yes
Allow clear liquids: No
01/03/25 07:25
Complete Blood Count/No Diff IN AM
01/03/25 08:00
Pantoprazole [Protonix IV] 40 mg IV BID
omeprazole 20 mg PO DAILY
01/04/25 11:00
DC Protocol for Telemetry ONCE
Abnormal Lab Results
01/02/25 01/02/25 01/02/25
11:42 12:23 13:00
RBC 3.61 L 10^6/uL
(4.20-5.40)
Hct 33.9 L %
(37.0-47.0)
MCH 34.1 H pg
(27.0-31.0)
RDW 16.1 H %
(11.5-14.5)
Plt Count 86 L 10^3/uL
(130-400)
MPV 11.3 H fL
(7.4-10.4)
Absolute Lymphs (auto) 0.8 L 10^3/uL
(1.2-3.4)
Neutrophils % 81.4 H %
(42.2-75.2)
Lymphocytes % 12.0 L %
(20.5-51.1)
Sodium 124 L mmol/L
(135-145)
Chloride 89 L mmol/L
(98-107)
Glucose 546 H* mg/dl
(70-99)
Lactic Acid 6.8 H* mmol/L
(0.7-2.0)
Total Bilirubin 3.4 H mg/dl
(0.2-1.3)
Direct Bilirubin 1.7 H mg/dl
(0.0-0.4)
AST 116 H U/L
(14-36)
ALT 60 H U/L
(0-35)
Alkaline Phosphatase 182 H U/L
(38-126)
Lipase 11 L U/L
(23-300)
Urine Ketones
Urine Glucose
B-Hydroxybutyrate
POC Glucose 580 H* mg/dl
(70-99)
01/02/25
13:45
RBC
Hct
MCH
RDW
Plt Count
MPV
Absolute Lymphs (auto)
Neutrophils %
Lymphocytes %
Sodium
Chloride
Glucose
Lactic Acid
Total Bilirubin
Direct Bilirubin
AST
ALT
Alkaline Phosphatase
Lipase
Urine Ketones 2+ A
(Negative)
Urine Glucose 4+ A
(Negative)
B-Hydroxybutyrate 0.91 H mmol/L
(0.02-0.27)
POC Glucose
01/02/25 13:00
01/02/25 13:00
Vital Signs
Initial and Last Documented VS:
Initial Vital Signs
Temp Pulse Resp BP Pulse Ox
98 F 95 18 139/72 100
01/02/25 11:27 01/02/25 11:27 01/02/25 11:27 01/02/25 11:27 01/02/25 11:27
Last Documented Vital Signs
Temp Pulse Resp BP Pulse Ox
98.3 F 67 18 107/56 100
01/07/25 15:03 01/07/25 15:03 01/07/25 15:03 01/07/25 15:03 01/07/25 15:03
MDM/Problems Addressed
Differential Diagnosis Includes:
Patient with significant lactic acid elevation. Elevated blood sugar. Repeat CT scan pending. Clearly warrants readmission.
*Radiology
Radiology exam reviewed: radiology read reviewed (Distal esophageal thickening. Mild ascites.)
*Pulse Oximetry
SaO2: 99
Oxygen Mode of Delivery: Room air
Patient hypoxic: no
*EKG
Interpretation: abnormal
Comparison EKG: no changes
Heart Rate: 93
Rate: normal
Rhythm: sinus
[place]: normal axis
Interval: normal interval
QRS Pattern: normal QRS
Ischemia: no ischemia
*Critical Care Note
Total Time (30-74mins, 75-104mins- exclusive of procedures): Not Applicable
Data Reviewed
Review of Other/Old Records Reveals: Labs, Records, Radiology Studies, Testing and Discharge Summary
ED Attending Note
-
Portions of this chart may have been created with voice recognition software.� Occasional wrong word or��sound alike� substitutions may have occurred due to the inherent limitations of voice recognition software.
Discharge Plan
Departure
Patient Disposition: Admit
Date of Disposition: 01/02/25
Time of Disposition: 15:22
Presentation/result/management discussed w/ accepting MD/DO: Hospitalist
Discharge Problem:
Abdominal pain/GI bleed, Chronic pancreatitis, Alcoholic cirrhosis/portal hypertension
Interventions
Interventions:
*Risk Screen - Suicide Last Done: 01/02/25 11:27
*General Assessment Last Done: 01/02/25 11:27
*Neglect/Abuse Screening Last Done: 01/02/25 11:27
*ED- Fall Risk Assessment Last Done: 01/02/25 11:32
*ED COVID-19 Vaccine History Last Done: 01/02/25 18:17
*Nursing Disposition Last Done: 01/02/25 16:48
XH-Iibmvk-Airjdqnepq Assessment Last Done: 01/02/25 13:09
Discharge Date and Time
Discharge Date/Time: 01/02/25 17:59
[2025-01-02 14:03] LABS: Urine Character Clear (Clear)
[2025-01-02] MEDS: NSS 500 IV (15:10)
--- NOTE | 2025-01-02 15:23 | HPS.HSE ---
Family Physician
-
Family Physician: Kathleen Navarro
Chief Complaint
-
Abdominal pain
History of Present Illness
64-year-old with past medical history for hepatocellular carcinoma, GERD, IDDM, alcohol cirrhosis with ascites, pancreatitis presented to us with abdominal pain associate with loose stools since last evening. patient stated the stool was black.
Patient stated increased thirst and was drinking more than usual. patient was nauseous but denied any vomiting. Patient complained of headache and dizzy last night. Patient stated poor appetite. Denied fever, chills, cough, congestion. Patient
denied chest pain or short of breath. Patient denied dysuria or hematuria.
Upon arrival she was noted in DKA. Patient received 10 units regular insulin in ER. Admitting for further management
Medical History
Past Medical History
Past Medical History: Reports Other
Additional Past Medical History:
Type 2 diabetes, cirrhosis of liver, confusion, type 2 diabetes, depression, Schatzki ring, cellulitis of bilateral lower extremities, esophageal dilation, pancreatitis,
Past Surgical History: Reports Other
Additional Past Surgical History:
GI shunt, gallstones removed from pancreas
Social History
Tobacco: Non-smoker
Alcohol: Former
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
Family History: Not pertinent
Allergies / Home Medications
Allergies reflects when Allergies were last updated in [employer].
Home Medications with original date entered in [employer]
Allergy/Medication List:
Allergies
Allergy/AdvReac Type Severity Reaction Status Date / Time
cephalexin monohydrate (From Allergy Hives Verified 01/02/25 12:04
Keflex)
levofloxacin Allergy redness/itching Verified 01/02/25 12:04
at
injection
site
Penicillins Allergy Hives Verified 01/02/25 12:04
sulfamethoxazole Allergy Rash Verified 01/02/25 12:04
trimethoprim Allergy Rash Verified 01/02/25 12:04
Home Medications
omeprazole 20 mg capsule,delayed release 20 mg PO DAILY Gastrointestinal Issue 07/15/18
rifaximin 550 mg tablet (Xifaxan) 550 mg PO BID ##120 07/18/18
cholecalciferol (vitamin D3) 25 mcg (1,000 unit) tablet (Vitamin D3) 25 mcg PO DAILY Supplement 02/11/24
trazodone 50 mg tablet 25 mg PO HS Sleep 02/11/24
spironolactone 50 mg tablet 50 mg PO BID Fluid Retention/BP 05/06/24
insulin aspart U-100 100 unit/mL (3 mL) subcutaneous pen 9 unit SC AC Diabetes 11/01/24
carvedilol 3.125 mg tablet 3.125 mg PO BID Blood Pressure 01/02/25
celecoxib 100 mg capsule 100 mg PO HS 01/02/25
dicyclomine 10 mg capsule 10 mg PO QIDPRN PRN abdominal pain 01/02/25
escitalopram oxalate 20 mg tablet (Lexapro) 20 mg PO HS Mental Health/Anxiety 01/02/25
ibuprofen 200 mg tablet (Advil) 200 mg PO Q6HPRN PRN mild pain 01/02/25
insulin glargine 100 unit/mL (3 mL) subcutaneous pen (Lantus Solostar U-100 Insulin) 18 unit SC DAILY Diabetes 01/02/25
Review of Systems
-
Constitutional: Reports No Symptoms
EENT: Reports No Symptoms
Respiratory: Reports No Symptoms
Cardiac: Reports No Symptoms
Abdomen/GI: Reports Abdominal Pain, Nausea and Black Stools
: Reports No Symptoms
Musculoskeletal: Reports No Symptoms
Skin: Reports No Symptoms
Neurological: Reports No Symptoms
Endocrine: Reports Polydipsia
Hematologic/Lymphatic: Reports No Symptoms
Psych: Reports No Symptoms
Physical Exam
Vital Signs
Vital Signs
Temp Pulse Resp BP Pulse Ox
98 F 95 18 129/65 99
01/02/25 11:27 01/02/25 11:27 01/02/25 11:27 01/02/25 12:17 01/02/25 13:53
Physical Exam
General: Well Developed, Well Nourished and No Apparent Distress
HEENT: NormoCephalic, Moist mucous membranes and Atraumatic
Respiratory: Clear
Cardiac: S1/S2 and Regular Rhythm; No Murmur or Rub
GI: Soft, Non Distended, Normal Bowel Sounds and Tender; No Organomegaly
Rectal: Deferred by Provider
Musculoskeletal: No Clubbing, No Cyanosis and No Edema
Skin: No Rash
Neuro: AO x 3 and Nonfocal/grossly intact
Psych: Calm
Laboratory Results
-
01/02/25 13:00
01/02/25 13:00
Laboratory Results
Lactic Acid 6.8 mmol/L (0.7-2.0) H* 01/02/25 12:23
Total Bilirubin 3.4 mg/dl (0.2-1.3) H 01/02/25 13:00
AST 116 U/L (14-36) H 01/02/25 13:00
ALT 60 U/L (0-35) H 01/02/25 13:00
Alkaline Phosphatase 182 U/L (38-126) H 01/02/25 13:00
Lipase 11 U/L (23-300) L 01/02/25 13:00
Data Reviewed
-
CT Scan: Report Reviewed by me
Lab Data: Labs Reviewed by me
Impression/Plan
-
# Abdominal pain associated with loose black stools concern for colitis
# History of hepatocellular cancer-follows physician at [facility]-not on any treatment. Patient was diagnosed in July
# History of alcoholic cirrhosis/portal hypertension
- T. bili 3.4, AST 116, ALT 60, ALK 182
- Abdomen pelvis with impression of Some suspected new thickening of the wall of the included distal thoracic esophagus in comparison to recent prior CT, possibly inflammatory/infectious.Biliary stents seen including long stent extending from the
intrahepatic biliary tract into the duodenum. Slightly decreased intrahepatic biliary tract dilatation.Upper abdominal venous collaterals/varices overall slightly less prominent.New small volume ascites, most prominent perihepatic.Decreased colonic
wall thickening most likely representing resolving colitis or inflammatory process such as portal hypertensive colonpathy. Small mass in the inferior right lobe of the liver without significant change. Malignancy cannot be excluded.
- Obtain stool for occult blood
- IV PPI
- spironolactone continued
- Xifaxan continued
-GI consult
# Type 2 diabetes with hyperglycemia concern for DKA
- Blood sugar elevated in 500s
# Lactic acidosis
- Lactic 6.8
-10units regular insulin now
-Lantus 10 continued
-BMP in 2 hours.
-fluids continued
-trend lactic level
-DM MASTER COSMETOLOGIST consulted
- Sliding scale continued
# Essential hypertension
- Coreg continue with hold parameters
#Anxiety
- Escitalopram continued
- Trazodone continued for sleep
# DVT prophylaxis
- SCDs
# CODE STATUS
- Full code
--- NOTE | 2025-01-02 15:39 | W.PN.UPDATE ---
Update Note
Progress Note Update
Patient seen and conjunction with nurse practitioner, with the physicians. COVID syndrome panel is otherwise negative.
Briefly, this is a 64-year-old with past medical history of hepatocellular carcinoma, alcoholic cirrhosis complicated by ascites and varices and status post TIPS, insulin-dependent diabetes, hyponatremia, chronic pancolitis, GERD, recent admission
for abdominal pain found to have biliary obstruction concerning for ascending cholangitis status post antibiotics and status post EUS and ERCP, there was a 1 plastic stent placed into the left hepatic duct, there was a biopsy of a cystic mass of the
head of the pancreas and status post antibiotics who now comes in with recurrent abdominal pain.
Patient reported that she had black stool started yesterday. She had an episode of black stool today. She reported abdominal pain started at 4 AM. The pain was all epigastric and also in the bilateral upper quadrant. She also reported mild
diffuse lower burning abdominal pain. She reports nausea but no vomiting. She is not having any diarrhea but has chronic loose stools. She denies any fevers or chill. Denies any dizzy or lightheaded. She states she last used ibuprofen 400 about
a week ago. She is not on any blood thinners.
In the emergency department she was afebrile, blood pressure was 139 but is wide with a pulse of 95 and was satting 99% on room air. CBC was unremarkable with a plate count of 86 otherwise. Sodium was 124 with a potassium of 5.0, BUN and
creatinine were normal bicarb was 22. Glucose was 546, lactic acid was elevated at 6.8, beta-hydroxybutyrate was 0.9. LFTs were similar to prior with total bilirubin of 3.4 AST 160 and ALT of 60.
CT scan of the abdomen pelvis showing new thickening of the wall of the distal thoracic esophagus in comparison with recent prior CT which is possibly inflammatory or infectious. Biliary stents seen including long stent extending from the
intrahepatic biliary tract into the duodenum. Slightly decreased intrahepatic biliary tract dilatation. Upper abdominal venous collaterals/varices overall slightly less prominent. New small volume ascites, most prominent perihepatic. Decreased
colonic wall thickening most likely representing resolving colitis or inflammatory process such as portal hypertensive colonpathy.
Assessment and plan
Abdominal pain/gi bleed -unclear etiology of her abdominal pain however possibly inflammatory versus infectious given thickening of the distal thoracic esophagus. With h/o of possible melena and nsaid, likely gastritis and possibly variceal bleed.
-Admit to telemetry
- Placed on IV PPI bid for now
- octreotide per gi
- ppx abx pending gi
- type and screen, trend h/h
- hold nsaids
- continue carvedilil
- GI consultation
- N.p.o. for now
Hyperglycemia with no DKA
- Status post 2 L of normal saline
- Will give 10 units of insulin
� Repeat chemistries in 2 hours
-
Lactic acidosis -afebrile, hemodynamically stable, no leukocytosis, no source of infection at this time.
� Blood culture sent
� Obtain urinalysis
� Check influenza
� Aggressive fluid resuscitation but holding off abx as no source of infection nor clinical sepsis. Type B suspected.
Hyponatremia -sodium 124, corrected 135
- monitor w/ correction of serum glucose
- continue ns maintenance fluids
Cirrhosis and HCC and varices- Stable findings at this time, suspect lactic acidosis is 2/2 to HCC.
- continue coreg
- continue spironolactone
- continue Xifaxin
-follow up outpatient
DVT PPX - SCD
Code status - Full code
[2025-01-02] MEDS: PROTONIX IV 40 MG IV (16:05)
[2025-01-02] MEDS: DILAUDID 0.5 MG IV ×2 (16:06→21:05)
[2025-01-02] MEDS: NOVOLIN R 10 UNITS SC (16:06)
--- NOTE | 2025-01-02 16:42 | CON.GI ---
Addendum entered and electronically signed by Mejia Rae MD 01/02/25 17:38:
I saw and evaluated the patient. I reviewed the resident�s note and agree with findings and plan as documented in the resident�s note.
64yo female presents with black stools noted last several days. She has hx EtOH cirrhosis HCC follwed by Dr Valenzuela at [facility] was recently admitted for cholangitis, underwent EGD/EUS/ERCP. Has grade I esophageal varices, portal gastropathy, pus in
bile duct and plastic stent placed into LHD and treated with abx. EUS showed 24 x 23mm pancreatic head mixed solid/cystic mass as well as possible pancreatic stones in MPD. FNA of mass shows atypical cells and recommend re-sampling. Pt has appt
with Dr Burch in February. CT scan during that admission also showed colitis but improved from prior imaging in October. She saw Dr Teixeira in GI office recently 12/18 and pt is following with Dr Valenzuela for LI-RAD 5 lesion in inferior R hepatic
lobe increased in size on MRI 10/2024 up to 1.7cm, awaiting increase to 2cm to intervene to increase treatment options. Pt was having difficulty with glucose control, denied abd pain at that time. Dark stool on rectal exam in ER heme positive. Hgb
12.3. MELD 3.0 = 24. Also Na 124, glucose 546,
REC:
Black heme positive stool with stable Hgb. Recent EGD- grade 1 esophageal varices and portal gastropathy
Her bleeding is unlikely variceal given stable Hgb, BP and recent grade 1 on EGD. Could be portal gastropathy bleed.
IV Octreotide gtt. Follow Hgb and BMs
EGD if active bleeding.
Hyponatremia, hyperglycemia management per Medical team
LFTs stable, no findings to suggest cholangitis. WBC 6.9. Follow abd exam
Original Note:
Consultation
-
Date/Time Consultation Requested: 01-02-25
Date/Time Consultation Performed: 01-02-25
Requesting Provider: JAVIER Serna
Performing Provider: Dr. Mejia Jaeger
Reason for Consultation: abdominal pain with black stools
Medical History
Chief Complaint / HPI
Chief Complaint: Dark stools; abdominal pain
History of Present Illness:
Kendra Lynn, 63-year-old with medical history significant for hepatic cirrhosis secondary to previous alcohol use, hepatocellular carcinoma on surveillance, chronic pancreatitis, insulin-dependent type 2 diabetes, 2.4 x 1.8 cm cystic
pancreatic head lesion with atypical pathology, is admitted to [facility] with generalized abdominal pain and dark stools. She began to notice dark stools a day ago and also developed abdominal pain alongside. She notes increased thirst and has noticed
repeated 'high' readings on her glucose monitor. She has had a poor appetite since she was diagnosed with HCC but this has gotten somewhat worse since yesterday. No nausea or vomiting. Hemoccult stool study was positive in the ER with dark stool
noted on exam.
She had MRI in 07/2024 performed for HCC screening revealed LI-RADS 4 lesion, suspicious for HCC. She was referred her to [facility] Hepatology, Dr. Valenzuela, and after further review of the imaging at tumor board, the lesion was upgraded to a LI-RADS 5
lesion, consistent with HCC. MR in 11/29 with interval increase in size to 1.8 cm. Awaiting increase to 2 cm to intervene, as more treatment options will become available after that. She has had recent admissions to [facility] in the past few months; in
10/30 for pancolitis and gastroenteritis, and 11/29 for ascending cholangitis - during the latter, she underwent ERCP/EUS with drainage of pus and stent placement within the left hepatic duct. She was also noted to have esophageal varices and portal
hypertensive gastropathy; a cystic pancreatic head lesion was biopsied with results showing atypical cells of indeterminate significance.
Past Medical History
Past Medical History: GERD, NIDDM and Other (cirrhosis with ascites, liver CA, schatzki's ring, esophageal dilation, cellulitis, pancreatiitis, + celiac Ab, prior covid, pancoltis)
Past Surgical History: Cholecystectomy
Social History
Tobacco: Non-Smoker
Alcohol: Former (last drink 2 years ago heavy 8 years ago )
Living: Alone
Employment: Disabled
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
Family History: Other (pat GF colon CA , maternal GM Gallbladder CA, cousin with colon CA)
Allergies / Home Medications
Allergy/AdvReac Type Severity Reaction Status Date / Time
cephalexin monohydrate (From Allergy Hives Verified 01/02/25 12:04
Keflex)
levofloxacin Allergy redness/itching Verified 01/02/25 12:04
at
injection
site
Penicillins Allergy Hives Verified 01/02/25 12:04
sulfamethoxazole Allergy Rash Verified 01/02/25 12:04
trimethoprim Allergy Rash Verified 01/02/25 12:04
�Medication �Instructions �Recorded
omeprazole 20 mg capsule,delayed 20 mg PO DAILY Gastrointestinal 07/15/18
release Issue
rifaximin 550 mg tablet (Xifaxan) 550 mg PO BID ##120 07/18/18
cholecalciferol (vitamin D3) 25 25 mcg PO DAILY Supplement 02/11/24
mcg (1,000 unit) tablet (Vitamin
D3)
trazodone 50 mg tablet 25 mg PO HS Sleep 02/11/24
spironolactone 50 mg tablet 50 mg PO BID Fluid Retention/BP 05/06/24
insulin aspart U-100 100 unit/mL 9 unit SC AC Diabetes 11/01/24
(3 mL) subcutaneous pen
carvedilol 3.125 mg tablet 3.125 mg PO BID Blood Pressure 01/02/25
celecoxib 100 mg capsule 100 mg PO HS 01/02/25
dicyclomine 10 mg capsule 10 mg PO QIDPRN PRN abdominal pain 01/02/25
escitalopram oxalate 20 mg tablet 20 mg PO HS Mental Health/Anxiety 01/02/25
(Lexapro)
ibuprofen 200 mg tablet (Advil) 200 mg PO Q6HPRN PRN mild pain 01/02/25
insulin glargine 100 unit/mL (3 18 unit SC DAILY Diabetes 01/02/25
mL) subcutaneous pen (Lantus
Solostar U-100 Insulin)
Review of Systems
-
History Source: Patient
All other systems: A 12 pt ROS was Negative except as stated above in HPI
Vital Signs
Temp Pulse Resp BP Pulse Ox
98 F 95 18 129/65 99
01/02/25 11:27 01/02/25 11:27 01/02/25 11:27 01/02/25 12:17 01/02/25 13:53
Physical Exam
Exam
General: No Apparent Distress and Comfortable
HEENT: Normocephalic, Anicteric and Atraumatic
Respiratory: Clear and Non Labored Respirations
Cardiac: S1/S2 and Regular Rhythm; Negative Murmur or Rub
GI: Soft, Non Distended and Tender (diffuse; greater around epigastrium); Negative Organomegaly
Rectal: Hem Positive and Other (Dark tarry stools)
Genito-urinary: No Costovertebral Tender
Musculoskeletal: No Clubbing, No Cyanosis and No Edema
Neuro: Awake, Alert, Oriented, No Motor Deficits and Nonfocal/Grossly Intact
Psych: Calm
Results
WBC 6.9 10^3/uL (4.8-10.8) 01/02/25 13:00
Hgb 12.3 g/dL (12.0-16.0) 01/02/25 13:00
Hct 33.9 % (37.0-47.0) L 01/02/25 13:00
MCV 93.9 fL (81.0-99.0) 01/02/25 13:00
Plt Count 86 10^3/uL (130-400) L 01/02/25 13:00
Absolute Neuts (auto) 5.6 10^3/uL (1.4-6.5) 01/02/25 13:00
Sodium 124 mmol/L (135-145) L 01/02/25 13:00
Potassium 5.0 mmol/L (3.5-5.1) 01/02/25 13:00
Chloride 89 mmol/L (98-107) L 01/02/25 13:00
Carbon Dioxide 22 mmol/L (22-30) 01/02/25 13:00
BUN 11 mg/dl (7-17) 01/02/25 13:00
Creatinine 0.6 mg/dL (0.6-1.0) 01/02/25 13:00
Calcium 9.4 mg/dl (8.4-10.2) 01/02/25 13:00
Total Bilirubin 3.4 mg/dl (0.2-1.3) H 01/02/25 13:00
AST 116 U/L (14-36) H 01/02/25 13:00
ALT 60 U/L (0-35) H 01/02/25 13:00
Alkaline Phosphatase 182 U/L (38-126) H 01/02/25 13:00
Lipase 11 U/L (23-300) L 01/02/25 13:00
Diagnostic Image Results:
12-05-24: MR Abdomen: Cirrhotic morphology with a a 1.8 cm BI-RADS 5 lesion within the inferior right hepatic lobe, previously 1.7 cm. Findings of portal hypertension with splenomegaly as well as numerous collateral vessels along the distal
esophagus, throughout the abdomen as well as within the upper pelvis. There is new biliary duct dilation as well as increased main pancreatic duct dilation. The common bile duct measures 1.4 cm and the main pancreatic duct measures 1.0 cm. There is
abrupt change in caliber of the ducts within the pancreatic head with a new 2.4 x 1.8 cm cystic lesion within the pancreatic head. This lesion demonstrates peripheral enhancement. This likely represents a peripancreatic collection/pseudocyst. A
cystic neoplasm is considered less likely.Consider EUS for further evaluation.
01-02-25: CT A-P: Some suspected new thickening of the wall of the included distal thoracic esophagus in comparison to recent prior CT, possibly inflammatory/infectious. Biliary stents seen including long stent extending from the intrahepatic
biliary tract into the duodenum. Slightly decreased intrahepatic biliary tract dilatation. Upper abdominal venous collaterals/varices overall slightly less prominent. New small volume ascites, most prominent perihepatic. Decreased colonic wall
thickening most likely representing resolving colitis or inflammatory process such as portal hypertensive colonpathy. Small mass in the inferior right lobe of the liver without significant change. Malignancy cannot be excluded.
Prior GI Procedures:
12-08-24: ERCP:
- Prior biliary sphincterotomy appeared open.
- A single moderate biliary stricture was found in the lower third
of the main bile duct. The stricture was indeterminate.
- The common bile duct, left main hepatic duct and right main
hepatic duct were severely dilated. Some pus drained.
- One plastic stent was placed into the left hepatic duct.
12-08-24: Upper EUS:
- Small (< 5 mm) esophageal varices.
- Portal hypertensive gastropathy.
- Normal duodenal bulb, first portion of the duodenum and second
portion of the duodenum.
- A mass-like solid-cystic lesion was identified in the pancreatic
head. Tissue was obtained from this exam, and results are pending.
Inflammatory mass vs neoplastic mass is suspected. Fine needle
aspiration performed.
- Endosonographic imaging of the pancreas showed sonographic
changes consistent with moderate-severe chronic pancreatitis.
- Findings suggestive of pancreatic stones were identified in the
main pancreatic duct.
- There was dilation in the common bile duct which measured up to
15 mm.
- There was no sign of significant pathology in the ampulla.
05-06-24: EGD:
- Grade I esophageal varices.
- Small hiatal hernia.
- Widely patent and non-obstructing Schatzki ring.
- Z-line regular.
- Portal hypertensive gastropathy.
- Normal duodenal bulb and second portion of the
duodenum.
- No specimens collected.
05-06-24: Colonoscopy:
- Moderate colonic spasm.
- Rectal varices.
- The examination was otherwise normal.
Assessment / Plan
-
Kendra Lynn, 63-year-old with medical history significant for hepatic cirrhosis secondary to previous alcohol use, hepatocellular carcinoma on surveillance, chronic pancreatitis, insulin-dependent type 2 diabetes, 2.4 x 1.8 cm cystic
pancreatic head lesion with atypical pathology, is admitted to [facility] with generalized abdominal pain and dark stools. She began to notice dark stools a day ago and also developed abdominal pain alongside. She notes increased thirst and has noticed
repeated 'high' readings on her glucose monitor. She has had a poor appetite since she was diagnosed with HCC but this has gotten somewhat worse since yesterday. No nausea or vomiting. Hemoccult stool study was positive in the ER with dark stool
noted on exam.
She had MRI in 07/2024 performed for HCC screening revealed LI-RADS 4 lesion, suspicious for HCC. She was referred her to [facility] Hepatology, Dr. Valenzuela, and after further review of the imaging at tumor board, the lesion was upgraded to a LI-RADS 5
lesion, consistent with HCC. MR in 11/29 with interval increase in size to 1.8 cm. Awaiting increase to 2 cm to intervene, as more treatment options will become available after that. She has had recent admissions to [facility] in the past few months; in
10/30 for pancolitis and gastroenteritis, and 11/29 for ascending cholangitis - during the latter, she underwent ERCP/EUS with drainage of pus and stent placement within the left hepatic duct. She was also noted to have esophageal varices and portal
hypertensive gastropathy; a cystic pancreatic head lesion was biopsied with results showing atypical cells of indeterminate significance.
Impression:
* Abdominal pain with dark stools
* Hepatocellular carcinoma, on surveillance
* Alcoholic hepatic cirrhosis
* Chronic pancreatitis
* Grade I esophageal varices
* Portal gastropathy
* Pancreatic head lesion with atypical pathology
* Hyperbilirubinemia
Other medical problems:
* IDDM
* Primary hypertension
* Generalized anxiety disorder
Recommendations:
- LFTs downtrended from previous admission.
- Differential includes variceal bleeding, portal hypertensive gastropathy, colitis, ulceration; less likely to be related to her previous admission for cholangitis.
- Follow CBC, trend H&H.
- Octreotide drip.
- Continue carvedilol, rifaximin and spironolactone.
- IV pantoprazole BID
- Check direct bili.
- NPO with IV hydration for now.
- EGD if hemoglobin drops.
-
-
Thank you for consultation and allowing me to participate in the patient's care. Please call the patient registration representative GI physician during the after hours with any questions or concerns.
--- NOTE | 2025-01-02 17:22 | CM ---
chart reviewed spoke with patient at ED bedside
Lives alone in a condo
Independent with ADLs and ambulation
DME is glucometer
PCP DR. Joe Navarro
Pharmacy [facility] in [place]
no hx of VN nor SKN
DCP is to go home
Sister can drive her home
CM will continue to follow up for any dcp needs
[2025-01-02] MEDS: SANDOSTATIN 250 MCG IV (17:34)
[2025-01-02] MEDS: SANDOSTATIN 50 MCG IV (17:34)
[2025-01-02 18:15] LABS: Glucose - Point of Care 299 mg/dl (70-99)
[2025-01-02 18:17] LABS: Blood Urea Nitrogen 12 mg/dl (7-17); Calcium 8.4 mg/dl (8.4-10.2); Carbon Dioxide 25 mmol/L (22-30); Chloride 97 mmol/L (98-107); Estimated Creatinine Clearance 67 ml/min; Glucose 297 mg/dl (70-99); Potassium 3.9 mmol/L (3.5-5.1); Sodium 127 mmol/L (135-145); eGFR > 60.00
[2025-01-02 18:37] VITALS: BP 135/70
[2025-01-02 18:38] VITALS: BMI 19.3
[2025-01-02] MEDS: NOVOLOG FLEXPEN-MODERATE RESISTANCE 5 UNITS SC (19:34)
[2025-01-02] MEDS: XIFAXAN 550 MG PO (19:36)
[2025-01-02] MEDS: COREG 3.125 MG PO (19:36)
[2025-01-02] MEDS: ALDACTONE 50 MG PO (19:36)
[2025-01-02 19:48] VITALS: BP 110/54
[2025-01-02] MEDS: DESYREL 25 MG PO (21:05)
[2025-01-02] MEDS: LEXAPRO 20 MG PO (21:05)
[2025-01-02 21:20] LABS: Glucose - Point of Care 259 mg/dl (70-99)
[2025-01-02 23:02] VITALS: BP 105/52
[2025-01-03] VITALS (8 sets, daily range): BP systolic 93–121; BP diastolic 48–92; PULSE 78; O2SAT 97; BMI 19.3
[2025-01-03 00:32] LABS: Glucose - Point of Care 235 mg/dl (70-99)
[2025-01-03] MEDS: NOVOLOG FLEXPEN-MODERATE RESISTANCE 3 UNITS SC ×2 (00:34→06:38)
[2025-01-03] MEDS: DILAUDID 0.5 MG IV ×4 (02:22→20:28)
[2025-01-03] MEDS: SANDOSTATIN 250 MCG IV ×3 (03:51→22:52)
[2025-01-03 06:38] LABS: Glucose - Point of Care 207 mg/dl (70-99)
[2025-01-03] MEDS: NSS 1000 IV ×2 (07:46→18:31)
[2025-01-03] MEDS: NSS (PRESERVATIVE FREE) 10 ML IV ×2 (07:47→20:15)
[2025-01-03] MEDS: LANTUS 0.1 UNITS SC (07:47)
[2025-01-03] MEDS: PROTONIX IV 40 MG IV ×2 (07:47→20:16)
[2025-01-03] MEDS: XIFAXAN 550 MG PO ×2 (07:47→20:16)
[2025-01-03] MEDS: ALDACTONE PO (07:51)
[2025-01-03] MEDS: COREG PO (07:51)
[2025-01-03 08:17] LABS: Hematocrit 27.2 % (37.0-47.0); Hemoglobin 9.7 g/dL (12.0-16.0); Mean Corp Hgb Conc. 35.7 g/dL (33.0-37.0); Mean Corpuscular Volume 97.8 fL (81.0-99.0); Platelet Count 46 10^3/uL (130-400); Red Cell Dist. Width 15.6 % (11.5-14.5)
[2025-01-03 08:22] LABS: Blood Urea Nitrogen 9 mg/dl (7-17); Calcium 7.7 mg/dl (8.4-10.2); Carbon Dioxide 28 mmol/L (22-30); Chloride 102 mmol/L (98-107); Estimated Creatinine Clearance 65 ml/min; Glucose 158 mg/dl (70-99); Potassium 3.8 mmol/L (3.5-5.1); Sodium 129 mmol/L (135-145); eGFR > 60.00
--- NOTE | 2025-01-03 08:54 | W.PN.HOSP.TC ---
Addendum entered and electronically signed by Ej Mendoza MD 01/03/25 13:35:
Attending�addendum:
I saw and evaluated the patient independently. I reviewed and discussed the resident�s note and agree with findings and plan as documented in the resident�s note.� patient seen and examined at bedside, still with abdominal pain, hemoglobin remained
stable, seen by GI and continued on octreotide/Protonix.
Physical�exam:
GENERAL : Patient is awake, alert, oriented x3
HEENT: Nonicteric sclerae, PERRLA, EOMI. Oropharynx clear. Moist mucous membranes. Conjunctivae appear well perfused.
CHEST: Chest wall is nontender.
HEART: Regular rate and rhythm without murmurs.
LUNGS: Clear to auscultation bilaterally.
ABDOMEN: Soft, positive bowel sounds, nontender, no organomegaly.
RECTAL: Deferred.
MUSCLES/EXTREMITIES: No abnormal range of motion, no swelling.SKIN: No rash, no excessive bruising, petechiae, or purpura.
NEUROLOGIC: Cranial nerves II-XII intact without motor/sensory deficit.
�
Assessment/plan:
GI bleeding.
Possible upper GI bleeding secondary to history of surgical access.
Continue pantoprazole and octreotide.
GI consulted.
EGD if signs of recurrent bleeding
Diabetes with hyperglycemia.
Concerning of DKA.
Improving
Lactic acidosis.
Improved
Hyponatremia.
Improved
CODE STATUS: Full code
DVT prophylaxis: SCDs
Diet: CLD
Disposition: Clear liquid diet, if drop in hemoglobin to consider EGD.
�
Total time spent on today�s encounter was 51 minutes which included time spent in counseling the patient/family regarding diagnosis and treatment plan as listed above, goals of care, and symptom management. Case was discussed with nursing staff,
specialists, and care coordinators/case management. All labs and imaging personally reviewed by me. Remainder the time spent in detailed review of previous records, lab data, imaging, and other medical provider documentation.
Original Note:
Today's Communication/Plan
-
Continue octreotide drip
Fluids
Pain control
Clear diet today
Assessment / Plan
Assessment / Plan
Impression:
64-year-old with past medical history for hepatocellular carcinoma, GERD, IDDM, alcohol cirrhosis with ascites, pancreatitis presented to us with abdominal pain associate with black loose stools since Sunday concerning for an upper GI bleed
versus colitis. Hemoccult was positive in the ER. She was also noted to have blood glucose greater than 500 lactic acid 6.8 and anion gap 13 with concerns for DKA and provided insulin in the ER. Abdomen/pelvis CT revealed new thickening of distal
esophagus, intrahepatic biliary stent, slightly decreased I HDD, upper abdomen venous collaterals/varices overall slightly less prominent than prior. It also revealed new ascites, most prominent perihepatic. Decreased colonic wall thickening most
likely representing resolving colitis versus portal colopathy. Small mass noted in the inferior right lobe of the liver without significant change from prior. She was admitted and started on IV PPI and GI was consulted. Lactic acid downtrended to
normal ranges and blood glucose significantly improved.
Imaging:
Abdomen/pelvis CT IV contrast 01/02/2025:
Some suspected new thickening of the wall of the included distal thoracic esophagus in comparison to recent prior CT, possibly inflammatory/infectious.
Biliary stents seen including long stent extending from the intrahepatic biliary tract into the duodenum. Slightly decreased intrahepatic biliary tract dilatation.
Upper abdominal venous collaterals/varices overall slightly less prominent.
New small volume ascites, most prominent perihepatic.
Decreased colonic wall thickening most likely representing resolving colitis or inflammatory process such as portal hypertensive colonpathy.
Small mass in the inferior right lobe of the liver without significant change. Malignancy cannot be excluded.
Plan:
Abdominal pain with associated loose black stools concerning for colitis versus upper GI bleed -Hemoccult positive
History of hepatic cellular carcinoma - Follows with Dr. Valenzuela at [facility] - not on treatment
Alcoholic cirrhosis with portal hypertension
-- Hemoglobin 12.3-9.7 however appears to be at baseline as hemoglobin on 12/12/2024 was 10 - no further BM overnight and hemodynamically stable
-- Cross and type
-- Blood consent in the chart
-- LFTs downtrending
-- Continue pantoprazole 40 IV twice daily
-- Spironolactone
-- Rifaximin
-- Octreotide drip
-- Appreciate GI
-- Upgrade diet to clears per GI
-- If abdominal pain persists, consider ultrasound/tap for ascites
Type 2 diabetes with hyperglycemia concerning for DKA
Lactic acidosis
-- LA 6.8 > 3.4 > 1.8 Lactic acid acidosis resolved, and anion gap closed, unclear if this was a true acidosis to begin with
-- Lantus 10 daily and sliding scale insulin
-- Continue fluids
Hyponatremia
-- Sodium 124 on admission, improved to 129
-- Monitor
Hypertension
--Currently hypotensive, home Coreg with hold parameters
Anxiety
--Continue escitalopram and trazodone for sleep
Pancreatic head lesion -biopsy pancreatic head revealed atypical cells however background of pancreatitis, evaluation is suboptimal
Grade 1 esophageal varices
DVT - SCDs
Full Code
Anticipated Discharge: 24 - 48 hours
Subjective/Interval History
-
Date of Service: January 03, 2025
No complaints overnight. Pain well-controlled with Dilaudid. No bowel movement overnight. Has an upcoming trip to [facility] and plans to go regardless of what happens in the hospital.
Objective Data
-
Labs:
Laboratory Results
01/03/25
07:25
WBC 3.6 L
Hgb 9.7 L D
Hct 27.2 L
Plt Count 46 L D
Sodium 129 L
Potassium 3.8
Chloride 102
Carbon Dioxide 28
BUN 9
Creatinine 0.6
Glucose 158 H
Calcium 7.7 L
Vital Signs:
Vital Signs
Temp Pulse Resp BP Pulse Ox
98.6 F 78 16 95/55 95
01/03/25 08:34 01/03/25 08:34 01/03/25 08:34 01/03/25 08:34 01/03/25 08:34
I&O
01/02/25 01/03/25 01/04/25
06:59 06:59 06:59
Intake Total 480 / 480
Balance 480 / 480
Review of Systems
-
History Source: Patient
EENT: Reports No Symptoms Reported
Respiratory: Reports No Symptoms
Cardiac: Reports No Symptoms
Abdomen/GI: Reports Abdominal Pain
Genitourinary: Reports No Symptoms
Neuro: Reports No Symptoms
Physical Exam
-
General: No Apparent Distress, Comfortable and Other (Pale)
HEENT: Normocephalic
Respiratory: Clear to Auscultation
Cardiac: Regular Rhythm and S1/S2
GI: Soft, Nondistended, Normal Bowel Sounds and Tender (Midepigastric region, right lower quadrant, right upper quadrant)
Musculoskeletal: No Edema
Skin: Warm and Dry
Neuro: AO x 3
Psych: Calm
[2025-01-03 09:32] LABS: ALT (SGPT) 57 U/L (0-35); AST (SGOT) 103 U/L (14-36); Albumin 2.7 g/dl (3.5-5.0); Alkaline Phosphatase 109 U/L (38-126); Total Protein 5.2 g/dl (6.3-8.2)
--- NOTE | 2025-01-03 09:48 | W.PN.GI.CBS2 ---
Today's Communication / Plan
-
Hgb dropped but no further black stools. Could be somewhat dilutional
Had recent EGD this month. Trend Hgb. If further drop or signs of bleeding, repeat EGD
Cont Octreotide gtt for now
Start clears
If abd pain persists, consider US/tap ascites
Na up to 129, glucose improved, lactate 1.8, plt 46
Will follow
Assessment / Plan
-
Summary: 64yo female presents with black stools noted last several days. She has hx EtOH cirrhosis HCC follwed by Dr Valenzuela at [facility] was recently admitted for cholangitis, underwent EGD/EUS/ERCP. Has grade I esophageal varices, portal gastropathy,
pus in bile duct and plastic stent placed into LHD and treated with abx. EUS showed 24 x 23mm pancreatic head mixed solid/cystic mass as well as possible pancreatic stones in MPD. FNA of mass shows atypical cells and recommend re-sampling. Pt has
appt with Dr Burch in February. CT scan during that admission also showed colitis but improved from prior imaging in October. She saw Dr Teixeira in GI office recently 12/18 and pt is following with Dr Valenzuela for LI-RAD 5 lesion in inferior R
hepatic lobe increased in size on MRI 10/2024 up to 1.7cm, awaiting increase to 2cm to intervene to increase treatment options. Pt was having difficulty with glucose control, denied abd pain at that time. Dark stool on rectal exam in ER heme
positive. Hgb 12.3. MELD 3.0 = 24. Also Na 124, glucose 546,
01/02 CT: New thickening distal esophagus. Intrahepatic biliary stent. Slight decreased IHDD. Upper abd venous collaterals/varices overall slightly less prominent. New ascites, most prominent perihepatic. Decreased colonic wall thickening most
likely representing resolving colitis vs portal colopathy. Small mass inferior R lobe [place]
Impression:
Epigastric abd pain
Dark stools
EtOH Cirrhosis
HCC. Followed by Dr Valenzuela at [facility]
Grade I varices
Portal gastropathy
Pancreatic head lesion
Subjective
Subjective
Date of Service: January 03, 2025
No BMs overnight. C/O mid abd pain.
Objective
Data Reviewed
Laboratory Data:
Laboratory Results
01/03/25 07:25
01/03/25 07:25
Laboratory Results
Total Bilirubin 2.7 mg/dl (0.2-1.3) H 01/03/25 07:25
AST 103 U/L (14-36) H 01/03/25 07:25
ALT 57 U/L (0-35) H 01/03/25 07:25
Alkaline Phosphatase 109 U/L (38-126) 01/03/25 07:25
Lipase 11 U/L (23-300) L 01/02/25 13:00
Vital Signs and I&O:
Vital Signs
Temp Pulse Resp BP Pulse Ox
98.6 F 78 16 95/55 95
01/03/25 07:34 01/03/25 07:34 01/03/25 07:34 01/03/25 07:51 01/03/25 07:34
I&O
01/02/25 01/03/25 01/04/25
06:59 06:59 06:59
Intake Total 480 / 480
Balance 480 / 480
Physical Exam
Physical Exam
GI: Soft, Non Distended and Tender (mild epigastric)
[2025-01-03] MEDS: MAALOX 30 ML PO (10:32)
[2025-01-03 12:04] LABS: Glucose - Point of Care 145 mg/dl (70-99)
[2025-01-03] MEDS: NOVOLOG FLEXPEN-MODERATE RESISTANCE SC ×3 (12:05→22:48)
[2025-01-03 16:33] LABS: Glucose - Point of Care 118 mg/dl (70-99)
[2025-01-03] MEDS: COREG 3.125 MG PO (20:15)
[2025-01-03] MEDS: ALDACTONE 50 MG PO (20:15)
[2025-01-03 21:45] LABS: Glucose - Point of Care 171 mg/dl (70-99)
[2025-01-03] MEDS: DESYREL 25 MG PO (22:45)
[2025-01-03] MEDS: LEXAPRO 20 MG PO (22:45)
[2025-01-04] VITALS (7 sets, daily range): BP systolic 104–124; BP diastolic 53–70; BMI 20.1
[2025-01-04] MEDS: DILAUDID 0.5 MG IV ×5 (00:39→22:40)
--- NOTE | 2025-01-04 02:59 | PTCARENOTE ---
Patient with 4 loose brown BMs. Heme +, house [employer] aware
[2025-01-04] MEDS: NSS 1000 IV (04:42)
[2025-01-04 08:02] LABS: Glucose - Point of Care 106 mg/dl (70-99)
[2025-01-04] MEDS: NOVOLOG FLEXPEN-MODERATE RESISTANCE SC ×2 (08:08→22:40)
[2025-01-04] MEDS: COREG PO (08:10)
[2025-01-04 08:12] LABS: INR 1.34; PT 16.7 Sec (11.4-14.6)
[2025-01-04 08:14] LABS: Hematocrit 29.0 % (37.0-47.0); Hemoglobin 10.3 g/dL (12.0-16.0); Mean Corp Hgb Conc. 35.5 g/dL (33.0-37.0); Mean Corpuscular Volume 97.0 fL (81.0-99.0); Platelet Count 60 10^3/uL (130-400); Red Cell Dist. Width 15.4 % (11.5-14.5)
--- NOTE | 2025-01-04 08:20 | W.PN.GI.CBS2 ---
Today's Communication / Plan
-
Hgb stable. D/C IV Octreotide. Cont carvedilol. Grade 1 varices/portal gastropathy on recent EGD 12/08.
Na improving, glucose normalized
Monitor abd pain, seems to be improved, perhaps related to metabolic derangement on admission, delayed gastric emptying with hyperglycemia. No acute findings on admission CT 01/02
Could consider PERT for chronic pancreatitis if pain persists
If decreased BMs, restart lactulose. No asterixis on exam today, AAO. Cont xifaxan, though she has been unable to get it as outpt.
LFTs stable, no signs of cholangitis following recent ERCP/stent 12/08
F/U with Dr Burch in office for pancreatic lesion, atypical cells on FNA
F/U with Krystal Teixeira and Nicolas for cirrhosis/HCC
Assessment / Plan
-
Summary: 64yo female presents with black stools noted last several days. She has hx EtOH cirrhosis HCC follwed by Dr Valenzuela at [facility] was recently admitted for cholangitis, underwent EGD/EUS/ERCP. Has grade I esophageal varices, portal gastropathy,
pus in bile duct and plastic stent placed into LHD and treated with abx. EUS showed 24 x 23mm pancreatic head mixed solid/cystic mass as well as possible pancreatic stones in MPD. FNA of mass shows atypical cells and recommend re-sampling. Pt has
appt with Dr Burch in February. CT scan during that admission also showed colitis but improved from prior imaging in October. She saw Dr Teixeira in GI office recently 12/18 and pt is following with Dr Valenzuela for LI-RAD 5 lesion in inferior R
hepatic lobe increased in size on MRI 11/2024 up to 1.8cm, awaiting increase to 2cm to intervene to increase treatment options. Pt was having difficulty with glucose control, denied abd pain at that time. Dark stool on rectal exam in ER heme
positive. Hgb 12.3. MELD 3.0 = 24. Also Na 124, glucose 546,
01/02 CT: New thickening distal esophagus. Intrahepatic biliary stent. Slight decreased IHDD. Upper abd venous collaterals/varices overall slightly less prominent. New small volume ascites, most prominent perihepatic. Decreased colonic wall
thickening most likely representing resolving colitis vs portal colopathy. Small mass inferior R lobe liver without significant change.
Impression:
Epigastric abd pain
Dark stools Hgb stable. Recent EGD grade 1 varices, portal gastroapthy. On carvedilol
Hyponatremia. Na 124 on admission
Hyperglycemia. Glucose 546 on admission
Recent admission for cholangitis, 12/08 ERCP/stent, EUS/pancreatic head lesion FNA atypical, possible PD calculi, changes of mod/severe chronic pancreatitis
EtOH Cirrhosis. MELD 3.0 = 17 (01/04/25)
HCC 1.8cm on MRI 11/[address]. [address] Valenzuela at [facility]
Pancolitis on CT during admission in Sept improved on f/u imaging, possible portal colopathy
Subjective
Subjective
Date of Service: January 04, 2025
Had 4 BMs today, felt somewhat better after. Denies constipation. She has not been taking lactulose if having 3 BM/day. Stool dark brown now. Pain LLQ
Objective
Data Reviewed
Laboratory Data:
Laboratory Results
01/04/25 07:36
Laboratory Results
PT 16.7 Sec (11.4-14.6) H 01/04/25 07:36
INR 1.34 01/04/25 07:36
Total Bilirubin 2.7 mg/dl (0.2-1.3) H 01/03/25 07:25
AST 103 U/L (14-36) H 01/03/25 07:25
ALT 57 U/L (0-35) H 01/03/25 07:25
Alkaline Phosphatase 109 U/L (38-126) 01/03/25 07:25
Lipase 11 U/L (23-300) L 01/02/25 13:00
Vital Signs and I&O:
Vital Signs
Temp Pulse Resp BP Pulse Ox
97.9 F 70 16 104/61 98
01/04/25 07:06 01/04/25 08:10 01/04/25 07:06 01/04/25 08:10 01/04/25 07:06
I&O
01/03/25 01/04/25 01/05/25
06:59 06:59 06:59
Intake Total 2520 / 2520
Output Total 200 / 200
Balance 2320 / 2320
Physical Exam
Physical Exam
GI: Soft, Non Distended and Tender (mild LLQ tender)
Neuro: Other (no asterixis)
[2025-01-04 08:34] LABS: ALT (SGPT) 68 U/L (0-35); AST (SGOT) 135 U/L (14-36); Albumin 3.0 g/dl (3.5-5.0); Alkaline Phosphatase 128 U/L (38-126); Blood Urea Nitrogen 4 mg/dl (7-17); Calcium 7.6 mg/dl (8.4-10.2); Carbon Dioxide 22 mmol/L (22-30); Chloride 108 mmol/L (98-107); Estimated Creatinine Clearance 65 ml/min; Glucose 88 mg/dl (70-99); Potassium 3.8 mmol/L (3.5-5.1); Sodium 133 mmol/L (135-145); Total Protein 5.7 g/dl (6.3-8.2); eGFR > 60.00
[2025-01-04] MEDS: ALDACTONE 50 MG PO ×2 (08:35→21:25)
[2025-01-04] MEDS: XIFAXAN 550 MG PO ×2 (08:35→21:25)
[2025-01-04] MEDS: PROTONIX IV 40 MG IV ×2 (08:36→21:28)
[2025-01-04] MEDS: NSS (PRESERVATIVE FREE) 10 ML IV ×2 (08:36→21:28)
--- NOTE | 2025-01-04 08:57 | W.PN.HOSP.TC ---
Addendum entered and electronically signed by Karri Adams MD 01/04/25 13:33:
Attending�addendum:
I saw and evaluated the patient independently. I reviewed and discussed the resident�s note and agree with findings and plan as documented in the resident�s note.� patient seen and examined at bedside, still with abdominal pain, hemoglobin remained
stable, seen by GI and continue PPI but discontinue octreotide. Planning on PERT if abdominal pain persist.
Physical�exam:
GENERAL : Patient is awake, alert, oriented x3
HEENT: Nonicteric sclerae, PERRLA, EOMI. Oropharynx clear. Moist mucous membranes. Conjunctivae appear well perfused.
CHEST: Chest wall is nontender.
HEART: Regular rate and rhythm without murmurs.
LUNGS: Clear to auscultation bilaterally.
ABDOMEN: Soft, positive bowel sounds, tender in epigastric and RUQ, no organomegaly.
RECTAL: Deferred.
MUSCLES/EXTREMITIES: No abnormal range of motion, no swelling.SKIN: No rash, no excessive bruising, petechiae, or purpura.
NEUROLOGIC: Cranial nerves II-XII intact without motor/sensory deficit.
�
Assessment/plan:
GI bleeding.
Possible upper GI bleeding secondary to history of surgical access.
Continue pantoprazole
GI consulted.
EGD if signs of recurrent bleeding but appears not necessary at the moment
Planning on PERT if abdominal pain persist. Might consider also ultrasound although CT did not show any acute findings.
Will advance diet over the next 24 hours if no more procedures considered from GI perspective.
Diabetes with hyperglycemia.
Concerning of DKA.
Improving
Lactic acidosis.
Improved
Hyponatremia.
Improved
CODE STATUS: Full code
DVT prophylaxis: SCDs
Diet: CLD
Disposition: Discharge once cleared by GI
Original Note:
Today's Communication/Plan
-
As abdominal pain is still persisting, appreciate GI for possible ultrasound and possible paracentesis
Octreotide drip per GI
Continue current management
Assessment / Plan
Assessment / Plan
Impression:
64-year-old with past medical history for hepatocellular carcinoma, GERD, IDDM, alcohol cirrhosis with ascites, pancreatitis presented to us with abdominal pain associate with black loose stools since Sunday concerning for an upper GI bleed
versus colitis. Hemoccult was positive in the ER. She was also noted to have blood glucose greater than 500 lactic acid 6.8 and anion gap 13 with concerns for DKA and provided insulin in the ER. Abdomen/pelvis CT revealed new thickening of distal
esophagus, intrahepatic biliary stent, slightly decreased I HDD, upper abdomen venous collaterals/varices overall slightly less prominent than prior. It also revealed new ascites, most prominent perihepatic. Decreased colonic wall thickening most
likely representing resolving colitis versus portal colopathy. Small mass noted in the inferior right lobe of the liver without significant change from prior. She was admitted and started on IV PPI and GI was consulted. Lactic acid downtrended to
normal ranges and blood glucose significantly improved.
Imaging:
Abdomen/pelvis CT IV contrast 01/02/2025:
Some suspected new thickening of the wall of the included distal thoracic esophagus in comparison to recent prior CT, possibly inflammatory/infectious.
Biliary stents seen including long stent extending from the intrahepatic biliary tract into the duodenum. Slightly decreased intrahepatic biliary tract dilatation.
Upper abdominal venous collaterals/varices overall slightly less prominent.
New small volume ascites, most prominent perihepatic.
Decreased colonic wall thickening most likely representing resolving colitis or inflammatory process such as portal hypertensive colonpathy.
Small mass in the inferior right lobe of the liver without significant change. Malignancy cannot be excluded.
Plan:
Abdominal pain with associated loose black stools concerning for colitis versus upper GI bleed -Hemoccult positive
History of hepatic cellular carcinoma - Follows with Dr. Valenzuela at [facility] - not on treatment
Alcoholic cirrhosis with portal hypertension
-- Hemoglobin 10.0 -> 10.3, one dark brown but not black episode of diarrhea last night - heme-occult (+)
-- Cross and type
-- Blood consent in the chart
-- LFTs T bili 2.7 -> 2.3, AST 103 > 135, ALT 57 > 68, alk phos 109 >128
-- Continue pantoprazole 40 IV twice daily
-- Spironolactone
-- Rifaximin
-- Octreotide drip
-- Appreciate GI
-- On clear liquid diet and tolerating well
-- If abdominal pain persists, consider ultrasound/tap for ascites - pain persisting - US/tap will defer decision to GI.
Type 2 diabetes with hyperglycemia concerning for DKA
Lactic acidosis
-- LA 6.8 > 3.4 > 1.8 Lactic acid acidosis resolved, and anion gap closed, unclear if this was a true acidosis to begin with
-- Lantus 10 daily and sliding scale insulin - lantus held this am for BG 106 this am
-- Continue fluids
Leukopenia
-- WBC 6.9 on admission -> 3.6 -> 2.9
-- Unclear cause. Dilution? Cancer?
-- Monitor
Hyponatremia
-- Sodium 124 -> 129 -> 133 - improving
-- Monitor
Hypertension
--Currently hypotensive, home Coreg with hold parameters
Anxiety
--Continue escitalopram and trazodone for sleep
Pancreatic head lesion -biopsy pancreatic head revealed atypical cells however background of pancreatitis, evaluation is suboptimal
Grade 1 esophageal varices
DVT - SCDs
Full Code
Anticipated Discharge: 24 - 48 hours
Subjective/Interval History
-
Date of Service: January 04, 2025
Had liquid brown diarrhea overnight. Did not appear black to patient or the nurse however was Hemoccult positive. Abdominal pain continuing.
Objective Data
-
Labs:
Laboratory Results
01/04/25
07:36
WBC 2.9 L
Hgb 10.3 L
Hct 29.0 L
Plt Count 60 L D
PT 16.7 H
INR 1.34
Sodium 133 L
Potassium 3.8
Chloride 108 H
Carbon Dioxide 22
BUN 4 L
Creatinine 0.6
Glucose 88
Calcium 7.6 L
Total Bilirubin 2.3 H
AST 135 H
ALT 68 H
Alkaline Phosphatase 128 H
Vital Signs:
Vital Signs
Temp Pulse Resp BP Pulse Ox
97.9 F 70 16 104/61 98
01/04/25 07:06 01/04/25 08:35 01/04/25 07:06 01/04/25 08:35 01/04/25 07:06
I&O
01/03/25 01/04/25 01/05/25
06:59 06:59 06:59
Intake Total 2520 / 2520
Output Total 200 / 200
Balance 2320 / 2320
Review of Systems
-
History Source: Patient
Constitutional: Reports No Symptoms
EENT: Reports No Symptoms Reported
Respiratory: Reports No Symptoms
Cardiac: Reports No Symptoms
Abdomen/GI: Reports Abdominal Pain, Nausea and Diarrhea
Genitourinary: Reports No Symptoms
Skin: Reports No Symptoms
Neuro: Reports No Symptoms
Physical Exam
-
General: No Apparent Distress and Comfortable
HEENT: Normocephalic
Respiratory: Clear to Auscultation
Cardiac: Regular Rhythm and S1/S2
GI: Soft, Nontender, Nondistended and Normal Bowel Sounds
Musculoskeletal: No Cyanosis and No Edema
Neuro: AO x 3
Psych: Calm
[2025-01-04] MEDS: SANDOSTATIN 250 MCG IV (09:25)
[2025-01-04] MEDS: LANTUS SC (10:00)
[2025-01-04 12:06] LABS: Glucose - Point of Care 310 mg/dl (70-99)
[2025-01-04] MEDS: NOVOLOG FLEXPEN-MODERATE RESISTANCE 7 UNITS SC (12:11)
[2025-01-04 16:12] LABS: Glucose - Point of Care 189 mg/dl (70-99)
[2025-01-04] MEDS: NOVOLOG FLEXPEN-MODERATE RESISTANCE 1 UNITS SC (17:57)
[2025-01-04 21:11] LABS: Glucose - Point of Care 424 mg/dl (70-99)
[2025-01-04] MEDS: DESYREL 25 MG PO (21:25)
[2025-01-04] MEDS: LEXAPRO 20 MG PO (21:25)
[2025-01-04] MEDS: COREG 3.125 MG PO (21:25)
[2025-01-04 21:39] LABS: Glucose 366 mg/dl (70-99)
[2025-01-04] MEDS: NOVOLOG FLEXPEN 9 UNITS SC (22:37)
[2025-01-05] VITALS (11 sets, daily range): BP systolic 16–142; BP diastolic 54–66
[2025-01-05 01:02] LABS: Glucose - Point of Care 138 mg/dl (70-99)
[2025-01-05] MEDS: DILAUDID 0.5 MG IV ×2 (06:22→16:39)
[2025-01-05 07:34] LABS: Glucose - Point of Care 140 mg/dl (70-99)
[2025-01-05] MEDS: NOVOLOG FLEXPEN-MODERATE RESISTANCE SC ×2 (07:46→17:01)
--- NOTE | 2025-01-05 08:11 | PN.DE.MGMTRT ---
Insulin Management
- -
01/05/2025: Diabetes Management Consult
64 year old female with PMH: Hepatocellular carcinoma, GERD, IDDM, alcohol cirrhosis with Ascites, pancreatitis presented to us with abdominal pain associate with black loose stools since Sunday concerning for an upper GI bleed versus colitis.
Hemoccult was positive in the ER. She was also noted to have blood glucose greater than 500 lactic acid 6.8 and anion gap 13 with concerns for DKA, was provided 10 units of insulin in the ER and blood glucose significantly improved. A1C 7.4%, Cr
0.8, eGFR >60
Pt awake, alert, oriented, sitting up in bed, offers no complaints, able to discuss diabetes care plan.
States she received Lantus this morning but does not know why her blood sugar is elevated, explained to pt that she is not receiving her meal time insulin because she is not on a solid diet and that may be contributing to her elevated blood sugar
levels.
Her AM Lantus does was held yesterday for a blood sugar of 108, glucose trended up to 424 @ HS, pt received 9 units of NovoLog, fasting 140 this AM.
She is currently NPO for possible EGD and EUS later today. Cont moderate corrective insulin while NPO and on clear liquid diet.
Will increase Lantus to 15 units starting tomorrow morning.
Will resume her meal time insulin when diet has been advanced or sooner if necessary based on glucose trend.
Discussed with Nurse. Will cont to follow
Diabetes History
- -
Type of Diabetes: 2 requiring insulin
Pre-Admission Diabetes Regimen
01/04/25
07:36
Creatinine 0.6
Insulin Pump Settings
IP Diabetes Regimen
01/04/25 01/04/25 01/04/25
07:36 12:05 16:10
Glucose 88
POC Glucose 310 H 189 H
01/04/25 01/04/25 01/05/25
21:10 21:19 01:00
Glucose 366 H
POC Glucose 424 H 138 H
01/05/25
07:27
Glucose
POC Glucose 140 H
Meal type: Lunch
Meal type: Breakfast
Amount consumed: 100%
Patient Education
--- NOTE | 2025-01-05 08:12 | W.PN.HOSP.TC ---
Addendum entered and electronically signed by Alyssa Vera MD 01/05/25 16:54:
Seen and examined the patient with the resident. Agree with plan of care. See changes in my documentation.
64-year-old female with history of cirrhosis from previous alcohol use, hepatocellular carcinoma with generalized abdominal pain and dark stools.
MRI of the abdomen 12/05/2024-cirrhotic morphology, 1.8 cm BI-RADS 5 lesion within the inferior right hepatic lobe previously 1.7 cm. Findings of portal hypertension with splenomegaly as well as numerous vessels along the distal esophagus. Mild
liver ductal dilatation as well as increased main pancreatic duct dilatation. CBD 1.4 cm, PD 1 cm. Abrupt change in the caliber of the ducts within the pancreatic head with new 2.4 and 1.8 cm lesion within the pancreatic head. This likely
represents pancreatic collection/pseudocyst
CT abdomen and pelvis-01/02/2025-suspected new thickening of the wall of the included distal thoracic esophagus possibly inflammatory/infectious. Biliary stents including long stent extending into the intrahepatic biliary tract into the duodenum.
Slightly decreased intrahepatic biliary ductal dilatation. Upper abdominal venous collaterals/varices overall slightly less prominent. New small volume ascites, most prominent perihepatic. Decreased colonic wall thickening most likely
representing resolving colitis or inflammatory process such as portal hypertensive colopathy. Small mass in the inferior right lobe of the liver without significant change. Malignancy cannot be excluded.
ERCP 12/08/2024-biliary sphincterotomy open. Single moderate biliary stricture in the lower third of the main bile duct. CBD, left main hepatic duct and right main hepatic duct were severely dilated. Some posturing. 1 plastic stent placed in the
left hepatic duct.
12/08/20244487-[id number] esophageal varices. Portal hypertensive gastropathy. Normal duodenum. Masslike solid lesion in the pancreatic head. FNAC performed. Endo sonographic imaging of the pancreas showed changes consistent with moderate to severe
chronic pancreatitis. Findings suggestive of pancreatic stones in the main PD. Dilatation of the CBD-15 mm. No sign of significant pathology in the ampulla.
05/06/2024 EGD-grade 1 esophageal varices, small hiatal hernia, widely patent and nonobstructing Schatzki's ring. Portal hypertensive gastropathy.
05/06/20244500-[id number] colonic spasm, reactive varices
Patient awake alert oriented
Cardiovascular system S1-S2 appreciated
Chest clear to auscultation
Abdomen soft and nontender
# Melena
Acute blood loss anemia on chronic anemia
Continue PPI
Octreotide drip discontinued
Patient should not be using any NSAIDs as outpatient
EUS 01/05/2025-chronic pancreatitis.Subtle masslike lesion identified in the pancreatic head. Tissue was obtained. FNAC performed. 1 stent visualized in the CBD. Dilatation of CBD 10 mm. No sign of pathology in the ampulla. Abnormal
echogenicity of the left lobe of the liver this is lobulated. Ascites in the peritoneal cavity. Await cytology. Full liquid diet
Endoscopy 01/05/2025-small less than 5 mm esophageal varices. Portal hypertensive gastropathy. Normal duodenal bulb. First portion of the duodenum and second portion of the duodenum.
# DKA-history of type 2 diabetes-hemoglobin A1c-at around
Lantus insulin with sliding scale coverage
She is on Lantus 18 units and NovoLog 9 units AC as outpatient
Currently on 10 units of Lantus. Add 4 units of AC
# Abdominal pain-likely secondary to DKA and metabolic derangement-Improving
# Lactic acidosis-6.8-1.8 now-likely secondary to liver disease and also hypotension
# Pancytopenia-likely secondary to liver disease
# Hyponatremia-likely secondary to liver disease-improving
# Cirrhosis from alcohol use with esophageal varices, portal hypertensive gastropathy, and splenomegaly-continue Xifaxan, Aldactone, Coreg
# Hepatocellular carcinoma diagnosed July 2024 when screening revealed a lesion suspicious for HCC-(1.8 cm BI-RADS 5 lesion within the inferior right hepatic lobe)followed at [facility] hepatology-Dr. Valenzuela/Dr Teixeira
Not on treatment as it is 1.8 cm once size is 2 cm-treatment planned
# Admission to [facility] October for pancolitis and gastroenteritis and also in November 2024 for ascending cholangitis where she underwent a ERCP/EUS with drainage of pus and stent placement within the left hepatic duct.
# Pancreatic head lesion with history of biopsy showed atypical cells of indeterminate significance
# GERD/Schatzki's ring with history of esophageal dilatation
# Positive celiac antibody
# Chronic pancreatitis
# History of alcohol abuse in the past-last drink was 2 years ago
# Depression-continue Lexapro, trazodone
# History of migraines
# Hypoalbuminemia
# DVT prophylax-SCDs
# Full code
Part of this note was created using voice recognition system. Occasional wrong word or��sound alike� substitutions may have inadvertently occurred due to the inherent limitations of voice recognition software. If noted kindly bring it to my
attention for correction.
Original Note:
Today's Communication/Plan
-
Transition to p.o. pain control
Abdominal pain is persisting - will defer decision for abdominal ultrasound to GI
Continue spironolactone and rifaximin
Diet per GI
Assessment / Plan
Assessment / Plan
Impression:
64-year-old with past medical history for hepatocellular carcinoma, GERD, IDDM, alcohol cirrhosis with ascites, pancreatitis presented to us with abdominal pain associate with black loose stools since Sunday concerning for an upper GI bleed
versus colitis. Hemoccult was positive in the ER. She was also noted to have blood glucose greater than 500 lactic acid 6.8 and anion gap 13 with concerns for DKA and provided insulin in the ER. Abdomen/pelvis CT revealed new thickening of distal
esophagus, intrahepatic biliary stent, slightly decreased I HDD, upper abdomen venous collaterals/varices overall slightly less prominent than prior. It also revealed new ascites, most prominent perihepatic. Decreased colonic wall thickening most
likely representing resolving colitis versus portal colopathy. Small mass noted in the inferior right lobe of the liver without significant change from prior. She was admitted and started on IV PPI and GI was consulted. Lactic acid downtrended to
normal ranges and blood glucose significantly improved.
Imaging:
Abdomen/pelvis CT IV contrast 01/02/2025:
Some suspected new thickening of the wall of the included distal thoracic esophagus in comparison to recent prior CT, possibly inflammatory/infectious.
Biliary stents seen including long stent extending from the intrahepatic biliary tract into the duodenum. Slightly decreased intrahepatic biliary tract dilatation.
Upper abdominal venous collaterals/varices overall slightly less prominent.
New small volume ascites, most prominent perihepatic.
Decreased colonic wall thickening most likely representing resolving colitis or inflammatory process such as portal hypertensive colonpathy.
Small mass in the inferior right lobe of the liver without significant change. Malignancy cannot be excluded.
Plan:
Abdominal pain with associated loose black stools concerning for colitis versus upper GI bleed -Hemoccult positive
History of hepatic cellular carcinoma - Follows with Dr. Valenzuela at [facility] - not on treatment
Alcoholic cirrhosis with portal hypertension
-- Hemoglobin 10.3 -> 10.7, heme-occult negative stool last night, remains hemodynamically stable
-- Blood consent in the chart
-- LFTs T bili 2.3 -> 2.4, AST 135 -> 124, ALT 68-> 66, alk phos 128 -> 128
-- Continue pantoprazole 40 IV twice daily
-- Spironolactone
-- Rifaximin
-- Octreotide drip d/c 01/04
-- Appreciate GI
-- On clear liquid diet and tolerating well
-- Transition from IV to PO pain meds - can try Bentyl for pain per patient request
-- Can consider pancreatic enzyme replacement therapy for suspicion of chronic pancreatitis per GI
-- If abdominal pain persists, consider ultrasound/tap for ascites - pain persisting - US/tap will defer decision to GI.
Type 2 diabetes with hyperglycemia concerning for DKA
Lactic acidosis
-- LA 6.8 > 3.4 > 1.8 Lactic acid acidosis resolved, and anion gap closed, unclear if this was a true acidosis to begin with
-- Lantus 10 daily and sliding scale insulin
-- Continue fluids
Leukopenia
-- WBC 6.9 on admission -> 3.6 -> 2.9 -> 2.5
-- Unclear cause. Dilution? Cancer?
-- Monitor
Hyponatremia
-- Sodium 124 -> 129 -> 133 -> 132
-- Monitor
Hypertension
--Currently hypotensive, home Coreg and spironolactone with hold parameters
Anxiety
--Continue escitalopram and trazodone for sleep
Pancreatic head lesion -biopsy pancreatic head revealed atypical cells however background of pancreatitis, evaluation is suboptimal
Grade 1 esophageal varices
DVT - SCDs
Full Code
Anticipated Discharge: Within 24 hours
Subjective/Interval History
-
Date of Service: January 05, 2025
Multiple bowel movements overnight. Patient stated 1 bowel movement had bright red in it however this always happens whenever she ever she eats red Jell-O. Nurse took a Hemoccult of subsequent bowel movement and it was negative. She did not
visualize any blood. Patient denies any black stools. Abdominal pain ongoing.
Objective Data
-
Labs:
Laboratory Results
01/04/25 01/05/25
21:19 08:03
WBC Pending
Hgb Pending
Hct Pending
Plt Count Pending
Sodium Pending
Potassium Pending
Chloride Pending
Carbon Dioxide Pending
BUN Pending
Creatinine Pending
Glucose 366 H Pending
Calcium Pending
Total Bilirubin Pending
AST Pending
ALT Pending
Alkaline Phosphatase Pending
Vital Signs:
Vital Signs
Temp Pulse Resp BP Pulse Ox
98.0 F 70 16 134/66 99
01/05/25 03:22 01/05/25 03:22 01/05/25 03:22 01/05/25 03:22 01/05/25 03:22
I&O
01/04/25 01/05/25 01/06/25
06:59 06:59 06:59
Intake Total 2520 / 2520 1540 / 1540
Output Total 200 / 200
Balance 2320 / 2320 1540 / 1540
Review of Systems
-
History Source: Patient
EENT: Reports No Symptoms Reported
Respiratory: Reports No Symptoms
Cardiac: Reports No Symptoms
Abdomen/GI: Reports Abdominal Pain and Diarrhea
Genitourinary: Reports No Symptoms
Neuro: Reports No Symptoms
Endocrine: Reports No Symptoms
Physical Exam
-
General: No Apparent Distress and Comfortable
HEENT: Normocephalic
Respiratory: Clear to Auscultation
Cardiac: Regular Rhythm and S1/S2
GI: Soft, Nondistended, Normal Bowel Sounds and Tender (Midepigastric, right upper quadrant)
Musculoskeletal: No Cyanosis and No Edema
Skin: Warm and Dry
Neuro: AO x 3
Psych: Calm
[2025-01-05 08:25] LABS: Hematocrit 31.0 % (37.0-47.0); Hemoglobin 10.7 g/dL (12.0-16.0); Mean Corp Hgb Conc. 34.5 g/dL (33.0-37.0); Mean Corpuscular Volume 99.0 fL (81.0-99.0); Platelet Count 50 10^3/uL (130-400); Red Cell Dist. Width 15.8 % (11.5-14.5)
[2025-01-05] MEDS: ALDACTONE PO (09:21)
[2025-01-05] MEDS: LANTUS 0.1 UNITS SC (09:21)
[2025-01-05] MEDS: COREG PO (09:21)
[2025-01-05] MEDS: PROTONIX IV 40 MG IV ×2 (09:22→21:08)
[2025-01-05] MEDS: NSS (PRESERVATIVE FREE) 10 ML IV ×2 (09:22→21:08)
[2025-01-05] MEDS: XIFAXAN 550 MG PO ×2 (09:22→21:09)
[2025-01-05 09:25] LABS: ALT (SGPT) 66 U/L (0-35); AST (SGOT) 124 U/L (14-36); Albumin 2.9 g/dl (3.5-5.0); Alkaline Phosphatase 128 U/L (38-126); Blood Urea Nitrogen < 2 mg/dl (7-17); Calcium 8.0 mg/dl (8.4-10.2); Carbon Dioxide 24 mmol/L (22-30); Chloride 106 mmol/L (98-107); Estimated Creatinine Clearance 65 ml/min; Glucose 145 mg/dl (70-99); Potassium 4.0 mmol/L (3.5-5.1); Sodium 132 mmol/L (135-145); Total Protein 5.6 g/dl (6.3-8.2); eGFR > 60.00
--- NOTE | 2025-01-05 09:28 | W.PN.GI.CBS2 ---
Today's Communication / Plan
-
pt abdominal pain with improvement since admission but still present
hbg remains stable
off octreotide and remains on carvedilol. Grade 1 varices/portal gastropathy on recent EGD 12/08
Na improving, still some episodes of hyperglycermia overnight now improved
platelet 50,000
Dr. Burch to review with patient with hx atypical cells on prior study
currently NPO
plan for EGD and EUS later today -- pt agreeable to proceed
Could consider PERT for chronic pancreatitis if pain persists
If decreased BMs, restart lactulose. No asterixis on exam today, AAO. Cont xifaxan, though she has been unable to get it as outpt.
LFTs with elevation but stable , no signs of cholangitis following recent ERCP/stent 12/08
F/U with [facility] Te[facility] and [facility] for cirrhosis/HCC
Assessment / Plan
-
Summary: 64yo female presents with black stools noted last several days. She has hx EtOH cirrhosis HCC follwed by Dr Valenzuela at [facility] was recently admitted for cholangitis, underwent EGD/EUS/ERCP. Has grade I esophageal varices, portal gastropathy,
pus in bile duct and plastic stent placed into LHD and treated with abx. EUS showed 24 x 23mm pancreatic head mixed solid/cystic mass as well as possible pancreatic stones in MPD. FNA of mass shows atypical cells and recommend re-sampling. Pt has
appt with Dr Burch in February. CT scan during that admission also showed colitis but improved from prior imaging in October. She saw Dr Teixeira in GI office recently 12/18 and pt is following with Dr Valenzuela for LI-RAD 5 lesion in inferior R
hepatic lobe increased in size on MRI 11/2024 up to 1.8cm, awaiting increase to 2cm to intervene to increase treatment options. Pt was having difficulty with glucose control, denied abd pain at that time. Dark stool on rectal exam in ER heme
positive. Hgb 12.3. MELD 3.0 = 24. Also Na 124, glucose 546,
01/02 CT: New thickening distal esophagus. Intrahepatic biliary stent. Slight decreased IHDD. Upper abd venous collaterals/varices overall slightly less prominent. New small volume ascites, most prominent perihepatic. Decreased colonic wall
thickening most likely representing resolving colitis vs portal colopathy. Small mass inferior R lobe liver without significant change.
Laboratory Tests
01/03/25 01/04/25 01/05/25
07:25 07:36 08:03
Hgb 9.7 L D 10.3 L 10.7 L
Impression:
Epigastric abd pain - improving since admission
Dark stools Hgb stable. Recent EGD grade 1 varices, portal gastroapthy. On carvedilol
Hyponatremia. Na 124 on admission with improvement after admission
Hyperglycemia. Glucose 546 on admission
Recent admission for cholangitis, 12/08 ERCP/stent, EUS/pancreatic head lesion FNA atypical, possible PD calculi, changes of mod/severe chronic pancreatitis
EtOH Cirrhosis. MELD 3.0 = 17 (01/04/25), chronic Xifaxan use
HCC 1.8cm on MRI 11/2024. Followed by Dr Valenzuela at [facility]
Pancolitis on CT during admission in Sept improved on f/u imaging, possible portal colopathy
thrombocytopenia
PLAN:
pt abdominal pain with improvement since admission but still present
hbg remains stable
off octreotide and remains on carvedilol. Grade 1 varices/portal gastropathy on recent EGD 12/08
Na improving, still some episodes of hyperglycermia overnight now improved
platelet 50,[address] Burch to review with patient with hx atypical cells on prior study
currently NPO
plan for EGD and EUS later today -- pt agreeable to proceed
Could consider PERT for chronic pancreatitis if pain persists
If decreased BMs, restart lactulose. No asterixis on exam today, AAO. Cont xifaxan, though she has been unable to get it as outpt.
LFTs with elevation but stable , no signs of cholangitis following recent ERCP/stent 12/08
F/U with [facility] and [facility] for cirrhosis/HCC
Subjective
Subjective
Date of Service: January 05, 2025
01/04 castellanos/brown stool, on clear diet but now NPO
Objective
Data Reviewed
Laboratory Data:
Laboratory Results
01/05/25 08:03
01/05/25 08:03
Laboratory Results
PT 16.7 Sec (11.4-14.6) H 01/04/25 07:36
INR 1.34 01/04/25 07:36
Total Bilirubin 2.4 mg/dl (0.2-1.3) H 01/05/25 08:03
AST 124 U/L (14-36) H 01/05/25 08:03
ALT 66 U/L (0-35) H 01/05/25 08:03
Alkaline Phosphatase 128 U/L (38-126) H 01/05/25 08:03
Lipase 11 U/L (23-300) L 01/02/25 13:00
Vital Signs and I&O:
Vital Signs
Temp Pulse Resp BP Pulse Ox
97.7 F 67 18 99/54 95
01/05/25 07:20 01/05/25 07:20 01/05/25 07:20 01/05/25 07:20 01/05/25 07:20
I&O
01/04/25 01/05/25 01/06/25
06:59 06:59 06:59
Intake Total 2520 / 2520 1540 / 1540
Output Total 200 / 200
Balance 2320 / 2320 1540 / 1540
Physical Exam
Physical Exam
HEENT: Moist mucous membranes and Other (slight jaundice-- some bruising around lips )
Cardiology: Normal Sinus Rhythm
Pulmonary: Clear
GI: Soft, Non Distended and Tender (mild diffuse upper )
Neuro: Non Focal
--- NOTE | 2025-01-05 10:10 | CM ---
Patient seen at bedside
PT rec outpatient therapy
patient states she has a script
PLAN: Home with outpatient therapy
friend or sister to transport
[2025-01-05 11:58] LABS: Glucose - Point of Care 328 mg/dl (70-99)
[2025-01-05] MEDS: NOVOLOG FLEXPEN-MODERATE RESISTANCE 7 UNITS SC (12:42)
[2025-01-05 16:10] LABS: Glucose - Point of Care 99 mg/dl (70-99)
[2025-01-05 17:02] LABS: Glucose - Point of Care 89 mg/dl (70-99)
[2025-01-05] MEDS: COREG 3.125 MG PO (21:09)
[2025-01-05] MEDS: ALDACTONE 50 MG PO (21:09)
[2025-01-05] MEDS: LEXAPRO 20 MG PO (21:09)
[2025-01-05] MEDS: ROXICODONE 5 MG PO (21:11)
[2025-01-05 21:32] LABS: Glucose - Point of Care 166 mg/dl (70-99)
[2025-01-05] MEDS: DESYREL 25 MG PO (23:00)
[2025-01-05] MEDS: BENTYL 20 MG PO (23:07)
[2025-01-06] VITALS (8 sets, daily range): BP systolic 82–113; BP diastolic 47–61
[2025-01-06] MEDS: DILAUDID 0.25 MG IV (00:53)
[2025-01-06] MEDS: TYLENOL 650 MG PO ×2 (02:03→23:23)
--- NOTE | 2025-01-06 04:46 | W.PN.UPDATE ---
Update Note
Progress Note Update
Patient w/new onset fevers, temp 100.8. Patient c/o pain, ordered Dilaudid 0.25 mg IV x 1 dose. Ordered Tylenol 650 mg PO for fever.
Ordered CBC, BMP, lactic, CXR, blood cultures, UA reflex to culture.
[2025-01-06 05:56] LABS: COVID-19 Antigen Negative (Negative)
[2025-01-06 06:00] LABS: Hematocrit 29.2 % (37.0-47.0); Hemoglobin 10.1 g/dL (12.0-16.0); Mean Corp Hgb Conc. 34.6 g/dL (33.0-37.0); Mean Corpuscular Volume 98.0 fL (81.0-99.0); Platelet Count 45 10^3/uL (130-400); Red Cell Dist. Width 15.8 % (11.5-14.5)
[2025-01-06 06:14] LABS: ALT (SGPT) 53 U/L (0-35); AST (SGOT) 85 U/L (14-36); Albumin 2.6 g/dl (3.5-5.0); Alkaline Phosphatase 104 U/L (38-126); Blood Urea Nitrogen 2 mg/dl (7-17); Calcium 7.8 mg/dl (8.4-10.2); Carbon Dioxide 26 mmol/L (22-30); Chloride 97 mmol/L (98-107); Estimated Creatinine Clearance 65 ml/min; Glucose 294 mg/dl (70-99); Potassium 4.5 mmol/L (3.5-5.1); Sodium 124 mmol/L (135-145); Total Protein 5.0 g/dl (6.3-8.2); eGFR > 60.00
[2025-01-06 06:23] LABS: Urine Character Clear (Clear)
--- NOTE | 2025-01-06 06:39 | PTCARENOTE ---
pt spiked temp of 100.4 at 0030. WRAPPER LEAF INSPECTOR consulted and instructed this RN to not administer Tylenol yet. ice packs placed under pt armpits and blankets removed. temp rechecked at 0145, 100.8. WRAPPER LEAF INSPECTOR consulted and instructed to given Tylenol. labs and
blood cx drawn per WRAPPER LEAF INSPECTOR orders. pt temp 98.6 and vss. no further orders at this time. plan of care ongoing.
[2025-01-06 06:45] LABS: Urine Red Blood Cell 0-2 /HPF (0-2)
[2025-01-06 07:37] LABS: Glucose - Point of Care 304 mg/dl (70-99)
[2025-01-06] MEDS: ALDACTONE PO ×2 (07:53→20:17)
[2025-01-06] MEDS: COREG PO ×2 (07:53→20:18)
[2025-01-06] MEDS: XIFAXAN 550 MG PO ×2 (07:55→19:37)
[2025-01-06] MEDS: PROTONIX IV 40 MG IV ×2 (07:55→19:36)
[2025-01-06] MEDS: NSS (PRESERVATIVE FREE) 10 ML IV ×2 (07:55→19:36)
[2025-01-06] MEDS: NOVOLOG FLEXPEN-MODERATE RESISTANCE 7 UNITS SC (07:56)
[2025-01-06] MEDS: LANTUS 0.1 UNITS SC (07:56)
[2025-01-06] MEDS: NOVOLOG FLEXPEN 4 UNITS SC (07:57)
[2025-01-06] MEDS: NSS 500 IV (08:08)
--- NOTE | 2025-01-06 08:18 | W.PN.HOSP.TC ---
Today's Communication/Plan
-
Midodrine
Appreciate ID
Appreciate GI
blood cultures pending
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
Assessment / Plan
Assessment / Plan
Impression:
64-year-old with past medical history for hepatocellular carcinoma, GERD, IDDM, alcohol cirrhosis with ascites, pancreatitis presented to us with abdominal pain associate with black loose stools since Sunday concerning for an upper GI bleed
versus colitis. Hemoccult was positive in the ER. She was also noted to have blood glucose greater than 500 lactic acid 6.8 and anion gap 13 with concerns for DKA and provided insulin in the ER. Abdomen/pelvis CT revealed new thickening of distal
esophagus, intrahepatic biliary stent, slightly decreased I HDD, upper abdomen venous collaterals/varices overall slightly less prominent than prior. It also revealed new ascites, most prominent perihepatic. Decreased colonic wall thickening most
likely representing resolving colitis versus portal colopathy. Small mass noted in the inferior right lobe of the liver without significant change from prior. She was admitted and started on IV PPI and GI was consulted. Lactic acid downtrended to
normal ranges and blood glucose significantly improved.
Imaging:
Abdomen/pelvis CT IV contrast 01/02/2025:
Some suspected new thickening of the wall of the included distal thoracic esophagus in comparison to recent prior CT, possibly inflammatory/infectious.
Biliary stents seen including long stent extending from the intrahepatic biliary tract into the duodenum. Slightly decreased intrahepatic biliary tract dilatation.
Upper abdominal venous collaterals/varices overall slightly less prominent.
New small volume ascites, most prominent perihepatic.
Decreased colonic wall thickening most likely representing resolving colitis or inflammatory process such as portal hypertensive colonpathy.
Small mass in the inferior right lobe of the liver without significant change. Malignancy cannot be excluded.
Endoscopy procedure 01/05/25:
- Small (< 5 mm) varices were found in the lower third of the
esophagus.
- Mild portal hypertensive gastropathy was found in the gastric
body.
- There is no endoscopic evidence of varices in the cardia.
- The duodenal bulb, first portion of the duodenum and second
portion of the duodenum were normal.
GI upper Endoscopic US 01/05/25:
- Endosonographic imaging of the pancreas showed sonographic
changes consistent with chronic pancreatitis.
- A subtle mass-like lesion was identified in the pancreatic head.
Tissue was obtained from this exam, and results are pending. Fine
needle aspiration performed.
- One stent was visualized endosonographically in the common bile
duct.
- There was dilation in the common bile duct which measured up to
10 mm.
- There was no sign of significant pathology in the ampulla.
- There was abnormal echogenicity in the left lobe of the liver and
in the visualized portion of the liver. This was lobulated. A
tissue diagnosis was obtained prior to this exam. This is of
cirrhosis.
- Ascites was found on endosonographic examination of the
peritoneal cavity.
Plan:
Abdominal pain with associated loose black stools concerning for colitis versus upper GI bleed -Hemoccult positive
History of hepatic cellular carcinoma - Follows with Dr. Valenzuela at [facility] [place] - not on treatment
Alcoholic cirrhosis with portal hypertension
-- Hemoglobin 10.3 -> 10.7 -> 10.1 , heme-occult negative stool 01/04 - no repeat BM
-- Blood consent in the chart
-- LFTs downtrending, T. bili upending
-- Continue pantoprazole 40 IV twice daily
-- Spironolactone
-- Rifaximin
-- Octreotide drip d/c 01/04
-- Appreciate GI
-- Transitioned to diabetic diet per GI
-- Pain management
-- EUS 01/05/25 revealed chronic pancreatitis - repeat FNA of pancreatic head mass also done
Fever
Relative leukocytosis 2.5-> 9.1
-- 100.8 overnight
-- Chest x-ray negative, UA negative, blood cultures x 2 pending
-- Most likely stress reaction to EUS
-- Appreciate ID - concerning for possible SBP given know mild ascites
Hypotension
-- BP 80s/50s this am
-- s/p 500cc bolus. With hyponatremia of unclear cause, will add midodrine 5mg TID with hold parameters
Type 2 diabetes with hyperglycemia concerning for DKA
Lactic acidosis
-- LA 6.8 > 3.4 > 1.8 Lactic acid acidosis resolved, and anion gap closed, unclear if this was a true acidosis to begin with
-- Lantus 10 daily and sliding scale insulin - > lantus 15 and aspart 6 per DM SENIOR UI UX DESIGNER
-- Continue fluids
Leukopenia -
-- WBC 6.9 on admission -> 3.6 -> 2.9 -> 2.5
-- Unclear cause. Dilution? Cancer? - increased per above ^
-- Monitor
Hyponatremia
-- Sodium 124 -> 129 -> 133 -> 132 -> 124
-- Serum osm 277, urine osm 325 and urine Na 17 concerning for mixed picture. Possibly drank too much fluids yesterday
-- Fluid restriction 50oz
-- Monitor
Hypertension
--Currently hypotensive, home Coreg and spironolactone with hold parameters
Anxiety
--Continue escitalopram and trazodone for sleep
Pancreatic head lesion -biopsy pancreatic head revealed atypical cells however background of pancreatitis, evaluation is suboptimal
Grade 1 esophageal varices
DVT - SCDs
Full Code
Anticipated Discharge: 24 - 48 hours
Subjective/Interval History
-
Date of Service: January 06, 2025
Overnight she spiked a fever of 100.8. Pain was also significant and received a 0.25 dose of Dilaudid. The night team sent to UA and chest x-ray to rule out other sources of infection. She denies any nausea or vomiting overnight or bowel
movements. She endorses continuation of the mid epigastric pain and what feels like gas pain.
Objective Data
-
Labs:
Laboratory Results
01/06/25
05:45
WBC 9.1
Hgb 10.1 L
Hct 29.2 L
Plt Count 45 L
Sodium 124 L D
Potassium 4.5
Chloride 97 L
Carbon Dioxide 26
BUN 2 L
Creatinine 0.6
Glucose 294 H
Calcium 7.8 L
Total Bilirubin 2.6 H
AST 85 H
ALT 53 H
Alkaline Phosphatase 104
Vital Signs:
Vital Signs
Temp Pulse Resp BP Pulse Ox
98.6 F 73 16 86/50 96
01/06/25 05:50 01/06/25 07:53 01/06/25 03:35 01/06/25 07:53 01/06/25 03:35
I&O
01/05/25 01/06/25 01/07/25
06:59 06:59 06:59
Intake Total 1540 / 1540 960 / 960
Output Total 50 / 50
Balance 1540 / 1540 960 / 960 -50 / -50
Review of Systems
-
History Source: Patient
Respiratory: Reports No Symptoms
Cardiac: Reports No Symptoms
Abdomen/GI: Reports Abdominal Pain
Genitourinary: Reports No Symptoms
Musculoskeletal: Reports No Symptoms
Skin: Reports No Symptoms
Neuro: Reports No Symptoms
Endocrine: Reports No Symptoms
Physical Exam
-
General: No Apparent Distress and Comfortable
HEENT: Normocephalic
Respiratory: Clear to Auscultation
Cardiac: Regular Rhythm and S1/S2
GI: Soft, Nondistended, Normal Bowel Sounds and Tender (Mid-epigastric )
Musculoskeletal: No Cyanosis and No Edema
Skin: Warm and Dry
Neuro: AO x 3
Psych: Calm
--- NOTE | 2025-01-06 08:21 | PN.DE.MGMTRT ---
Insulin Management
- -
01/06/2025: Diabetes Management Consult Follow up
64 year old female admitted 01/02 with c/o abdominal pain associated with black loose stools since Sunday. PMH: Hepatocellular carcinoma, GERD, IDDM, alcohol cirrhosis with Ascites, pancreatitis. R/O upper GI bleed versus colitis. Hemoccult was
positive in the ER. She was also noted to have blood glucose greater than 500 lactic acid 6.8 and anion gap 13 with concerns for DKA, was provided 10 units of insulin in the ER and blood glucose significantly improved. A1C 7.4%, Cr 0.8, eGFR >60
Pt awake, alert, oriented, sitting up in bed, offers no complaints, able to discuss diabetes care plan. States she has had diabetes 8 years and her GI doctor has been managing her diabetes. She has the Eddie 3 CGM.
Yesterday was NPO for procedure. Glucose 328 @ 12 noon. Fasting glucose today 304. Will increase AM lantus to 15 units (10 units already administered so will start 01/07, and increase AC novolog from 4 to 6 units with moderate corrective insulin.
Diet has been advanced 1800 calories ordered, modified to 1600 calories as patient is 4'11'
Discussed with Nurse. Will cont to follow
Diabetes History
- -
Type of Diabetes: 2 requiring insulin
Pre-Admission Diabetes Regimen
01/05/25 01/06/25
08:03 05:45
Creatinine 0.5 L 0.6
Lab Results
Hemoglobin A1c Cancelled 01/05/25 08:03
Insulin Pump Settings
IP Diabetes Regimen
01/05/25 01/05/25 01/05/25
08:03 11:48 16:08
Glucose 145 H
POC Glucose 328 H 99
01/05/25 01/05/25 01/06/25
16:58 21:30 05:45
Glucose 294 H
POC Glucose 89 166 H
01/06/25
07:36
Glucose
POC Glucose 304 H
Meal type: Lunch
Amount consumed: 100%
Patient Education
--- NOTE | 2025-01-06 09:24 | W.PN.GI.CBS2 ---
Addendum entered and electronically signed by Ray Burch MD 01/07/25 10:35:
Delayed entry. I saw and examined the patient on 01/06/2025.
The PA's note was reviewed and I agree with the note.
Comment:
S/p EUS on 01/05 for repeat sampling of subtle panc head lesion; had severe pain after the procedure, which was concerning possible pancreatitis post FNA. Pt reported feeling significantly better the next day (01/06), tolerating diet. Minimal
concern at this point. Will f/u with repeat cytology results.
Original Note:
Today's Communication / Plan
-
s/p EGD and EUS 01/05 for follow up for atypical cells noted during recent procedure
pt abdominal pain with improvement since admission but some increased post procedure 01/05 now improving this am ok for diet advancement
noted low grade fever and hypotension overnight -- for fluid bolus monitor, blood cx pending, CXR neg, UA few bacteria(only minimal ascites on CT on admission)
hbg remains stable, will continue to trend -- repeat MELD labs in AM
cont carvedilol. Grade 1 varices/portal gastropathy on recent EGD 12/08
cont management of hyponatremia and hyperglycemia per medical team - for repeat labs this am
Could consider PERT for chronic pancreatitis if pain persists-- add fecal fat and fecal elastase
If decreased BMs, restart lactulose still with loose stool 01/04 monitor with recurrence with restart of diet . No asterixis on exam today, AAO. Cont xifaxan, though she has been unable to get it as outpt.
LFTs with elevation but stable , no signs of cholangitis following recent ERCP/stent 12/08
F/U as schedule with Krystal Teixeira (03/17/25), Dr. Burch(02/27/25) and will need to review path when it is back and [facility] for cirrhosis/HCC
reviewed with Dr. Vera
pt is due to travel to [facility] in 1 week-- discussed risk of trip with illness, hypoglycemia etc.
Assessment / Plan
-
Summary: 64yo female presents with black stools noted last several days. She has hx EtOH cirrhosis HCC follwed by Dr Valenzuela at [facility] was recently admitted for cholangitis, underwent EGD/EUS/ERCP. Has grade I esophageal varices, portal gastropathy,
pus in bile duct and plastic stent placed into LHD and treated with abx. EUS showed 24 x 23mm pancreatic head mixed solid/cystic mass as well as possible pancreatic stones in MPD. FNA of mass shows atypical cells and recommend re-sampling. Pt has
appt with Dr Burch in February. CT scan during that admission also showed colitis but improved from prior imaging in October. She saw Dr Teixeira in GI office recently 12/18 and pt is following with Dr Valenzuela for LI-RAD 5 lesion in inferior R
hepatic lobe increased in size on MRI 11/2024 up to 1.8cm, awaiting increase to 2cm to intervene to increase treatment options. Pt was having difficulty with glucose control, denied abd pain at that time. Dark stool on rectal exam in ER heme
positive. Hgb 12.3. MELD 3.0 = 24. Also Na 124, glucose 546,
01/02 CT: New thickening distal esophagus. Intrahepatic biliary stent. Slight decreased IHDD. Upper abd venous collaterals/varices overall slightly less prominent. New small volume ascites, most prominent perihepatic. Decreased colonic wall
thickening most likely representing resolving colitis vs portal colopathy. Small mass inferior R lobe liver without significant change.
01/05/25 EGD - Small (< 5 mm) esophageal varices- Portal hypertensive gastropathy-Normal duodenal bulb, first portion of the duodenum and second portion of the duodenum. No specimens collected.
01/05/25 EUS- changes consistent with chronic pancreatitis. A subtle mass-like lesion was identified in the pancreatic head Tissue was obtained from this exam, and results are pending. Fine
needle aspiration performed. One stent was visualized endosonographically in the common bile duct.There was dilation in the common bile duct which measured up to 10 mm. There was no sign
of significant pathology in the ampulla. There was abnormal echogenicity in the left lobe of the liver and in the visualized portion of the liver. This was lobulated. A
tissue diagnosis was obtained prior to this exam. This is of cirrhosis. Ascites was found on endosonographic examination of the peritoneal cavity.
Laboratory Tests
01/03/25 01/04/25 01/05/25
07:25 07:36 08:03
Hgb 9.7 L D 10.3 L 10.7 L
Laboratory Tests
01/06/25
05:45
Hgb 10.1 L
Impression:
Epigastric abd pain - improving since admission with some increased pain post procedure but improving
low grade fever, hypotension 01/06
Dark stools on admission now brown . Recent EGD grade 1 varices, portal gastroapthy. On carvedilol
Hyponatremia with recurrent drop after admission
persistent periods of Hyperglycemia. Glucose 546 on admission
Recent admission for cholangitis, 12/08 ERCP/stent, EUS/pancreatic head lesion FNA atypical with repeat EGD/EUS with biopsy 01/05, possible PD calculi, changes of mod/severe chronic pancreatitis
EtOH Cirrhosis. MELD 3.0 = 17 (01/04/25), chronic Xifaxan use
HCC 1.8cm on MRI 11/2024. Followed by Dr Valenzuela at [facility]
Pancolitis on CT during admission in Sept improved on f/u imaging, possible portal colopathy
thrombocytopenia
PLAN:
s/p EGD and EUS 01/05 for follow up for atypical cells noted during recent procedure
pt abdominal pain with improvement since admission but some increased post procedure 01/05 now improving this am ok for diet advancement
noted low grade fever and hypotension overnight -- for fluid bolus monitor, blood cx pending, CXR neg, UA few bacteria(only minimal ascites on CT on admission)
hbg remains stable, will continue to trend -- repeat MELD labs in AM
cont carvedilol. Grade 1 varices/portal gastropathy on recent EGD 12/08
cont management of hyponatremia and hyperglycemia per medical team - for repeat labs this am
Could consider PERT for chronic pancreatitis if pain persists-- add fecal fat and fecal elastase
If decreased BMs, restart lactulose still with loose stool 01/04 monitor with recurrence with restart of diet . No asterixis on exam today, AAO. Cont xifaxan, though she has been unable to get it as outpt.
LFTs with elevation but stable , no signs of cholangitis following recent ERCP/stent 12/08
F/U as schedule with Krystal Teixeira (03/17/25), Dr. Burch(02/27/25) and will need to review path when it is back and [facility] for cirrhosis/HCC
reviewed with Dr. Vera
Subjective
Subjective
Date of Service: January 06, 2025
01/04 brown stool on full liquid diet, some abdominal pain post procedure 01/05 but mild pain this am-- noted low grade temp 100.8 and hypotension overnight
Objective
Data Reviewed
Laboratory Data:
Laboratory Results
01/06/25 05:45
Laboratory Results
PT 16.7 Sec (11.4-14.6) H 01/04/25 07:36
INR 1.34 01/04/25 07:36
Total Bilirubin 2.6 mg/dl (0.2-1.3) H 01/06/25 05:45
AST 85 U/L (14-36) H 01/06/25 05:45
ALT 53 U/L (0-35) H 01/06/25 05:45
Alkaline Phosphatase 104 U/L (38-126) 01/06/25 05:45
Lipase 11 U/L (23-300) L 01/02/25 13:00
Vital Signs and I&O:
Vital Signs
Temp Pulse Resp BP Pulse Ox
98.7 F 68 18 94/56 95
01/06/25 08:21 01/06/25 08:54 01/06/25 08:21 01/06/25 08:54 01/06/25 08:54
I&O
01/05/25 01/06/25 01/07/25
06:59 06:59 06:59
Intake Total 1540 / 1540 960 / 960
Output Total
Balance 1540 / 1540 960 / 960 -
Physical Exam
Physical Exam
HEENT: Other (bruising around mouth , jaundice )
Cardiology: Normal Sinus Rhythm
Pulmonary: Clear
GI: Soft, Distended (mild ) and Tender (upper abdominal and right side with some chronic discomfort similar to last admission)
Extremities: No Edema
Neuro: Non Focal
[2025-01-06 10:13] LABS: Blood Urea Nitrogen 2 mg/dl (7-17); Calcium 7.7 mg/dl (8.4-10.2); Carbon Dioxide 25 mmol/L (22-30); Chloride 97 mmol/L (98-107); Estimated Creatinine Clearance 65 ml/min; Glucose 237 mg/dl (70-99); Potassium 3.9 mmol/L (3.5-5.1); Sodium 124 mmol/L (135-145); eGFR > 60.00
[2025-01-06 11:23] LABS: Glucose - Point of Care 219 mg/dl (70-99)
[2025-01-06] MEDS: NOVOLOG FLEXPEN 6 UNITS SC ×2 (11:26→18:29)
[2025-01-06] MEDS: NOVOLOG FLEXPEN-MODERATE RESISTANCE 3 UNITS SC ×2 (11:26→18:29)
[2025-01-06] MEDS: BENTYL 20 MG PO ×2 (11:30→19:47)
--- NOTE | 2025-01-06 11:31 | CON.ID ---
Consultation
-
Date/Time Consultation Requested: January 06, 2025
Date/Time Consultation Performed: January 06, 2025
Requesting Provider: Dr. Alyssa Vera
Performing Provider: Dr. Janet Hansen
Reason for Consultation: Fever
Chief Complaint / Past History
Chief Complaint
Abdominal pain
History of Present Illness
64-year-old female with history of diabetes mellitus, alcohol cirrhosis, hepatic cellular carcinoma not on treatment, recent biliary stent, pancreatic cyst FNA who presented to the ED 01/02/25 with recurrence of abd pain. Abd pain is located upper
abdomen. + nausea without emesis. + black loose stools. She felt dizzy and fell Thanksgiving Day. No fever or chills at home. No urine sxs. No cough/SOB. In ED glucose >500, noo DKA. CT a/p: suspected new thickening of the wall of the included
distal thoracic esophagus. 01/05 underwent upper EGD and repeat EUS/FNA of pancreatic cystic mass. Small varices at distal third of esophagus, no bleeding. Last night, had 2 low grade fever. She didn't know she had the fevers until told. No
chills. No new symptoms. Abd pain improving. Ate breakfast. No diarrhea. She has chronic loose stools.
Past History
Additional Past Medical History:
Diabetes mellitus
Alcohol cirrhosis
Hepatic cellular carcinoma, not on tx
Chronic pancreatitis
Biliary stent placement 12/08/24
Pancreatic cystic mass; 12/08/24 FNA atypical cells
Chronic thrombocytopenia
Depression
History of cholecystectomy
Schatzki's ring status post dilation
Allergy History:
cephalexin monohydrate (From Keflex) Allergy (Verified 01/02/25 12:04)
Hives
levofloxacin Allergy (Verified 01/02/25 12:04)
redness/itching at injection site
Penicillins Allergy (Verified 01/02/25 12:04)
Hives
sulfamethoxazole Allergy (Verified 01/02/25 12:04)
Rash
trimethoprim Allergy (Verified 01/02/25 12:04)
Rash
Medications Reviewed: Yes
Current Antibiotics:
none
Social History
Tobacco: Non-Smoker
Alcohol: Former
Drug: None
Living: Alone
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
Family History: Not Pertinent
Review of Systems
Review of Systems
General: Negative Chills
HEENT: Negative Sinus Problems, Headache or Pharyngitis
Cardiovascular: Negative Chest Pain or Edema
Respiratory: Negative Dyspnea or Cough
Gasteroenterology: Negative Vomiting or Diarrhea
Genital / Urological: Negative Dysuria or Flank Pain
Endocrine: Negative Weakness
Vital Signs
Temp Pulse Resp BP Pulse Ox
98.4 F 72 18 88/50 98
01/06/25 11:17 01/06/25 11:17 01/06/25 11:17 01/06/25 11:17 01/06/25 11:17
Selected Entries
01/06/25
00:30 01/06/25
01:45
Temp 100.4 F H 100.8 F H
Physical Exam
Physical Exam
Constitutional: No Acute Distress and Comfortable
Head: Other (No sinus tenderness)
Eyes: No Conjunctival Hemorrhage
Cardiovascular: Regular Rate and S1/S2
Pulmonary: Clear
Gastrointestinal: Soft, Tender (mild epigastic) and Distended (mild)
Genito-Urinary: Negative CVA Tenderness
Extremities: Negative Edema
Neurological: AO x 3
Lab / Diagnostic Study Results
01/06/25 05:45
01/06/25 09:43
Abs Immat Gran (auto) 0.0 10^3/uL (0-0.05) 01/02/25 13:00
Absolute Neuts (auto) 5.6 10^3/uL (1.4-6.5) 01/02/25 13:00
Absolute Lymphs (auto) 0.8 10^3/uL (1.2-3.4) L 01/02/25 13:00
Absolute Monos (auto) 0.4 10^3/uL (0.1-0.6) 01/02/25 13:00
Absolute Basos (auto) 0.0 10^3/uL (0-0.2) 01/02/25 13:00
Immature Gran % 0.4 % (0-0.5) 01/02/25 13:00
Neutrophils % 81.4 % (42.2-75.2) H 01/02/25 13:00
Lymphocytes % 12.0 % (20.5-51.1) L 01/02/25 13:00
Monocytes % 5.8 % (1.7-9.3) 01/02/25 13:00
Eosinophils % 0.3 % (0-6) 01/02/25 13:00
Basophils % 0.1 % (0-2) 01/02/25 13:00
PT 16.7 Sec (11.4-14.6) H 01/04/25 07:36
INR 1.34 01/04/25 07:36
Lactic Acid 1.7 mmol/L (0.7-2.0) 01/06/25 05:45
Ur Squamous Epith Cells 3-5 /LPF (Few) 01/06/25 06:04
Microbiology Results
Micro:
01/06/25 05:45 Blood Culture - Pending
Blood/Venous
01/06/25 05:33 Influenza Types A & B (BENEDICT) - Final
Nasal Swab Negative for Influenza A & B, NAAT
Negative results must be combined with clinical observations
and patient history.
Nucleic Acid Amplification test (NAAT)performed on the
[employer] platform.
01/06/25 05:45 Blood Culture - Pending
Blood/Venous
01/02/25 13:56 Blood Culture - Preliminary
Blood/Venous No Growth in 72 hours- Final report to follow
01/02/25 13:57 Blood Culture - Preliminary
Blood/Venous No Growth in 72 hours- Final report to follow
01/06/25 CXR: No evidence of active cardiopulmonary disease.
01/02/25 CT a/p: Some suspected new thickening of the wall of the included distal thoracic esophagus in comparison to recent prior CT, possibly inflammatory/infectious. Biliary stents seen including long stent extending from the intrahepatic biliary
tract into the duodenum. Slightly decreased intrahepatic biliary tract dilatation. Upper abdominal venous collaterals/varices overall slightly less prominent. New small volume ascites, most prominent perihepatic. Decreased colonic wall thickening
most likely representing resolving colitis or inflammatory process such as portal hypertensive colonpathy. Small mass in the inferior right lobe of the liver without significant change.
Assessment / Plan
# Low grade fever x 2 overnight
# Relative leukocytosis
- suspect post-procedure (EGD/EUS) fever and elev wbc
- no focal signs and symptoms of infectious etiology
- recommend observe off abx for now
- Monitor temps
Conditions present on admission:
Diabetes mellitus
Alcohol cirrhosis
Hepatic cellular carcinoma, not on tx
Chronic pancreatitis
Biliary stent placement 12/08/24
Pancreatic cystic mass; 12/08/24 FNA atypical cells
Chronic thrombocytopenia
Depression
History of cholecystectomy
Schatzki's ring status post dilation
--- NOTE | 2025-01-06 13:38 | CM ---
Patient with elevated temp.
Plan remains home, with outpatient therapy. sister will transport.
Plan Home once medically stable.
--- NOTE | 2025-01-06 14:31 | W.PN.UPDATE ---
Update Note
Progress Note Update
Seen and examined the patient with the resident. Agree with plan of care. See changes in my documentation.
64-year-old female with history of cirrhosis from previous alcohol use, hepatocellular carcinoma with generalized abdominal pain and dark stools.
MRI of the abdomen 12/05/2024-cirrhotic morphology, 1.8 cm BI-RADS 5 lesion within the inferior right hepatic lobe previously 1.7 cm. Findings of portal hypertension with splenomegaly as well as numerous vessels along the distal esophagus. Mild
liver ductal dilatation as well as increased main pancreatic duct dilatation. CBD 1.4 cm, PD 1 cm. Abrupt change in the caliber of the ducts within the pancreatic head with new 2.4 and 1.8 cm lesion within the pancreatic head. This likely
represents pancreatic collection/pseudocyst
CT abdomen and pelvis-01/02/2025-suspected new thickening of the wall of the included distal thoracic esophagus possibly inflammatory/infectious. Biliary stents including long stent extending into the intrahepatic biliary tract into the duodenum.
Slightly decreased intrahepatic biliary ductal dilatation. Upper abdominal venous collaterals/varices overall slightly less prominent. New small volume ascites, most prominent perihepatic. Decreased colonic wall thickening most likely
representing resolving colitis or inflammatory process such as portal hypertensive colopathy. Small mass in the inferior right lobe of the liver without significant change. Malignancy cannot be excluded.
ERCP 12/08/2024-biliary sphincterotomy open. Single moderate biliary stricture in the lower third of the main bile duct. CBD, left main hepatic duct and right main hepatic duct were severely dilated. Some posturing. 1 plastic stent placed in the
left hepatic duct.
12/08/20243496-[id number] esophageal varices. Portal hypertensive gastropathy. Normal duodenum. Masslike solid lesion in the pancreatic head. FNAC performed. Endo sonographic imaging of the pancreas showed changes consistent with moderate to severe
chronic pancreatitis. Findings suggestive of pancreatic stones in the main PD. Dilatation of the CBD-15 mm. No sign of significant pathology in the ampulla.
05/06/2024 EGD-grade 1 esophageal varices, small hiatal hernia, widely patent and nonobstructing Schatzki's ring. Portal hypertensive gastropathy.
05/06/20241989-[id number] colonic spasm, reactive varices
Patient awake alert oriented
Cardiovascular system S1-S2 appreciated
Chest clear to auscultation
Abdomen soft and Mild epigastric discomfort.
# Fevers
ID eval appreciated.
Await Cx
# Melena
Acute blood loss anemia on chronic anemia
Continue PPI
Octreotide drip discontinued
Patient should not be using any NSAIDs as outpatient
EUS 01/05/2025-chronic pancreatitis.Subtle masslike lesion identified in the pancreatic head. Tissue was obtained. FNAC performed. 1 stent visualized in the CBD. Dilatation of CBD 10 mm. No sign of pathology in the ampulla. Abnormal
echogenicity of the left lobe of the liver this is lobulated. Ascites in the peritoneal cavity. Await cytology. Full liquid diet
Endoscopy 01/05/2025-small less than 5 mm esophageal varices. Portal hypertensive gastropathy. Normal duodenal bulb. First portion of the duodenum and second portion of the duodenum.
# DKA-history of type 2 diabetes-hemoglobin A1c-at around
Lantus insulin with sliding scale coverage
She is on Lantus 18 units and NovoLog 9 units AC as outpatient
Currently on 15 units of Lantus. Add 6 units of AC
# Abdominal pain-likely secondary to DKA , Chronic pancreatitis and metabolic derangement-Improving
# Lactic acidosis-6.8-1.8 now-likely secondary to liver disease and also hypotension
# Pancytopenia-likely secondary to liver disease
# Hyponatremia-? Excess water intake. FR ordered. Watch sodium.
# Cirrhosis from alcohol use with esophageal varices, portal hypertensive gastropathy, and splenomegaly-continue Xifaxan, Aldactone, Coreg
# Hepatocellular carcinoma diagnosed July 2024 when screening revealed a lesion suspicious for HCC-(1.8 cm BI-RADS 5 lesion within the inferior right hepatic lobe)followed at [facility] hepatology-Dr. Valenzuela/Dr Teixeira
Not on treatment as it is 1.8 cm once size is 2 cm-treatment planned
# Admission to [facility] October for pancolitis and gastroenteritis and also in November 2024 for ascending cholangitis where she underwent a ERCP/EUS with drainage of pus and stent placement within the left hepatic duct.
# Pancreatic head lesion with history of biopsy showed atypical cells of indeterminate significance
# GERD/Schatzki's ring with history of esophageal dilatation
# Positive celiac antibody
# Chronic pancreatitis
# History of alcohol abuse in the past-last drink was 2 years ago
# Depression-continue Lexapro, trazodone
# History of migraines
# Hypoalbuminemia
# DVT prophylax-SCDs
# Full code
D/W GI
Part of this note was created using voice recognition system. Occasional wrong word or��sound alike� substitutions may have inadvertently occurred due to the inherent limitations of voice recognition software. If noted kindly bring it to my
attention for correction.
[2025-01-06 14:58] LABS: Glucose - Point of Care 78 mg/dl (70-99)
[2025-01-06 18:28] LABS: Glucose - Point of Care 203 mg/dl (70-99)
[2025-01-06] MEDS: DESYREL 25 MG PO (19:37)
[2025-01-06] MEDS: LEXAPRO 20 MG PO (19:37)
[2025-01-07 00:13] LABS: Glucose - Point of Care 284 mg/dl (70-99)
[2025-01-07] MEDS: NOVOLOG FLEXPEN 3 UNITS SC (00:39)
[2025-01-07 03:04] LABS: Glucose - Point of Care 208 mg/dl (70-99)
[2025-01-07 03:36] VITALS: BP 101/48
[2025-01-07 07:17] VITALS: BP 108/58
--- NOTE | 2025-01-07 07:33 | PN.DE.MGMTRT ---
Insulin Management
- -
01/07/2025: Diabetes Management Consult Follow up
64 year old female admitted 01/02 with c/o abdominal pain associated with black loose stools since Sunday. PMH: Hepatocellular carcinoma, GERD, IDDM, alcohol cirrhosis with Ascites, pancreatitis. R/O upper GI bleed versus colitis. Hemoccult was
positive in the ER. She was also noted to have blood glucose greater than 500 lactic acid 6.8 and anion gap 13 with concerns for DKA, was provided 10 units of insulin in the ER and blood glucose significantly improved. A1C 7.4%, Cr 0.8, eGFR >60
Pt awake, alert, oriented, sitting up in bed, offers no complaints, able to discuss diabetes care plan. States she has had diabetes 8 years and her GI doctor has been managing her diabetes. She has the Eddie 3 CGM.
01/06 Received 10 units lantus in AM Fasting glucose 304. Patient had 2 breakfast trays 2 hours apart and then lunch and dinner tray. Received no insulin for lunch tray. Glucose pre dinner 203, HS 284.
01/07 Will increase AM lantus to 15 units and increase AC novolog from 6 to 8 units with moderate corrective insulin.
Diet has been advanced 1800 calories ordered, modified to 1600 calories as patient is 4'11'
Discussed with Nurse. Will cont to follow
Diabetes History
- -
Type of Diabetes: 2 requiring insulin
Pre-Admission Diabetes Regimen
01/06/25
09:43
Creatinine 0.6
Lab Results
Hemoglobin A1c Cancelled 01/05/25 08:03
Insulin Pump Settings
IP Diabetes Regimen
01/06/25 01/06/25 01/06/25
07:36 09:43 11:12
Glucose 237 H
POC Glucose 304 H 219 H
01/06/25 01/06/25 01/07/25
14:47 18:26 00:12
Glucose
POC Glucose 78 203 H 284 H
01/07/25
03:03
Glucose
POC Glucose 208 H
Meal type: Lunch
Meal type: Breakfast
Amount consumed: 100%
Amount consumed: 100%
Patient Education
[2025-01-07 07:59] LABS: INR 1.61; PT 18.9 Sec (11.4-14.6)
[2025-01-07 08:04] LABS: Hematocrit 28.5 % (37.0-47.0); Hemoglobin 9.9 g/dL (12.0-16.0); Mean Corp Hgb Conc. 34.7 g/dL (33.0-37.0); Mean Corpuscular Volume 98.3 fL (81.0-99.0); Platelet Count 43 10^3/uL (130-400); Red Cell Dist. Width 15.1 % (11.5-14.5)
[2025-01-07 08:26] LABS: Glucose - Point of Care 220 mg/dl (70-99)
[2025-01-07] MEDS: NSS (PRESERVATIVE FREE) 10 ML IV (08:26)
[2025-01-07] MEDS: LANTUS 0.15 UNITS SC (08:26)
[2025-01-07] MEDS: PROTONIX IV 40 MG IV (08:26)
[2025-01-07] MEDS: COREG 3.125 MG PO (08:28)
[2025-01-07] MEDS: ALDACTONE 50 MG PO (08:28)
[2025-01-07] MEDS: XIFAXAN 550 MG PO (08:29)
[2025-01-07] MEDS: NOVOLOG FLEXPEN 8 UNITS SC (08:29)
[2025-01-07] MEDS: NOVOLOG FLEXPEN-MODERATE RESISTANCE 3 UNITS SC (08:30)
[2025-01-07 08:32] LABS: ALT (SGPT) 49 U/L (0-35); AST (SGOT) 64 U/L (14-36); Albumin 2.3 g/dl (3.5-5.0); Alkaline Phosphatase 102 U/L (38-126); Blood Urea Nitrogen 3 mg/dl (7-17); Calcium 8.4 mg/dl (8.4-10.2); Carbon Dioxide 27 mmol/L (22-30); Chloride 105 mmol/L (98-107); Estimated Creatinine Clearance 65 ml/min; Glucose 210 mg/dl (70-99); Potassium 3.6 mmol/L (3.5-5.1); Sodium 131 mmol/L (135-145); Total Protein 4.5 g/dl (6.3-8.2); eGFR > 60.00
[2025-01-07] MEDS: NOVOLOG FLEXPEN SC ×2 (08:38→12:40)
--- NOTE | 2025-01-07 08:38 | W.PN.HOSP.TC ---
Addendum entered and electronically signed by Alyssa Vera MD 01/07/25 14:29:
Seen and examined the patient with the resident. Agree with plan of care. See changes in my documentation.
64-year-old female with history of cirrhosis from previous alcohol use, hepatocellular carcinoma with generalized abdominal pain and dark stools.
MRI of the abdomen 12/05/2024-cirrhotic morphology, 1.8 cm BI-RADS 5 lesion within the inferior right hepatic lobe previously 1.7 cm. Findings of portal hypertension with splenomegaly as well as numerous vessels along the distal esophagus. Mild
liver ductal dilatation as well as increased main pancreatic duct dilatation. CBD 1.4 cm, PD 1 cm. Abrupt change in the caliber of the ducts within the pancreatic head with new 2.4 and 1.8 cm lesion within the pancreatic head. This likely
represents pancreatic collection/pseudocyst
CT abdomen and pelvis-01/02/2025-suspected new thickening of the wall of the included distal thoracic esophagus possibly inflammatory/infectious. Biliary stents including long stent extending into the intrahepatic biliary tract into the duodenum.
Slightly decreased intrahepatic biliary ductal dilatation. Upper abdominal venous collaterals/varices overall slightly less prominent. New small volume ascites, most prominent perihepatic. Decreased colonic wall thickening most likely
representing resolving colitis or inflammatory process such as portal hypertensive colopathy. Small mass in the inferior right lobe of the liver without significant change. Malignancy cannot be excluded.
ERCP 12/08/2024-biliary sphincterotomy open. Single moderate biliary stricture in the lower third of the main bile duct. CBD, left main hepatic duct and right main hepatic duct were severely dilated. Some posturing. 1 plastic stent placed in the
left hepatic duct.
12/08/20240430-[id number] esophageal varices. Portal hypertensive gastropathy. Normal duodenum. Masslike solid lesion in the pancreatic head. FNAC performed. Endo sonographic imaging of the pancreas showed changes consistent with moderate to severe
chronic pancreatitis. Findings suggestive of pancreatic stones in the main PD. Dilatation of the CBD-15 mm. No sign of significant pathology in the ampulla.
05/06/2024 EGD-grade 1 esophageal varices, small hiatal hernia, widely patent and nonobstructing Schatzki's ring. Portal hypertensive gastropathy.
05/06/20242956-[id number] colonic spasm, reactive varices
Patient awake alert oriented
Cardiovascular system S1-S2 appreciated
Chest clear to auscultation
Abdomen soft and nontender
# Melena
Acute blood loss anemia on chronic anemia
Continue PPI
Octreotide drip discontinued
Patient should not be using any NSAIDs as outpatient
EUS 01/05/2025-chronic pancreatitis.Subtle masslike lesion identified in the pancreatic head. Tissue was obtained. FNAC performed. 1 stent visualized in the CBD. Dilatation of CBD 10 mm. No sign of pathology in the ampulla. Abnormal
echogenicity of the left lobe of the liver this is lobulated. Ascites in the peritoneal cavity. Await cytology. Full liquid diet
Endoscopy 01/05/2025-small less than 5 mm esophageal varices. Portal hypertensive gastropathy. Normal duodenal bulb. First portion of the duodenum and second portion of the duodenum.
# Fever- Post anesthesia? No more fevers. ID eval appreciated.
# DKA-history of type 2 diabetes-hemoglobin A1c-at around
Lantus insulin with sliding scale coverage
She is on Lantus 18 units and NovoLog 9 units AC as outpatient
Lantus 15 and NovoLog 10 AC
I will discharge on 18 units and 10 Novolog.
# Hypotension- Likely from anesthesia? Better now.
# Abdominal pain-likely secondary to DKA and metabolic derangement-Improved.
# Lactic acidosis-6.8--likely secondary to liver disease and also hypotension
# Pancytopenia-likely secondary to liver disease
# Hyponatremia-likely secondary to liver disease-improving
# Cirrhosis from alcohol use with esophageal varices, portal hypertensive gastropathy, and splenomegaly-continue Xifaxan, Aldactone, Coreg
# Hepatocellular carcinoma diagnosed July 2024 when screening revealed a lesion suspicious for HCC-(1.8 cm BI-RADS 5 lesion within the inferior right hepatic lobe)followed at [facility] hepatology-Dr. Valenzuela/Dr Teixeira
Not on treatment as it is 1.8 cm once size is 2 cm-treatment planned
# Admission to [facility] October for pancolitis and gastroenteritis and also in November 2024 for ascending cholangitis where she underwent a ERCP/EUS with drainage of pus and stent placement within the left hepatic duct.
# Pancreatic head lesion with history of biopsy showed atypical cells of indeterminate significance
# GERD/Schatzki's ring with history of esophageal dilatation
# Positive celiac antibody
# Chronic pancreatitis
# History of alcohol abuse in the past-last drink was 2 years ago
# Depression-continue Lexapro, trazodone
# History of migraines
# Hypoalbuminemia
# DVT prophylax-SCDs
# Full code
D/W GI-Wait for fecal fat before starring pancreatic enzyme to be prescribed as OP
D/W RN
D/W ID
More than 30 minutes spent in discharge including
Final examination of the patient
Summarizing hospital stay
Instructions for continuing care to all relevant caregivers
Preparation of discharge records, prescriptions, and referral forms
Part of this note was created using voice recognition system. Occasional wrong word or��sound alike� substitutions may have inadvertently occurred due to the inherent limitations of voice recognition software. If noted kindly bring it to my
attention for correction.
Original Note:
Today's Communication/Plan
-
Aspart increased from 5 AC to 10 AC
Pancreatic insufficiency stool studies pending
Appreciate GI
Discharge today if okay with GI
Assessment / Plan
Assessment / Plan
Impression:
64-year-old with past medical history for hepatocellular carcinoma, GERD, IDDM, alcohol cirrhosis with ascites, pancreatitis presented to us with abdominal pain associate with black loose stools since Sunday concerning for an upper GI bleed
versus colitis. Hemoccult was positive in the ER. She was also noted to have blood glucose greater than 500 lactic acid 6.8 and anion gap 13 with concerns for DKA and provided insulin in the ER. Abdomen/pelvis CT revealed new thickening of distal
esophagus, intrahepatic biliary stent, slightly decreased I HDD, upper abdomen venous collaterals/varices overall slightly less prominent than prior. It also revealed new ascites, most prominent perihepatic. Decreased colonic wall thickening most
likely representing resolving colitis versus portal colopathy. Small mass noted in the inferior right lobe of the liver without significant change from prior. She was admitted and started on IV PPI and GI was consulted. Lactic acid downtrended to
normal ranges and blood glucose significantly improved.
Imaging:
Abdomen/pelvis CT IV contrast 01/02/2025:
Some suspected new thickening of the wall of the included distal thoracic esophagus in comparison to recent prior CT, possibly inflammatory/infectious.
Biliary stents seen including long stent extending from the intrahepatic biliary tract into the duodenum. Slightly decreased intrahepatic biliary tract dilatation.
Upper abdominal venous collaterals/varices overall slightly less prominent.
New small volume ascites, most prominent perihepatic.
Decreased colonic wall thickening most likely representing resolving colitis or inflammatory process such as portal hypertensive colonpathy.
Small mass in the inferior right lobe of the liver without significant change. Malignancy cannot be excluded.
Endoscopy procedure 01/05/25:
- Small (< 5 mm) varices were found in the lower third of the
esophagus.
- Mild portal hypertensive gastropathy was found in the gastric
body.
- There is no endoscopic evidence of varices in the cardia.
- The duodenal bulb, first portion of the duodenum and second
portion of the duodenum were normal.
GI upper Endoscopic US 01/05/25:
- Endosonographic imaging of the pancreas showed sonographic
changes consistent with chronic pancreatitis.
- A subtle mass-like lesion was identified in the pancreatic head.
Tissue was obtained from this exam, and results are pending. Fine
needle aspiration performed.
- One stent was visualized endosonographically in the common bile
duct.
- There was dilation in the common bile duct which measured up to
10 mm.
- There was no sign of significant pathology in the ampulla.
- There was abnormal echogenicity in the left lobe of the liver and
in the visualized portion of the liver. This was lobulated. A
tissue diagnosis was obtained prior to this exam. This is of
cirrhosis.
- Ascites was found on endosonographic examination of the
peritoneal cavity.
Abdominal ultrasound limited 01/06/2025:
Ultrasound of all 4 quadrants, with no evidence for significant ascites.
A right pleural effusion is noted.
Plan:
Abdominal pain with associated loose black stools concerning for colitis versus upper GI bleed -Hemoccult positive
History of hepatic cellular carcinoma - Follows with Dr. Valenzuela at [facility] - not on treatment
Alcoholic cirrhosis with portal hypertension
-- Hemoglobin 10.3 -> 10.7 -> 10.1 , heme-occult negative stool 01/04 - no repeat BM
-- Blood consent in the chart
-- LFTs downtrending, T. bili upending
-- Continue pantoprazole 40 IV twice daily
-- Spironolactone, Rifaximin
-- Octreotide drip d/c 01/04
-- Appreciate GI
-- Transitioned to diabetic diet per GI
-- Pain management
-- EUS 01/05/25 revealed chronic pancreatitis - repeat FNA of pancreatic head mass also done
-- Fecal fat fecal elastase pending to workup pancreatic insufficiency - can consider Creon - f/u with GI outpatient
-- Discharge today
Fever 01/06/25 1am
Relative leukocytosis 2.5-> 9.1
-- 100.8 01/06/25
-- Chest x-ray negative, UA negative, blood cultures x 2 prelim negative
-- Appreciate ID - concerning for possible SBP given know mild ascites
-- Limited ab US revealed no ascites
-- ID recommended follow off antibiotics
-- WBC 9.1 -> 3.3 today, afebrile
-- Without any other signs of systemic infection, stress reaction after EUS on 01/05 most likely cause
-- Discharge today if okay with ID
Hypotension
-- BP 80s/50s 01/06
-- s/p 500cc bolus. With hyponatremia of unclear cause, will add midodrine 5mg TID with hold parameters
-- 1 dose of midodrine yesterday required, now BP stable
Type 2 diabetes with hyperglycemia concerning for DKA
Lactic acidosis
-- LA 6.8 > 3.4 > 1.8 Lactic acid acidosis resolved, and anion gap closed, unclear if this was a true acidosis to begin with
-- Lantus 10 daily and sliding scale insulin - > lantus 15 and aspart 5 -> 10 per DM [employer]
-- Continue fluids
Leukopenia -
-- WBC 6.9 on admission -> 3.6 -> 2.9 -> 2.5
-- Unclear cause. Dilution? Cancer? - increased per above ^- today back to baseline
-- Monitor
Hyponatremia
-- Sodium 124 -> 129 -> 133 -> 132 -> 124 -> 131
-- Serum osm 277, urine osm 325 and urine Na 17 concerning for mixed picture. Possibly drank too much fluids yesterday
-- Fluid restriction 50oz - improved to 131 - continue fluids restriction
-- Monitor
Hypertension
--Currently hypotensive, home Coreg and spironolactone with hold parameters
Anxiety
--Continue escitalopram and trazodone for sleep
Pancreatic head lesion -biopsy pancreatic head revealed atypical cells however background of pancreatitis, evaluation is suboptimal
Grade 1 esophageal varices
DVT - SCDs
Full Code
Anticipated Discharge: Today
Subjective/Interval History
-
Date of Service: January 07, 2025
No complaints overnight. Patient feels like her abdominal pain is getting better. She is able to tolerate diabetic diet without issue.
Objective Data
-
Labs:
Laboratory Results
01/07/25
06:58
WBC 3.3 L
Hgb 9.9 L
Hct 28.5 L
Plt Count 43 L
PT 18.9 H
INR 1.61
Sodium 131 L
Potassium 3.6
Chloride 105
Carbon Dioxide 27
BUN 3 L
Creatinine 0.6
Glucose 210 H
Calcium 8.4
Total Bilirubin 1.6 H D
AST 64 H
ALT 49 H
Alkaline Phosphatase 102
Vital Signs:
Vital Signs
Temp Pulse Resp BP Pulse Ox
98.7 F 75 16 108/68 98
01/07/25 03:36 01/07/25 03:36 01/07/25 03:36 01/07/25 08:28 01/07/25 03:36
I&O
01/06/25 01/07/25 01/08/25
06:59 06:59 06:59
Intake Total 960 / 960 240 / 240
Output Total 600 / 600
Balance 960 / 960 -360 / -360
Review of Systems
-
History Source: Patient
Respiratory: Reports No Symptoms
Cardiac: Reports No Symptoms
Abdomen/GI: Reports Abdominal Pain
Genitourinary: Reports No Symptoms
Skin: Reports No Symptoms
Neuro: Reports No Symptoms
Physical Exam
-
General: No Apparent Distress
HEENT: Normocephalic
Respiratory: Clear to Auscultation
Cardiac: Regular Rhythm and S1/S2
GI: Soft, Nondistended, Normal Bowel Sounds and Tender (Midepigastric, right upper quadrant)
Musculoskeletal: No Cyanosis and No Edema
Skin: Warm and Dry
Neuro: AO x 3
Psych: Calm
[2025-01-07 11:55] VITALS: BP 114/57
--- NOTE | 2025-01-07 12:04 | W.PN.GI.CBS2 ---
Addendum entered and electronically signed by Carlota Baeza MD 01/07/25 13:54:
I saw and examined the patient.
The TRACK EQUIPMENT OPERATOR or PA's note was reviewed and I agree with the note.
Comment: 64-year-old female past medical history of alcohol cirrhosis with HCC, grade 1 esophageal varices, portal gastropathy follows with Dr. Valenzuela and Dr. Teixeira, recent admission for cholangitis, found incidentally to have a pancreatic head
mass versus cyst presenting initially with black stools seen by Dr. Rae on admission, hemoglobin was stable with significant hyponatremia and hyperglycemia so endoscopy was placed on hold. No further bleeding so endoscopy was never performed but
patient underwent endoscopic ultrasound yesterday for sampling of a subtle pancreatic head lesion and endoscopy was performed at the same time which again showed grade 1 esophageal varices, portal hypertensive gastropathy. She had some severe pain
after the procedure but yesterday felt improved. She did have a fever yesterday as well. Seems to be improving today. Hemoglobin has remained stable, LFTs improving, slight increase in INR today. Plan to start discharge planning. I did discuss
with the patient about holding off on going to [place] given her recent hospitalization.
Addendum entered and electronically signed by JAVIER Carr 01/07/25 12:40:
also discussed about holding narcotics and use bentyl PRN for pain at home.
Original Note:
Today's Communication / Plan
-
s/p EGD and EUS 01/05 for follow up for atypical cells noted during recent procedure with repeat path pending
she had some post procedure pain with low grade fever and hypotension 01/06 now resolved -- with only 1 dose on midodrine needed, blood cx neg for 24 hours, with neg cXR and no ascites to drain
cont diet as tolerated
hbg stable 9.9 no signs of bleeding with dark stool on admission
cont carvedilol. Grade 1 varices/portal gastropathy on recent EGD 12/08
cont management of hyponatremia and hyperglycemia per medical team with improved Na today
diarrhea in improving with fecal fat and elastase pending-- consider OP PERT if recurrent diarrhea
She is agreeable to start Lactulose 20gram daily and states he Xifaxan is now approved but pharmacy does not have in stock but will call other pharmacy to see if she can get at home
LFT's improving
F/U as schedule with Krystal Teixeira (03/17/25), Dr. Burch(02/27/25) and will need to review path when it is back and [facility] for cirrhosis/HCC
repeat MELD today stable at [address] Baeza and I advised to consider holding on trip to [facility] next week as reviewed risk of recurrent hypoglycemia, abdominal pain, or decompensation-- she will consider options if she wants to proceed
sent tiger text with Dr. Vera to review for discharge
Assessment / Plan
-
Summary: 64yo with complicated history She has hx EtOH cirrhosis HCC followed by Dr Valenzuela at [facility] as also noted Li-rads 5 lesions right hepatic lobe and was recently admitted for cholangitis, underwent EGD/EUS/ERCP. Has grade I esophageal
varices, portal gastropathy, pus in bile duct and plastic stent placed into LHD and treated with abx. EUS showed 24 x 23mm pancreatic head mixed solid/cystic mass as well as possible pancreatic stones in MPD. FNA of mass shows atypical cells and
recommend re-sampling but now repeated this admission . CT scan during that admission also showed colitis but improved from prior imaging in October. She saw Dr Teixeira in GI office recently 12/18 and pt is following with Dr Valenzuela for LI-RAD
5 lesion in inferior R hepatic lobe increased in size on MRI 11/2024 up to 1.8cm, awaiting increase to 2cm to intervene to increase treatment options. On admission she was noted with abdominal pain and dark stools than have improved since
admission. Also noted hyponatremia and hyperglycemia during admission and low grade temp with hypotension on 01/06.
01/02 CT: New thickening distal esophagus. Intrahepatic biliary stent. Slight decreased IHDD. Upper abd venous collaterals/varices overall slightly less prominent. New small volume ascites, most prominent perihepatic. Decreased colonic wall
thickening most likely representing resolving colitis vs portal colopathy. Small mass inferior R lobe liver without significant change.
01/05/25 EGD - Small (< 5 mm) esophageal varices- Portal hypertensive gastropathy-Normal duodenal bulb, first portion of the duodenum and second portion of the duodenum. No specimens collected.
01/05/25 EUS- changes consistent with chronic pancreatitis. A subtle mass-like lesion was identified in the pancreatic head Tissue was obtained from this exam, and results are pending. Fine
needle aspiration performed. One stent was visualized endosonographically in the common bile duct.There was dilation in the common bile duct which measured up to 10 mm. There was no sign
of significant pathology in the ampulla. There was abnormal echogenicity in the left lobe of the liver and in the visualized portion of the liver. This was lobulated. A
tissue diagnosis was obtained prior to this exam. This is of cirrhosis. Ascites was found on endosonographic examination of the peritoneal cavity.
Laboratory Tests
01/03/25 01/04/25 01/05/25
07:25 07:36 08:03
Hgb 9.7 L D 10.3 L 10.7 L
Laboratory Tests
01/06/25
05:45
Hgb 10.1 L
Laboratory Tests
01/07/25
06:58
Hgb 9.9 L
Impression:
Epigastric abd pain on admission then post procedure now resolved
low grade fever, hypotension 01/06
Dark stools on admission now brown . Recent EGD grade 1 varices, portal gastroapthy. On carvedilol
Hyponatremia with recurrent drop after admission
persistent periods of Hyperglycemia. Glucose 546 on admission
Recent admission for cholangitis, 12/08 ERCP/stent, EUS/pancreatic head lesion FNA atypical with repeat EGD/EUS with biopsy 01/05, possible PD calculi, changes of mod/severe chronic pancreatitis
EtOH Cirrhosis. MELD 3.0 = 17 (01/04/25), chronic Xifaxan use
HCC 1.8cm on MRI 11/2024. Followed by Dr Valenzuela at [facility]
Pancolitis on CT during admission in Sept improved on f/u imaging, possible portal colopathy
thrombocytopenia
PLAN:
s/p EGD and EUS 01/05 for follow up for atypical cells noted during recent procedure with repeat path pending
she had some post procedure pain with low grade fever and hypotension 01/06 now resolved -- with only 1 dose on midodrine needed, blood cx neg for 24 hours, with neg cXR and no ascites to drain
cont diet as tolerated
hbg stable 9.9 no signs of bleeding with dark stool on admission
cont carvedilol. Grade 1 varices/portal gastropathy on recent EGD 12/08
cont management of hyponatremia and hyperglycemia per medical team with improved Na today
diarrhea in improving with fecal fat and elastase pending-- consider OP PERT if recurrent diarrhea
She is agreeable to start Lactulose 20gram daily and states he Xifaxan is now approved but pharmacy does not have in stock but will call other pharmacy to see if she can get at home
LFT's improving
F/U as schedule with Krystal Teixeira (03/17/25), Dr. Burch(02/27/25) and will need to review path when it is back and [facility] for cirrhosis/HCC
repeat MELD today stable at [address] Baeza and I advised to consider holding on trip to [facility] next week as reviewed risk of recurrent hypoglycemia, abdominal pain, or decompensation-- she will consider options if she wants to proceed
sent tiger text with Dr. Vera to review for discharge
Subjective
Subjective
Date of Service: January 07, 2025
01/06 brown formed stool, tolerating ADA diet , feeling much better today
Objective
Data Reviewed
Laboratory Data:
Laboratory Results
01/07/25 06:58
01/07/25 06:58
Laboratory Results
PT 18.9 Sec (11.4-14.6) H 01/07/25 06:58
INR 1.61 01/07/25 06:58
Total Bilirubin 1.6 mg/dl (0.2-1.3) H D 01/07/25 06:58
AST 64 U/L (14-36) H 01/07/25 06:58
ALT 49 U/L (0-35) H 01/07/25 06:58
Alkaline Phosphatase 102 U/L (38-126) 01/07/25 06:58
Lipase 11 U/L (23-300) L 01/02/25 13:00
Vital Signs and I&O:
Vital Signs
Temp Pulse Resp BP Pulse Ox
98.4 F 66 18 114/57 100
01/07/25 11:55 01/07/25 11:55 01/07/25 11:55 01/07/25 11:55 01/07/25 11:55
I&O
01/06/25 01/07/25 01/08/25
06:59 06:59 06:59
Intake Total 960 / 960 240 / 240
Output Total 600 / 600
Balance 960 / 960 -360 / -360
Physical Exam
Physical Exam
HEENT: Moist mucous membranes and Other (minimal jaundice )
Cardiology: Normal Sinus Rhythm
Pulmonary: Clear
GI: Soft, Distended (mild ) and Non Tender
Extremities: No Edema
Neuro: Non Focal
[2025-01-07 12:22] LABS: Glucose - Point of Care 338 mg/dl (70-99)
[2025-01-07] MEDS: NOVOLOG FLEXPEN-MODERATE RESISTANCE 9 UNITS SC (12:36)
[2025-01-07] MEDS: DUPHALAC/CHRONULAC 20 GRAMS PO (12:37)
[2025-01-07] MEDS: NOVOLOG FLEXPEN 10 UNITS SC (12:41)
--- NOTE | 2025-01-07 14:10 | CM ---
Addendum entered by Nahomi Murray 01/07/25 14:13:
Pt will be taken home by a friend.
Original Note:
Pt i s discharged today with O/P PT.
Scripts provided to pt. Pt asked for CD of US and CT scan. safe deposit box rental clerk will provide to pt upon discharge.
[2025-01-07 14:24] LABS: Glucose - Point of Care 290 mg/dl (70-99)
--- NOTE | 2025-01-07 14:28 | W.DCSUMMARY ---
Addendum entered and electronically signed by Alyssa Vera MD 01/08/25 17:33:
Read, reviewed, and agree. See same day progress note for additional details.
Original Note:
Discharge Summary
Discharge Data
Date of Admission: 01/02/25
Date of Discharge: 01/07/25
-
Pending Results: Yes
Additional Pending Results:
Pancreatic fine need aspiration biopsy results
Stone troponin
Stools
Stool pancreatic elastase
Final blood cultures
Hospital Course
Primary diagnosis:
Chronic pancreatitis
Melena
Alcoholic cirrhosis with portal hypertension
Pancreatic head lesion
Grade 1 esophageal varices
Fever
Hypotension
Type 2 diabetes
Lactic acidosis
Hyponatremia
Hypertension
Leukopenia
Secondary Diagnosis:
Anxiety
Hypertension
Hepatocellular carcinoma
Hospital course:
64-year-old with past medical history for hepatocellular carcinoma, GERD, IDDM, alcohol cirrhosis with ascites, pancreatitis presented to the ER on 01/02/25 with abdominal pain associate with black loose stools since Sunday concerning for an
upper GI bleed versus colitis. Hemoccult was positive in the ER. She was also noted to have blood glucose greater than 500 lactic acid 6.8 and anion gap 13 with concerns for DKA and provided insulin in the ER. Abdomen/pelvis CT revealed new
thickening of distal esophagus, intrahepatic biliary stent, slightly decreased I HDD, upper abdomen venous collaterals/varices overall slightly less prominent than prior. It also revealed new ascites, most prominent perihepatic. Decreased colonic
wall thickening most likely representing resolving colitis versus portal colopathy. Small mass noted in the inferior right lobe of the liver without significant change from prior. She was admitted and started on IV PPI, octreotide drip and GI was
consulted. Lactic acid downtrended to normal ranges and blood glucose significantly improved. Her hemoglobin remained stable and her melena resolved, however her abdominal pain persisted. Her octreotide drip was discontinued and GI did an endoscopy
and EUS on 01/05/25. They found chronic pancreatitis and did an FNA of a pancreatic head lesion they saw. The next day, she spiked a fever of 100.8 and her WBC increased from 2.5 -> 9.1 She was also noted to be hypotensive and hyponatremic with Na
132-> 124. A sepsis work up was started. Chest x-ray and UA were negative. Blood cultures preliminary blood cultures were negative. ID was consulted and limited abdominal US was done to evaluate for possible ascites with SBP. Abdominal US did not
reveal any ascites and ID recommended to monitor temp and WBC as there was no indication for antibiotics at this time. She received a 500cc bolus of fluid one dose of midodrine and her BP stabilized after that. Hyponatremia was suspected due to high
fluid intake and she was put on a fluid restriction. The next day her Na stabilized from 124 -> 132.
Today, the patient is stable for discharge with instructions to follow up with outpatient with GI for pancreatic FNA results and to discuss starting Creon. She was also provided a script for outpatient physical therapy to gain strength.
Imaging:
Abdomen/pelvis CT IV contrast 01/02/2025:
Some suspected new thickening of the wall of the included distal thoracic esophagus in comparison to recent prior CT, possibly inflammatory/infectious.
Biliary stents seen including long stent extending from the intrahepatic biliary tract into the duodenum. Slightly decreased intrahepatic biliary tract dilatation.
Upper abdominal venous collaterals/varices overall slightly less prominent.
New small volume ascites, most prominent perihepatic.
Decreased colonic wall thickening most likely representing resolving colitis or inflammatory process such as portal hypertensive colonpathy.
Small mass in the inferior right lobe of the liver without significant change. Malignancy cannot be excluded.
Endoscopy procedure 01/05/25:
- Small (< 5 mm) varices were found in the lower third of the
esophagus.
- Mild portal hypertensive gastropathy was found in the gastric
body.
- There is no endoscopic evidence of varices in the cardia.
- The duodenal bulb, first portion of the duodenum and second
portion of the duodenum were normal.
GI upper Endoscopic US 01/05/25:
- Endosonographic imaging of the pancreas showed sonographic
changes consistent with chronic pancreatitis.
- A subtle mass-like lesion was identified in the pancreatic head.
Tissue was obtained from this exam, and results are pending. Fine
needle aspiration performed.
- One stent was visualized endosonographically in the common bile
duct.
- There was dilation in the common bile duct which measured up to
10 mm.
- There was no sign of significant pathology in the ampulla.
- There was abnormal echogenicity in the left lobe of the liver and
in the visualized portion of the liver. This was lobulated. A
tissue diagnosis was obtained prior to this exam. This is of
cirrhosis.
- Ascites was found on endosonographic examination of the
peritoneal cavity.
Abdominal ultrasound limited 01/06/2025:
Ultrasound of all 4 quadrants, with no evidence for significant ascites.
A right pleural effusion is noted.
Discharge Plan
-
Patient Disposition: Home (Routine Discharge)
Discharge Diagnosis/Procedures: Chronic pancreatitis
Melena
Acute blood loss anemia chronic anemia
Diabetic ketoacidosis
Type 2 diabetes
Fever
Pancytopenia
Hyponatremia
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
Hepatocellular carcinoma
Pancreatic head lesion
Gastroesophageal reflux disease
Condition: Fair
Diet: As tolerated, Low Fat and Restrict fluids to 64 oz
Driving Restrictions: As prior to admission
Bathing Restrictions: None
Other Services: PT
Activity Restrictions/Additional Instructions:
You need close follow up of liver mass.
Referrals:
Kathleen Navarro PA-C [Family Provider, Internal Medicine]
Sae Valenzuela MD [Non-Admitting Privileges, Gastroenterology]
Referral Note: follow up with hepatology as planned
Ray Burch MD [Active, Gastroenterology] - 02/27/25 1:00 pm
Referral Note: follow up as scheduled
LluviaJocelinekellen Elmore DO [Active, Gastroenterology] - 03/17/25 1:00 pm
Referral Note: follow up as scheduled
Additional Discharge Medication Instructions: Please follow-up with gastroenterology for further evaluation of your chronic pancreatitis
Prescriptions:
New
lactulose 10 gram/15 mL Solution
20 g PO DAILY Qty: 16 0RF
insulin aspart U-100 100 unit/mL (3 mL) insulin pen
10 unit SC AC Qty: 15 0RF
Continued
omeprazole 20 MG capsule,delayed release(DR/EC)
20 mg PO DAILY
Xifaxan 550 MG tablet
550 mg PO BID Qty: 120 0RF
trazodone 50 mg Tablet
25 mg PO HS
cholecalciferol (vitamin D3) [Vitamin D3] 25 mcg (1,000 unit) Tablet
25 mcg PO DAILY
spironolactone 50 mg Tablet
50 mg PO BID
escitalopram oxalate [Lexapro] 20 mg Tablet
20 mg PO HS
carvedilol 3.125 mg tablet
3.125 mg PO BID
dicyclomine 10 mg capsule
10 mg PO QIDPRN PRN (Reason: abdominal pain)
insulin glargine [Lantus Solostar U-100 Insulin] 100 unit/mL (3 mL) insulin pen
18 unit SC DAILY
Discontinued
insulin aspart U-100 100 unit/mL (3 mL) insulin pen
9 unit SC AC
ibuprofen [Advil] 200 mg Tablet
200 mg PO Q6HPRN PRN (Reason: mild pain)
celecoxib 100 mg Capsule
100 mg PO HS
Discharge Date and Time
Print Language: CITIZ[place]
--- NOTE | 2025-01-07 14:30 | W.PN.ID1 ---
Addendum entered and electronically signed by Janet Hansen MD 01/07/25 15:24:
I saw and evaluated the patient. I reviewed the resident�s note and agree with findings and plan as documented in the resident�s note.
S: continues to feel improved with decreased abd pain. Eating well.
O: Tmax 98.4
A/P:
# post-procedure (EGD/EUS) fever - resolved
# Reactive relative leukocytosis - resolved, back to baseline
- Bcx's neg.
-CXR neg
- ABD US: minimal ascites
- No indication for abx.
- Can dc home from ID standpoint.
- ID will sign off.
Discussed with Dr. Vera.
Original Note:
Date of Service
Date of Service: January 07, 2025
Today's Communication
- continue to observe
Assessment / Plan
Low grade fever x 2 overnight on 01/06/25
Postoperative fever
- Blood cultures on admission and repeat blood cultures are negative, no fever overnight, and no leucocytosis
- suspect post-procedure (EGD/EUS) fever
- No indication of infection in this patient
- Trend CBC and temperature
- Continue to observe
Conditions present on admission:
Diabetes mellitus
Alcohol cirrhosis
Hepatic cellular carcinoma, not on tx
Chronic pancreatitis
Biliary stent placement 12/08/24
Pancreatic cystic mass; 12/08/24 FNA atypical cells
Chronic thrombocytopenia
Depression
History of cholecystectomy
Schatzki's ring status post dilation
Subjective / Review of Systems
Review of Systems: No Fever, No Chills, No Headache, No Cough, No Palpitations, Abdominal Pain, Nausea, No Vomiting, No Diarrhea and No Skin Rash
Vital Signs / Physical Exam
Vital Signs
Vital Signs
Temp Pulse Resp BP Pulse Ox
98.4 F 66 18 114/57 100
01/07/25 11:55 01/07/25 11:55 01/07/25 11:55 01/07/25 12:10 01/07/25 11:55
Physical Exam
Constitutional: No Acute Distress
Cardiovascular: Regular Rate and S1/S2
Pulmonary: Clear and Symmetric
Gastrointestinal: Soft and Tender (Midepigastric tenderness to palpation)
Extremities: Negative Edema, Clubbing or Cyanosis
Skin: Warm and Dry
Neurological: AO x 3
Psychological: Calm
Objective Data
Lab Data
Lab Results
01/07/25 06:58
01/07/25 06:58
PT 18.9 Sec (11.4-14.6) H 01/07/25 06:58
INR 1.61 01/07/25 06:58
Estimated Creat Clear 65 ml/min 01/07/25 06:58
Lactic Acid 1.7 mmol/L (0.7-2.0) 01/06/25 05:45
Total Bilirubin 1.6 mg/dl (0.2-1.3) H D 01/07/25 06:58
AST 64 U/L (14-36) H 01/07/25 06:58
ALT 49 U/L (0-35) H 01/07/25 06:58
Alkaline Phosphatase 102 U/L (38-126) 01/07/25 06:58
Most recent labs reviewed.
Micro Results:
01/02/25 13:57 Blood Culture - Final
Blood/Venous No Growth - Final Report
01/02/25 13:56 Blood Culture - Final
Blood/Venous No Growth - Final Report
01/06/25 05:45 Blood Culture - Preliminary
Blood/Venous No Growth in 24 hours- Final report to follow
01/06/25 05:45 Blood Culture - Preliminary
Blood/Venous No Growth in 24 hours- Final report to follow
01/06/25 05:33 Influenza Types A & B (BENEDICT) - Final
Nasal Swab Negative for Influenza A & B, NAAT
Negative results must be combined with clinical observations
and patient history.
Nucleic Acid Amplification test (NAAT)performed on the
Lumafit platform.
01/06/25 CXR: No evidence of active cardiopulmonary disease.
01/02/25 CT a/p: Some suspected new thickening of the wall of the included distal thoracic esophagus in comparison to recent prior CT, possibly inflammatory/infectious. Biliary stents seen including long stent extending from the intrahepatic biliary
tract into the duodenum. Slightly decreased intrahepatic biliary tract dilatation. Upper abdominal venous collaterals/varices overall slightly less prominent. New small volume ascites, most prominent perihepatic. Decreased colonic wall thickening
most likely representing resolving colitis or inflammatory process such as portal hypertensive colonpathy. Small mass in the inferior right lobe of the liver without significant change.
[2025-01-07 15:03] VITALS: BP 107/56
[2025-01-10 08:34] LABS: Pancreatic Elastase, Fecal <10 ug/g (>=100)
== END 2025-01-07 17:06 | disposition home or self-care (01) | DRG 432 ==
LOC: 4 EAST ACU 15:59
PROVIDERS: Internal Medicine Gastroenterology; Nurse Practitioner Adult Health; Nurse Practitioner Family; Registered Nurse; ADMITTING PHYSICIAN Internal Medicine; ATTENDING PHYSICIAN Hospitalist; CONSULT PHYSICIAN Internal Medicine Infectious Disease; CONSULT PHYSICIAN Specialist; EMERGENCY PHYSICIAN Emergency Medicine; FAMILY PHYSICIAN Physician Assistant
PROC: 0DJ08ZZ Inspection of Upper Intestinal Tract, Via Natural or Artificial Opening Endoscopic (ICD-10-PCS; 2025-01-05)
PROC: 0F9G8ZX Drainage of Pancreas, Via Natural or Artificial Opening Endoscopic, Diagnostic (ICD-10-PCS; 2025-01-05)
DX: K70.31 Alcoholic cirrhosis of liver with ascites (principal); E11.10 Type 2 diabetes mellitus with ketoacidosis without coma; I85.11 Secondary esophageal varices with bleeding; K86.1 Other chronic pancreatitis; C22.0 Liver cell carcinoma; E87.1 Hypo-osmolality and hyponatremia; K76.6 Portal hypertension; K86.2 Cyst of pancreas; K92.1 Melena; D62 Acute posthemorrhagic anemia; D61.818 Other pancytopenia; K21.9 Gastro-esophageal reflux disease without esophagitis; F32.A Depression, unspecified; K82.8 Other specified diseases of gallbladder; I10 Essential (primary) hypertension; K44.9 Diaphragmatic hernia without obstruction or gangrene; I86.8 Varicose veins of other specified sites; K31.89 Other diseases of stomach and duodenum; F41.1 Generalized anxiety disorder; K22.2 Esophageal obstruction; E88.09 Other disorders of plasma-protein metabolism, not elsewhere classified; I95.9 Hypotension, unspecified; Z60.2 Problems related to living alone; Z79.4 Long term (current) use of insulin; Z79.899 Other long term (current) drug therapy; Z11.52 Encounter for screening for COVID-19; Z88.1 Allergy status to other antibiotic agents; Z88.0 Allergy status to penicillin; Z88.2 Allergy status to sulfonamides; Z80.0 Family history of malignant neoplasm of digestive organs; Z88.3 Allergy status to other anti-infective agents; Z86.16 Personal history of COVID-19; Z90.49 Acquired absence of other specified parts of digestive tract
CPT/HCPCS: 71045; 74177; 76705; 80048; 80053; 81003; 81015; 82010; 82248; 82653; 82705; 82947; 82962; 83605; 83690; 83930; 83935; 84300; 85025; 85027; 85610; 86850; 86900; 86901; 87040; 87502; 87811; 88173; 88305; 93005; 96361; 96374; 96375; 97116; 97162; 99285; J2354; Q9967

== ENCOUNTER 2025-01-27 17:43 | Inpatient (IN) | payer OTHER, SELFPAY ==
[2025-01-27] VITALS (11 sets, daily range): BP systolic 115–147; BP diastolic 60–77; BMI 16.5; BMI 16.7
[2025-01-27 12:25] LABS: Glucose - Point of Care 326 mg/dl (70-99)
[2025-01-27] MEDS: NSS 1000 IV ×2 (13:29→17:41)
[2025-01-27 13:49] LABS: Hematocrit 42.3 % (37.0-47.0); Hemoglobin 15.6 g/dL (12.0-16.0); Mean Corp Hgb Conc. 36.9 g/dL (33.0-37.0); Mean Corpuscular Volume 86.9 fL (81.0-99.0); Nucleated Red Blood Cells % 0 %; Platelet Count 140 10^3/uL (130-400); Red Cell Dist. Width 13.1 % (11.5-14.5)
[2025-01-27 14:06] LABS: ALT (SGPT) 67 U/L (0-35); AST (SGOT) 109 U/L (14-36); Albumin 5.2 g/dl (3.5-5.0); Alkaline Phosphatase 168 U/L (38-126); Blood Urea Nitrogen 11 mg/dl (7-17); Calcium 9.6 mg/dl (8.4-10.2); Carbon Dioxide 16 mmol/L (22-30); Chloride 91 mmol/L (98-107); Estimated Creatinine Clearance 49 ml/min; Glucose 327 mg/dl (70-99); Potassium 3.1 mmol/L (3.5-5.1); Sodium 127 mmol/L (135-145); Total Protein 8.9 g/dl (6.3-8.2); eGFR > 60.00
[2025-01-27 14:16] LABS: Ammonia < 9 umol/L (9-30)
[2025-01-27 14:28] LABS: Troponin I 0.017 ng/ml
--- NOTE | 2025-01-27 14:34 | ED.GENMED ---
History of Present Illness
General
Chief Complaint: Abdominal Symptoms
Time Seen by Provider: 01/27/25 12:31
History of Present Illness
History of Present Illness:
Is a 64-year-old female with complicated past medical history including chronic pancreatitis, hepatocellular carcinoma, alcoholic liver cirrhosis and possibly pancreatic carcinoma who presents complaining of 'pancreas pain' for the past several
weeks. Her son brought her in today as she has been reporting increased pain over the past several days. Reports recent ERCP reports recent ERCP with stent placement. Review of her records shows that she did have an EUS and subsequent FNA at that
time and pathology was inconclusive. Unclear of when this ERCP occurred. Reports she was told she needs a liver transplant but does not believe that she would want this at this time. Patient denies any nausea, vomiting, chest pain, shortness of
breath. Reports that all of her pain is located in her Epigastric area no provoking or relieving factors. She has lost 12 pounds in the last month
Past History
Past History
ED Past Medical History: Cancer (liver cancer (new)), GERD, IDDM and Other (Alcoholic cirrhosis with ascites, hyponatremia, pancreatitis, pancytopenia)
ED Past Surgical History: Cholecystectomy
Social History
Tobacco: Non-smoker
Alcohol: Former
Drug: None
Personal:
Living: with family (with son)
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
Family History: Cancer
Phy Exam
General Physical Exam
General Presentation: well appearing and no apparent distress
General Skin: warm and dry
General Habitus: normal
General Mental: alert
General Hydration: appears well hydrated
ENT Exam
ENT Exam: EOMI, pharynx normal, neck supple and normocephalic
Eye Exam
Eye Exam: PERRL, cornea clear and conjunctiva normal
Cardiovascular Exam
Cardiovascular Exam: regular rate/rhythm, no edema, no murmur and normal peripheral pulses
Pulmonary Exam
Pulmonary Exam: lungs clear, no respiratory distress, no rales, no crackles, no rhonchi, no stridor, no wheezing and no cough
Gastrointestinal Exam
Gastrointestinal Exam: normal bowel sounds, soft, no organomegaly, no pulsatile mass, non distended and other (Epigastric pain to palpation)
Neurological Exam
Neurological Exam: alert, oriented x3, no motor deficits and speech normal
Musculoskeletal Exam
Musculoskeletal Exam: full ROM and no edema
Skin Exam
Skin Exam: normal color, warm/dry, no rash and no petechia
Psychiatric Exam
Psychiatric Exam: normal mood/affect
Course
Orders/Labs/Results
Orders:
Orders
01/27/25 13:20
Electrocardiogram (*1) Urgent
Reason for Study: Abdominal Pain
EKG- Treatment ONCE
0.9% Sodium Chloride 1000 ml [Nss] 1,000 ml IV BOLUS
01/27/25 13:21
CT Abd/pelvis W Iv Cont Urgent
Comment:
Reason For Exam: recent ERCP, epigastric pain
01/27/25 13:25
Amylase Urgent
B-Hydroxybutyrate Urgent
Comment: ADD ON
Basic Metabolic Panel Urgent
Complete Blood Count/With Diff Urgent
Lipase Urgent
Gjabt-Wkrd-Ahwmofb Urgent
Magnesium Urgent
Comment: MAG ADDED ONB BY FLOOR 4:40PM 01-27-25
Troponin I Urgent
01/27/25 13:28
Ammonia Urgent
01/27/25 14:18
Add On- LAB Urgent
Tests Added?: lipase, amylase
01/27/25 14:57
Morphine Sulfate 2 mg IV NOW STA
01/27/25 14:58
HYDROmorphone [Dilaudid] 0.5 mg IV NOW STA
01/27/25 15:15
0.9% Sodium Chloride 500 ml [Nss] 500 ml IV BOLUS
01/27/25 15:47
Lactic Acid Urgent
Potassium Chloride [KCl] 40 meq 0.9% Sodium Chloride 250 ml [Nss] 250 ml IV NOW
01/27/25 16:28
Venous Blood Gas Urgent
%Oxygen/Room Air: room air
01/27/25 16:30
HYDROmorphone [Dilaudid] 0.5 mg IV NOW STA
01/27/25 16:40
Add On- LAB Urgent
Tests Added?: magnesium
Abnormal Lab Results
01/27/25 01/27/25 01/27/25
13: 13:28
MCH 32.0 H pg
(27.0-31.0)
MPV 10.6 H fL
(7.4-10.4)
Absolute Lymphs (auto) 0.9 L 10^3/uL
(1.2-3.4)
Neutrophils % 79.9 H %
(42.2-75.2)
Lymphocytes % 17.0 L %
(20.5-51.1)
VBG pCO2
VBG pO2
VBG HCO3
Sodium 127 L mmol/L
(135-145)
Potassium 3.1 L mmol/L
(3.5-5.1)
Chloride 91 L mmol/L
(98-107)
Carbon Dioxide 16 L mmol/L
(22-30)
Glucose 327 H mg/dl
(70-99)
Lactic Acid
Total Bilirubin 2.6 H mg/dl
(0.2-1.3)
Direct Bilirubin 1.1 H mg/dl
(0.0-0.4)
AST 109 H U/L
(14-36)
ALT 67 H U/L
(0-35)
Alkaline Phosphatase 168 H U/L
(38-126)
Ammonia < 9 L umol/L
(9-30)
Total Protein 8.9 H g/dl
(6.3-8.2)
Albumin 5.2 H g/dl
(3.5-5.0)
Lipase < 10 L U/L
(23-300)
B-Hydroxybutyrate 3.42 H mmol/L
(0.02-0.27)
POC Glucose 326 H mg/dl
(70-99)
01/27/25 01/27/25
15:47 16:28
MCH
MPV
Absolute Lymphs (auto)
Neutrophils %
Lymphocytes %
VBG pCO2 33 L mmHg
(35-48)
VBG pO2 65 H mmHg
(30-50)
VBG HCO3 19.1 L mmol/L
(22-27)
Sodium
Potassium
Chloride
Carbon Dioxide
Glucose
Lactic Acid 3.3 H mmol/L
(0.7-2.0)
Total Bilirubin
Direct Bilirubin
AST
ALT
Alkaline Phosphatase
Ammonia
Total Protein
Albumin
Lipase
B-Hydroxybutyrate
POC Glucose
01/27/25 13:25
01/27/25 13:25
Vital Signs
Initial and Last Documented VS:
Initial Vital Signs
Temp Pulse Resp BP Pulse Ox
36.6 C 112 20 139/71 98
01/27/25 12:21 01/27/25 12:21 01/27/25 12:21 01/27/25 12:21 01/27/25 12:21
Last Documented Vital Signs
Temp Pulse Resp BP Pulse Ox
36.6 C 128 14 127/77 99
01/27/25 12:21 01/27/25 14:30 01/27/25 14:30 01/27/25 14:14 01/27/25 14:36
MDM/Problems Addressed
Differential Diagnosis Includes:
Differential diagnosis includes but is not limited to acute on chronic pancreatitis versus necrotizing pancreatitis from recent ERCP and stent placement, pancreatic cancer, sequela of hepatocellular carcinoma or cirrhosis.
Patient is tachycardic to 115 on my initial exam and reports decreased p.o. intake and weight loss. 1 L fluid bolus given with some improvement in tachycardia. However after returning from CT and patient was placed back on a cycling instructor bed to
be tachycardic to 130. Reports increased pain after movement 0.5 mg Dilaudid and an additional 500 cc fluid bolus given. EKG is sinus tachycardia. Troponin 0.017.
CT abdomen pelvis with IV contrast obtained with no acute findings. Shows chronic pancreatitis and stable liver lesion, pancreatic cyst no longer visible and biliary stents in good position.
BMP with hyperglycemia, hypokalemia which was repleted with IV potassium and bicarb of 16. Lipase less than 10. Lactic acid 3.3 given low bicarb. VBG ordered. Acetone also added on. Given her hypokalemia we will hold off on any insulin at this
time.
Spoke with hospitalist about this patient and she will be admitted for further treatment. Patient is in agreement with the plan
Patient seen with attending.
*Pulse Oximetry
SaO2: 99
Oxygen Mode of Delivery: Room air
Patient hypoxic: no
*Critical Care Note
Total Time (30-74mins, 75-104mins- exclusive of procedures): Not Applicable
ED Attending Note
-
Portions of this chart may have been created with voice recognition software.� Occasional wrong word or��sound alike� substitutions may have occurred due to the inherent limitations of voice recognition software.
Discharge Plan
Departure
Patient Disposition: Admit
Date of Disposition: 01/27/25
Time of Disposition: 16:33
Admit to: Telemetry
Presentation/result/management discussed w/ accepting MD/DO: Hospitalist
Discharge Problem:
DKA (diabetic ketoacidosis), Chronic pancreatitis, Hepatocellular carcinoma, Epigastric abdominal pain, Hypokalemia
Prescriptions:
No Action
omeprazole 20 MG capsule,delayed release(DR/EC)
20 mg PO DAILY
Xifaxan 550 MG tablet
550 mg PO BID Qty: 120 0RF
trazodone 50 mg Tablet
25 mg PO HS
cholecalciferol (vitamin D3) [Vitamin D3] 25 mcg (1,000 unit) Tablet
25 mcg PO DAILY
spironolactone 50 mg Tablet
50 mg PO BID
escitalopram oxalate [Lexapro] 20 mg Tablet
20 mg PO HS
carvedilol 3.125 mg tablet
3.125 mg PO BID
dicyclomine 10 mg capsule
10 mg PO QIDPRN PRN (Reason: abdominal pain)
insulin glargine [Lantus Solostar U-100 Insulin] 100 unit/mL (3 mL) insulin pen
18 unit SC DAILY
lactulose 10 gram/15 mL Solution
20 g PO DAILY Qty: 16 0RF
insulin aspart U-100 100 unit/mL (3 mL) insulin pen
10 unit SC AC Qty: 15 0RF
Referrals:
Kathleen Navarro PA-C [Family Provider, Internal Medicine]
Interventions
Interventions:
*General Assessment Last Done: 01/27/25 12:21
*Neglect/Abuse Screening Last Done: 01/27/25 12:21
*ED COVID-19 Vaccine History Last Done: 01/27/25 13:04
*ED Influenza Vaccine History Last Done: 01/27/25 13:04
[facility] Fall Risk Assessment Tool Last Done: 01/27/25 14:17
*Risk Screen - Suicide (C-SSRS) Last Done: 01/27/25 13:04
AW-Tftlic-Flfhyxkswg Assessment Last Done: 01/27/25 14:18
Discharge Date and Time
Print Language: HUNGARIAN
[2025-01-27] MEDS: DILAUDID 0.5 MG IV ×4 (15:06→23:30)
[2025-01-27 15:30] LABS: Lipase < 10 U/L (23-300)
--- NOTE | 2025-01-27 15:40 | EDCM ---
Received call from ED RN that son is requesting information about home services for his mother.
I met with pt and son Jackson bedside in ED. Pt lives alone in first floor condo, [address]. Independent in ADLs, personal care and ambulation at baseline. Jackson lives in [place], pt's sister lives close by and provides support, also has friend that helps.
Pt has not been eating, states she does not have an appetite. Discussed services like Meals on Wheels, pt states she has reached out to [facility] but has not yet started any services.
Does have hx of HH, she believes it was [facility] but it was 8 years ago. She is agreeable to referral if she is not admitted.
PMH includes chronic pancreatitis, helatocellular carcinoma, alcoholic cirrhosis, GERD and IDDM. she has a glucometer.
No hx SNF, was referred for OP PT/OT after last admission 01/02 to 01/07.
PCP: Kathleen Navarro
Pharmacy: [facility]
[2025-01-27 15:47] LABS: Amylase 52 U/L (30-110)
--- NOTE | 2025-01-27 16:35 | HPS.HSE ---
Addendum entered and electronically signed by Christopher Gomes MD 01/27/25 18:02:
I saw and examined the patient.
The [employer] or PA's note was reviewed and I agree with the note.
Comment:
64 years old female presented with weakness, fatigue, loss of appetite with abdominal pain
Physical Exam
General: Comfortable and Conversant
HEENT: NormoCephalic and Anicteric
Respiratory: Clear and Non Labored Respirations
Cardiac: S1/S2, Regular Rhythm and Tachycardia
GI: Soft and not tender on my exam.
Rectal: No bleeding
Musculoskeletal: No Clubbing and No Cyanosis
Skin: Warm and Dry
: No hematuria
Neuro: Awake, Alert and Oriented, gait is unsteady
Psych: Calm
# Acute on chronic abdominal pain. No N/V
No chest pain.
History of chronic pancreatitis
CT of the abdomen pelvis did not show acute inflammatory changes, Positive for cirrhosis, portal hypertension, unchanged positioning of biliary stent with no evidence of biliary tract dilation.
Patient is improving with IV pain medication. Will continue low-dose of IV Dilaudid. Avoid excessive dose to avoid confusion and side effects
Continue Bentyl
Continue with IV fluid, mild for clinical dehydration
IV Protonix
Will follow-up with GI evaluation and input
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 Teixeira
# Mild DKA/starvation ketoacidosis. Patient has not been eating well and did not take her insulin. No nausea or vomiting.
Will treat hyperglycemia with resuming her insulin treatment/ IVF hydration. Close monitoring of blood glucose. No nausea or vomiting. Patient is able to take orally
# Liver cirrhosis.
Low ammonia level
Continue with diuretic therapy, continue with Aldactone.
# Hypokalemia, replace
Patient refused IV. Agreed to take it orally.
# Lactic acidosis, will do blood culture no respiratory or GI symptoms other than abdominal pain
# Chronic Hyponatremia:
#Hypomagnesemia, replace, agrees to IV form.
# Failure to thrive
# Diabetic polyneuropathy, gait dysfunction, will order PT/OT
# She had MRI in 07/2024 performed for HCC screening revealed LI-RADS 4 lesion, suspicious for HCC. She was referred her to [facility] Hep[facility]ology, Dr. Valenzuela, and after further review of the imaging at tumor board, the lesion was upgraded to a
LI-RADS 5 lesion, consistent with HCC. MR in 11/29 with interval increase in size to 1.8 cm. Awaiting increase to 2 cm to intervene, as more treatment options will become available after that per patient. She has had recurrent admissions to this
year. History of pancolitis and gastroenteritis, ascending cholangitis , she underwent ERCP/EUS with drainage of pus and stent placement within the left hepatic duct. She was also noted to have esophageal varices and portal hypertensive
gastropathy; a cystic pancreatic head lesion was biopsied with results showing atypical cells of indeterminate significance.
d/w her son Jackson at bed side [phone]
Total time spent to see the patient, examine the patient, review data and lab results, discuss treatment plan with patient, her son ER doctor, nursing staff around 75 minutes
Original Note:
Family Physician
-
Family Physician: Kathleen Navarro
Chief Complaint
-
Abdominal Pain and Weight Loss
History of Present Illness
Patient is a 64 y/o female past medical history of alcoholic cirrhosis, hepatocellular carcinoma, chronic pancreatitis, and diabetes mellitus who presents with abdominal pain, poor appetite and weight loss. Patient was recently discharged on Jan
following an admission with similar complaints. Patient reports she initially was feeling improved and took a trip to [facility]. She notes coming home from the trip she started feeling unwell. She reports worsening abdominal pain. She notes
reports she has been drinking liquids, but has no appetite for food. She reports she has lost about 12lbs due to poor appetite. She denies fevers. She notes that her sugars have been running very high and she has been urinating a lot.
Medical History
Past Medical History
Past Medical History: Reports Other
Additional Past Medical History:
Alcoholic Cirrhosis with Thrombocytopenia
Hepatocellular Carcinoma
Alcohol Use Disorder (in remission)
Diabetes Mellitus, Type II
Depression
Schatzki's ring
GERD
Past Surgical History: Reports Other
Additional Past Surgical History:
Cholecystectomy
EGD / Dilation
Bilary Stent
Social History
Tobacco: Non-smoker
Alcohol: Former (Sober x 8 years.)
Drug: None
Living: Alone
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
Family History: Not pertinent
Allergies / Home Medications
Allergies reflects when Allergies were last updated in [facility].
Home Medications with original date entered in [facility]
Allergy/Medication List:
Allergies
Allergy/AdvReac Type Severity Reaction Status Date / Time
cephalexin monohydrate (From Allergy Hives Verified 01/27/25 12:25
Keflex)
levofloxacin Allergy redness/itching Verified 01/27/25 12:25
at
injection
site
Penicillins Allergy Hives Verified 01/27/25 12:25
piperacillin (From Zosyn) Allergy Unknown Verified 01/27/25 12:25
sulfamethoxazole Allergy Rash Verified 01/27/25 12:25
tazobactam (From Zosyn) Allergy Unknown Verified 01/27/25 12:25
trimethoprim Allergy Rash Verified 01/27/25 12:25
Home Medications
omeprazole 20 mg capsule,delayed release 20 mg PO DAILY Gastrointestinal Issue 07/15/18
cholecalciferol (vitamin D3) 25 mcg (1,000 unit) tablet (Vitamin D3) 25 mcg PO DAILY Supplement 02/11/24
trazodone 50 mg tablet 25 mg PO HS Sleep 02/11/24
spironolactone 50 mg tablet 50 mg PO BID Fluid Retention/BP 05/06/24
carvedilol 3.125 mg tablet 3.125 mg PO BID Blood Pressure 01/02/25
dicyclomine 10 mg capsule 10 mg PO QIDPRN PRN abdominal pain 01/02/25
escitalopram oxalate 20 mg tablet (Lexapro) 20 mg PO HS Mental Health/Anxiety 01/02/25
insulin glargine 100 unit/mL (3 mL) subcutaneous pen (Lantus Solostar U-100 Insulin) 18 unit SC DAILY Diabetes 01/02/25
insulin aspart U-100 100 unit/mL (3 mL) subcutaneous pen 10 unit (0.1 mL) SC AC Diabetes #15 mL 01/07/25
lactulose 10 gram/15 mL oral solution 20 g (30 mL) PO DAILY Liver issues #16 oz 01/07/25
Review of Systems
-
A 12 point ROS was completed and negative except as noted: Yes
Constitutional: Denies Fever
Respiratory: Denies Cough or Trouble Breathing
Cardiac: Denies Chest Pain or Palpitations
Abdomen/GI: Reports See HPI
Physical Exam
Vital Signs
Vital Signs
Temp Pulse Resp BP Pulse Ox
97.8 F 128 14 127/77 99
01/27/25 12:21 01/27/25 14:30 01/27/25 14:30 01/27/25 14:14 01/27/25 14:36
Physical Exam
General: Comfortable and Conversant
HEENT: NormoCephalic and Anicteric
Respiratory: Clear and Non Labored Respirations
Cardiac: S1/S2, Regular Rhythm and Tachycardia
GI: Soft and Tender (Mild in upper regions without rebound or guarding)
Rectal: Deferred by Provider
Musculoskeletal: No Clubbing and No Cyanosis
Skin: Warm and Dry
Neuro: Awake, Alert and Oriented
Psych: Calm
Laboratory Results
-
01/27/25 13:25
01/27/25 13:25
Laboratory Results
Lactic Acid 3.3 mmol/L (0.7-2.0) H 01/27/25 15:47
Total Bilirubin 2.6 mg/dl (0.2-1.3) H 01/27/25 13:25
AST 109 U/L (14-36) H 01/27/25 13:25
ALT 67 U/L (0-35) H 01/27/25 13:25
Alkaline Phosphatase 168 U/L (38-126) H 01/27/25 13:25
Troponin I 0.017 ng/ml 01/27/25 13:25
Lipase Cancelled 01/27/25 14:45
Data Reviewed
-
Lab Data: Labs Reviewed by me
Impression/Plan
-
Uncontrolled Diabetes
-Give Lantus 25 units SC Now - Further long acting insulin orders will be based on glucose reading tomorrow
-Continue IVFs
-Monitor sugars and continue coverage insulin
Hypokalemia, likely related to poor oral intake
-Replace potassium
-Magnesium level is borderline therefore will give 1gm IV NOW
Recurrent Abdominal Pain and Weight Loss
-Consult GI
-Consult dietary
-Add pancreatic enzymes as chronic pancreatitis may be planning a role in her pain
Hepatocellular Carcinoma
-Patient follows at [facility], per prior notes patient is not eligible for treatment until lesion is 2cm (currently 1.8cm)
Alcoholic Cirrhosis with Chronic Thrombocytopenia
-Patient reports no longer taking Xifaxan as outpatient due to cost
-Continue lactulose
-Continue spironolactone
Depression
-Continue escitalopram
DVT proph: SCDs
Code Status: Full Code
[2025-01-27 16:38] LABS: Venous Blood Gas B.E. -5.2 mmol/L (-4 to +4); Venous Blood Gas O2 Sat % 93.8 %
[2025-01-27] MEDS: NSS 500 IV (16:52)
[2025-01-27 16:57] LABS: Magnesium 1.6 mg/dl (1.6-2.3)
[2025-01-27] MEDS: KCL ELIXIR PO (17:25)
[2025-01-27] MEDS: KCL ELIXIR 40 MEQ PO (17:28)
[2025-01-27] MEDS: MAGNESIUM SULFATE 102 GRAMS IV (18:03)
[2025-01-27] MEDS: LANTUS 0.25 UNITS SC (19:28)
[2025-01-27 19:31] LABS: Glucose - Point of Care 279 mg/dl (70-99)
--- NOTE | 2025-01-27 19:55 | PTCARENOTE ---
Patient arrived from the ED via stretcher. Patient AAOx3, VSS. C/o abdominal pain. Patient assisted to the bathroom, had a loose BM. Patient updated on plan of care. Call dixon is within reach.
[2025-01-27] MEDS: COREG 3.125 MG PO (20:21)
[2025-01-27] MEDS: ZENPEP DELAYED RELEASE CAPSULE 1 CAPSULE PO (20:22)
[2025-01-27] MEDS: PROTONIX IV 40 MG IV (20:22)
[2025-01-27] MEDS: LEXAPRO 20 MG PO (20:22)
[2025-01-27] MEDS: ALDACTONE 50 MG PO (20:22)
[2025-01-27] MEDS: NSS (PRESERVATIVE FREE) 10 ML IV (20:22)
[2025-01-27] MEDS: DESYREL 25 MG PO (20:22)
[2025-01-27 21:19] LABS: Glucose - Point of Care 251 mg/dl (70-99)
[2025-01-28] VITALS (8 sets, daily range): BP systolic 119–141; BP diastolic 63–82; PULSE 72; O2SAT 98–99; BMI 16.7
[2025-01-28 00:37] LABS: Blood Urea Nitrogen 8 mg/dl (7-17); Calcium 8.0 mg/dl (8.4-10.2); Carbon Dioxide 21 mmol/L (22-30); Chloride 101 mmol/L (98-107); Estimated Creatinine Clearance 57 ml/min; Glucose 205 mg/dl (70-99); Potassium 2.9 mmol/L (3.5-5.1); Sodium 130 mmol/L (135-145); eGFR > 60.00
[2025-01-28] MEDS: KCL ELIXIR 40 MEQ PO (02:03)
[2025-01-28] MEDS: NSS with KCL 40 MEQ 1000 IV ×2 (02:03→10:23)
[2025-01-28] MEDS: DILAUDID 0.5 MG IV ×6 (02:31→21:28)
[2025-01-28 08:06] LABS: Glucose - Point of Care 106 mg/dl (70-99)
[2025-01-28] MEDS: PROTONIX IV 40 MG IV ×2 (08:08→21:24)
[2025-01-28] MEDS: NSS (PRESERVATIVE FREE) 10 ML IV ×2 (08:08→21:25)
[2025-01-28] MEDS: ALDACTONE 50 MG PO ×2 (08:11→21:23)
[2025-01-28] MEDS: ZENPEP DELAYED RELEASE CAPSULE 1 CAPSULE PO ×4 (08:11→21:24)
[2025-01-28] MEDS: DUPHALAC/CHRONULAC 20 GRAMS PO (08:11)
[2025-01-28] MEDS: COREG 3.125 MG PO ×2 (08:11→21:24)
[2025-01-28 08:13] LABS: Hematocrit 41.9 % (37.0-47.0); Hemoglobin 14.4 g/dL (12.0-16.0); Mean Corp Hgb Conc. 34.4 g/dL (33.0-37.0); Mean Corpuscular Volume 92.9 fL (81.0-99.0); Platelet Count 100 10^3/uL (130-400); Red Cell Dist. Width 13.8 % (11.5-14.5)
[2025-01-28 08:17] LABS: ALT (SGPT) 61 U/L (0-35); AST (SGOT) 94 U/L (14-36); Albumin 4.0 g/dl (3.5-5.0); Alkaline Phosphatase 118 U/L (38-126); Blood Urea Nitrogen 6 mg/dl (7-17); Calcium 8.1 mg/dl (8.4-10.2); Carbon Dioxide 24 mmol/L (22-30); Chloride 106 mmol/L (98-107); Estimated Creatinine Clearance 57 ml/min; Glucose 114 mg/dl (70-99); Magnesium 1.9 mg/dl (1.6-2.3); Potassium 4.1 mmol/L (3.5-5.1); Sodium 134 mmol/L (135-145); Total Protein 7.2 g/dl (6.3-8.2); eGFR > 60.00
--- NOTE | 2025-01-28 08:20 | CON.GI ---
Addendum entered and electronically signed by Carlota Baeza MD 01/28/25 10:29:
will attempt to add on PETH
Addendum entered and electronically signed by Flavia Sebastian MD, Resident 01/28/25 10:15:
MELD score - 20 points
Addendum entered and electronically signed by Carlota Baeza MD 01/28/25 10:12:
I personally performed a history and physical exam of the patient and discussed management with the resident. I reviewed the resident's note and agree with the documented findings and plan of care [facility].
64-year-old female complicated past medical history with including diabetes, alcoholic cirrhosis with hepatocellular carcinoma, grade 1 esophageal varices, portal gastropathy who follows with Dr. Valenzuela and Dr. Teixeira, recent admission for
cholangitis, found incidentally to have a pancreatic head mass versus cyst pathology showing atypical cells in the background of chronic pancreatitis presenting with right upper quadrant abdominal pain, loss of appetite, weight loss approximately 12
pounds since last admission, nausea, inability to focus, increased urination, gait issues. She recently went to [facility] after her last discharge and towards the end of the vacation, she started not feeling well. She does note that her blood sugars
were as high as 500s. On admission here, her blood sugar was initially 327, bicarb 16, total bilirubin initially 2.6, on repeat went down to 1.6, normal alkaline phosphatase, AST and ALT stable, lipase less than 10, hemoglobin 15.6 admission, on
repeat 14.4, CT imaging found to have chronic pancreatitis without superimposed acute pancreatitis, previously seen cystic focus within the pancreatic head no longer visible, cirrhotic morphology with 1.7 cm hypodense lesion in the inferior right
hepatic lobe consistent with LIRADS 5 lesion, portal hypertensive changes, biliary stent present. Also underwent limited abdominal ultrasound which showed no ascites.
Given the fact that her liver enzymes are not abovve her baseline, I suspect more likely that her symptoms are related to her hyperglycemia. She also seems to have been dehydrated when she first came in. This could explain her nausea, weight loss,
decreased appetite, increased urination, poor gait. She may have an element of diabetic gastroparesis. I discussed with Dr. Gomes we will do a trial of Remeron 7.5 mg at bedtime to see if that helps with her nausea and weight loss. Given her
underlying cirrhosis, need to closely monitor patient on Remeron. Also she is on Lexapro and need to carefully monitor for signs of serotonin syndrome or toxicity. I will stop trazodone. I stressed the patient to take less Dilaudid as this may
worsen her symptoms if it is related to diabetic gastroparesis.
There is a question about alcohol relapse. She states she only had 1 drink in [facility]. I would expect her liver enzymes to be more significantly elevated if she was drinking excessively. Unfortunately PETH not an option in the hospital.
In regards to her abdominal pain, this is chronic. Agree with medical team who has ordered Zenpep. This may be related to her chronic pancreatitis. Lipase is normal and no evidence of acute pancreatitis.
In regards to her confusion, of course hepatic encephalopathy is a concern. She has no asterixis. Her ammonia level is normal. Per patient, she had 5 bowel movements yesterday. I will continue to monitor her bowel movements and continue
lactulose and Xifaxan.
In regards to her liver, she follows with Dr. Teixeira outpatient and has an appointment with her March 17 at 1:00. She also follows with Dr. Valenzuela for her hepatocellular carcinoma. We should check her MELD labs daily.
In regards to the pancreatic lesion with atypical cells, she has an appointment with Dr. Burch February 27 at 1 PM.
I discussed with Dr. Gomes hospitalist above. At this time, no need for additional imaging or further GI workup. We will see if adjusting medications as above and treating her hypoglycemia to help with her symptoms.
Original Note:
Consultation
-
Date/Time Consultation Requested: 01/28/25, 7.20am
Date/Time Consultation Performed: 01/28/25, 8.00am
Requesting Provider: Christopher Gomes MD
Performing Provider: Flavia Sebastian MD, for Isa Tejada MD
Reason for Consultation: Abdominal pain.
Medical History
Chief Complaint / HPI
Chief Complaint: Fatigue, weakness, confusion and unsteadiness with abdominal pain.
History of Present Illness:
Kendra is a 64-year-old female with past medical history significant for Alcoholic cirrhosis, (single episode of ascites about 8 years ago), currently compensated, hepatocellular carcinoma, chronic pancreatitis with cellular atypia, type 2
diabetes ucxaqmov-[id number], MDD, Schatzki ring, GERD, and underweight presents to the emergency room for evaluation of weakness, fatigue, confusion and unsteadiness on feet with some associated abdominal pain. She reports to have lost
about 12 pounds in the last 2 weeks, and states that her baseline appetite is not great but over the last 2 weeks her appetite has been significantly low, and she would survive on drinking chicken broth and water every day. About a week ago she was
on a trip to [facility] where her fatigue and weakness started. Her weakness and fatigue were preceded by high blood sugars with blood sugars ranging 380-580s, and associated with polyuria to a point that she was assisted in the flight. She also reports
to have had 1 strawberry containing alcoholic cocktail in [facility] but no more than 1. Over the last 1 week it has progressively became worse to the point that she could not get up or walk yesterday. She reports that her abdominal pain is mostly in
the right upper and right lower quadrants, it is a dull aching pain which is intermittent, about 5/10 in intensity and has not changed much from her baseline until yesterday. Today her abdominal pain is back at 5/10 in intensity-her baseline. She
reports intermittent waves of nausea associated with abdominal pain but denies any emesis in the last 2 weeks. Her bowel movements are about 2-3, baseline loose from lactulose, and . She denies greasy, difficult to flush stools, constipation,
blood in the stools or tarry colored stools, Diarrhea, Syncope or near syncopal episodes.
Currently her weakness has significantly improved however she still feels unsteady on her foot.
She denies having chest pain, orthopnea, PND, swelling in the abdomen or the legs, weight gain, confusion, and focal weakness. Her last bowel movement was in the am
She reports to have had about 5 bowel movements yesterday. Of note she was admitted to the hospital in early January between January 05-January 07, 2025 for similar symptoms when she was diagnosed with chronic pancreatitis, she underwent
endoscopic ultrasound and had an extraction of pancreatic duct stone with a biopsy of head of the pancreas lesion that showed cellular atypia. She had another hospital admission for similar symptoms in December when she was diagnosed with
hepatocellular carcinoma and also had hepatic duct abscess which was drained with a plastic biliary stent placed.
Past Medical History
Past Medical History: Other (Alcoholic cirrhosis, (single episode of ascites about 8 years ago), currently compensated, hepatocellular carcinoma, chronic pancreatitis with cellular atypia, type 2 diabetes mellitus, MDD, Schatzki ring, GERD)
Past Surgical History: Other (Cholecystectomy, biliary stent for hepatic duct abscess.)
Social History
Tobacco: Non-Smoker
Alcohol: Former (With alcohol use disorder, in remission for 8 years now.)
Drug: None
Personal:
Living: With Family
Employment: Disabled
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
Family History: Reviewed & Not Pertinent
Allergies / Home Medications
Allergy/AdvReac Type Severity Reaction Status Date / Time
cephalexin monohydrate (From Allergy Hives Verified 01/27/25 12:25
Keflex)
levofloxacin Allergy redness/itching Verified 01/27/25 12:25
at
injection
site
Penicillins Allergy Hives Verified 01/27/25 12:25
piperacillin (From Zosyn) Allergy Unknown Verified 01/27/25 12:25
sulfamethoxazole Allergy Rash Verified 01/27/25 12:25
tazobactam (From Zosyn) Allergy Unknown Verified 01/27/25 12:25
trimethoprim Allergy Rash Verified 01/27/25 12:25
�Medication �Instructions �Recorded
omeprazole 20 mg capsule,delayed 20 mg PO DAILY Gastrointestinal 07/15/18
release Issue
cholecalciferol (vitamin D3) 25 25 mcg PO DAILY Supplement 02/11/24
mcg (1,000 unit) tablet (Vitamin
D3)
trazodone 50 mg tablet 25 mg PO HS Sleep 02/11/24
spironolactone 50 mg tablet 50 mg PO BID Fluid Retention/BP 05/06/24
carvedilol 3.125 mg tablet 3.125 mg PO BID Blood Pressure 01/02/25
dicyclomine 10 mg capsule 10 mg PO QIDPRN PRN abdominal pain 01/02/25
escitalopram oxalate 20 mg tablet 20 mg PO HS Mental Health/Anxiety 01/02/25
(Lexapro)
insulin glargine 100 unit/mL (3 18 unit SC DAILY Diabetes 01/02/25
mL) subcutaneous pen (Lantus
Solostar U-100 Insulin)
insulin aspart U-100 100 unit/mL 10 unit (0.1 mL) SC AC Diabetes 01/07/25
(3 mL) subcutaneous pen #15 mL
lactulose 10 gram/15 mL oral 20 g (30 mL) PO DAILY Liver issues 01/07/25
solution #16 oz
Review of Systems
-
History Source: Patient
Constitutional: Reports Fatigue
EENT: Reports No Symptoms
Respiratory: Reports No Symptoms
Cardiac: Reports No Symptoms
Abdomen/GI: Reports Abdominal Pain and Nausea
: Reports No Symptoms
Musculoskeletal: Reports No Symptoms
Skin: Reports No Symptoms
Neurological: Reports Weakness and Other (Unsteady gait.)
Endocrine: Reports No Symptoms
Hematologic/Lymphatic: Reports No Symptoms
Vital Signs
Temp Pulse Resp BP Pulse Ox
97.4 F 74 16 126/68 100
01/28/25 03:12 01/28/25 03:12 01/28/25 03:12 01/28/25 03:12 01/28/25 03:12
Physical Exam
Exam
General: No Apparent Distress and Comfortable
Respiratory: Clear; Negative Wheezes, Rales or Rhonchi
Cardiac: S1/S2 and Regular Rhythm; Negative Murmur or Rub
GI: Soft, Non Distended, Normal Bowel Sounds, Tender (right upper quadrant) and Other (Tympanic on percussion, no hepatosplenomegaly.)
Musculoskeletal: No Clubbing, No Cyanosis and Other (Trace ankle edema.)
Skin: Warm
Neuro: AO x 3, No Motor Deficits and Other (fine tremors noted.)
Psych: Calm
Results
WBC 4.2 10^3/uL (4.8-10.8) L 01/28/25 07:12
Hgb 14.4 g/dL (12.0-16.0) 01/28/25 07:12
Hct 41.9 % (37.0-47.0) 01/28/25 07:12
MCV 92.9 fL (81.0-99.0) 01/28/25 07:12
Plt Count 100 10^3/uL (130-400) L D 01/28/25 07:12
Absolute Neuts (auto) 4.2 10^3/uL (1.4-6.5) 01/27/25 13:25
Sodium 134 mmol/L (135-145) L 01/28/25 07:12
Potassium 4.1 mmol/L (3.5-5.1) D 01/28/25 07:12
Chloride 106 mmol/L (98-107) 01/28/25 07:12
Carbon Dioxide 24 mmol/L (22-30) 01/28/25 07:12
BUN 6 mg/dl (7-17) L 01/28/25 07:12
Creatinine 0.6 mg/dL (0.6-1.0) 01/28/25 07:12
Calcium 8.1 mg/dl (8.4-10.2) L 01/28/25 07:12
Total Bilirubin 1.6 mg/dl (0.2-1.3) H D 01/28/25 07:12
AST 94 U/L (14-36) H 01/28/25 07:12
ALT 61 U/L (0-35) H 01/28/25 07:12
Alkaline Phosphatase 118 U/L (38-126) 01/28/25 07:12
Amylase 52 U/L (30-110) 01/27/25 13:25
Lipase Cancelled 01/27/25 14:45
Diagnostic Image Results:
Abdomen/Pelvis CT -01/27/2025.
IMPRESSION:
Findings of chronic pancreatitis without definite superimposed acute pancreatitis. The previously seen cystic focus within the pancreatic head is no longer definitely visualized.
Cirrhotic morphology with a 1.7 cm hypodense lesion within the inferior right hepatic lobe consistent with known LIRADS 5 lesion. Findings of portal hypertension, similar to prior.
Biliary stent is present with unchanged positioning and no evidence of biliary duct dilation.
Prior GI Procedures:
Biopsy results-01/07/25-
Pancreas head, �stricture, possible mass�, Fine needle aspiration:
- Satisfactory for evaluation.
- Atypical.
- Rare atypical glandular cells present in a background of chronic pancreatitis. See note.
Note: The specimen shows a few highly atypical glandular cells in this background of chronic
pancreatitis. Overall, there is insufficient cellular material to make a definitive diagnosis, and
tumor cannot be exclude
EGD: upper GI endoscopic ultrasound-01/05/2025-
Findings:
-ENDOSONOGRAPHIC FINDING:
- The region of the celiac plexus and celiac ganglia was
visualized.
- Endosonographic imaging of the pancreas showed sonographic
changes indicative of chronic pancreatitis in the entire pancreas.
The parenchyma had calcifications, diffusely increased echogenicity,
hyperechoic strands, hyperechoic foci, lobularity and shadowing foci.
The pancreatic duct had duct dilation, hyperechoic mendez,
intraductal stones and a tortuous/ectatic appearance. The pancreatic
duct measured up to 8 mm in diameter. There was intraductal stone in
pancreatic duct proximal to the dilated PD.
- An irregular mass-like lesion was identified in the pancreatic
head. Again, this was subtle and not definite. The mass was
hypoechoic, hyperechoic and heterogenous. The mass measured 20 mm by
19 mm in maximal cross-sectional diameter. The endosonographic
borders were poorly-defined. The remainder of the pancreas was
examined. The endosonographic appearance of parenchyma and the
upstream pancreatic duct indicated duct dilation. Fine needle
aspiration for cytology was performed. Color Doppler imaging was
utilized prior to needle puncture to confirm a lack of significant
vascular structures within the needle path. Four passes were made
with the 22 gauge needle using a transduodenal approach. No stylet
was used. A edge bander operator was present to evaluate the adequacy of
the specimen. Final cytology results are pending.
- One stent was visualized endosonographically in the common
bile duct. Extension of the stent was noted.
- There was dilation in the common bile duct which measured up
to 10 mm.
- There was no sign of significant endosonographic abnormality
in the ampulla.
- There was abnormal echogenicity in the left lobe of the liver
and in the visualized portion of the liver. This area was lobulated.
- A small amount of fluid, visualized as an anechoic feature,
was found in the peritoneal cavity.
Impression:
- Endosonographic imaging of the pancreas showed sonographic
changes consistent with chronic pancreatitis.
- A subtle mass-like lesion was identified in the pancreatic head.
Tissue was obtained from this exam, and results are pending. Fine
needle aspiration performed.
- One stent was visualized endosonographically in the common bile
duct.
- There was dilation in the common bile duct which measured up to
10 mm.
- There was no sign of significant pathology in the ampulla.
- There was abnormal echogenicity in the left lobe of the liver and
in the visualized portion of the liver. This was lobulated. A
tissue diagnosis was obtained prior to this exam. This is of
cirrhosis.
- Ascites was found on endosonographic examination of the
peritoneal cavity.
Recommendation:
- Return patient to hospital bernal.
- Await cytology results.
- Return to my office as previously scheduled.
- Full liquid diet today.
Upper GI endoscopy-01/05/2025-Impression:
- Small (< 5 mm) esophageal varices.
- Portal hypertensive gastropathy.
- Normal duodenal bulb, first portion of the duodenum and second
portion of the duodenum.
- No specimens collected.
Recommendation:
- Perform an upper endoscopic ultrasound (UEUS) today.
Colonoscopy:
Findings:
The perianal and digital rectal examinations were normal.
There was moderate spasm in the entire colon.
Small, non-bleeding rectal varices were found.
The exam was otherwise without abnormality.
Impression: - Moderate colonic spasm.
- Rectal varices.
- The examination was otherwise normal.
- No specimens collected.
Recommendation: - Repeat colonoscopy in 5 years for screening purposes.
- Discharge patient to home (ambulatory).
- Resume previous diet.
- Continue present medications.
- Follow-up in office as previously scheduled.
Assessment / Plan
-
[age]ytmajfzhx-49-cy[age]-old female Alcoholic cirrhosis, (single episode of ascites about 8 years ago), currently compensated, hepatocellular carcinoma, chronic pancreatitis with cellular at IPR, type 2 diabetes [id number]-bzkcuimgg, MDD, Schaemilyki
ring, GERD, and underweight presents to the emergency room for evaluation of weakness, fatigue and unsteadiness on feet with some associated abdominal pain. She was diagnosed to be in diabetic/starvation ketoacidosis. GI is consulted for
evaluation of abdominal pain.
Problem list-
# non anion gap ketoacidosis with elevated beta hydroxybutyrate levels
# chronic pancreatitis
# Insulin-dependent type 2 diabetes mellitus
# Hepatocellular carcinoma
# Chronic pancreatitis
# GERD
# Alcoholic cirrhosis, compensated.
Plan-
Her acute on chronic abdominal pain is likely secondary to starvation ketoacidosis. Her nausea, and weightloss can be attributed to uncontrolled diabetes, and suspect some component of alcohol relapse. her abdominal pain is back to the baseline.
Will add Creon supplementation for chronic pancreatitis, and remeron for diabetic gastroparesis.
No management plan change from GI standpoint. Call with any further questions.
-
-
Thank you for consultation and allowing me to participate in the patient's care. Please call the nutrition intern GI physician during the after hours with any questions or concerns.
[2025-01-28] MEDS: NOVOLOG FLEXPEN-MODERATE RESISTANCE SC ×2 (08:50→17:19)
[2025-01-28] MEDS: LANTUS 0.2 UNITS SC (09:08)
--- NOTE | 2025-01-28 09:52 | W.PN.HOSP.TC ---
Addendum entered and electronically signed by Christopher Gomes MD 01/28/25 11:53:
Addendum
Leukopenia, thrombocytopenia consistent with liver disease
End
Original Note:
Today's Communication/Plan
-
.
Assessment / Plan
Assessment / Plan
Physical Exam
General: Comfortable and Conversant
HEENT: NormoCephalic and Anicteric
Respiratory: Clear and Non Labored Respirations
Cardiac: S1/S2, Regular Rhythm and Tachycardia
GI: Soft and not tender on my exam.
Rectal: No bleeding
Musculoskeletal: No Clubbing and No Cyanosis
Skin: Warm and Dry
: No hematuria
Neuro: Awake, Alert and Oriented, gait is unsteady
Psych: Calm
# Acute on chronic abdominal pain. No N/V
No chest pain.
Possible ETOH intake/use ?
History of chronic pancreatitis, low lipase.
CT of the abdomen pelvis did not show acute inflammatory changes, Positive for cirrhosis, portal hypertension, unchanged positioning of biliary stent with no evidence of biliary tract dilation.
Patient is improving with IV pain medication, advised to cut back to avoid nausea
- continue low-dose of IV Dilaudid. Avoid excessive dose to avoid confusion and side effects
Continue Bentyl PRN
No need for more IV fluid,
IV Protonix with pancreatic enzymes
d/w GI, start low dose Remeron at HS for nausea.
Primary plant specialist Dr. Teixeira
# Mild DKA/starvation ketoacidosis.
Resolved
Resume Lantus, ISS
# Liver cirrhosis.
Low ammonia level
Continue with diuretic therapy, continue with Aldactone.
# Hypokalemia, replaced.
# Lactic acidosis, will do blood culture no respiratory or GI symptoms other than abdominal pain
# Chronic Hyponatremia:
#Hypomagnesemia, replaced.
# Failure to thrive
# Diabetic polyneuropathy, gait dysfunction, PT/OT
# She had MRI in 07/2024 performed for HCC screening revealed LI-RADS 4 lesion, suspicious for HCC. She was referred her to [facility] Hepatology, Dr. Valenzuela, and after further review of the imaging at tumor board, the lesion was upgraded to a
LI-RADS 5 lesion, consistent with HCC. MR in 11/29 with interval increase in size to 1.8 cm. Awaiting increase to 2 cm to intervene, as more treatment options will become available after that per patient. She has had recurrent admissions to this
year. History of pancolitis and gastroenteritis, ascending cholangitis , she underwent ERCP/EUS with drainage of pus and stent placement within the left hepatic duct. She was also noted to have esophageal varices and portal hypertensive
gastropathy; a cystic pancreatic head lesion was biopsied with results showing atypical cells of indeterminate significance.
Her son Jackson Lynn [phone]
Met with family at bed side, answered all questions.
Total time spent to see the patient, examine the patient, review data and lab results, discuss treatment plan with patient, her family, GI doctor, nursing staff around 59 minutes
Anticipated Discharge: 24 - 48 hours
Subjective/Interval History
-
Date of Service: January 28, 2025
Objective Data
-
Labs:
Laboratory Results
01/27/25 01/28/25
23:32 07:12
WBC 4.2 L
Hgb 14.4
Hct 41.9
Plt Count 100 L D
Sodium 130 L 134 L
Potassium 2.9 L 4.1 D
Chloride 101 106
Carbon Dioxide 21 L 24
BUN 8 6 L
Creatinine 0.6 0.6
Glucose 205 H 114 H
Calcium 8.0 L D 8.1 L
Total Bilirubin 1.6 H D
AST 94 H
ALT 61 H
Alkaline Phosphatase 118
Vital Signs:
Vital Signs
Temp Pulse Resp BP Pulse Ox
97.5 F 74 18 119/63 100
01/28/25 08:32 01/28/25 08:32 01/28/25 08:32 01/28/25 08:32 01/28/25 08:32
I&O
01/27/25 01/28/25 01/29/25
06:59 06:59 06:59
Intake Total 1979
Balance 1979
--- NOTE | 2025-01-28 10:19 | CM ---
Met with pt and reviewed chart. Pt is still in work-up . On IV fluids at this time. Will follow for DC needs.
Plan: TBD
--- NOTE | 2025-01-28 11:57 | PN.CDI ---
CDI
- -
CDI:
Physician Documentation Request
Admit Date: 01/27/25 17:43
Dear Doctor,
Pt admitted for abdominal pain.
01/28 Repacker Assessment: 'Pt indicated she has lost 12 lbs that she was weighing 92lbs for the past 6 months. Note previous hospitalization pt weighed on 01/02/25 95lb 4 oz. CBW reflects a loss of 13lbs or 13.6% change in wt. Per GI
consult 01/28- states that her baseline appetite is not great but over the last 2 weeks her appetite has been significantly low, and she would survive on drinking chicken broth and water every day. Decreased intake and wt loss meets ASPEN and AND
criteria for severe protein calorie malnutrition.'
Based on the above information and your assessment, which of the following most accurately represents the patient's nutritional status?
Severe protein calorie malnutrition
Other
[place] Criteria ([facility] Hospitalist 2017)
2 or more criteria must be present for either
non severe or severe malnutrition
Note that the criteria differs related to the
presence of an acute or chronic illness
Acute Illness Chronic Illness
Energy Intake Non Severe: <75% for >7 days Non Severe: <75% for >1 month
Severe: <50% for >5 days Severe: <75% for >1 month
Weight Loss Non Severe: 1-2% over 1 week Non Severe: 5% over 1 month
5% over 1 month 7.5% over 3 months
7.5% over 3 months 10% over 6 months
1 year N/A 20% over 1 year
Severe: >2% over 1 week Severe: >5% over 1 month
>5% over 1 month >7.5% over 3 months
>7.5% over 3 months >10% over 6 months
1 year N/A >20% over 1 year
Body Fat Non Severe: Mild Decrease Non Severe: Mild Loss
Severe: Moderate Decrease Severe: Severe Loss
Muscle Mass Non Severe: Mild Decrease Non Severe: Mild Loss
Severe: Moderate Decrease Severe: Severe Loss
Fluid Accumulation Non Severe: Mild Accumulation Non Severe: Mild Accumulation
Severe: Moderate to severe Severe: Moderate to severe
accumulation accumulation
Reduced Die Engraving Supervisor Strength Non Severe: N/A Non Severe: N/A
Severe: Measurably reduced Severe: Measurably reduced
Additional criteria that can be used to Determine if Mild or Moderate Malnutrition (Merck Manual 2018)
Mild Moderate Severe
Albumin gm/dl <3.0 gm/dl <2.5 gm/dl <2.0 gm/dl
Pre Albumin mg/dl <15 gm/dl <10 mg/dl <5.0 mg/dl
BMI <18.5 <17 <16
Use of terms such as suspected, likely, concern for, or probable (associated with a specific diagnosis that is being evaluated, monitored, or treated as if it exists) are acceptable and can be coded in the inpatient setting, when documented at the
time of discharge.
Thank you,
Lea Maldonado RN, BSN
CDI Specialist
Available via [place] text
Please use your independent medical judgment in providing your response.
[2025-01-28 12:21] LABS: Glucose - Point of Care 162 mg/dl (70-99)
[2025-01-28] MEDS: NOVOLOG FLEXPEN-MODERATE RESISTANCE 1 UNITS SC (12:23)
[2025-01-28] MEDS: FLUSH (NSS) 2 FLUSH IV (13:39)
[2025-01-28 17:08] LABS: Glucose - Point of Care 127 mg/dl (70-99)
[2025-01-28] MEDS: REMERON 7.5 MG PO (21:25)
[2025-01-28] MEDS: LEXAPRO 20 MG PO (21:26)
[2025-01-28] MEDS: MYCOSTATIN CREAM 1 APPLIC TOPICAL (21:27)
[2025-01-28 21:52] LABS: Glucose - Point of Care 62 mg/dl (70-99)
[2025-01-28 22:22] LABS: Glucose - Point of Care 96 mg/dl (70-99)
[2025-01-29 00:36] LABS: Glucose - Point of Care 91 mg/dl (70-99)
[2025-01-29] MEDS: DILAUDID 0.5 MG IV ×2 (01:07→08:41)
[2025-01-29 02:25] LABS: Glucose - Point of Care 92 mg/dl (70-99)
[2025-01-29 03:11] VITALS: BP 134/74
[2025-01-29 07:30] VITALS: BP 136/74
[2025-01-29 07:49] LABS: INR 1.26; PT 15.6 Sec (11.4-14.6)
[2025-01-29 08:14] LABS: Glucose 55 mg/dl (70-99)
[2025-01-29 08:15] LABS: ALT (SGPT) 60 U/L (0-35); AST (SGOT) 93 U/L (14-36); Albumin 3.2 g/dl (3.5-5.0); Alkaline Phosphatase 128 U/L (38-126); Blood Urea Nitrogen 2 mg/dl (7-17); Calcium 8.5 mg/dl (8.4-10.2); Carbon Dioxide 23 mmol/L (22-30); Chloride 105 mmol/L (98-107); Estimated Creatinine Clearance 57 ml/min; Potassium 2.8 mmol/L (3.5-5.1); Sodium 133 mmol/L (135-145); Total Protein 5.9 g/dl (6.3-8.2); eGFR > 60.00
[2025-01-29 08:20] LABS: Glucose - Point of Care 46 mg/dl (70-99)
[2025-01-29] MEDS: NOVOLOG FLEXPEN-MODERATE RESISTANCE SC (08:22)
[2025-01-29] MEDS: DUPHALAC/CHRONULAC 20 GRAMS PO (08:23)
[2025-01-29] MEDS: PROTONIX IV 40 MG IV ×2 (08:23→20:40)
[2025-01-29] MEDS: NSS (PRESERVATIVE FREE) 10 ML IV ×2 (08:23→20:40)
[2025-01-29 08:24] LABS: Hematocrit 33.7 % (37.0-47.0); Hemoglobin 11.7 g/dL (12.0-16.0); Mean Corp Hgb Conc. 34.7 g/dL (33.0-37.0); Mean Corpuscular Volume 91.1 fL (81.0-99.0); Nucleated Red Blood Cells % 0 %; Platelet Count 67 10^3/uL (130-400); Red Cell Dist. Width 13.5 % (11.5-14.5)
[2025-01-29] MEDS: COREG 3.125 MG PO ×2 (08:24→20:40)
[2025-01-29] MEDS: MYCOSTATIN CREAM 1 APPLIC TOPICAL ×2 (08:24→20:41)
[2025-01-29] MEDS: ALDACTONE 50 MG PO ×2 (08:24→20:40)
[2025-01-29] MEDS: ZENPEP DELAYED RELEASE CAPSULE 1 CAPSULE PO ×4 (08:26→20:59)
[2025-01-29 08:34] LABS: Glucose - Point of Care 75 mg/dl (70-99)
[2025-01-29] MEDS: LANTUS SC (08:50)
--- NOTE | 2025-01-29 09:16 | W.PN.HOSP.TC ---
Addendum entered and electronically signed by Christopher Gomes MD 01/30/25 10:00:
Severe protein calorie malnutrition
Original Note:
Today's Communication/Plan
-
Not much improved abd pain
f/w GI recommendations
Assessment / Plan
Assessment / Plan
Physical Exam
General: Comfortable and Conversant
HEENT: NormoCephalic and Anicteric
Respiratory: Clear and Non Labored Respirations
Cardiac: S1/S2, Regular Rhythm and Tachycardia
GI: Soft and not tender on my exam.
Rectal: No bleeding
Musculoskeletal: No Clubbing and No Cyanosis
Skin: Warm and Dry
: No hematuria
Neuro: Awake, Alert and Oriented, gait is unsteady
Psych: Calm
# Acute on chronic abdominal pain. No N/V
No chest pain.
Not much impoved abd pain
Possible ETOH intake/use?, patient reported taking one drink while in [place]
History of chronic pancreatitis, low lipase.
CT of the abdomen pelvis did not show acute inflammatory changes, Positive for cirrhosis, portal hypertension, unchanged positioning of biliary stent with no evidence of biliary tract dilation.
Patient is improving with IV pain medication, advised to cut back to avoid nausea
- continue low-dose of IV Dilaudid. Avoid excessive dose to avoid confusion and side effects
Continue Bentyl PRN
No need for more IV fluid,
IV Protonix with pancreatic enzymes
d/w GI, start low dose Remeron at HS for nausea.
Primary yardmaster Dr. Teixeira
# Mild DKA/starvation ketoacidosis.
Resolved
Now low blood glucose, will hold Lantus, c/w ISS. Pt is not eating well due to loss of appetite and pain
# Liver cirrhosis.
Low ammonia level
Continue with diuretic therapy, continue with Aldactone.
# Hypokalemia, replaced.
# Lactic acidosis, will do blood culture no respiratory or GI symptoms other than abdominal pain
# Chronic Hyponatremia:
#Hypomagnesemia, replaced.
# Failure to thrive
# Diabetic polyneuropathy, gait dysfunction, PT/OT
# She had MRI in 07/2024 performed for HCC screening revealed LI-RADS 4 lesion, suspicious for HCC. She was referred her to [facility] Hepatology, Dr. Valenzuela, and after further review of the imaging at tumor board, the lesion was upgraded to a
LI-RADS 5 lesion, consistent with HCC. MR in 11/29 with interval increase in size to 1.8 cm. Awaiting increase to 2 cm to intervene, as more treatment options will become available after that per patient. She has had recurrent admissions to this
year. History of pancolitis and gastroenteritis, ascending cholangitis , she underwent ERCP/EUS with drainage of pus and stent placement within the left hepatic duct. She was also noted to have esophageal varices and portal hypertensive
gastropathy; a cystic pancreatic head lesion was biopsied with results showing atypical cells of indeterminate significance.
Her son Jackson Lynn [phone]
Met with family at bed side, answered all questions.
Total time spent to see the patient, examine the patient, review data and lab results, discuss treatment plan with patient, her family, GI doctor, nursing staff around 57 minutes
Anticipated Discharge: > 48 hours
Subjective/Interval History
-
Date of Service: January 29, 2025
No sob
No chest pain
Still RUQ abdominal pain
Objective Data
-
Labs:
Laboratory Results
01/29/25
06:35
WBC 3.6 L
Hgb 11.7 L
Hct 33.7 L
Plt Count 67 L D
PT 15.6 H
INR 1.26
Sodium 133 L
Potassium 2.8 L D
Chloride 105
Carbon Dioxide 23
BUN 2 L
Creatinine 0.6
Glucose 55 L*
Calcium 8.5
Total Bilirubin 1.1
AST 93 H
ALT 60 H
Alkaline Phosphatase 128 H
Vital Signs:
Vital Signs
Temp Pulse Resp BP Pulse Ox
98 F 74 16 136/74 98
01/29/25 07:30 01/29/25 08:24 01/29/25 07:30 01/29/25 08:24 01/29/25 07:30
I&O
01/28/25 01/29/25 01/30/25
06:59 06:59 06:59
Intake Total 1979 1560 / 1560
Balance 1979 1560 / 1560
[2025-01-29] MEDS: KCL 270 MEQ IV ×2 (09:39→16:14)
[2025-01-29 10:35] LABS: Glucose - Point of Care 150 mg/dl (70-99)
[2025-01-29 11:05] VITALS: BP 119/61
--- NOTE | 2025-01-29 11:44 | W.PN.GI.CBS2 ---
Addendum entered and electronically signed by Jacey Loja Do, MD 01/29/25 13:58:
I saw and evaluated the patient. I reviewed the resident�s note and agree with findings and plan as documented in the resident�s note.
Ann reports improving abd pain down to 4 out of 10. She is eating most of her DM diet without issue. Low blood sugar noted this AM. Vitals stable Exam think W NAD conversant epigastric mildly TTP. Labs reviewed
Recommendations
- She is tolerating DM diet
- Pain management per primary team
- Strongly counseled on complete ETOH avoidance given her cirrhosis and chronic pancreatitis
- Optimize DM/blood sugars
- C/w zenpep for pancreatic insufficiency and remeron for appetite
At this juncture no new GI recs will sign off please call for ?
She has OP FU with Dr Burch for pancreatic lesion 02/27 at 1pm. Her general GI is Dr Teixeira.
Original Note:
Today's Communication / Plan
-
Continue remeron and creon
Assessment / Plan
-
[id number]old female Alcoholic cirrhosis, (single episode of ascites about 8 years ago), currently compensated, hepatocellular carcinoma, chronic pancreatitis with cellular at IPR, type 2 diabetes [id number], MDD, Sylvester
ring, GERD, and underweight presents to the emergency room for evaluation of weakness, fatigue and unsteadiness on feet with some associated abdominal pain. She was diagnosed to be in diabetic/starvation ketoacidosis. GI is consulted for
evaluation of abdominal pain.
Problem list-
# non anion gap ketoacidosis with elevated beta hydroxybutyrate levels
# chronic pancreatitis
# Insulin-dependent type 2 diabetes mellitus
# Hepatocellular carcinoma
# Chronic pancreatitis
# GERD
# Alcoholic cirrhosis, compensated. MELD score-20.
Plan-
Patient's appetite and nausea are improved with initiation of Remeron. Continue Remeron, Creon supplementation on outpatient basis and follow-up with GI. Pending PTH levels.
Subjective
Subjective
Date of Service: January 29, 2025
Patient reports improved appetite, ate 2 eggs for breakfast and yogurt. She reports that her abdominal pain is currently at 6/10 in intensity, her baseline pain is somewhere between 4-5/10 in intensity, and overall she is feeling sharp with no
confusion.Denies any nausea, fevers, emesis. Had about 4 bowels of loose stools with lactulose beginning yesterday night into the a.m. today.
Objective
Data Reviewed
Laboratory Data:
Laboratory Results
01/29/25 06:35
01/29/25 06:35
Laboratory Results
PT 15.6 Sec (11.4-14.6) H 01/29/25 06:35
INR 1.26 01/29/25 06:35
Magnesium 1.9 mg/dl (1.6-2.3) 01/28/25 07:12
Total Bilirubin 1.1 mg/dl (0.2-1.3) 01/29/25 06:35
AST 93 U/L (14-36) H 01/29/25 06:35
ALT 60 U/L (0-35) H 01/29/25 06:35
Alkaline Phosphatase 128 U/L (38-126) H 01/29/25 06:35
Amylase 52 U/L (30-110) 01/27/25 13:25
Lipase Cancelled 01/27/25 14:45
Vital Signs and I&O:
Vital Signs
Temp Pulse Resp BP Pulse Ox
97.8 F 73 16 119/61 100
01/29/25 11:05 01/29/25 11:05 01/29/25 11:05 01/29/25 11:05 01/29/25 11:05
I&O
01/28/25 01/29/25 01/30/25
06:59 06:59 06:59
Intake Total 1979 1560 / 1560
Balance 1979 1560 / 1560
Physical Exam
Physical Exam
HEENT: Anicteric and Moist mucous membranes
Cardiology: Normal Sinus Rhythm, S1 and S2
Pulmonary: Clear
GI: Soft, Tender (in RUQ) and Normal Bowel Sounds
Extremities: No Edema
[2025-01-29 12:36] LABS: Glucose - Point of Care 183 mg/dl (70-99)
[2025-01-29] MEDS: NOVOLOG FLEXPEN-MODERATE RESISTANCE 1 UNITS SC (12:58)
[2025-01-29] MEDS: BENTYL 10 MG PO (13:02)
[2025-01-29 15:16] VITALS: BP 131/68
[2025-01-29 16:36] LABS: Glucose - Point of Care 307 mg/dl (70-99)
[2025-01-29] MEDS: NOVOLOG FLEXPEN-MODERATE RESISTANCE 7 UNITS SC (17:01)
[2025-01-29 19:24] VITALS: BP 127/72
[2025-01-29] MEDS: REMERON 7.5 MG PO (20:59)
[2025-01-29] MEDS: LEXAPRO 20 MG PO (20:59)
[2025-01-29 21:28] LABS: Glucose - Point of Care 220 mg/dl (70-99)
[2025-01-29 22:33] LABS: Potassium 3.8 mmol/L (3.5-5.1)
[2025-01-29] MEDS: KCL IV (22:55)
[2025-01-29 23:40] VITALS: BP 121/62
[2025-01-30 03:07] LABS: Glucose - Point of Care 245 mg/dl (70-99)
[2025-01-30 03:22] VITALS: BP 140/79
[2025-01-30 07:20] VITALS: BP 134/74
[2025-01-30 07:41] LABS: Glucose - Point of Care 260 mg/dl (70-99)
[2025-01-30] MEDS: NSS (PRESERVATIVE FREE) 10 ML IV ×2 (08:08→19:36)
[2025-01-30] MEDS: ALDACTONE 50 MG PO ×2 (08:09→19:35)
[2025-01-30] MEDS: ZENPEP DELAYED RELEASE CAPSULE 1 CAPSULE PO ×4 (08:09→21:43)
[2025-01-30] MEDS: COREG 3.125 MG PO ×2 (08:09→19:36)
[2025-01-30] MEDS: PROTONIX IV 40 MG IV ×2 (08:09→19:36)
[2025-01-30] MEDS: DUPHALAC/CHRONULAC 20 GRAMS PO (08:59)
[2025-01-30] MEDS: MYCOSTATIN CREAM 1 APPLIC TOPICAL ×2 (08:59→19:37)
[2025-01-30] MEDS: NOVOLOG FLEXPEN-MODERATE RESISTANCE 5 UNITS SC (09:05)
[2025-01-30 09:28] LABS: Hematocrit 33.0 % (37.0-47.0); Hemoglobin 11.7 g/dL (12.0-16.0); Mean Corp Hgb Conc. 35.5 g/dL (33.0-37.0); Mean Corpuscular Volume 91.2 fL (81.0-99.0); Platelet Count 44 10^3/uL (130-400); Red Cell Dist. Width 13.2 % (11.5-14.5)
[2025-01-30 09:31] LABS: Blood Urea Nitrogen 3 mg/dl (7-17); Calcium 8.6 mg/dl (8.4-10.2); Carbon Dioxide 24 mmol/L (22-30); Chloride 102 mmol/L (98-107); Estimated Creatinine Clearance 57 ml/min; Glucose 271 mg/dl (70-99); Potassium 3.6 mmol/L (3.5-5.1); Sodium 132 mmol/L (135-145); eGFR > 60.00
--- NOTE | 2025-01-30 09:49 | W.PN.HOSP.TC ---
Today's Communication/Plan
-
likely dc in am
Assessment / Plan
Assessment / Plan
Physical Exam
General: Comfortable and Conversant
HEENT: NormoCephalic and Anicteric
Respiratory: Clear and Non Labored Respirations
Cardiac: S1/S2, Regular Rhythm and Tachycardia
GI: Soft and not tender on my exam.
Rectal: No bleeding
Musculoskeletal: No Clubbing and No Cyanosis
Skin: Warm and Dry
: No hematuria
Neuro: Awake, Alert and Oriented, gait is unsteady
Psych: Calm
# Acute on chronic abdominal pain. No N/V
No chest pain.
Improved abd pain
Possible ETOH intake/use?, patient reported taking one drink while in [place]
History of chronic pancreatitis, low lipase.
CT of the abdomen pelvis did not show acute inflammatory changes, Positive for cirrhosis, portal hypertension, unchanged positioning of biliary stent with no evidence of biliary tract dilation.
- continue low-dose of IV Dilaudid as needed only, counseled to cut back. Avoid excessive dose to avoid confusion and side effects
Continue Bentyl PRN
No need for more IV fluid,
IV Protonix with pancreatic enzymes
d/w GI, started low dose Remeron at HS for nausea, ok to go home.
Primary cooper apprentice Dr. Teixeira
# frequent stools
Watery
Non bloody
seen by me, seems c/w ongoing liver issues, not c/w infectious , also lack of pain/pain/leukocytosis
d/w GI doctor, hold Lactulose
# Mild DKA/starvation ketoacidosis.
Resolved
Now higher blood glucose, resume Lantus, c/w ISS. Pt is not eating well due to loss of appetite and pain
# pancytopenia due to liver disease
# Liver cirrhosis.
Low ammonia level
Continue with diuretic therapy, continue with Aldactone.
# Hypokalemia, replaced.
# Lactic acidosis, negative blood culture no respiratory or GI symptoms other than abdominal pain
# Chronic Hyponatremia:
#Hypomagnesemia, replaced.
# Failure to thrive
# Diabetic polyneuropathy, gait dysfunction, PT/OT
# She had MRI in 07/2024 performed for HCC screening revealed LI-RADS 4 lesion, suspicious for HCC. She was referred her to [facility] Hepatology, Dr. Valenzuela, and after further review of the imaging at tumor board, the lesion was upgraded to a
LI-RADS 5 lesion, consistent with HCC. MR in 11/29 with interval increase in size to 1.8 cm. Awaiting increase to 2 cm to intervene, as more treatment options will become available after that per patient. She has had recurrent admissions to this
year. History of pancolitis and gastroenteritis, ascending cholangitis , she underwent ERCP/EUS with drainage of pus and stent placement within the left hepatic duct. She was also noted to have esophageal varices and portal hypertensive
gastropathy; a cystic pancreatic head lesion was biopsied with results showing atypical cells of indeterminate significance.
Her son Jackson Lynn [phone]
Met with family at bed side, answered all questions. Requested to meet with senior case manager, paulo Murguia
Total time spent to see the patient, examine the patient, review data and lab results, discuss treatment plan with patient, her family, GI doctor, cm, nursing staff around 59 minutes
Anticipated Discharge: Within 24 hours
Subjective/Interval History
-
Date of Service: January 30, 2025
Feels better, less abdominal pain
No nausea but no good appetite
Nurse: frequent BMs.
Objective Data
-
Labs:
Laboratory Results
01/29/25 01/30/25
22:07 07:24
WBC 2.9 L
Hgb 11.7 L
Hct 33.0 L
Plt Count 44 L D
Sodium 132 L
Potassium 3.8 D 3.6
Chloride 102
Carbon Dioxide 24
BUN 3 L
Creatinine 0.6
Glucose 271 H
Calcium 8.6
Vital Signs:
Vital Signs
Temp Pulse Resp BP Pulse Ox
98.6 F 86 18 134/74 99
01/30/25 07:20 01/30/25 07:20 01/30/25 07:20 01/30/25 07:20 01/30/25 09:37
I&O
01/29/25 01/30/25 01/31/25
06:59 06:59 06:59
Intake Total 1560 / 1560 1260 / 1260
Balance 1560 / 1560 1260 / 1260
[2025-01-30] MEDS: KCL 270 MEQ IV (10:01)
[2025-01-30 11:58] LABS: Glucose - Point of Care 398 mg/dl (70-99)
[2025-01-30] MEDS: NOVOLOG FLEXPEN-MODERATE RESISTANCE 9 UNITS SC ×2 (13:03→17:14)
[2025-01-30] MEDS: LANTUS 0.25 UNITS SC (14:18)
[2025-01-30] MEDS: BENTYL 10 MG PO (14:24)
[2025-01-30 15:21] VITALS: BP 140/66
[2025-01-30] MEDS: DILAUDID 0.5 MG IV ×3 (15:43→23:43)
[2025-01-30 16:57] LABS: Glucose - Point of Care 366 mg/dl (70-99)
--- NOTE | 2025-01-30 17:30 | CM ---
Spoke with son pt and sister in room .
Reviewed PT OT evals .
Pt agreed with SNF . PAc data given SNF
Referral for [facility] and [facility] placed in care port.
AWill need auth
PLAN Locate SNF obtained auth
[2025-01-30 19:17] VITALS: BP 135/70
[2025-01-30 21:32] LABS: Glucose - Point of Care 222 mg/dl (70-99)
[2025-01-30] MEDS: LEXAPRO 20 MG PO (21:43)
[2025-01-30] MEDS: REMERON 7.5 MG PO (21:43)
[2025-01-30 23:29] VITALS: BP 142/72
[2025-01-31] MEDS: TYLENOL 650 MG PO ×2 (02:37→21:55)
[2025-01-31 03:39] VITALS: BP 126/71
[2025-01-31 07:07] VITALS: BP 129/70
[2025-01-31 08:48] LABS: Glucose - Point of Care 279 mg/dl (70-99)
[2025-01-31] MEDS: MYCOSTATIN CREAM TOPICAL ×2 (09:30→20:06)
[2025-01-31] MEDS: LANTUS 0.2 UNITS SC (09:33)
[2025-01-31] MEDS: PROTONIX IV 40 MG IV ×2 (09:34→19:52)
[2025-01-31] MEDS: COREG 3.125 MG PO ×2 (09:34→19:48)
[2025-01-31] MEDS: ZENPEP DELAYED RELEASE CAPSULE 1 CAPSULE PO ×4 (09:34→21:50)
[2025-01-31] MEDS: NSS (PRESERVATIVE FREE) 10 ML IV ×2 (09:34→19:52)
[2025-01-31] MEDS: ALDACTONE 50 MG PO ×2 (09:35→19:49)
[2025-01-31] MEDS: NOVOLOG FLEXPEN-MODERATE RESISTANCE 5 UNITS SC (09:36)
--- NOTE | 2025-01-31 09:48 | W.PN.HOSP.TC ---
Today's Communication/Plan
-
dc if bed available
Assessment / Plan
Assessment / Plan
Physical Exam
General: Comfortable and Conversant
HEENT: NormoCephalic and Anicteric
Respiratory: Clear and Non Labored Respirations
Cardiac: S1/S2, Regular Rhythm and Tachycardia
GI: Soft and not tender on my exam.
Rectal: No bleeding
Musculoskeletal: No Clubbing and No Cyanosis
Skin: Warm and Dry
: No hematuria
Neuro: Awake, Alert and Oriented, gait is unsteady
Psych: Calm
# Acute on chronic abdominal pain. No N/V
No chest pain.
Improved abd pain
Possible ETOH intake/use?, patient reported taking one drink while in [place]
History of chronic pancreatitis, low lipase.
CT of the abdomen pelvis did not show acute inflammatory changes, Positive for cirrhosis, portal hypertension, unchanged positioning of biliary stent with no evidence of biliary tract dilation.
- continue low-dose of IV Dilaudid as needed only, counseled to cut back. Avoid excessive dose to avoid confusion and side effects
Continue Bentyl PRN
No need for more IV fluid,
IV Protonix with pancreatic enzymes
d/w GI, started low dose Remeron at HS for nausea, ok to go home.
Primary oral hygienist Dr. Teixeira
# frequent stools
Watery
Non bloody
seen by me, seems c/w ongoing liver issues, not c/w infectious , also lack of pain/pain/leukocytosis
d/w GI doctor, hold Lactulose
# Mild DKA/starvation ketoacidosis.
Resolved
Now higher blood glucose, resume Lantus, c/w ISS. Pt is not eating well due to loss of appetite and pain
# pancytopenia due to liver disease
# Liver cirrhosis.
Low ammonia level
Continue with diuretic therapy, continue with Aldactone.
# Hypokalemia, replaced.
# Lactic acidosis, negative blood culture no respiratory or GI symptoms other than abdominal pain
# Chronic Hyponatremia:
#Hypomagnesemia, replaced.
# Failure to thrive
# Diabetic polyneuropathy, gait dysfunction, PT/OT
# She had MRI in 07/2024 performed for HCC screening revealed LI-RADS 4 lesion, suspicious for HCC. She was referred her to [facility] Hepatology, Dr. Valenzuela, and after further review of the imaging at tumor board, the lesion was upgraded to a
LI-RADS 5 lesion, consistent with HCC. MR in 11/29 with interval increase in size to 1.8 cm. Awaiting increase to 2 cm to intervene, as more treatment options will become available after that per patient. She has had recurrent admissions to this
year. History of pancolitis and gastroenteritis, ascending cholangitis , she underwent ERCP/EUS with drainage of pus and stent placement within the left hepatic duct. She was also noted to have esophageal varices and portal hypertensive
gastropathy; a cystic pancreatic head lesion was biopsied with results showing atypical cells of indeterminate significance.
Her son Jackson Lynn [phone]
Met with family at bed side, answered all questions. Requested to meet with case management manager, paulo Murguia
Total time spent to see the patient, examine the patient, review data and lab results, discuss treatment plan with patient, her family, GI doctor, cm, nursing staff around 45 minutes
Anticipated Discharge: Today
Subjective/Interval History
-
Date of Service: January 31, 2025
No chest pain
No abdominal pain this morning
Less diarrhea
Objective Data
-
Vital Signs:
Vital Signs
Temp Pulse Resp BP Pulse Ox
98.6 F 93 16 129/70 99
01/31/25 07:07 01/31/25 09:34 01/31/25 07:07 01/31/25 09:34 01/31/25 07:07
I&O
01/30/25 01/31/25 02/01/25
06:59 06:59 06:59
Intake Total 1260 / 1260 1260 / 1260
Balance 1260 / 1260 1260 / 1260
[2025-01-31 11:00] VITALS: BP 127/62
[2025-01-31 12:25] LABS: Glucose - Point of Care 357 mg/dl (70-99)
[2025-01-31] MEDS: NOVOLOG FLEXPEN-MODERATE RESISTANCE 9 UNITS SC (13:15)
[2025-01-31 15:09] VITALS: BP 114/66
[2025-01-31 16:36] LABS: Glucose - Point of Care 192 mg/dl (70-99)
[2025-01-31] MEDS: ATIVAN 0.25 MG PO (16:43)
[2025-01-31] MEDS: NOVOLOG FLEXPEN-MODERATE RESISTANCE 1 UNITS SC (16:45)
[2025-01-31] MEDS: KCL 20 MEQ PO (19:49)
[2025-01-31] MEDS: FLUSH (NSS) 1 FLUSH IV (20:00)
[2025-01-31] MEDS: FLUSH (NSS) 2 FLUSH IV (20:01)
[2025-01-31 21:34] LABS: Glucose - Point of Care 278 mg/dl (70-99)
[2025-01-31] MEDS: LEXAPRO 20 MG PO (21:50)
[2025-01-31] MEDS: REMERON 7.5 MG PO (21:50)
[2025-01-31 23:05] VITALS: BP 101/63
[2025-02-01] MEDS: TYLENOL 650 MG PO (01:56)
[2025-02-01] MEDS: ATIVAN 0.25 MG PO ×4 (02:00→21:41)
[2025-02-01 03:06] VITALS: BP 114/67
[2025-02-01 07:00] VITALS: BP 115/65
[2025-02-01 07:53] LABS: Hematocrit 38.9 % (37.0-47.0); Hemoglobin 13.2 g/dL (12.0-16.0); Mean Corp Hgb Conc. 33.9 g/dL (33.0-37.0); Mean Corpuscular Volume 93.5 fL (81.0-99.0); Platelet Count 64 10^3/uL (130-400); Red Cell Dist. Width 13.8 % (11.5-14.5)
[2025-02-01 08:16] LABS: ALT (SGPT) 49 U/L (0-35); AST (SGOT) 53 U/L (14-36); Albumin 3.6 g/dl (3.5-5.0); Alkaline Phosphatase 150 U/L (38-126); Blood Urea Nitrogen 5 mg/dl (7-17); Calcium 9.3 mg/dl (8.4-10.2); Carbon Dioxide 27 mmol/L (22-30); Chloride 101 mmol/L (98-107); Estimated Creatinine Clearance 49 ml/min; Glucose 251 mg/dl (70-99); Potassium 4.3 mmol/L (3.5-5.1); Sodium 134 mmol/L (135-145); Total Protein 6.3 g/dl (6.3-8.2); eGFR > 60.00
[2025-02-01 08:26] LABS: Glucose - Point of Care 238 mg/dl (70-99)
[2025-02-01] MEDS: LANTUS 0.2 UNITS SC (09:07)
[2025-02-01] MEDS: COREG 3.125 MG PO ×2 (09:07→20:12)
[2025-02-01] MEDS: NOVOLOG FLEXPEN-MODERATE RESISTANCE 3 UNITS SC (09:08)
[2025-02-01] MEDS: KCL 20 MEQ PO (09:08)
[2025-02-01] MEDS: ALDACTONE 50 MG PO ×2 (09:08→20:12)
[2025-02-01] MEDS: ZENPEP DELAYED RELEASE CAPSULE 1 CAPSULE PO ×4 (09:08→21:37)
[2025-02-01] MEDS: NSS (PRESERVATIVE FREE) 10 ML IV (09:09)
[2025-02-01] MEDS: MYCOSTATIN CREAM TOPICAL (09:09)
[2025-02-01] MEDS: PROTONIX IV 40 MG IV (09:10)
--- NOTE | 2025-02-01 09:11 | W.PN.HOSP.TC ---
Today's Communication/Plan
-
.
Assessment / Plan
Assessment / Plan
Physical Exam
General: Comfortable and Conversant
HEENT: NormoCephalic and Anicteric
Respiratory: Clear and Non Labored Respirations
Cardiac: S1/S2, Regular Rhythm and Tachycardia
GI: Soft and not tender on my exam.
Rectal: No bleeding
Musculoskeletal: No Clubbing and No Cyanosis
Skin: Warm and Dry
: No hematuria
Neuro: Awake, Alert and Oriented, gait is unsteady
Psych: Calm
# Acute on chronic abdominal pain
No chest pain.
Improved abd pain
Possible ETOH intake/use, patient reported taking one drink while in [place]. Liver function test showed high AST: ALT ratio
History of chronic pancreatitis, alcoholic liver cirrhosis, low lipase.
CT of the abdomen pelvis did not show acute inflammatory changes, Positive for cirrhosis, portal hypertension, unchanged positioning of biliary stent with no evidence of biliary tract dilation.
- continue low-dose of IV Dilaudid as needed only, counseled to cut back. Avoid excessive dose to avoid confusion and side effects
Continue Bentyl PRN
No need for more IV fluid, she is tolerating diet.
PRN low dose Ativan which seems to help
IV Protonix with pancreatic enzymes, change to oral PPI
d/w GI, started low dose Remeron at HS for nausea, ok to go home.
Primary lining feller blindstitch Dr. Teixeira
# frequent stools
Watery
Non bloody
seen by me, seems c/w ongoing liver issues, not c/w infectious , also lack of pain/pain/leukocytosis
d/w GI doctor, hold Lactulose , goal BM around 5 times a day.
# Anxiety
d/w pt, low dose Ativan helped.
# Mild DKA/starvation ketoacidosis.
Resolved
Now higher blood glucose, resumed Lantus, c/w ISS. Pt is eating better now, she had loss of appetite and pain and led to low blood glucose.
# pancytopenia due to liver disease
# Alcoholic Liver cirrhosis.
Low ammonia level
Continue with diuretic therapy, continue with Aldactone.
# Hypokalemia, replaced.
# Lactic acidosis, negative blood culture no respiratory or GI symptoms other than abdominal pain
# Chronic Hyponatremia:
#Hypomagnesemia, replaced.
# Failure to thrive
# Diabetic polyneuropathy, gait dysfunction, PT/OT
# She had MRI in 07/2024 performed for HCC screening revealed LI-RADS 4 lesion, suspicious for HCC. She was referred her to [facility] Hepatology, Dr. Valenzuela, and after further review of the imaging at tumor board, the lesion was upgraded to a
LI-RADS 5 lesion, consistent with HCC. MR in 11/29 with interval increase in size to 1.8 cm. Awaiting increase to 2 cm to intervene, as more treatment options will become available after that per patient. She has had recurrent admissions to this
year. History of pancolitis and gastroenteritis, ascending cholangitis , she underwent ERCP/EUS with drainage of pus and stent placement within the left hepatic duct. She was also noted to have esophageal varices and portal hypertensive
gastropathy; a cystic pancreatic head lesion was biopsied with results showing atypical cells of indeterminate significance.
Her son Jackson Lynn [phone]
Met with family at bed side, answered all questions. d/w CM.
Total time spent to see the patient, examine the patient, review data and lab results, discuss treatment plan with patient, her family, GI doctor, cm, nursing staff around 57 minutes
Anticipated Discharge: 24 - 48 hours
Subjective/Interval History
-
Date of Service: February 01, 2025
Objective Data
-
Labs:
Laboratory Results
02/01/25
07:20
WBC 6.4
Hgb 13.2
Hct 38.9
Plt Count 64 L D
Sodium 134 L
Potassium 4.3
Chloride 101
Carbon Dioxide 27
BUN 5 L
Creatinine 0.7
Glucose 251 H
Calcium 9.3
Total Bilirubin 1.4 H
AST 53 H
ALT 49 H
Alkaline Phosphatase 150 H
Vital Signs:
Vital Signs
Temp Pulse Resp BP Pulse Ox
98.4 F 94 16 115/65 99
02/01/25 07:00 02/01/25 07:00 02/01/25 07:00 02/01/25 07:00 02/01/25 07:00
I&O
01/31/25 02/01/25 02/02/25
06:59 06:59 06:59
Intake Total 1260 / 1260 840 / 840
Balance 1260 / 1260 840 / 840
--- NOTE | 2025-02-01 09:46 | CM ---
Obtained additional referrals for [facility] and [facility]. Will need auth once facility accepts
Plan: DC to SNF
[2025-02-01 11:00] VITALS: BP 121/64
[2025-02-01 12:00] LABS: Glucose - Point of Care 413 mg/dl (70-99)
[2025-02-01 12:31] LABS: Glucose 450 mg/dl (70-99)
[2025-02-01] MEDS: NOVOLOG FLEXPEN 15 UNITS SC (13:17)
[2025-02-01] MEDS: NOVOLOG FLEXPEN-MODERATE RESISTANCE 11 UNITS SC (13:18)
[2025-02-01 15:23] VITALS: BP 110/72
[2025-02-01 15:25] LABS: Glucose - Point of Care 349 mg/dl (70-99)
[2025-02-01 16:40] LABS: Glucose - Point of Care 255 mg/dl (70-99)
[2025-02-01] MEDS: NOVOLOG FLEXPEN-MODERATE RESISTANCE 5 UNITS SC (17:42)
[2025-02-01] MEDS: NOVOLOG FLEXPEN 7 UNITS SC (17:43)
[2025-02-01 20:00] VITALS: BP 125/78
[2025-02-01] MEDS: NSS (PRESERVATIVE FREE) IV (20:12)
[2025-02-01] MEDS: MYCOSTATIN CREAM 1 APPLIC TOPICAL (20:13)
[2025-02-01 21:04] LABS: Glucose - Point of Care 66 mg/dl (70-99)
[2025-02-01 21:33] LABS: Glucose - Point of Care 98 mg/dl (70-99)
[2025-02-01] MEDS: REMERON 7.5 MG PO (21:37)
[2025-02-01] MEDS: LEXAPRO 20 MG PO (21:37)
[2025-02-01 23:34] LABS: Glucose - Point of Care 178 mg/dl (70-99)
[2025-02-01 23:42] VITALS: BP 124/71
[2025-02-02] MEDS: TYLENOL 650 MG PO ×2 (00:19→09:02)
[2025-02-02 01:31] LABS: Glucose - Point of Care 212 mg/dl (70-99)
[2025-02-02 03:37] LABS: Glucose - Point of Care 218 mg/dl (70-99)
[2025-02-02 03:46] VITALS: BP 110/65
[2025-02-02 07:00] VITALS: BP 113/67
[2025-02-02 07:32] LABS: Hematocrit 37.5 % (37.0-47.0); Hemoglobin 13.1 g/dL (12.0-16.0); Mean Corp Hgb Conc. 34.9 g/dL (33.0-37.0); Mean Corpuscular Volume 92.4 fL (81.0-99.0); Platelet Count 68 10^3/uL (130-400); Red Cell Dist. Width 13.7 % (11.5-14.5)
[2025-02-02 07:58] LABS: Blood Urea Nitrogen 7 mg/dl (7-17); Calcium 9.4 mg/dl (8.4-10.2); Carbon Dioxide 28 mmol/L (22-30); Chloride 98 mmol/L (98-107); Estimated Creatinine Clearance 49 ml/min; Glucose 216 mg/dl (70-99); Potassium 4.1 mmol/L (3.5-5.1); Sodium 132 mmol/L (135-145); eGFR > 60.00
--- NOTE | 2025-02-02 08:17 | W.PN.HOSP.TC ---
Today's Communication/Plan
-
Discharge planning today
Assessment / Plan
Assessment / Plan
Physical Exam
General: Comfortable and Conversant
HEENT: NormoCephalic and Anicteric
Respiratory: Clear and Non Labored Respirations
Cardiac: S1/S2, Regular Rhythm and Tachycardia
GI: Soft and not tender on my exam.
Rectal: No bleeding
Musculoskeletal: No Clubbing and No Cyanosis
Skin: Warm and Dry
: No hematuria
Neuro: Awake, Alert and Oriented, gait is unsteady
Psych: Calm
# Acute on chronic abdominal pain
No chest pain.
Improved abd pain
Possible ETOH intake/use, patient reported taking one drink while in [place]. Liver function test showed high AST: ALT ratio
History of chronic pancreatitis, alcoholic liver cirrhosis, low lipase.
CT of the abdomen pelvis did not show acute inflammatory changes, Positive for cirrhosis, portal hypertension, unchanged positioning of biliary stent with no evidence of biliary tract dilation.
- continue low-dose of IV Dilaudid as needed only, counseled to cut back. Avoid excessive dose to avoid confusion and side effects
Continue Bentyl PRN
No need for more IV fluid, she is tolerating diet.
PRN low dose Ativan which seems to help
IV Protonix with pancreatic enzymes, change to oral PPI
d/w GI, started low dose Remeron at HS for nausea, ok to go home.
Primary sterile technician Dr. Teixeira
Today on 02/02:
On pancreatic replacement therapy as recommended by GI
Continue home PPI
Will change Ativan to hydroxyzine for anxiety and less addictive side effect and less hepatotoxicity
Will also change escitalopram to mirtazapine for antidepressant and appetite stimulant both
Unable to go to rehab so plan to go home with home health
# frequent stools
Watery
Non bloody
seen by me, seems c/w ongoing liver issues, not c/w infectious , also lack of pain/pain/leukocytosis
d/w GI doctor, hold Lactulose , goal BM around 5 times a day.
# Anxiety
d/w pt, low dose Ativan helped.
# Mild DKA/starvation ketoacidosis.
Resolved
Now higher blood glucose, resumed Lantus, c/w ISS. Pt is eating better now, she had loss of appetite and pain and led to low blood glucose.
# pancytopenia due to liver disease
# Alcoholic Liver cirrhosis.
Low ammonia level
Continue with diuretic therapy, continue with Aldactone.
# Hypokalemia, replaced.
# Lactic acidosis, negative blood culture no respiratory or GI symptoms other than abdominal pain
# Chronic Hyponatremia:
#Hypomagnesemia, replaced.
# Failure to thrive
# Diabetic polyneuropathy, gait dysfunction, PT/OT
# She had MRI in 07/2024 performed for HCC screening revealed LI-RADS 4 lesion, suspicious for HCC. She was referred her to [facility] Hepatology, Dr. Valenzuela, and after further review of the imaging at tumor board, the lesion was upgraded to a
LI-RADS 5 lesion, consistent with HCC. MR in 11/29 with interval increase in size to 1.8 cm. Awaiting increase to 2 cm to intervene, as more treatment options will become available after that per patient. She has had recurrent admissions to this
year. History of pancolitis and gastroenteritis, ascending cholangitis , she underwent ERCP/EUS with drainage of pus and stent placement within the left hepatic duct. She was also noted to have esophageal varices and portal hypertensive
gastropathy; a cystic pancreatic head lesion was biopsied with results showing atypical cells of indeterminate significance.
Her son Jackson Lynn [phone]
d/w CM.
Total time spent to see the patient, examine the patient, review data and lab results, discuss treatment plan with patient, her family, GI doctor, cm, nursing staff around 35 minutes
Anticipated Discharge: Today
Subjective/Interval History
-
Date of Service: February 02, 2025
Patient denies abdominal pain today. She does have depressed mood and anxiety. No suicidal ideation or homicidal ideations.
Objective Data
-
Labs:
Laboratory Results
02/02/25
06:51
WBC 5.6
Hgb 13.1
Hct 37.5
Plt Count 68 L
Sodium 132 L
Potassium 4.1
Chloride 98
Carbon Dioxide 28
BUN 7
Creatinine 0.7
Glucose 216 H
Calcium 9.4
Vital Signs:
Vital Signs
Temp Pulse Resp BP Pulse Ox
97.9 F 81 16 110/65 99
02/02/25 03:46 02/02/25 03:46 02/02/25 03:46 02/02/25 03:46 02/02/25 03:46
I&O
02/01/25 02/02/25 02/03/25
06:59 06:59 06:59
Intake Total 840 / 840 960 / 960
Balance 840 / 840 960 / 960
[2025-02-02 08:18] LABS: Glucose - Point of Care 219 mg/dl (70-99)
[2025-02-02] MEDS: MYCOSTATIN CREAM 1 APPLIC TOPICAL (08:53)
[2025-02-02] MEDS: LANTUS 0.2 UNITS SC (08:53)
[2025-02-02] MEDS: NOVOLOG FLEXPEN-MODERATE RESISTANCE 3 UNITS SC (08:54)
[2025-02-02] MEDS: NOVOLOG FLEXPEN 7 UNITS SC ×2 (08:54→13:11)
[2025-02-02] MEDS: PROTONIX 40 MG PO (08:55)
[2025-02-02] MEDS: COREG 3.125 MG PO (08:55)
[2025-02-02] MEDS: KCL 20 MEQ PO (08:55)
[2025-02-02] MEDS: ZENPEP DELAYED RELEASE CAPSULE 1 CAPSULE PO ×2 (08:55→13:11)
[2025-02-02] MEDS: DUPHALAC/CHRONULAC PO (08:56)
[2025-02-02] MEDS: ALDACTONE 50 MG PO (08:56)
[2025-02-02] MEDS: NSS (PRESERVATIVE FREE) IV (08:56)
[2025-02-02] MEDS: ATIVAN 0.25 MG PO (09:02)
--- NOTE | 2025-02-02 09:26 | CM ---
Addendum entered by Nahomi Murray 02/02/25 11:50:
TT with Dr. Adams;pt will be discharged today to home with [facility]
Addendum entered by Nahomi Murray 02/02/25 11:27:
Pt seen by PT& OT today, [facility] home [facility]. Discussed VN choices with pt; she selected [facility]. referral placed. Pt has food and transportation insecurities at this time..Son has her car and lives in [place]. Checking with hospitalist now for DC status.
PT given these resources: [employer] [facility] and [email or web address] for meal delivery
Plan: Home witih [facility]
Original Note:
Informed pt that [facility] does not accept her health insurance. Pt has not had a PT/OT eval since 01/28. They will re-eval today. Pt may be able to go home with home care if she has improved function. If she still needs SNF, CM will have to get an
auth and an accepting SNF
Plan: Home with HH vs SNF; pending PT.OT eval today
[2025-02-02 10:31] VITALS: BP 103/63
[2025-02-02 11:00] VITALS: BP 106/59
[2025-02-02 11:29] VITALS: BP 103/63; O2SAT 100
--- NOTE | 2025-02-02 11:56 | W.DCSUMMARY ---
Discharge Summary
Discharge Data
Date of Admission: 01/27/25
Date of Discharge: 02/02/25
Total time spent discharging patient (in min): 35
-
Pending Results: No
Hospital Course
Patient 64 years old female past medical history of diabetes mellitus, alcoholic cirrhosis, hepatocellular carcinoma, grade 1 esophageal varices, portal gastropathy, recent cholangitis, pancreatic head cyst with atypical cells, chronic pancreatitis,
came into the hospital with abdominal pain. Patient images consistent with chronic pancreatitis. GI was consulted. She was hydrated, pain medications, started on pancreatic replacement therapy, and also started on Remeron while inpatient. We
discontinued escitalopram to avoid serotonin syndrome. Diabetic regimen was adjusted but back to her home regimen upon discharge and adjustment as needed as an outpatient. She also had follow-up as outpatient with Dr. Burch for pancreatic lesion and
GI follow-up for her general GI issues. She also has good follow-up with her oncology as outpatient. Otherwise, patient has been feeling much better in terms of symptoms and able to tolerate diet and ambulate well. Initially she was going to go
to rehab but she would not qualify and she is okay going home with home health care. Patient participated with PT OT and they also reevaluated patient and felt okay for her to go home with home health care. Patient is hemodynamically stable. She
will be discharged in relatively stable condition today.
Discharge duration: 35 minutes
Discharge Plan
-
Patient Disposition: Home with Home Care
Discharge Diagnosis/Procedures: Chronic pancreatitis. Alcoholic cirrhosis. Depression and anxiety. Hepatocellular carcinoma. Gastroesophageal reflux disease.
Diet: Low Cholesterol
Activity: As tolerated
Blood Work: Please PCP to order CBC, CMP within 1 week
Referrals:
Oncology provider [Other] - in one to two months
Kathleen Navarro PA-C [Family Provider, Internal Medicine] - in less than 1 week
Ray Burch MD [Active, Gastroenterology] - 02/27/25 1:00 pm
Referral Note: Additional Referral Information:
Please call to reschedule if you can not keep this appointment. If your insurance requires a referral please contact your primary care physician prior to your appointment.
Joceline Teixeira, [Active, Gastroenterology]
Referral Note: 03/17/20[address] [facility] [address] Teixeira
Prescriptions:
New
mirtazapine 7.5 mg Tablet
7.5 mg PO HS 30 Days Qty: 30 0RF
hydroxyzine HCl 10 mg tablet
10 mg PO TID 10 Days Qty: 30 0RF
Zenpep 10,000-32,000 -42,000 unit Capsule,Delayed Release(Dr/Ec)
1 cap PO ACHS 30 Days Qty: 120 0RF
Continued
omeprazole 20 MG capsule,delayed release(DR/EC)
20 mg PO DAILY
trazodone 50 mg Tablet
25 mg PO HS
cholecalciferol (vitamin D3) [Vitamin D3] 25 mcg (1,000 unit) Tablet
25 mcg PO DAILY
spironolactone 50 mg Tablet
50 mg PO BID
carvedilol 3.125 mg tablet
3.125 mg PO BID
dicyclomine 10 mg capsule
10 mg PO QIDPRN PRN (Reason: abdominal pain)
insulin glargine [Lantus Solostar U-100 Insulin] 100 unit/mL (3 mL) insulin pen
18 unit SC DAILY
lactulose 10 gram/15 mL Solution
20 g PO DAILY Qty: 16 0RF
insulin aspart U-100 100 unit/mL (3 mL) insulin pen
10 unit SC AC Qty: 15 0RF
Discontinued
escitalopram oxalate [Lexapro] 20 mg Tablet
20 mg PO HS
Discharge Orders:
Discharge Patient (As Directed); Ordered 02/02/25
Ordered By: Karri Adams
Discharge Date and Time
Discharge Date/Time: 02/02/25 15:14
Print Language: SERBIAN
--- NOTE | 2025-02-02 12:01 | VNURNOTE ---
Home Health Liaison met with patient at bedside to discuss [facility] nurse/therapy, visits, schedule and homebound status. Patient is agreeable and understands that visits at home will be 2-3 x per week to assess and teach medical management. Patient
is aware that [facility] will contact them for start of care within a week after discharge from . Provided contact number for [facility]. Pt concerned about going home alone. She stated her sister lives in [place]- she does not want to stay
w/her. Provided pt with list of agencies.
[facility] referral completed in [facility].
[2025-02-02 12:25] LABS: Glucose - Point of Care 281 mg/dl (70-99)
[2025-02-02] MEDS: NOVOLOG FLEXPEN-MODERATE RESISTANCE 5 UNITS SC (13:10)
[2025-02-02 15:12] VITALS: BP 120/74
== END 2025-02-02 15:14 | disposition home health service (06) | DRG 435 ==
LOC: 4 EAST ACU 17:43
PROVIDERS: Physician Assistant Medical; Surgery Trauma Surgery; ADMITTING PHYSICIAN Internal Medicine; ATTENDING PHYSICIAN Hospitalist; EMERGENCY PHYSICIAN Emergency Medicine; FAMILY PHYSICIAN Physician Assistant; OTHER PHYSICIAN Internal Medicine Gastroenterology
DX: C22.0 Liver cell carcinoma (principal); E11.10 Type 2 diabetes mellitus with ketoacidosis without coma; E43 Unspecified severe protein-calorie malnutrition; K86.1 Other chronic pancreatitis; Z68.1 Body mass index [BMI] 19.9 or less, adult; D61.818 Other pancytopenia; K76.6 Portal hypertension; E87.1 Hypo-osmolality and hyponatremia; K70.31 Alcoholic cirrhosis of liver with ascites; F32.9 Major depressive disorder, single episode, unspecified; F41.9 Anxiety disorder, unspecified; K21.9 Gastro-esophageal reflux disease without esophagitis; Z79.4 Long term (current) use of insulin; E87.6 Hypokalemia; E83.42 Hypomagnesemia; R62.7 Adult failure to thrive; F10.11 Alcohol abuse, in remission; Z79.899 Other long term (current) drug therapy; Z88.0 Allergy status to penicillin; Z88.1 Allergy status to other antibiotic agents; Z88.2 Allergy status to sulfonamides; Z88.3 Allergy status to other anti-infective agents
CPT/HCPCS: 74177; 80048; 80053; 80076; 82010; 82140; 82150; 82248; 82805; 82947; 82962; 83605; 83690; 83735; 84132; 84484; 85025; 85027; 85610; 87040; 93005; 96361; 96374; 96375; 96376; 97116; 97163; 97166; 97530; 97535; 99285; Q9967